=== PATIENT | male | born 1945 | race Caucasian/White ===

== ENCOUNTER → 2017-06-15 14:17 | Outpatient (CLI) | payer MEDICARE, SELFPAY ==
[2017-06-15 15:26] LABS: International Normalized Ratio 2.3; Prothrombin Time (Protime)PT. 24.4 SECONDS (11.7-14.9)
== END ==
PROVIDERS: Family Provider Family Medicine; PCP Family Medicine; Visit Provider Physician Assistant Medical
DX: I48.91 Unspecified atrial fibrillation (principal)
CPT/HCPCS: 36415; 85610

== ENCOUNTER 2017-07-04 11:34 | Outpatient (RCR) | payer MEDICARE, SELFPAY ==
[2017-07-04 12:57] LABS: International Normalized Ratio 2.6; Prothrombin Time (Protime)PT. 27.1 SECONDS (11.7-14.9)
== END 2017-07-04 12:00 | disposition home or self-care (01) ==
LOC: LAB 11:34
PROVIDERS: Family Provider Family Medicine; PCP Family Medicine; Visit Provider Internal Medicine Cardiovascular Disease
DX: I48.91 Unspecified atrial fibrillation (principal)
CPT/HCPCS: 36415; 85610

== ENCOUNTER 2017-10-18 11:38 | Outpatient (RCR) | payer MEDICARE, SELFPAY ==
[2017-10-18 12:39] LABS: International Normalized Ratio 2.8; Prothrombin Time (Protime)PT. 29.4 SECONDS (11.7-14.9)
== END 2017-10-18 12:00 | disposition home or self-care (01) ==
LOC: LAB 11:38
PROVIDERS: Family Provider Family Medicine; PCP Family Medicine; Visit Provider Internal Medicine Cardiovascular Disease
DX: I48.91 Unspecified atrial fibrillation (principal)
CPT/HCPCS: 36415; 85610

== ENCOUNTER 2017-11-29 13:25 | Outpatient (RCR) | payer MEDICARE, SELFPAY ==
[2017-11-29 14:11] LABS: International Normalized Ratio 2.7; Prothrombin Time (Protime)PT. 28.8 SECONDS (11.7-14.9)
== END 2017-11-29 15:00 | disposition home or self-care (01) ==
LOC: LAB 13:25
PROVIDERS: Family Provider Family Medicine; PCP Family Medicine; Visit Provider Internal Medicine Cardiovascular Disease
DX: I48.91 Unspecified atrial fibrillation (principal); Z79.01 Long term (current) use of anticoagulants
CPT/HCPCS: 36415; 85610

== ENCOUNTER 2018-01-05 10:34 | Outpatient (RCR) | payer MEDICARE, SELFPAY ==
[2018-01-05 11:29] LABS: International Normalized Ratio 2.8; Prothrombin Time (Protime)PT. 29.4 SECONDS (11.7-14.9)
== END 2018-01-05 12:00 | disposition home or self-care (01) ==
LOC: LAB 10:34
PROVIDERS: Family Provider Family Medicine; PCP Family Medicine; Visit Provider Internal Medicine Cardiovascular Disease
DX: I48.91 Unspecified atrial fibrillation (principal)
CPT/HCPCS: 36415; 85610

== ENCOUNTER → 2018-01-25 12:40 | Outpatient (CLI) | payer MEDICARE, SELFPAY | PROVIDERS: Family Provider Family Medicine; PCP Family Medicine; Visit Provider Internal Medicine Cardiovascular Disease | DX: I48.91 Unspecified atrial fibrillation (principal) | CPT/HCPCS: 36415; 85610 ==

== ENCOUNTER 2018-02-21 13:03 | Outpatient (RCR) | payer MEDICARE, SELFPAY ==
[2018-02-21 14:24] LABS: International Normalized Ratio 2.8; Prothrombin Time (Protime)PT. 29.8 SECONDS (11.7-14.9)
== END 2018-02-21 14:00 | disposition home or self-care (01) ==
LOC: LAB 13:03
PROVIDERS: Family Provider Family Medicine; PCP Family Medicine; Visit Provider Internal Medicine Cardiovascular Disease
DX: I48.91 Unspecified atrial fibrillation (principal); Z79.01 Long term (current) use of anticoagulants
CPT/HCPCS: 36415; 85610

== ENCOUNTER 2018-04-03 13:58 | Outpatient (RCR) | payer MEDICARE, SELFPAY ==
[2018-04-03 15:25] LABS: International Normalized Ratio 2.6; Prothrombin Time (Protime)PT. 27.6 SECONDS (11.7-14.9)
--- OUTSIDE RECORDS SUMMARY | 2018-05-30 03:23 | XMS RPT_ITS ---
:1945 Author Organization OHIP Support Name Relationship Address Phone RONI CÁRDENAS Unavailable [address] + [place] [address] R Unavailable Unavailable Unavailable RONI CÁRDENAS Unavailable [address] + [place] [address] R Unavailable Unavailable Unavailable RONI CÁRDENAS Unavailable [address] + [place] [address] R Unavailable Unavailable Unavailable RONI CÁRDENAS Unavailable [address] + [place] [address] R Unavailable Unavailable Unavailable RONI CÁRDENAS Unavailable [address] + [place] [address] R Unavailable Unavailable Unavailable RONI CÁRDENAS Unavailable [address] + [place] [address] R Unavailable Unavailable Unavailable RONI CÁRDENAS Unavailable [address] + [place] [address] R Unavailable Unavailable Unavailable RONI CÁRDENAS Unavailable [address] + [place] [address] R Unavailable Unavailable Unavailable R Unavailable Unavailable Unavailable R Unavailable Unavailable Unavailable R Unavailable Unavailable Unavailable R Unavailable Unavailable Unavailable R Unavailable Unavailable Unavailable Care Team Providers Name Role Phone Martinez Rivas Attending Unavailable Elderjose f, Vy Primary Care Unavailable Martinez Rivas Referring Unavailable Yu Dawkins Attending Unavailable Elderbrock, Vy Primary Care Unavailable Sebastian Ordoñez Attending Unavailable Elderbrock, Vy Referring Unavailable Elderbrock, Vy Primary Care Unavailable Martinez Rivas Attending Unavailable Martinez Rivas Referring Unavailable Elderjose f, Vy Primary Care Unavailable Martinez Rivas Attending Unavailable Martinez Rivas Referring Unavailable Elderbrock, Vy Primary Care Unavailable Ayana Diggs Attending Unavailable Martinez Rivas Attending Unavailable Ngack, Vy Referring Unavailable Martinez Rivas Attending Unavailable Martinez Rivas Referring Unavailable Elderbrojaerd, Vy Primary Care Unavailable Martinez Rivas Attending Unavailable Martinez Rivas Referring Unavailable Elderbrock, Vy Primary Care Unavailable Martinez Rivas Attending Unavailable Martinez Rivas Referring Unavailable Elderbrock, Vy Primary Care Unavailable Martinez Rivas Attending Unavailable Martinez Rivas Referring Unavailable Elderbrock, Vy Primary Care Unavailable Martinez Rivas Attending Unavailable Martinez Rivas Referring Unavailable Elderbrock, Vy Primary Care Unavailable Sebastian Ordoñez Attending Unavailable Elderbrock, Vy Referring Unavailable Elderbrock, Vy Primary Care Unavailable ELDERBROCK, VY Segal Attending Unavailable ELDERBROCK, VY D Referring Unavailable ATA SERRANO Attending Unavailable ATA SERRANO Referring Unavailable SAGAR MANRIQUE (ENGINEERING FACULTY) Attending Unavailable ATA SERRANO Referring Unavailable SAGAR MANRIQUE (ENGINEERING FACULTY) Referring Unavailable GARY QUIGLEY Referring Unavailable ELDERBROCK, VY Segal Attending Unavailable ELDERBROCK, VY Segal Attending Unavailable ELDERBROCK, VY Segal Referring Unavailable ELDERBROCK, VY Segal Referring Unavailable KHARI JOSHI Attending Unavailable ELDERKIMCK, VY Segal Referring Unavailable KHARI JOSHI Admitting Unavailable KHARI JOSHI Attending Unavailable ELDERKIMCKVY Referring Unavailable JEANNE KENNEDY ([place]) Attending Unavailable KHARI JOSHI Referring Unavailable KHARI JOSHI Attending Unavailable KHARI JOSHI Referring Unavailable JOSH JOHN Attending Unavailable JOSH JOHN Referring Unavailable PROBLEMS PROBLEMS DATE TYPE CONDITION / CODE ATTENDING STATUS SOURCE 04/09/2018 Unknown I48.91 - Unspecified Martinez Rivas Active [facility] atrial fibrillation [facility] / I48.91(ICD-10) Hospital Repository 03/05/2018 Active Unknown / PETTYTOCARINE, Active [place] UNK(Unknown) JEANNE ([facility]) Clinic Main [place] Repository 02/22/2018 Active Carpal tunnel KHARI JOSHI Active [facility] syndrome, bilateral Clinic Main upper limbs / [place] G56.03(ICD-10) Repository 11/29/2010 Active Impaired fasting NA Active [facility] glucose / Clinic Main R73.01(ICD-10) [place] Repository 10/31/2017 Active Laceration without NA Active [facility] foreign body of left [facility] Main ring finger with [place] damage to nail, Repository sequela / S61.315S(ICD-10) 10/11/2017 Active Cough / R05(ICD-10) NA Active [facility] [place] Repository 07/05/2017 Active 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 [facility] (current) drug [facility] Main therapy / [place] Z79.899(ICD-10) Repository 04/04/2017 Active Unspecified atrial ELDERBRO, Active [facility] fibrillation / V[place] D [facility] Main I48.91(ICD-10) [place] Repository 07/20/2015 Active Mixed hyperlipidemia [facility], Active [facility] / E78.2(ICD-10) VY D [facility] Main [place] Repository 06/26/2009 Active Essential (primary) ELDERBROCK, Active [facility] hypertension / [place] D [facility] Main I10(ICD-10) [place] Repository 07/04/2017 Active Other abnormal [facility], Active [facility] glucose / VY D [facility] Main R73.09(ICD-10) [place] Repository 07/04/2017 Active Elevated prostate [facility], Active [facility] specific antigen [facility] Main (PSA) / [place] R97.20(ICD-10) Repository PROCEDURES PROCEDURES No Procedure Records FoundRESULTS RESULTS PROTHROMBIN TIME W/INR Collected: 04/03/2018 Status: F Source: [place] 2:06 PM [facility] REPOSITORY TYPE CODE TESTS RESULT OUT OF RANGE REFERENCE UNITS LAB L300.4150 11.7-14.9 SECONDS High PROTIME 27.6 LAB L300.4200 Normal INR 2.6 Performed By: #### L300.3900 #### [facility] [address] [place], [address] PROGRESS Observed: 03/05/2018 Status: COMPLETED Source: [place] 11:01 AM [facility] REPOSITORY HNO ID: [id number] Author: Jeanne Kennedy (Pa) Service: (none) Author Type: Physician Tube Cutter Type: Progress Notes Filed: 03/05/2018 11:03 AM Note Text: Jeanne Kennedy PA-C Department of Orthopaedics Orthopaedics [address] [facility] [address] Dept: [phone] Dept March 05, 2018 CHIEF COMPLAINT: Surgical Followup (left CTR 1 week 4 day). ASSESSMENT: G56.02 Carpal tunnel syndrome of left wrist (primary encounter diagnosis) SUMMARY/PLAN: Patient presents 1 week and 4 days status post left carpal tunnel release. He complains of 5 out of 10 and intermittent deep, sharp, aching pain that is worse with activity. The patient has not been icing or elevating. He tells me that he heat to his home with reported and is having a difficult time with a 5 pound weight restriction. He notes that one of his sutures popped out. We willl remove his remaining sutures today, he did not wish to be fitted with a gel brace. He was advised to start icing and elevating. We will see him back in 1 month. Exam: Incision site is without erythema, discharge or drainage. There is a moderate amount of edema and tenderness to palpation at the base of the palm. Subjective numbness and tingling at the left thumb and left index finger. Imaging: Deferred today Mr. Emma Cárdenas was advised as to contrast therapies and/or to take analgesics/anti-inflammatories as needed and all contraindications were reviewed. Supporting Information Below: Medications: Current Outpatient Prescriptions: timolol maleate (TIMOPTIC) 0.5 % ophthalmic solution Use 1 Drop in both eyes twice daily. propranolol ER (INDERAL LA) 60 mg 24 hr capsule Take 1 capsule by mouth once daily. tamsulosin ER (FLOMAX) 0.4 mg cap TAKE 1 CAPSULE EVERY DAY AT BEDTIME lisinopril (ZESTRIL, PRINIVIL) 5 mg tablet TAKE 1 TABLET EVERY DAY simvastatin (ZOCOR) 40 mg tablet TAKE 1 TABLET EVERY DAY fluticasone (FLONASE) 50 mcg/actuation nasal spray Use 2 Sprays in each nostril once daily. (Patient not taking: Reported on 01/25/2018 ) warfarin (COUMADIN) 5 mg tablet Take 1 tablet by mouth once daily. [place]-3 Fatty Acids-Vitamin E (FISH OIL) 1,000 mg cap Take 1 capsule by mouth. latanaprost 0.005 % OPHTHALMIC ophthalmic solution Use 1 Drop in both eyes once daily. No current facility-administered medications for this visit. Allergies: Flagyl [Metronidazole Hcl]; Imipramine This note was partially generated using [employer] voice recognition system, and there may be some incorrect words, spellings, and punctuation that were not noted in checking the note before saving. ABUNDIO Lawson Observed: 03/05/2018 Status: COMPLETED Source: [place] 11:00 AM [facility] REPOSITORY Office Visit (ORTHWS) EMMA CÁRDENAS ([id number]) 1945 M Date Time Provider Department 03/05/18 11:00 AM JEANNE KENNEDY (PA) During your visit today, we recorded the following information about you: Brittney Noe SURVEILLANCE DUAL RATE OFFICER 03/05/2018 11:03 AM Signed AMB ROOMING INTAKE FLOWSHEET DATA Risk Screening Do you have concerns about personal safety or safety in the home?: No Patient here for one week 4 day CTR follow up. He states he has very intermittent pain, described as a sharp ache. He has been using Aleve at night with some relief. Jeanne Kennedy PA-C 03/05/2018 11:03 AM Signed Jeanne Kennedy PA-C Department of Orthopaedics Orthopaedics [address] [facility] [address] Dept: [phone] Dept March 05, 2018 CHIEF COMPLAINT: Surgical Followup (left CTR 1 week 4 day). ASSESSMENT: G56.02 Carpal tunnel syndrome of left wrist (primary encounter diagnosis) SUMMARY/PLAN: Patient presents 1 week and 4 days status post left carpal tunnel release. He complains of 5 out of 10 and intermittent deep, sharp, aching pain that is worse with activity. The patient has not been icing or elevating. He tells me that he heat to his home with reported and is having a difficult time with a 5 pound weight restriction. He notes that one of his sutures popped out. We willl remove his remaining sutures today, he did not wish to be fitted with a gel brace. He was advised to start icing and elevating. We will see him back in 1 month. Exam: Incision site is without erythema, discharge or drainage. There is a moderate amount of edema and tenderness to palpation at the base of the palm. Subjective numbness and tingling at the left thumb and left index finger. Imaging: Deferred today Mr. Emma Cárdenas was advised as to contrast therapies and/or to take analgesics/anti-inflammatories as needed and all contraindications were reviewed. Supporting Information Below: Medications: Current Outpatient Prescriptions: timolol maleate (TIMOPTIC) 0.5 % ophthalmic solution Use 1 Drop in both eyes twice daily. propranolol ER (INDERAL LA) 60 mg 24 hr capsule Take 1 capsule by mouth once daily. tamsulosin ER (FLOMAX) 0.4 mg cap TAKE 1 CAPSULE EVERY DAY AT BEDTIME lisinopril (ZESTRIL, PRINIVIL) 5 mg tablet TAKE 1 TABLET EVERY DAY simvastatin (ZOCOR) 40 mg tablet TAKE 1 TABLET EVERY DAY fluticasone (FLONASE) 50 mcg/actuation nasal spray Use 2 Sprays in each nostril once daily. (Patient not taking: Reported on 01/25/2018 ) warfarin (COUMADIN) 5 mg tablet Take 1 tablet by mouth once daily. [place]-3 Fatty Acids-Vitamin E (FISH OIL) 1,000 mg cap Take 1 capsule by mouth. latanaprost 0.005 % OPHTHALMIC ophthalmic solution Use 1 Drop in both eyes once daily. No current facility-administered medications for this visit. Allergies: Flagyl [Metronidazole Hcl]; Imipramine This note was partially generated using [employer] voice recognition system, and there may be some incorrect words, spellings, and punctuation that were not noted in checking the note before saving. Jeanne Kennedy PA-C Referring Provider: KHARI JOSHI [[id number]] Allergies As of Date: 03/05/2018 Noted Allergy Reaction FLAGYL (METRONIDAZOLE HCL) 11/23/2006 8 - GI Upset Comments: nausea IMIPRAMINE 08/17/2007 5 - Intolerance Comments: Urinary retention Date Reviewed: 03/05/2018 Reviewed by: Jeanne Kennedy (Pa) - Fully Assessed Reason for Visit: Surgical Followup [104] Cmt: left CTR 1 week 4 day Primary Visit Diagnosis:Carpal tunnel syndrome of left wrist [G56.02] Prescriptions as of 03/05/2018 Sig: TIMOLOL MALEATE 0.5 % EYE NABIL* Use 1 Drop in both eyes twice* PROPRANOLOL ER 60 MG CAPSULE,* Take 1 capsule by mouth once * TAMSULOSIN 0.4 MG CAPSULE TAKE 1 CAPSULE EVERY DAY AT B* LISINOPRIL 5 MG TABLET TAKE 1 TABLET EVERY DAY SIMVASTATIN 40 MG TABLET TAKE 1 TABLET EVERY DAY FLUTICASONE 50 MCG/ACTUATION * Use 2 Sprays in each nostril * Patient not taking: Reported on 01/25/2018 WARFARIN 5 MG TABLET Take 1 tablet by mouth once d* [place]-3 FATTY ACIDS-VITAMIN E* Take 1 capsule by mouth. 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 ELEVATED PROSTATE SPECIFIC ANTIGEN [R97.20] INVALID FOR* More... Bladder neck obstruction [N32.0] INVALID FOR*10/12/2011 Benign prostatic hyperplasia with urinary hesit*INVALID FOR* Nodular prostate with urinary obstruction [N40.*INVALID FOR*10/12/2011 MALIGN NEOPL PROSTATE [C61] INVALID FOR* More... 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 Diverticulitis of colon (without mention of hem*INVALID FOR* Other affections of shoulder region, not elsewh*INVALID FOR*10/12/2011 Elevated PSA [R97.20] INVALID FOR*06/28/2016 Atrial fibrillation (HCC) [I48.91] INVALID FOR* Carpal tunnel syndrome of left wrist [G56.02] INVALID FOR* More... Carpal tunnel syndrome, bilateral [G56.03] INVALID FOR* More... Bilateral carpal tunnel syndrome [G56.03] INVALID FOR* More... Encounter Status:Closed by JEANNE KENNEDY PA-C on 03/05/18 PROGRESS Observed: 03/05/2018 Status: COMPLETED Source: [place] 10:33 AM [facility] REPOSITORY HNO ID: [id number] Author: Brittney Noe LPN Service: (none) Author Type: (none) Type: Progress Notes Filed: 03/05/2018 11:03 AM Note Text: AMB ROOMING INTAKE FLOWSHEET DATA Risk Screening Do you have concerns about personal safety or safety in the home?: No Patient here for one week 4 day CTR follow up. He states he has very intermittent pain, described as a sharp ache. He has been using Aleve at night with some relief. NURSING PROG Observed: 02/22/2018 Status: COMPLETED Source: [place] 5:05 PM [facility] REPOSITORY HNO ID: [id number] Author: Cathy Galeas) ATA Caruso Service: (none) Author Type: Registered Nurse Type: Nursing Progress Note Filed: 02/22/2018 5:27 PM Note Text: Patient did not experience a fall prior to discharge. Patient did not experience a burn prior to discharge. Cathy Caruso RN PT ED Observed: 02/22/2018 Status: COMPLETED Source: [place] 5:00 PM [facility] REPOSITORY HNO ID: [id number] Author: Cathy Caruso RN Service: (none) Author Type: Registered Nurse Type: Patient Education Filed: 02/22/2018 5:28 PM Note Text: POST OP LEARNING RESPONSE INSTRUCTION PROVIDED TO: Patient and Spouse METHOD OF INSTRUCTION: Individual instruction Written instruction - handouts Verbal instruction PATIENT / FAMILY RESPONSE: Verbalizes understanding of: INFECTION MANAGEMENT-Signs and symptoms of an infection and importance of contacting the physician MEDICAL REGIMEN-Importance of following prescribed medical regimen MEDICATION PRESCRIBED-Accurate knowledge of prescribed medication prior to discharge PHYSICAL RESTRICTIONS-Physical restrictions and recommendations after discharge from the hospital POST-OPERATIVE INSTRUCTIONS-Correct actions to take to reduce postoperative complications WORSENING CONDITION-Signs and symptoms of a worsening condition that warrant a call to the physician WOUND CARE-Correct procedure to perform wound care FOLLOW-UP PLAN: Patient instructed to call with any further issues Follow up phone call. Contact information given. post op appts SUPPLEMENTAL MATERIAL: Post op discharge instructions REFERRAL (RECOMMENDATION): None Electronically Signed By: Cathy Caruso RN In Department: AMBULATORY SURGERY OPERATIVE NO Observed: 02/22/2018 Status: COMPLETED Source: [place] 4:50 PM [facility] REPOSITORY O ID: [id number] Author: Khari Joshi Service: Orthopaedic Surgery Author Type: Physician Type: Operative Report Filed: 02/22/2018 4:50 PM Note Text: OPERATIVE/PROCEDURE REPORT LOG ID: [id number] Surgery/Procedure Date: 02/22/2018 Incision/Procedure Start Time: 4:12 PM Incision Close/Procedure End Time: 4:29 PM Surgeon(s)/Proceduralist(s) and Tube Cutter(s): Surgeon(s) and Role: * Khari Joshi - Primary No Additional Staff Procedure(s): OPERATION: Left carpal tunnel release, open. ? ANESTHESIA: local. ? PREOPERATIVE DIAGNOSIS: Left carpal tunnel syndrome. ? POSTOPERATIVE DIAGNOSIS: Left carpal tunnel syndrome. ? OPERATIVE INDICATIONS: This is a pleasant 72 year old male who had worsening, numbness, and tingling. His electrodiagnostic showed severe carpal tunnel syndrome. He exhausted conservative management and in the office, we discussed the risks, benefits, alternatives, and potential complications involving carpal tunnel release and he wished to pursue surgical intervention. ? OPERATIVE FINDINGS: Consistent with postoperative diagnosis. ? OPERATIVE PROCEDURE: On February 22, 2018, the patient was clearly identified in the preoperative area and marked accordingly on the Left palm by myself. In the preop area, Local anesthetic was provided at the palm and wrist with 1% lidocaine with 1:100,000 epinephrine for total of 20 mL. He was taken to the operative suite and placed in the supine position with an armboard on the Left. All other bony landmarks were appropriately padded in standard fashion. The arm was then sterilely prepped and draped in standard fashion. An appropriate time- out was conducted and all in the room were in agreement, signed consent form was on the chart. A longitudinal incision was made with in line with the third web space from 1 cm distal of the wrist crease to Jenkins's cardinal line. I used Jan Rakes to retract the soft tissues. Bipolar electrocautery was used for hemostasis. I bluntly dissected down with Littler scissors to distal edge of the transverse carpal ligament until a flash of fat was noted. I directly divided distal edge of the transverse carpal ligament with a #15 blade. Attention was then focused on the proximal portion and I used Littler scissors to bluntly dissect off the volar surface of the transverse carpal ligament. A carpal tunnel and median nerve protection guide was slid directly under the ligament for dilation and a second time for appropriate positioning, this was passed freely without any resistance. Subsequently, I selected a mini meniscotome [place] blade and slid this in the protective guide, completely dividing the transverse carpal ligament. Jan rakes were used to view up the wound to visualize for complete release and a Stovall elevator was used to palpate for complete release. hemostasis was observed. The wound was copiously irrigated with normal saline and I closed with 3-0 nylons in horizontal mattress fashion for a total of 3. Xeroform gauze, sterile 4 x 4 gauze, Webril padding, and a Bias roll was used for final bandage. There were no complications during the procedure. The patient was safely transferred to the Postanesthetic Care Unit in stable condition. ? I performed the entire procedure. SIGNATURE: Khari Joshi MD PATIENT NAME: Emma Cárdenas DATE: February 22, 2018 TIME: 4:50 PM PAGER/CONTACT #: NURSING PROG Observed: 02/22/2018 Status: COMPLETED Source: [place] 4:45 PM [facility] REPOSITORY HNO ID: [id number] Author: Cathy Caruso RN Service: (none) Author Type: Registered Nurse Type: Nursing Progress Note Filed: 02/22/2018 5:27 PM Note Text: Pt sitting up in bed-tolerated snack and drink well. Fingers on left hand pink and warm with good mobility. Denies pain or nausea. Drsg remains dry and intact. Given ice pack for home use. Cathy Caruso RN NURSING PROG Observed: 02/22/2018 Status: COMPLETED Source: [place] 4:29 PM [facility] REPOSITORY HNO ID: [id number] Author: Obdulia Ramos RN Service: (none) Author Type: Registered Nurse Type: Nursing Progress Note Filed: 02/22/2018 4:29 PM Note Text: Patient did not experience a fall within the Intraoperative area. Patient did not experience a burn within the Intraoperative area. Obdulia Ramos RN NURSING PROG Observed: 02/22/2018 Status: COMPLETED Source: [place] 3:55 PM [facility] REPOSITORY HNO ID: [id number] Author: Cathy VillanuevaRn) ATA Caruso Service: (none) Author Type: Registered Nurse Type: Nursing Progress Note Filed: 02/22/2018 4:15 PM Note Text: [facility] PRE-OP NURSING HAND OFF NOTE SBAR Hand off given to Jaquelin Haney RN and Obdulia Ramos RN. Hand off was communicated verbally and at the patient's bedside and all questions were answered. FALLS/GRUBER Patient did not experience a fall within the Preoperative area. Patient did not experience a burn within the Preoperative area. Cathy Caruso RN PT ED Observed: 02/22/2018 Status: COMPLETED Source: [place] 3:12 PM [facility] REPOSITORY HNO ID: [id number] Author: Cathy Galeas) ATA Caruso Service: (none) Author Type: Registered Nurse Type: Patient Education Filed: 02/22/2018 3:13 PM Note Text: PRE OP LEARNING ASSESSMENT PROCEDURE/SURGERY: SURGERY: left carpal tunnel release READINESS TO LEARN COGNITIVE ABILITY: Alert and oriented MOTIVATION TO LEARN: Eager FAMILY SUPPORT: Unable to assess - Family not present PATIENT LEARNS BEST BY: Multiple Methods FACTORS AFFECTING LEARNING: None PHYSICAL LIMITATIONS AFFECTING LEARNING: None Electronically Signed By: Cathy Caruso RN In Department: AMBULATORY SURGERY HISTORY PHYSICAL Observed: 02/22/2018 Status: COMPLETED Source: [place] 2:39 PM [facility] REPOSITORY HNO ID: [id number] Author: Khari Joshi Service: Orthopaedic Surgery Author Type: Physician Type: HANDP Filed: 02/22/2018 2:40 PM Note Text: UPDATED HISTORY AND PHYSICAL EXAMINATION SERVICE DATE: 02/22/2018 SERVICE TIME: 2:39 PM PHYSICAL EXAM MUST BE COMPLETED ON ADMISSION The History and Physical (completed in the past 30 days) has been reviewed and the patient has been examined. The contents accurately reflect the patient's condition with the following additions or revisions since the HANDP was completed. Examination indicates no changes. This HANDP can be found in the Electronic Medical Record. SIGNATURE: Khari Joshi MD PATIENT NAME: Emma Cárdenas DATE: February 22, 2018 TIME: 2:39 PM PAGER: PROTHROMBIN TIME W/INR Collected: 02/21/2018 Status: F Source: [place] 1:05 PM [facility] REPOSITORY TYPE CODE TESTS RESULT OUT OF RANGE REFERENCE UNITS LAB L300.4150 11.7-14.9 SECONDS High PROTIME 29.8 LAB L300.4200 Normal INR 2.8 Performed By: #### L300.3900 #### [facility] [address] [place], [address] PROGRESS Observed: 02/09/2018 Status: COMPLETED Source: [place] 12:06 PM [facility] REPOSITORY HNO ID: [id number] Author: Khari Joshi Service: (none) Author Type: Physician Type: Progress Notes Filed: 02/09/2018 2:02 PM Note Text: Khari Joshi MD Department of Orthopaedics Orthopaedics [address] [address] Dept: [phone] Dept January 25, 2018 CHIEF COMPLAINT: [facility] HPI: Mr. Emma Cárdenas is a 72 year old male who presents with problems in both of his hands, left worse than right. 10 out of 10 burning and tingling and numb pain. This has been worse over the past 3 years. Wakes him at night, difficulty driving. He enjoys cutting and stacking firewood and he's having a lot harder time doing this. He had a nerve conduction exam number of years ago which was positive. ASSESSMENT: G56.03 Bilateral carpal tunnel syndrome (primary encounter diagnosis) PLAN: The risks, benefits, alternatives and potential, locations involving both nonoperative and operative management of his carpal tunnel was reviewed. He would like to pursue surgery on the left. FOLLOW UP INSTRUCTIONS: We'll schedule at his convenience. Mr. Emma Cárdenas was advised as to contrast therapies and/or to take analgesics/anti-inflammatories as needed and all contraindications were reviewed. OBJECTIVE: Mr. Emma Cárdenas is a pleasant 72 year old in no apparent distress. Gen:BP 142/81 Pulse 59 Ht 5' 4 (1.63m) Wt 177 lb 12.8 oz (80.7kg) BMI 30.50 kg/(m2). nl development, non obese, no deformities ENT: Normocephalic, normal hearing, moist mucosa CV: Pulses:Radial= 2+ and symmetric, capillary refill < 2 secs, no peripheral edema/varicosities Skin: no rash, bruising or lesions. Good turgor. Psych: cooperative and appropriate, alert and oriented x 3, good mood and affect. Musculoskeletal: Cervical spine has supple range of motion and no tenderness to palpation, Spurling's sign negative. Shoulders and elbows have full range of motion. Negative Tinel's over the cubital tunnel, no subluxation of ulnar nerve at the elbow with flexion. Negative Tinel's over Guyon's canal. Inspection reveals no thenar atrophy. Diminished sensation to light touch in the radial 3 digits, left worse than right. Sensation intact in the ulnar 2 digits with out intrinsic atrophy/weakness. Positive Tinel's at the wrist, positive carpal tunnel compression testing on the left worse than right. No locking or catching of the digits. No tenderness to palpation or masses noted in the forearm or hand. Electrodiagnostics from 2015 show moderate carpal tunnel on the right, moderate to advanced on the left. Supporting Subjective Information Below: Past Medical History: PAST MEDICAL HISTORY Diagnosis Date - Congenital spondylolisthesis - Diverticula of colon - Elevated blood pressure reading without diagnosis of hypertension - Essential hypertension, benign - Glaucoma - Hyperplasia of prostate - MALIGN NEOPL PROSTATE 09/18/2008 - Other and unspecified hyperlipidemia Past Surgical History: PAST SURGICAL HISTORY Procedure Laterality Date - COLONOSCOP W/ OR W/O [facility] SPEC 09/27/05 - COLONOSCOP W/ OR W/O [facility] SPE[facility] 10/18/10 Diverticulitis - mild - 25-30cm - LAP COLECTOMY W COLOPROCTOST 10/19/10 - PAST SURGICAL HISTORY OF Left 12/2015 Cataract surgery - PAST SURGICAL HISTORY OF Right 02/2016 Cataract surgery - SHOULDER ARTHROSCOPY/SURG 03/01/2011 Right shoulder biceps tenotomy and reverse decompression Family History: FAMILY HISTORY Problem Relation Age of Onset - other (hypoglycemia) Father Social History:Social History Marital status: Spouse name: Years of education: Number of children: Social History Main Topics Smoking status: Never Smoker Smokeless tobacco: Never Used Comment: Smoked some as teen ager Alcohol use: No Drug use: No Medications: Current Outpatient Prescriptions: propranolol ER (INDERAL LA) 60 mg 24 hr capsule Take 1 capsule by mouth once daily. propranolol ER (INDERAL LA) 60 mg 24 hr capsule Take 1 capsule by mouth once daily. tamsulosin ER (FLOMAX) 0.4 mg cap TAKE 1 CAPSULE EVERY DAY AT BEDTIME lisinopril (ZESTRIL, PRINIVIL) 5 mg tablet TAKE 1 TABLET EVERY DAY simvastatin (ZOCOR) 40 mg tablet TAKE 1 TABLET EVERY DAY warfarin (COUMADIN) 5 mg tablet Take 1 tablet by mouth once daily. [place]-3 Fatty Acids-Vitamin E (FISH OIL) 1,000 mg cap Take 1 capsule by mouth. latanaprost 0.005 % OPHTHALMIC ophthalmic solution Use 1 Drop in both eyes once daily. fluticasone (FLONASE) 50 mcg/actuation nasal spray Use 2 Sprays in each nostril once daily. (Patient not taking: Reported on 01/25/2018 ) No current facility-administered medications for this visit. Allergies: Flagyl [Metronidazole Hcl]; Imipramine ROS: General (negative for fatigue, malaise, weight loss/gain) HEENT (negative for headache, earache, recent vision changes, sinus pain, sore throat) Respiratory (no recent shortness of breath, hemoptysis) CV (negative for chest tightness, palpitations) Musculoskeletal (see HPI) Psych (no depression, anxiety) REFERRING PHYSICIAN: Mr. Emma Cárdenas was referred to nm for consultation by the following physician. This consultation note will be sent to the following physician by either mail or electronic medical record. Vy Mascorro MD [address] [facility] [address] Vy Mascorro MD [address] [facility] [place] [address] This note was partially generated using [employer] voice recognition system, and there may be some incorrect words, spellings, and punctuation that were not noted in checking the note before saving. Khari Joshi MD [facility] Observed: 01/26/2018 Status: COMPLETED Source: [place] 12:00 AM [facility] [place] REPOSITORY Patient:Emma Cárdenas MRN: <[id number]> Height:5' 4(1.626 m) Weight:177 lb 12.8 oz (80.65 kg) Outpatient Medications as of 02/22/18: timolol maleate (TIMOPTIC) 0.5 % ophthalmic solution propranolol ER (INDERAL LA) 60 mg 24 hr capsule tamsulosin ER (FLOMAX) 0.4 mg cap lisinopril (ZESTRIL, PRINIVIL) 5 mg tablet simvastatin (ZOCOR) 40 mg tablet fluticasone (FLONASE) 50 mcg/actuation nasal spray warfarin (COUMADIN) 5 mg tablet [place]-3 Fatty Acids-Vitamin E (FISH OIL) 1,000 mg cap latanaprost 0.005 % OPHTHALMIC ophthalmic solution Admission/Clinic Administered Medications as of 02/22/18: lidocaine-EPINEPHrine (PF) 1 %-1:200,000 30 mL injection Problem List: Essential hypertension, benign [I10] Mixed hyperlipidemia [E78.2] Family history of diabetes mellitus [Z83.3] Peyronie's disease [N48.6] Pain in joint, shoulder region [M25.519] Aortic valve disorder [I35.9] Elevated prostate specific antigen (PSA) [R97.20] Benign prostatic hyperplasia with urinary hesitancy [N40.1, R39.11] Malignant neoplasm of prostate (HCC) [C61] Impaired fasting glucose [R73.01] CKD (chronic kidney disease) [N18.9] Diverticulitis of colon (without mention of hemorrhage)(562.11) [K57.32] Atrial fibrillation (HCC) [I48.91] Carpal tunnel syndrome of left wrist [G56.02] Carpal tunnel syndrome, bilateral [G56.03] Bilateral carpal tunnel syndrome [G56.03] Allergies: Flagyl [Metronidazole Hcl] Imipramine Date Verified: 02/22/18 Lab Values No results within the last 30 days for the following basenames: K,HCT [facility] Kamila Carmona Ma 01/25/2018 2:54 PM Signed Patient scheduled for Left carpal tunnel release on 02/22/18 under local in [place]. Surgical request completed. Surgery confirmation letter and post op appointments mailed to patient. Laine Krishnan RN, RN 01/26/2018 5:06 PM Signed New surgical request placed due to the location being at [place]. ATA Wise Ma 01/30/2018 9:15 AM Signed Patient has been scheduled as requested. Progress Notes ([facility]): Kamila Carmona Ma 02/09/2018 2:02 PM Signed Patient presents with: New Patient: Bilateral CTS - Ref. [facility] [place] ROOMING INTAKE FLOWSHEET DATA Risk Screening Do you have concerns about personal safety or safety in the home?: No Pain Pain Score: 10/10 Pain Location: (Bilateral wrists) Description: Burning, Tingling, Numbness (Stinging) Duration Amount of Time: 3 Duration Units: Years Frequency: Intermittent (Worse at night) Patient states he is having numbness and tingling in both of his hands. Left hand is worse than right hand and the pain is worse at night. Patient had an EMG done in 08/06/14. 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 States he is concerned about being out of commission and not being able to use of his hands. Taking no med's for the pain. Khari Joshi MD 02/09/2018 2:02 PM Signed Khari Joshi MD Department of Orthopaedics Orthopaedics [address] [facility] [address] Dept: [phone] Dept January 25, 2018 CHIEF COMPLAINT: New Patient (Bilateral CTS - Ref. [facility]) HPI: Mr. Emma Cárdenas is a 72 year old male who presents with problems in both of his hands, left worse than right. 10 out of 10 burning and tingling and numb pain. This has been worse over the past 3 years. Wakes him at night, difficulty driving. He enjoys cutting and stacking firewood and he's having a lot harder time doing this. He had a nerve conduction exam number of years ago which was positive. ASSESSMENT: G56.03 Bilateral carpal tunnel syndrome (primary encounter diagnosis) PLAN: The risks, benefits, alternatives and potential, locations involving both nonoperative and operative management of his carpal tunnel was reviewed. He would like to pursue surgery on the left. FOLLOW UP INSTRUCTIONS: We'll schedule at his convenience. Mr. Emma Cárdenas was advised as to contrast therapies and/or to take analgesics/anti-inflammatories as needed and all contraindications were reviewed. OBJECTIVE: Mr. Emma Cárdenas is a pleasant 72 year old in no apparent distress. Gen:BP 142/81 Pulse 59 Ht 5' 4 (1.63m) Wt 177 lb 12.8 oz (80.7kg) BMI 30.50 kg/(m2). nl development, non obese, no deformities ENT: Normocephalic, normal hearing, moist mucosa CV: Pulses:Radial= 2+ and symmetric, capillary refill < 2 secs, no peripheral edema/varicosities Skin: no rash, bruising or lesions. Good turgor. Psych: cooperative and appropriate, alert and oriented x 3, good mood and affect. Musculoskeletal: Cervical spine has supple range of motion and no tenderness to palpation, Spurling's sign negative. Shoulders and elbows have full range of motion. Negative Tinel's over the cubital tunnel, no subluxation of ulnar nerve at the elbow with flexion. Negative Tinel's over Guyon's canal. Inspection reveals no thenar atrophy. Diminished sensation to light touch in the radial 3 digits, left worse than right. Sensation intact in the ulnar 2 digits with out intrinsic atrophy/weakness. Positive Tinel's at the wrist, positive carpal tunnel compression testing on the left worse than right. No locking or catching of the digits. No tenderness to palpation or masses noted in the forearm or hand. Electrodiagnostics from 2015 show moderate carpal tunnel on the right, moderate to advanced on the left. Supporting Subjective Information Below: Past Medical History: PAST MEDICAL HISTORY Diagnosis Date - Congenital spondylolisthesis - Diverticula of colon - Elevated blood pressure reading without diagnosis of hypertension - Essential hypertension, benign - Glaucoma - Hyperplasia of prostate - MALIGN NEOPL PROSTATE 09/18/2008 - Other and unspecified hyperlipidemia Past Surgical History: PAST SURGICAL HISTORY Procedure Laterality Date - COLONOSCOP W/ OR W/O [facility] SPEC 09/27/05 - COLONOSCOP W/ OR W/O [facility] SPE[facility] 10/18/10 Diverticulitis - mild - 25-30cm - LAP COLECTOMY W COLOPROCTOST 10/19/10 - PAST SURGICAL HISTORY OF Left 12/2015 Cataract surgery - PAST SURGICAL HISTORY OF Right 02/2016 Cataract surgery - SHOULDER ARTHROSCOPY/SURG 03/01/2011 Right shoulder biceps tenotomy and reverse decompression Family History: FAMILY HISTORY Problem Relation Age of Onset - other (hypoglycemia) Father Social History:Social History Marital status: Spouse name: Years of education: Number of children: Social History Main Topics Smoking status: Never Smoker Smokeless tobacco: Never Used Comment: Smoked some as teen ager Alcohol use: No Drug use: No Medications: Current Outpatient Prescriptions: propranolol ER (INDERAL LA) 60 mg 24 hr capsule Take 1 capsule by mouth once daily. propranolol ER (INDERAL LA) 60 mg 24 hr capsule Take 1 capsule by mouth once daily. tamsulosin ER (FLOMAX) 0.4 mg cap TAKE 1 CAPSULE EVERY DAY AT BEDTIME lisinopril (ZESTRIL, PRINIVIL) 5 mg tablet TAKE 1 TABLET EVERY DAY simvastatin (ZOCOR) 40 mg tablet TAKE 1 TABLET EVERY DAY warfarin (COUMADIN) 5 mg tablet Take 1 tablet by mouth once daily. [place]-3 Fatty Acids-Vitamin E (FISH OIL) 1,000 mg cap Take 1 capsule by mouth. latanaprost 0.005 % OPHTHALMIC ophthalmic solution Use 1 Drop in both eyes once daily. fluticasone (FLONASE) 50 mcg/actuation nasal spray Use 2 Sprays in each nostril once daily. (Patient not taking: Reported on 01/25/2018 ) No current facility-administered medications for this visit. Allergies: Flagyl [Metronidazole Hcl]; Imipramine ROS: General (negative for fatigue, malaise, weight loss/gain) HEENT (negative for headache, earache, recent vision changes, sinus pain, sore throat) Respiratory (no recent shortness of breath, hemoptysis) CV (negative for chest tightness, palpitations) Musculoskeletal (see HPI) Psych (no depression, anxiety) REFERRING PHYSICIAN: Mr. Emma Cárdenas was referred to nm for consultation by the following physician. This consultation note will be sent to the following physician by either mail or electronic medical record. Vy Mascorro MD [address] [facility] [address] Vy Mascorro MD [address] [facility] [place] [address] This note was partially generated using [employer] voice recognition system, and there may be some incorrect words, spellings, and punctuation that were not noted in checking the note before saving. Khari Joshi MD PROTHROMBIN TIME W/INR Collected: 01/25/2018 Status: F Source: [place] 12:57 PM [facility] REPOSITORY TYPE CODE TESTS RESULT OUT OF RANGE REFERENCE UNITS LAB L300.4150 11.7-14.9 SECONDS High PROTIME 23.0 LAB L300.4200 Normal INR 2.0 Performed By: #### L300.3900 #### [facility] [address] [place], [address] PROGRESS Observed: 01/25/2018 Status: COMPLETED Source: [place] 11:32 AM [facility] REPOSITORY HNO ID: [id number] Author: Kamila Carmona Ma Service: (none) Author Type: (none) Type: Progress Notes Filed: 02/09/2018 2:02 PM Note Text: Patient presents with: New Patient: Bilateral CTS - Ref. [facility] [place] ROOMING INTAKE FLOWSHEET DATA Risk Screening Do you have concerns about personal safety or safety in the home?: No Pain Pain Score: 10/10 Pain Location: (Bilateral wrists) Description: Burning, Tingling, Numbness (Stinging) Duration Amount of Time: 3 Duration Units: Years Frequency: Intermittent (Worse at night) Patient states he is having numbness and tingling in both of his hands. Left hand is worse than right hand and the pain is worse at night. Patient had an EMG done in 08/06/14. 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 States he is concerned about being out of commission and not being able to use of his hands. Taking no med's for the pain. CNOV Observed: 01/25/2018 Status: COMPLETED Source: [place] 10:40 AM [facility] REPOSITORY Office Visit (ESDRAS) EMMA CÁRDENAS ([id number]) 1945 M Date Time Provider Department 01/25/18 10:40 AM KHARI JOSHI During your visit today, we recorded the following information about you: Pulse Blood pressure Weight Height 59/minute 142/81 80.6 kg 1.626 m Kamila Carmona Ma 02/09/2018 2:02 PM Signed Patient presents with: New Patient: Bilateral CTS - Ref. [facility] [place] ROOMING INTAKE FLOWSHEET DATA Risk Screening Do you have concerns about personal safety or safety in the home?: No Pain Pain Score: 10/10 Pain Location: (Bilateral wrists) Description: Burning, Tingling, Numbness (Stinging) Duration Amount of Time: 3 Duration Units: Years Frequency: Intermittent (Worse at night) Patient states he is having numbness and tingling in both of his hands. Left hand is worse than right hand and the pain is worse at night. Patient had an EMG done in 08/06/14. 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 States he is concerned about being out of commission and not being able to use of his hands. Taking no med's for the pain. Khari Joshi MD 02/09/2018 2:02 PM Signed Khari Joshi MD Department of Orthopaedics Orthopaedics [address] [facility] [address] Dept: [phone] Dept January 25, 2018 CHIEF COMPLAINT: New Patient (Bilateral CTS - Ref. [facility]) HPI: Mr. Emma Cárdenas is a 72 year old male who presents with problems in both of his hands, left worse than right. 10 out of 10 burning and tingling and numb pain. This has been worse over the past 3 years. Wakes him at night, difficulty driving. He enjoys cutting and stacking firewood and he's having a lot harder time doing this. He had a nerve conduction exam number of years ago which was positive. ASSESSMENT: G56.03 Bilateral carpal tunnel syndrome (primary encounter diagnosis) PLAN: The risks, benefits, alternatives and potential, locations involving both nonoperative and operative management of his carpal tunnel was reviewed. He would like to pursue surgery on the left. FOLLOW UP INSTRUCTIONS: We'll schedule at his convenience. Mr. Emma Cárdenas was advised as to contrast therapies and/or to take analgesics/anti-inflammatories as needed and all contraindications were reviewed. OBJECTIVE: Mr. Emma Cárdenas is a pleasant 72 year old in no apparent distress. Gen:BP 142/81 Pulse 59 Ht 5' 4 (1.63m) Wt 177 lb 12.8 oz (80.7kg) BMI 30.50 kg/(m2). nl development, non obese, no deformities ENT: Normocephalic, normal hearing, moist mucosa CV: Pulses:Radial= 2+ and symmetric, capillary refill < 2 secs, no peripheral edema/varicosities Skin: no rash, bruising or lesions. Good turgor. Psych: cooperative and appropriate, alert and oriented x 3, good mood and affect. Musculoskeletal: Cervical spine has supple range of motion and no tenderness to palpation, Spurling's sign negative. Shoulders and elbows have full range of motion. Negative Tinel's over the cubital tunnel, no subluxation of ulnar nerve at the elbow with flexion. Negative Tinel's over Guyon's canal. Inspection reveals no thenar atrophy. Diminished sensation to light touch in the radial 3 digits, left worse than right. Sensation intact in the ulnar 2 digits with out intrinsic atrophy/weakness. Positive Tinel's at the wrist, positive carpal tunnel compression testing on the left worse than right. No locking or catching of the digits. No tenderness to palpation or masses noted in the forearm or hand. Electrodiagnostics from 2015 show moderate carpal tunnel on the right, moderate to advanced on the left. Supporting Subjective Information Below: Past Medical History: PAST MEDICAL HISTORY Diagnosis Date - Congenital spondylolisthesis - Diverticula of colon - Elevated blood pressure reading without diagnosis of hypertension - Essential hypertension, benign - Glaucoma - Hyperplasia of prostate - MALIGN NEOPL PROSTATE 09/18/2008 - Other and unspecified hyperlipidemia Past Surgical History: PAST SURGICAL HISTORY Procedure Laterality Date - COLONOSCOP W/ OR W/O [facility] SPEC 09/27/05 - COLONOSCOP W/ OR W/O [facility] SPE[facility] 10/18/10 Diverticulitis - mild - 25-30cm - LAP COLECTOMY W COLOPROCTOST 10/19/10 - PAST SURGICAL HISTORY OF Left 12/2015 Cataract surgery - PAST SURGICAL HISTORY OF Right 02/2016 Cataract surgery - SHOULDER ARTHROSCOPY/SURG 03/01/2011 Right shoulder biceps tenotomy and reverse decompression Family History: FAMILY HISTORY Problem Relation Age of Onset - other (hypoglycemia) Father Social History:Social History Marital status: Spouse name: Years of education: Number of children: Social History Main Topics Smoking status: Never Smoker Smokeless tobacco: Never Used Comment: Smoked some as teen ager Alcohol use: No Drug use: No Medications: Current Outpatient Prescriptions: propranolol ER (INDERAL LA) 60 mg 24 hr capsule Take 1 capsule by mouth once daily. propranolol ER (INDERAL LA) 60 mg 24 hr capsule Take 1 capsule by mouth once daily. tamsulosin ER (FLOMAX) 0.4 mg cap TAKE 1 CAPSULE EVERY DAY AT BEDTIME lisinopril (ZESTRIL, PRINIVIL) 5 mg tablet TAKE 1 TABLET EVERY DAY simvastatin (ZOCOR) 40 mg tablet TAKE 1 TABLET EVERY DAY warfarin (COUMADIN) 5 mg tablet Take 1 tablet by mouth once daily. [place]-3 Fatty Acids-Vitamin E (FISH OIL) 1,000 mg cap Take 1 capsule by mouth. latanaprost 0.005 % OPHTHALMIC ophthalmic solution Use 1 Drop in both eyes once daily. fluticasone (FLONASE) 50 mcg/actuation nasal spray Use 2 Sprays in each nostril once daily. (Patient not taking: Reported on 01/25/2018 ) No current facility-administered medications for this visit. Allergies: Flagyl [Metronidazole Hcl]; Imipramine ROS: General (negative for fatigue, malaise, weight loss/gain) HEENT (negative for headache, earache, recent vision changes, sinus pain, sore throat) Respiratory (no recent shortness of breath, hemoptysis) CV (negative for chest tightness, palpitations) Musculoskeletal (see HPI) Psych (no depression, anxiety) REFERRING PHYSICIAN: Mr. Emma Cárdenas was referred to nm for consultation by the following physician. This consultation note will be sent to the following physician by either mail or electronic medical record. Vy Mascorro MD [address] [facility] [address] Vy Mascorro MD [address] [facility] [place] [address] This note was partially generated using [employer] voice recognition system, and there may be some incorrect words, spellings, and punctuation that were not noted in checking the note before saving. Khari Joshi MD Referring Provider: VY MASCORRO [[id number]] Allergies As of Date: 01/25/2018 Noted Allergy Reaction FLAGYL (METRONIDAZOLE HCL) 11/23/2006 8 - GI Upset Comments: nausea IMIPRAMINE 08/17/2007 5 - Intolerance Comments: Urinary retention Date Reviewed: 01/25/2018 Reviewed by: Khari Joshi - Fully Assessed Reason for Visit: New Patient [172] Cmt: Bilateral CTS - Ref. [facility] Primary Visit Diagnosis:Bilateral carpal tunnel syndrome [G56.03] Prescriptions as of 01/25/2018 Sig: PROPRANOLOL ER 60 MG CAPSULE,* Take 1 capsule by mouth once * PROPRANOLOL ER 60 MG CAPSULE,* Take 1 capsule by mouth once * TAMSULOSIN 0.4 MG CAPSULE TAKE 1 CAPSULE EVERY DAY AT B* LISINOPRIL 5 MG TABLET TAKE 1 TABLET EVERY DAY SIMVASTATIN 40 MG TABLET TAKE 1 TABLET EVERY DAY WARFARIN 5 MG TABLET Take 1 tablet by mouth once d* [place]ME[place]-3 FATTY ACIDS-VITAMIN E* Take 1 capsule by mouth. * LATANOPROST 0.005 % EYE DROPS Use 1 Drop in both eyes once * FLUTICASONE 50 MCG/ACTUATION * Use 2 Sprays in each nostril * Patient not taking: Reported on 01/25/2018 Problem List As Of Date 01/25/2018 Noted Resolved Essential Hypertension, Benign [I10] INVALID FOR* Priority: A Mixed hyperlipidemia [E78.2] INVALID FOR* Priority: Severe Family History of Diabetes Mellitus [Z83.3] INVALID FOR* Priority: 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 ELEVATED PROSTATE SPECIFIC ANTIGEN [R97.20] INVALID FOR* More... Bladder neck obstruction [N32.0] INVALID FOR*10/12/2011 Benign prostatic hyperplasia with urinary hesit*INVALID FOR* Nodular prostate with urinary obstruction [N40.*INVALID FOR*10/12/2011 MALIGN NEOPL PROSTATE [C61] INVALID FOR* More... 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 Diverticulitis of colon (without mention of hem*INVALID FOR* Other affections of shoulder region, not elsewh*INVALID FOR*10/12/2011 Elevated PSA [R97.20] INVALID FOR*06/28/2016 Atrial fibrillation (HCC) [I48.91] INVALID FOR* Carpal tunnel syndrome of left wrist [G56.02] INVALID FOR* More... Follow-up and Disposition History Recorded Encounter Status:Closed by KHARI JOSHI MD on 02/09/18 PROTHROMBIN TIME W/INR Collected: 01/05/2018 Status: F Source: [place] 10:40 AM [facility] REPOSITORY TYPE CODE TESTS RESULT OUT OF RANGE REFERENCE UNITS LAB L300.4150 11.7-14.9 SECONDS High PROTIME 29.4 LAB L300.4200 Normal INR 2.8 Performed By: #### [id number] #### [facility] [address] [place], [address] HEMOGLOBIN A1C Collected: 01/05/2018 Status: F Source: [place] 10:24 AM [facility] REPOSITORY TYPE CODE TESTS RESULT OUT OF REFERENCE UNITS RANGE LAB HGBA1C 4.3-5.6 % High Hemoglobin A1c 5.8 LAB HBA0 mg/dL Est. Average Glucose 120 Result Comment: eAG: (Estimated average glucose) is a calculated value from HgbA1c and is veterans employment representative of the average blood glucose level in the last 2-3 month period. Performed By: #### HBA1C, CMP #### [facility] [address] [place], [place] [address] COMP METABOLIC PANEL Collected: 01/05/2018 Status: F Source: [place] 10:24 AM [facility] REPOSITORY TYPE CODE TESTS RESULT OUT OF REFERENCE UNITS RANGE LAB TP 6.3-8.0 g/dL Protein, Total 6.6 LAB ALB 3.9-4.9 g/dL Albumin 4.4 LAB CA 8.5-10.2 mg/dL Calcium, Total 9.6 LAB TBIL 0.2-1.3 mg/dL Bilirubin, Total 0.7 LAB ALKP 36-108 U/L Alkaline Phosphatase 69 LAB AST 14-40 U/L AST 33 LAB GLU 74-99 mg/dL Glucose 98 Result Comment: The [place] Diabetes Association (ADA) provides guidance for cutoff values for fasting glucose and random glucose. The ADA defines fasting as no caloric intake for at least 8 hours. Fas ting plasma glucose results between 100 to 125 mg/dL indicate increased risk for diabetes (prediabetes). Fasting plasma glucose results greater than or equal to 126 mg/dL meet the criteria for diagnosis of diabetes. In the absence of unequivocal hyperglycemia, results should be confirmed by repeat testing. In a patient with classic symptoms of hyperglycemia or hyperglycemic crisis, random plasma glucose results greater than or equal to 200 mg/dL meet the criteria for diagnosis of diabetes. Reference: Standards of Medical Care in Diabetes 2016, [place] Diabetes Association. Diabetes Care. 2016.39(Suppl 1). LAB BUN 9-24 mg/dL BUN 18 LAB CRET 0.73-1.22 mg/dL Creatinine High 1.33 LAB NA 136-144 mmol/L Sodium 139 LAB K 3.7-5.1 mmol/L Potassium 4.7 LAB CL 97-105 mmol/L Chloride 102 LAB CO2 22-30 mmol/L CO2 26 LAB AGAP 9-18 mmol/L Anion Gap 11 LAB ALT 10-54 U/L ALT 34 LAB GFRAA eGFR- Amer. >60 LAB GFRNAA . eGFR-All Other Races 53 Result Comment: eGFR (Estimated GFR) Units of measure: mL/min/1.73 meters squared eGFR is derived from the reexpressed MDRD Study equation using the following parameters: serum creatinine, age, gender and race. The creatinine assay has been calibrated to be traceable to IDMS. An eGFR <60 mL/min/1.73m2 for >3 months is consistent with chronic kidney disease. Refer to KDOQI guidelines for clinical interpretation. In patients with unstable renal function, e.g. those with acute kidney injury, the eGFR may not accurately reflect actual GFR. Performed By: #### HBA1C, CMP #### [facility] [address] [place] [address] LIPID PANEL, BASIC Collected: 01/05/2018 Status: F Source: [place] 10:24 AM [facility] REPOSITORY TYPE CODE TESTS RESULT OUT OF REFERENCE UNITS RANGE LAB CHOL <200 mg/dL Cholesterol 169 Result Comment: <200 mg/dL, Desirable 200-239 mg/dL, Borderline high >239 mg/dL, High LAB TRIGLY <150 mg/dL Triglyceride High 189 Result Comment: <150 mg/dL, Normal 150-199 mg/dL, Borderline high 200-499 mg/dL, High >499 mg/dL, Very high LAB HDL >39 mg/dL HDL-Cholesterol Low 31 Result Comment: 40-59 mg/dL, Acceptable >59 mg/dL, High: Negative risk factor for coronary heart disease <40 mg/dL, Low: Positive risk factor for coronary heart disease LAB LDL <100 mg/dL LDL-Cholesterol High 100 Result Comment: <100 mg/dL, Optimal 100-129 mg/dL, Near optimal/above optimal 130-159 mg/dL, Borderline high 160-189 mg/dL, High >189 mg/dL, Very high Secondary prevention optimal LDL Cholesterol levels are recommended to be < 70 mg/dL LAB NONHDL <130 mg/dL Non HDL High Cholesterol 138 Result Comment: <130 mg/dL, Optimal 130-159 mg/dL, Near optimal/above optimal 160-189 mg/dL, Borderline high 190-219 mg/dL, High >219 mg/dL, Very high Secondary prevention optimal non HDL Cholesterol levels are recommended to be < 100 mg/dL LAB FT hrs Fasting Time 12 LAB VLDL <30 mg/dL High VLDL Cholesterol 38 LAB TCHDL <5.10 High TC:HDL Ratio 5.45 LAB LDLHDL <2.54 High LDL:HDL Ratio 3.23 Result Comment: Reference: 1. National Cholesterol Education Program ATP III Guideline At-A-Glance Quick Desk Reference: National Heart, Lung, and Blood [employer]. National Institutes of Health. 2001: NIH Publication No. 01-3305. 2. An International Atherosclerosis Society position paper: global recommendations for the management of dyslipidemia: executive summary, Atherosclerosis. 2014: 232(2):410-413. Performed By: #### LIPB #### [facility] [address] [place] [id number] PROGRESS Observed: 01/02/2018 Status: COMPLETED Source: [place] 11:21 AM [facility] REPOSITORY HNO ID: [id number] Author: Vy Mascorro Service: (none) Author Type: Physician Type: Progress Notes Filed: 01/04/2018 3:45 PM Note Text: Chief Complaint Patient presents with: F/U 6 Month: HTN and Lipid HPI Emma Cárdenas is a 72 year old male who presents here today for a 6 mo f/u. Pt here today for a 6 mo f/u. HTN - Denies checking BP often, due to being pretty stable. Denies any chest pain, sob or dizziness. Currently taking Propranolol 60 mg once daily and Lisinopril 5 mg once daily. Lipids - Admits to not watching his diet. Likes to eat to well and will eat about everything. Admits to drinking a lot of pop. No formal exercise but cuts a lot of wood and does it all by hand and wheelbarrow. This isn't a daily exercise, but cuts once a week to couple time. Currently taking Simvastatin 40 mg 1 tab po once daily. Prostate - Still gets up at night at times a few times and occasionally once a night. Currently taking Flomax 0.4 mg once daily. Admits to drinking a lot of pop. Tremors not getting any worse Still bothered by bilateral CTS; had EMG done in the 2014 showing bilateral CTS worse on left. Past medical history, appointments, medications, allergies reviewed. Previous Medical History PAST MEDICAL HISTORY Diagnosis Date - Congenital spondylolisthesis - Diverticula of colon - Elevated blood pressure reading without diagnosis of hypertension - Essential hypertension, benign - Glaucoma - Hyperplasia of prostate - MALIGN NEOPL PROSTATE 09/18/2008 - Other and unspecified hyperlipidemia Previous Surgical History PAST SURGICAL HISTORY Procedure Laterality Date - COLONOSCOP W/ OR W/O [facility] SPE[facility] 09/27/05 - COLONOSCOP W/ OR W/O [facility] 10/18/10 Diverticulitis - mild - 25-30cm - LAP COLECTOMY W COLOPROCTOST 10/19/10 - PAST SURGICAL HISTORY OF Left 12/2015 Cataract surgery - PAST SURGICAL HISTORY OF Right 02/2016 Cataract surgery - SHOULDER ARTHROSCOPY/SURG 03/01/2011 Right shoulder biceps tenotomy and reverse decompression Family History FAMILY HISTORY Problem Relation Age of Onset - other (hypoglycemia [Other]) Father Patient Allergies ALLERGIES Allergen Reactions - Flagyl [Metronidazo* GI Upset nausea - Imipramine Intolerance Urinary retention Current Medications Current Outpatient Prescriptions on File Prior to Visit: propranolol ER (INDERAL LA) 60 mg 24 hr capsule Take 1 capsule by mouth once daily. lisinopril (ZESTRIL, PRINIVIL) 5 mg tablet TAKE 1 TABLET EVERY DAY simvastatin (ZOCOR) 40 mg tablet TAKE 1 TABLET EVERY DAY fluticasone (FLONASE) 50 mcg/actuation nasal spray Use 2 Sprays in each nostril once daily. tamsulosin ER (FLOMAX) 0.4 mg cp24 Take 1 capsule by mouth daily at bedtime. warfarin (COUMADIN) 5 mg tablet Take 1 tablet by mouth once daily. [place]-3 Fatty Acids-Vitamin E (FISH OIL) 1,000 mg cap Take 1 capsule by mouth. latanaprost 0.005 % OPHTHALMIC ophthalmic solution Use 1 Drop in both eyes once daily. No current facility-administered medications on file prior to visit. Social History Social History Marital status: Spouse name: Years of education: Number of children: Social History Main Topics Smoking status: Never Smoker Smokeless tobacco: Never Used Comment: Smoked some as teen ager Alcohol use: No Drug use: No EXAM: BP 116/74 (BP Site: Right Arm, BP Position: Sitting, BP Cuff Size: Regular Adult) Pulse 60 Resp 16 Wt 80.6 kg (177 lb 12.8 oz) BMI 30.52 kg/m? General Appearance: Well appearing, alert, in no acute distress, well-hydrated, well nourished.. Lungs: Lungs clear to auscultation. No wheezing, rhonchi, rales. Heart: RRR with systolic murmur Health Maintenance List HEMOGLOBIN/HEMATOCRIT due on 02/16/2012 INFLUENZA(1) due on 01/06/2018 SERUM CREATININE due on 07/05/2018 ANNUAL PCP TEAM CHRONIC DISEASE VISIT due on 11/15/2018 BLOOD PRESSURE CONTROLLED due on 11/15/2018 DIABETES SCREEN due on 07/05/2020 COLORECTAL CANCER SCREENING,SEE MODIFIER due on 10/18/2020 LIPID SCREEN due on 12/26/2021 DTAP,TDAP,TD(2 - Td) due on 11/01/2027 ADULT PREVNAR-13 Completed HEPATITIS C SCREENING Completed PNEUMOVAX AGE 65 AND OVER WITH 5YR LOOKBACK Completed Data reviewed Future Lipid ASSESSMENT/PLAN: 1. Essential hypertension, benign - ICD9: 401.1, ICD10: I10 (primary diagnosis) - good control - Continue current medication(s) - Recommend home blood pressure monitoring, to bring results in on next visit - Goal of BP <140/90 - COMP METABOLIC PANEL - LIPID PANEL BASIC 2. Mixed hyperlipidemia - ICD9: 272.2, ICD10: E78.2 - to be determined upon return of lab results - COMP METABOLIC PANEL - LIPID PANEL BASIC 3. Atrial fibrillation, unspecified type (HCC) - ICD9: 427.31, ICD10: I48.91 Follows with Cardiology 4. Carpal tunnel syndrome, bilateral - ICD9: 354.0, ICD10: G56.03 - CONSULT TO ORTHOPAEDICS 5. Impaired fasting glucose - ICD9: 790.21, ICD10: R73.01 - HGB A1C 6. Aortic valve disorder - ICD9: 424.1, ICD10: I35.9 Follows with Cardiology Vy Mascorro MD The documentation for this note was completed by Mary Ellen Lance Ma acting as scribe for Vy Mascorro MD. January 02, 2018 11:21 AM. CNOV Observed: 01/02/2018 Status: COMPLETED Source: [place] 11:00 AM [facility] REPOSITORY Office Visit (FAMPWS) EMMA CÁRDENAS ([id number]) 1945 M Date Time Provider Department 01/02/18 11:00 AM [facility] During your visit today, we recorded the following information about you: Pulse Respiration Blood pressure Weight 60/minute 16/minute 116/74 80.6 kg Vy Mascorro MD 01/04/2018 3:45 PM Signed Chief Complaint Patient presents with: F/U 6 Month: HTN and Lipid HPI Emma Cárdenas is a 72 year old male who presents here today for a 6 mo f/u. Pt here today for a 6 mo f/u. HTN - Denies checking BP often, due to being pretty stable. Denies any chest pain, sob or dizziness. Currently taking Propranolol 60 mg once daily and Lisinopril 5 mg once daily. Lipids - Admits to not watching his diet. Likes to eat to well and will eat about everything. Admits to drinking a lot of pop. No formal exercise but cuts a lot of wood and does it all by hand and wheelbarrow. This isn't a daily exercise, but cuts once a week to couple time. Currently taking Simvastatin 40 mg 1 tab po once daily. Prostate - Still gets up at night at times a few times and occasionally once a night. Currently taking Flomax 0.4 mg once daily. Admits to drinking a lot of pop. Tremors not getting any worse Still bothered by bilateral CTS; had EMG done in the 2014 showing bilateral CTS worse on left. Past medical history, appointments, medications, allergies reviewed. Previous Medical History PAST MEDICAL HISTORY Diagnosis Date - Congenital spondylolisthesis - Diverticula of colon - Elevated blood pressure reading without diagnosis of hypertension - Essential hypertension, benign - Glaucoma - Hyperplasia of prostate - MALIGN NEOPL PROSTATE 09/18/2008 - Other and unspecified hyperlipidemia Previous Surgical History PAST SURGICAL HISTORY Procedure Laterality Date - COLONOSCOP W/ OR W/O [facility] SPEC 09/27/05 - COLONOSCOP W/ OR W/O [facility] 10/18/10 Diverticulitis - mild - 25-30cm - LAP COLECTOMY W COLOPROCTOST 10/19/10 - PAST SURGICAL HISTORY OF Left 12/2015 Cataract surgery - PAST SURGICAL HISTORY OF Right 02/2016 Cataract surgery - SHOULDER ARTHROSCOPY/SURG 03/01/2011 Right shoulder biceps tenotomy and reverse decompression Family History FAMILY HISTORY Problem Relation Age of Onset - other (hypoglycemia [Other]) Father Patient Allergies ALLERGIES Allergen Reactions - Flagyl [Metronidazo* GI Upset nausea - Imipramine Intolerance Urinary retention Current Medications Current Outpatient Prescriptions on File Prior to Visit: propranolol ER (INDERAL LA) 60 mg 24 hr capsule Take 1 capsule by mouth once daily. lisinopril (ZESTRIL, PRINIVIL) 5 mg tablet TAKE 1 TABLET EVERY DAY simvastatin (ZOCOR) 40 mg tablet TAKE 1 TABLET EVERY DAY fluticasone (FLONASE) 50 mcg/actuation nasal spray Use 2 Sprays in each nostril once daily. tamsulosin ER (FLOMAX) 0.4 mg cp24 Take 1 capsule by mouth daily at bedtime. warfarin (COUMADIN) 5 mg tablet Take 1 tablet by mouth once daily. [place]-3 Fatty Acids-Vitamin E (FISH OIL) 1,000 mg cap Take 1 capsule by mouth. latanaprost 0.005 % OPHTHALMIC ophthalmic solution Use 1 Drop in both eyes once daily. No current facility-administered medications on file prior to visit. Social History Social History Marital status: Spouse name: Years of education: Number of children: Social History Main Topics Smoking status: Never Smoker Smokeless tobacco: Never Used Comment: Smoked some as teen ager Alcohol use: No Drug use: No EXAM: BP 116/74 (BP Site: Right Arm, BP Position: Sitting, BP Cuff Size: Regular Adult) Pulse 60 Resp 16 Wt 80.6 kg (177 lb 12.8 oz) BMI 30.52 kg/m? General Appearance: Well appearing, alert, in no acute distress, well-hydrated, well nourished.. Lungs: Lungs clear to auscultation. No wheezing, rhonchi, rales. Heart: RRR with systolic murmur Health Maintenance List HEMOGLOBIN/HEMATOCRIT due on 02/16/2012 INFLUENZA(1) due on 01/06/2018 SERUM CREATININE due on 07/05/2018 ANNUAL PCP TEAM CHRONIC DISEASE VISIT due on 11/15/2018 BLOOD PRESSURE CONTROLLED due on 11/15/2018 DIABETES SCREEN due on 07/05/2020 COLORECTAL CANCER SCREENING,SEE MODIFIER due on 10/18/2020 LIPID SCREEN due on 12/26/2021 DTAP,TDAP,TD(2 - Td) due on 11/01/2027 ADULT PREVNAR-13 Completed HEPATITIS C SCREENING Completed PNEUMOVAX AGE 65 AND OVER WITH 5YR LOOKBACK Completed Data reviewed Future Lipid ASSESSMENT/PLAN: 1. Essential hypertension, benign - ICD9: 401.1, ICD10: I10 (primary diagnosis) - good control - Continue current medication(s) - Recommend home blood pressure monitoring, to bring results in on next visit - Goal of BP <140/90 - COMP METABOLIC PANEL - LIPID PANEL BASIC 2. Mixed hyperlipidemia - ICD9: 272.2, ICD10: E78.2 - to be determined upon return of lab results - COMP METABOLIC PANEL - LIPID PANEL BASIC 3. Atrial fibrillation, unspecified type (HCC) - ICD9: 427.31, ICD10: I48.91 Follows with Cardiology 4. Carpal tunnel syndrome, bilateral - ICD9: 354.0, ICD10: G56.03 - CONSULT TO ORTHOPAEDICS 5. Impaired fasting glucose - ICD9: 790.21, ICD10: R73.01 - HGB A1C 6. Aortic valve disorder - ICD9: 424.1, ICD10: I35.9 Follows with Cardiology Vy Mascorro MD The documentation for this note was completed by Mary Ellen Lance Ma acting as scribe for Vy Mascorro MD. January 02, 2018 11:21 AM. Referring Provider: VY MASCORRO [[id number]] Allergies As of Date: 01/02/2018 Noted Allergy Reaction FLAGYL (METRONIDAZOLE HCL) 11/23/2006 8 - GI Upset Comments: nausea IMIPRAMINE 08/17/2007 5 - Intolerance Comments: Urinary retention Date Reviewed: 01/02/2018 Reviewed by: Mary Ellen Lance Ma - Fully Assessed Reason for Visit: F/U 6 Month [444] Cmt: HTN and Lipid Primary Visit Diagnosis:Essential hypertension, benign [I10] Other Visit Diagnoses:Mixed hyperlipidemia [E78.2] Atrial fibrillation, unspecified type (HCC) [I48.91] Carpal tunnel syndrome, bilateral [G56.03] Impaired fasting glucose [R73.01] Aortic valve disorder [I35.9] Order(s):CONSULT TO ORTHOPAEDICS [9057] Order #: [id number]: 1 HGB A1C [[id number]] Order #: [id number] FUTURE COMP METABOLIC PANEL [SQCMP] Order #: [id number] FUTURE LIPID PANEL BASIC [SQLIPB] Order #: [id number] FUTURE Prescriptions as of 01/02/2018 Sig: PROPRANOLOL ER 60 MG CAPSULE,* Take 1 capsule by mouth once * LISINOPRIL 5 MG TABLET TAKE 1 TABLET EVERY DAY SIMVASTATIN 40 MG TABLET TAKE 1 TABLET EVERY DAY FLUTICASONE 50 MCG/ACTUATION * Use 2 Sprays in each nostril * WARFARIN 5 MG TABLET Take 1 tablet by mouth once d* X TAMSULOSIN 0.4 MG CAPSULE Take 1 capsule by mouth daily* [place]ME[place]-3 FATTY ACIDS-VITAMIN E* Take 1 capsule by mouth. 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 ELEVATED PROSTATE SPECIFIC ANTIGEN [R97.20] INVALID FOR* More... Bladder neck obstruction [N32.0] INVALID FOR*10/12/2011 Benign prostatic hyperplasia with urinary hesit*INVALID FOR* Nodular prostate with urinary obstruction [N40.*INVALID FOR*10/12/2011 MALIGN NEOPL PROSTATE [C61] INVALID FOR* More... 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 Diverticulitis of colon (without mention of hem*INVALID FOR* Other affections of shoulder region, not elsewh*INVALID FOR*10/12/2011 Elevated PSA [R97.20] INVALID FOR*06/28/2016 Atrial fibrillation (HCC) [I48.91] INVALID FOR* Disposition: Return in about 6 months (around 07/05/2018). Follow-up and Disposition History Recorded Encounter Status:Closed by VY MASCORRO MD on 01/04/18 CNPTOUTREA Observed: 12/19/2017 Status: COMPLETED Source: [place] 12:00 AM [facility] REPOSITORY Patient Outreach (INTMWH) EMMA CÁRDENAS ([id number]) 1945 M Date Time Provider Department 12/19/17 [facility] During your visit today, we recorded the following information about you: Allergies As of Date: 12/19/2017 Noted Allergy Reaction FLAGYL (METRONIDAZOLE HCL) 11/23/2006 8 - GI Upset Comments: nausea IMIPRAMINE 08/17/2007 5 - Intolerance Comments: Urinary retention Date Reviewed: 11/15/2017 Reviewed by: Jackeline Michael Ma - Fully Assessed Order(s):LIPID PANEL BASIC [SQLIPB] Order #: [id number] FUTURE Prescriptions as of 12/19/2017 Sig: X PROPRANOLOL ER 60 MG CAPSULE,* Take 1 capsule by mouth once * LISINOPRIL 5 MG TABLET TAKE 1 TABLET EVERY DAY SIMVASTATIN 40 MG TABLET TAKE 1 TABLET EVERY DAY FLUTICASONE 50 MCG/ACTUATION * Use 2 Sprays in each nostril * Patient not taking: Reported on 01/25/2018 WARFARIN 5 MG TABLET Take 1 tablet by mouth once d* X TAMSULOSIN 0.4 MG CAPSULE Take 1 capsule by mouth daily* [place]-3 FATTY ACIDS-VITAMIN E* Take 1 capsule by mouth. 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 ELEVATED PROSTATE SPECIFIC ANTIGEN [R97.20] INVALID FOR* More... Bladder neck obstruction [N32.0] INVALID FOR*10/12/2011 Benign prostatic hyperplasia with urinary hesit*INVALID FOR* Nodular prostate with urinary obstruction [N40.*INVALID FOR*10/12/2011 MALIGN NEOPL PROSTATE [C61] INVALID FOR* More... 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 Diverticulitis of colon (without mention of hem*INVALID FOR* Other affections of shoulder region, not elsewh*INVALID FOR*10/12/2011 Elevated PSA [R97.20] INVALID FOR*06/28/2016 Atrial fibrillation (HCC) [I48.91] INVALID FOR* Encounter Status:Closed by RADHA MCCLENDON on 02/16/18 CARDIOLOGY VISIT Observed: 12/07/2017 Status: F Source: DRISS REPORT 2:10 PM [facility] REPOSITORY [facility] [address] [place] [address]. [address] [place] [address] OFFICE VISIT Date of Service: 12/07/17 MR#: [id number] Acct: [id number] Name: EMMA CÁRDENAS Rep #: [id number] : 1945 Provider: Martinez Rivas MD Age/Sex: 72/M Location: [facility] [place] Status: Signed HPI HPI Chief Complaint: Routine f/u Details: The patient is a 71 year old M nondiabetic, with a history of BPH, aortic stenosis, previously for with Dr. Carballo, no previous history of coronary artery disease, catheterization, angioplasty or bypass surgery who was in normal state of health until 03/21/17 in the afternoon when he was helping his in the kitchen. Apparently while he was assisting her doing dishes he suddenly felt lightheaded and dizzy and his vision went white. Patient did not pass out but felt lightheaded as if he may pass out, and sat down and recovered after a few minutes. His symptoms abated and then returned to a lesser degree while he was moving wood the evening pretty this where he needed to stop due to lightheadedness and dizziness. The patient denied any chest pain or angina but did complain of mild dyspnea on exertion. He felt as though his heart was racing and sought medical attention was to [facility] where he was found to be in atrial fibrillation with rapid ventricular response. The patient has never been told that he has had atrial fibrillation before. Patient was ruled out for myocardial infarction. He underwent a 2D echo with Doppler on 03/22/17 which demonstrated intact LV function with an EF of 65%, possible bicuspid aortic valve, mild to moderate aortic stenosis with an estimated aortic valve area of 1.4 cm, RVSP of 36 mmHg. In addition he underwent a stress echocardiogram on 03/22/17 which he went 6 minutes, had no appreciable worsening of his aortic stenosis, and had no anginal symptoms per The patient was placed on a Cardizem drip for heart rate control and then change to beta-mickie therapy Lopressor 25 mg p.o. twice daily. He is currently on Coumadin for paroxysmal atrial fibrillation. Since her last visit he denies any chest pain, angina, shortness of breath or dyspnea on exertion. He is taking and tolerating his medicines well. In our office today's blood pressure is 100/60, pulse is 64 and regular. Physical exam is as below. He is a 3/6 high-pitched systolic ejection murmur best heard at the upper right sternal border. He has 2+ carotid upstroke bilaterally. Lipids as of 03/22/17 show an LDL of 93 and HDL 31. 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 Is patient in pain?: No Allergies imipramine Adverse Reaction (Verified 12/07/17 13:45) Other metronidazole [From Flagyl] Adverse Reaction (Verified 12/07/17 13:45) Nausea Medications Lisinopril [Zestril] 5 mg PO DAILY 03/21/17 [History Confirmed 12/07/17] [place]-3/Dha/Epa/Fish Oil [Fish Oil 1,000 mg Softgel] 1 ea PO BID 03/21/17 [History Confirmed 12/07/17] Simvastatin [Zocor] 40 mg PO QHS 03/21/17 [History Confirmed 12/07/17] Tamsulosin HCl [Flomax] 0.4 mg PO DAILY@1730 #30 cap 03/23/17 [Rx Confirmed 12/07/17] latanoprost 0.005 % eye drops OPHTHALMIC 90 Days 04/11/17 [History Confirmed 12/07/17] timolol maleate 0.5 % eye drops OPHTHALMIC 90 Days 04/11/17 [History Confirmed 12/07/17] metoprolol tartrate 25 mg tablet 25 mg PO BID #180 tab 06/19/17 [Rx Confirmed 12/07/17] warfarin 5 mg tablet 5 mg PO DAILY #90 tab 06/19/17 [Rx Confirmed 12/07/17] [facility] Medical History Paroxysmal atrial fibrillation (Chronic) 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 Social History Smoking Status: Never smoker second hand exposure: No alcohol intake: never substance use type: does not use caffeine: Yes Type: coffee eating out: 1-3 times/week during the past year weight has: remained stable what type of physical activity do you participate in: none seatbelt use: always do you feel safe at home: Yes ROS Const Const: Negative for fatigue, weakness, body ache, fever(s), headache(s), chills, frequent falls, night sweats, daytime sleepiness, difficulty sleeping, excessive sweating, weight gain, weight loss, increased appetite, poor appetite, anorexia or other Eyes Eyes: Negative for blind spots, loss of peripheral vision, transient loss of vision, blurry vision, change in vision, double vision, floaters, tunnel vision or other ENT ENT: Negative for headache(s), dizziness, hearing loss, tinnitus, Nosebleed/epistaxis, balance problems, post nasal drip, lip swelling, tongue swelling, bleeding gums, hoarseness, neck pain, dry mouth or other Cardio Chest Pain: No Palpitations: No Edema: None Muscle aches with walking: None Resp Respiratory: Negative for SOB with activity, SOB at rest, SOB orthopnea\SOB lying down, Coughing up blood/hemoptysis, chest congestion, pain on inspiration, snoring, stridor, wheezing, crackles, paroxysmal nocturnal dyspnea or other GI GI: Negative nausea, vomiting, heartburn, constipation, belching, bloating, cramping, vomiting blood/hematemesis, bright, red blood in stools, black,tarry stools, loose stools, Difficulty Swallowing or other : Negative for hematuria, frequent nighttime urination/ nocturia, erectile dysfunction or abnormal vaginal bleeding Musc Musc: Negative for balance problems, muscle aches/ myalgia, muscle weakness or joint pain Skin Skin: Negative redness, non-healing lesions, rash, unusual bruising, skin ulcer, wounds, jaundice or other Neuro Neuro: Negative for weakness, headache(s), frequent falls, blurry vision, double vision, dizziness, lightheadedness, near syncope, syncope, orthostatic symptoms, confusion, memory loss, restless legs, vertigo, seizures, lack of coordination or other Daniel Hematologic/Lymphatic: Negative for easy bleeding, easy bruising, enlarged lymph nodes or other Endo Endo: Negative for fatigue, excessive sweating, cold intolerance, heat intolerance, flushing, increased thirst/drinking, increased hunger, hair loss, hair growth or other Psych Psych: Negative for anxiety, depression, thoughts of harming anyone, thoughts of harming yourself, visual hallucinations, panic attacks or audible hallucinations Allergy Allergy/Immunology: Negative for lip swelling, Negative for tongue swelling, Negative for rash, Negative for throat swelling, Negative for hives Cardiology Exam Const Appearance: cooperative, healthy appearing and no acute distress Nutritional Appearance: well nourished Orientation: alert, oriented x3 and oriented to person Head Head: normal to inspection, atraumatic and normocephalic Nose: external nose normal Face and Sinus: face symmetric Mouth: oral mucosae normal Eyes General: appearance normal, both eyes and all related structures Eyelids: eyelids normal Conjunctivae: conjunctivae normal Pupils: PERRL and normal by confrontation EOM: EOM intact bilaterally Neck Neck: normal visual inspection and full ROM Carotids: normal carotid upstroke Chest Chest inspection: normal inspection of the chest Auscultation: Bilateral: Clear to Auscultation Cardio Palpation: normal PMI Rate: regular rate Rhythm: regular rhythm Heart sounds: S2 normal Murmur: Grade 3/6, crescendo-decrescendo and high pitched GI GI: normal to inspection, no hepatosplenomegaly and bowel sounds present Neuro General: alert, oriented x3, awake, CN's II-XI intact bilaterally and moves all extremities Skin Skin: no rashes or lesions noted Extremities Pulses: Normal: Right Femoral Pulse, Left Femoral Pulse, Right Dorsalis Pedis Pulse, Left Dorsalis Pedis Pulse, Right Posterior Tibial Pulse, Left Posterior Tibial Pulse, Right Radial Pulse, Left Radial Pulse Lower Extremity Edema: None: Bilateral Psych Psychological: normal affect Assessment AND Plan 1. Paroxysmal atrial fibrillation I48.0 Plan 1. Paroxysmal atrial fibrillation: The patient appears to be in normal sinus rhythm by physical exam today. His blood pressure and heart rate are well-controlled. He is asymptomatic. He denies any palpitations. Recommend he continue his metoprolol, lisinopril and warfarin. 2. Aortic stenosis due to bicuspid aortic valve Q23.0; Q23.1 Plan 2. Bicuspid aortic valve: The patient appears to have a bicuspid aortic valve with mild to moderate aortic stenosis by aortic valve gradients. His stress echocardiogram in March 2017 demonstrated that he was able to go about 6 minutes in time, had no angina, and minimal worsening of his aortic valvular gradient. Patient has excellent 2+ carotid upstroke bilaterally, and is asymptomatic. I do not believe he requires surgical evaluation at this time. Would recommend however they have serial echocardiograms on a yearly basis, and biannual stress echocardiograms unless and until the patient has symptoms. 3. Return office in 6 months. This note was generated using a voice recognition system and there may be incorrect words, spelling or punctuation that were not noted when reviewing the office note prior to saving. Plan Detail Follow Up +6M (Rob) Coding Level of Care Code Off vis,est,level 3 Diagnoses Paroxysmal atrial fibrillation I48.0 Aortic stenosis due to bicuspid aortic valve Q23.0; Q23.1 Coding Level of Care Code Off vis,est,level 3 Diagnoses Paroxysmal atrial fibrillation I48.0 Aortic stenosis due to bicuspid aortic valve Q23.0; Q23.1 12/07/17 1410 <Electronically signed by Martinez Rivas MD> Date [facility] Signature: Date (if applicable) CC: Vy Mascorro MD PROTHROMBIN TIME W/INR Collected: 11/29/2017 Status: F Source: [place] 1:32 PM [facility] REPOSITORY TYPE CODE TESTS RESULT OUT OF RANGE REFERENCE UNITS LAB L300.4150 11.7-14.9 SECONDS High PROTIME 28.8 LAB L300.4200 Normal INR 2.7 Performed By: #### L300.3900 #### [facility] [address] [place], [address] CNOV Observed: 11/15/2017 Status: COMPLETED Source: [place] 2:40 PM [facility] REPOSITORY Office Visit ([facility]) EMMA CÁRDENAS ([id number]) 1945 M Date Time Provider Department 11/15/17 2:40 PM VY MASCORRO During your visit today, we recorded the following information about you: Pulse Respiration Blood pressure Weight 68/minute 16/minute 124/72 80.3 kg Vy Mascorro MD 11/17/2017 3:51 PM Signed Chief Complaint Patient presents with: Multiple Concerns HPI Emma Cárdenas is a 71 year old male who presents here today for multiple concerns. Carpal tunnel: bilateral wrists, left is worse especially at night if he sleeps on it wrong. He states that he hand will be tingling, numb, burning and very painful. He has had EMG and nerve conduction test done. States that he has numbness when holding the steering wheel to drive. Denies using any wrist braces or splints. Does take Aleve occ. Tremors: has noticed his hands are shaking over the last 2 weeks, admits it is not a terrible shake, notices it more when he is writing. He states that it is off. Denies any problems with shaking when eating or drinking. States that a few times after taking a nap he go to use the phone or reach for something his hands will be shaking. States his sister and brother both have issues with tremors. Denies any shaking while just sitting. Forgetful: has noticed that he is forgetting things more now, will go to get something and then will forget what he was going to get. He denies getting lost driving to places he has been before. States that he has noticed that he starts having coughing episodes. He denies any allergy or sinus issues. Denies any reflux that he is aware of. Is taking Lisinopril 5 mg daily. Has had redness to the tip of his penis the last few days; is getting better now. Past medical history, appointments, medications, allergies reviewed. Previous Medical History PAST MEDICAL HISTORY Diagnosis Date - Congenital spondylolisthesis - Diverticula of colon - Elevated blood pressure reading without diagnosis of hypertension - Essential hypertension, benign - Glaucoma - Hyperplasia of prostate - MALIGN NEOPL PROSTATE 09/18/2008 - Other and unspecified hyperlipidemia Previous Surgical History PAST SURGICAL HISTORY Procedure Laterality Date - COLONOSCOP W/ OR W/O [facility] SPEC 5/23/06 - COLONOSCOP W/ OR W/O [facility] SPEC 10/18/10 Diverticulitis - mild - 25-30cm - LAP COLECTOMY W COLOPROCTOST 10/19/10 - PAST SURGICAL HISTORY OF Left 12/2015 Cataract surgery - PAST SURGICAL HISTORY OF Right 02/2016 Cataract surgery - SHOULDER ARTHROSCOPY/SURG 03/01/2011 Right shoulder biceps tenotomy and reverse decompression Family History FAMILY HISTORY Problem Relation Age of Onset - hypoglycemia [Other] [OTHER] Father Patient Allergies ALLERGIES Allergen Reactions - Flagyl [Metronidazo* GI Upset nausea - Imipramine Intolerance Urinary retention Current Medications Current Outpatient Prescriptions on File Prior to Visit: lisinopril (ZESTRIL, PRINIVIL) 5 mg tablet TAKE 1 TABLET EVERY DAY simvastatin (ZOCOR) 40 mg tablet TAKE 1 TABLET EVERY DAY fluticasone (FLONASE) 50 mcg/actuation nasal spray Use 2 Sprays in each nostril once daily. metoprolol tartrate, short acting, (LOPRESSOR) 25 mg tablet Take 1 tablet by mouth twice daily. tamsulosin ER (FLOMAX) 0.4 mg cp24 Take 1 capsule by mouth daily at bedtime. warfarin (COUMADIN) 5 mg tablet Take 1 tablet by mouth once daily. [place]-3 Fatty Acids-Vitamin E (FISH OIL) 1,000 mg cap Take 1 capsule by mouth. latanaprost 0.005 % OPHTHALMIC ophthalmic solution Use 1 Drop in both eyes once daily. No current facility-administered medications on file prior to visit. Social History Social History Marital status: Spouse name: Years of education: Number of children: Social History Main Topics Smoking status: Never Smoker Smokeless tobacco: Never Used Comment: Smoked some as teen ager Alcohol use: No Drug use: No EXAM: BP 124/72 Pulse 68 Resp 16 Wt 80.3 kg (177 lb) BMI 30.38 kg/m? General Appearance: Well appearing, alert, in no acute distress, well-hydrated, well nourished.. Lungs: Lungs clear to auscultation. No wheezing, rhonchi, rales. Heart: RRR without murmur, gallop, or rubs. No ectopy. Extremities: bilateral arms and hands; no shaking of hands, numbness to entire right and left hand. Health Maintenance List ZOSTER VACCINE (SHINGRIX)(1 of 2) due on 1996 INFLUENZA(1) due on 01/06/2018 DIABETES SCREEN due on 07/05/2020 COLORECTAL CANCER SCREENING,SEE MODIFIER due on 10/18/2020 LIPID SCREEN due on 12/26/2021 DTAP,TDAP,TD(2 - Td) due on 11/01/2027 ADULT PREVNAR-13 Completed HEPATITIS C SCREENING Completed PNEUMOVAX AGE 65 AND OVER WITH 5YR LOOKBACK Completed Data reviewed none ASSESSMENT/PLAN: 1. Occasional tremors - ICD9: 781.0, ICD10: R25.1 (primary diagnosis) Start Inderal LA 60 mg once daily 2. Carpal tunnel syndrome, bilateral - ICD9: 354.0, ICD10: G56.03 Recommend using wrist splints on left wrist at night If continues to have problems then consult to Ortho 3. Essential hypertension, benign - ICD9: 401.1, ICD10: I10 - good control - Continue current medication(s) - Add Indural 60 mg once daily - Discontinue metoprolol (Lopressor/Toprol) - Recommended regular aerobic exercise. - Recommend home blood pressure monitoring, to bring results in on next visit - Goal of BP <140/90 Follow up in December as scheduled. Vy Mascorro MD The documentation for this note was completed by Jackeline Michael Ma acting as scribe for Vy Mascorro MD. November 15, 2017 2:34 PM. Jackeline Michael Ma 11/15/2017 3:10 PM Signed Stop taking the Metoprolol 25 mg. Referring Provider: SELF [[id number]] Allergies As of Date: 11/15/2017 Noted Allergy Reaction FLAGYL (METRONIDAZOLE HCL) 11/23/2006 8 - GI Upset Comments: nausea IMIPRAMINE 08/17/2007 5 - Intolerance Comments: Urinary retention Date Reviewed: 11/15/2017 Reviewed by: Jackeline Michael Ma - Fully Assessed Reason for Visit: Multiple Concerns [253] Reason For Visit History Recorded Primary Visit Diagnosis:Occasional tremors [R25.1] Other Visit Diagnoses:Carpal tunnel syndrome, bilateral [G56.03] Essential hypertension, benign [I10] Order(s):propranolol ER (INDERAL LA) 60 mg 24 hr capsuleTake 1 capsule by mouth once daily.Disp: 90 capsuleRfl: 1 Prescriptions as of 11/15/2017 Sig: SIMVASTATIN 40 MG TABLET TAKE 1 TABLET EVERY DAY FLUTICASONE 50 MCG/ACTUATION * Use 2 Sprays in each nostril * TAMSULOSIN 0.4 MG CAPSULE Take 1 capsule by mouth daily* WARFARIN 5 MG TABLET Take 1 tablet by mouth once d* [place]-3 FATTY ACIDS-VITAMIN E* Take 1 capsule by mouth. 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 ELEVATED PROSTATE SPECIFIC ANTIGEN [R97.20] INVALID FOR* More... Bladder neck obstruction [N32.0] INVALID FOR*10/12/2011 Benign prostatic hyperplasia with urinary hesit*INVALID FOR* Nodular prostate with urinary obstruction [N40.*INVALID FOR*10/12/2011 MALIGN NEOPL PROSTATE [C61] INVALID FOR* More... 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 Diverticulitis of colon (without mention of hem*INVALID FOR* Other affections of shoulder region, not elsewh*INVALID FOR*10/12/2011 Elevated PSA [R97.20] INVALID FOR*06/28/2016 Atrial fibrillation (HCC) [I48.91] INVALID FOR* Other instructions from your clinician: Stop taking the Metoprolol 25 mg. Prescriptions ordered this encounter Disp Refills Start End PROPRANOLOL ER 60 MG CAPSULE,24 HR,E* 90 c* 1 11/15/2017 Route: ORAL Sig: Take 1 capsule by mouth once daily. Medications Discontinued During This Encounter metoprolol tartrate, short acting, (* 180 * 3 04/06/2017 11/15/2017 Route: ORAL Sig: Take 1 tablet by mouth twice daily. Disc: Reason for discontinue is not on file. Disposition: Return if symptoms worsen or fail to improve. Follow-up and Disposition History Recorded Encounter Status:Closed by VY MASCORRO MD on 11/17/17 PROGRESS Observed: 11/15/2017 Status: COMPLETED Source: [place] 2:34 PM [facility] REPOSITORY HNO ID: [id number] Author: Vy Mascorro Service: (none) Author Type: Physician Type: Progress Notes Filed: 11/17/2017 3:51 PM Note Text: Chief Complaint Patient presents with: Multiple Concerns HPI Emma Cárdenas is a 71 year old male who presents here today for multiple concerns. Carpal tunnel: bilateral wrists, left is worse especially at night if he sleeps on it wrong. He states that he hand will be tingling, numb, burning and very painful. He has had EMG and nerve conduction test done. States that he has numbness when holding the steering wheel to drive. Denies using any wrist braces or splints. Does take Aleve occ. Tremors: has noticed his hands are shaking over the last 2 weeks, admits it is not a terrible shake, notices it more when he is writing. He states that it is off. Denies any problems with shaking when eating or drinking. States that a few times after taking a nap he go to use the phone or reach for something his hands will be shaking. States his sister and brother both have issues with tremors. Denies any shaking while just sitting. Forgetful: has noticed that he is forgetting things more now, will go to get something and then will forget what he was going to get. He denies getting lost driving to places he has been before. States that he has noticed that he starts having coughing episodes. He denies any allergy or sinus issues. Denies any reflux that he is aware of. Is taking Lisinopril 5 mg daily. Has had redness to the tip of his penis the last few days; is getting better now. Past medical history, appointments, medications, allergies reviewed. Previous Medical History PAST MEDICAL HISTORY Diagnosis Date - Congenital spondylolisthesis - Diverticula of colon - Elevated blood pressure reading without diagnosis of hypertension - Essential hypertension, benign - Glaucoma - Hyperplasia of prostate - MALIGN NEOPL PROSTATE 09/18/2008 - Other and unspecified hyperlipidemia Previous Surgical History PAST SURGICAL HISTORY Procedure Laterality Date - COLONOSCOP W/ OR W/O [facility] SPEC 09/27/05 - COLONOSCOP W/ OR W/O [facility] SPEC 10/18/10 Diverticulitis - mild - 25-30cm - LAP COLECTOMY W COLOPROCTOST 10/19/10 - PAST SURGICAL HISTORY OF Left 12/2015 Cataract surgery - PAST SURGICAL HISTORY OF Right 02/2016 Cataract surgery - SHOULDER ARTHROSCOPY/SURG 03/01/2011 Right shoulder biceps tenotomy and reverse decompression Family History FAMILY HISTORY Problem Relation Age of Onset - hypoglycemia [Other] [OTHER] Father Patient Allergies ALLERGIES Allergen Reactions - Flagyl [Metronidazo* GI Upset nausea - Imipramine Intolerance Urinary retention Current Medications Current Outpatient Prescriptions on File Prior to Visit: lisinopril (ZESTRIL, PRINIVIL) 5 mg tablet TAKE 1 TABLET EVERY DAY simvastatin (ZOCOR) 40 mg tablet TAKE 1 TABLET EVERY DAY fluticasone (FLONASE) 50 mcg/actuation nasal spray Use 2 Sprays in each nostril once daily. metoprolol tartrate, short acting, (LOPRESSOR) 25 mg tablet Take 1 tablet by mouth twice daily. tamsulosin ER (FLOMAX) 0.4 mg cp24 Take 1 capsule by mouth daily at bedtime. warfarin (COUMADIN) 5 mg tablet Take 1 tablet by mouth once daily. [place]-3 Fatty Acids-Vitamin E (FISH OIL) 1,000 mg cap Take 1 capsule by mouth. latanaprost 0.005 % OPHTHALMIC ophthalmic solution Use 1 Drop in both eyes once daily. No current facility-administered medications on file prior to visit. Social History Social History Marital status: Spouse name: Years of education: Number of children: Social History Main Topics Smoking status: Never Smoker Smokeless tobacco: Never Used Comment: Smoked some as teen ager Alcohol use: No Drug use: No EXAM: BP 124/72 Pulse 68 Resp 16 Wt 80.3 kg (177 lb) BMI 30.38 kg/m? General Appearance: Well appearing, alert, in no acute distress, well-hydrated, well nourished.. Lungs: Lungs clear to auscultation. No wheezing, rhonchi, rales. Heart: RRR without murmur, gallop, or rubs. No ectopy. Extremities: bilateral arms and hands; no shaking of hands, numbness to entire right and left hand. Health Maintenance List ZOSTER VACCINE (SHINGRIX)(1 of 2) due on 1996 INFLUENZA(1) due on 01/06/2018 DIABETES SCREEN due on 07/05/2020 COLORECTAL CANCER SCREENING,SEE MODIFIER due on 10/18/2020 LIPID SCREEN due on 12/26/2021 DTAP,TDAP,TD(2 - Td) due on 11/01/2027 ADULT PREVNAR-13 Completed HEPATITIS C SCREENING Completed PNEUMOVAX AGE 65 AND OVER WITH 5YR LOOKBACK Completed Data reviewed none ASSESSMENT/PLAN: 1. Occasional tremors - ICD9: 781.0, ICD10: R25.1 (primary diagnosis) Start Inderal LA 60 mg once daily 2. Carpal tunnel syndrome, bilateral - ICD9: 354.0, ICD10: G56.03 Recommend using wrist splints on left wrist at night If continues to have problems then consult to Ortho 3. Essential hypertension, benign - ICD9: 401.1, ICD10: I10 - good control - Continue current medication(s) - Add Indural 60 mg once daily - Discontinue metoprolol (Lopressor/Toprol) - Recommended regular aerobic exercise. - Recommend home blood pressure monitoring, to bring results in on next visit - Goal of BP <140/90 Follow up in December as scheduled. Vy Mascorro MD The documentation for this note was completed by Jackeline Michael Ma acting as scribe for Vy Mascorro MD. November 15, 2017 2:34 PM. PROGRESS Observed: 11/10/2017 Status: COMPLETED Source: [place] 12:00 PM [facility] REPOSITORY HNO ID: [id number] Author: Jet Hong Service: (none) Author Type: Physician Type: Progress Notes Filed: 11/10/2017 12:16 PM Note Text: Patient presents with: suture removal ring finger left hand: placed here 11 days ago HPI: Patient presents for suture removal after pinching his finger on wood 10/31/2017. He has had some soreness from the injury. Denies bleeding, drainage, dehiscence, erythema, or signs of infection. The wound is well healed without signs of infection. The 5 sutures are removed. Wound edges are well approximated. MEDICATIONS: lisinopril (ZESTRIL, PRINIVIL) 5 mg tablet TAKE 1 TABLET EVERY DAY cephALEXin (KEFLEX) 500 mg capsule Take 1 capsule by mouth three times daily for 10 days. simvastatin (ZOCOR) 40 mg tablet TAKE 1 TABLET EVERY DAY fluticasone (FLONASE) 50 mcg/actuation nasal spray Use 2 Sprays in each nostril once daily. metoprolol tartrate, short acting, (LOPRESSOR) 25 mg tablet Take 1 tablet by mouth twice daily. tamsulosin ER (FLOMAX) 0.4 mg cp24 Take 1 capsule by mouth daily at bedtime. warfarin (COUMADIN) 5 mg tablet Take 1 tablet by mouth once daily. [place]-3 Fatty Acids-Vitamin E (FISH OIL) 1,000 mg cap Take 1 capsule by mouth. latanaprost 0.005 % OPHTHALMIC ophthalmic solution Use 1 Drop in both eyes once daily. ALLERGIES: ALLERGIES Allergen Reactions - Flagyl [Metronidazo* GI Upset nausea - Imipramine Intolerance Urinary retention VITALS: BP 112/80 Pulse (!) 56 Temp 36.4 ?C (97.6 ?F) (Tympanic) Resp 16 Wt 80.5 kg (177 lb 6.4 oz) BMI 30.45 kg/m? CNOV Observed: 11/10/2017 Status: COMPLETED Source: [place] 11:45 AM [facility] REPOSITORY [facility] EMMA CÁRDENAS ([id number]) 1945 M Date Time Provider Department 11/10/17 11:45 AM [facility] During your visit today, we recorded the following information about you: Temperature Pulse Respiration Blood pressure 97.6 degrees 56/minute 16/minute 112/80 Weight 80.5 kg Jet Hong MD 11/10/2017 12:16 PM Signed Patient presents with: suture removal ring finger left hand: placed here 11 days ago HPI: Patient presents for suture removal after pinching his finger on wood 10/31/2017. He has had some soreness from the injury. Denies bleeding, drainage, dehiscence, erythema, or signs of infection. The wound is well healed without signs of infection. The 5 sutures are removed. Wound edges are well approximated. MEDICATIONS: lisinopril (ZESTRIL, PRINIVIL) 5 mg tablet TAKE 1 TABLET EVERY DAY cephALEXin (KEFLEX) 500 mg capsule Take 1 capsule by mouth three times daily for 10 days. simvastatin (ZOCOR) 40 mg tablet TAKE 1 TABLET EVERY DAY fluticasone (FLONASE) 50 mcg/actuation nasal spray Use 2 Sprays in each nostril once daily. metoprolol tartrate, short acting, (LOPRESSOR) 25 mg tablet Take 1 tablet by mouth twice daily. tamsulosin ER (FLOMAX) 0.4 mg cp24 Take 1 capsule by mouth daily at bedtime. warfarin (COUMADIN) 5 mg tablet Take 1 tablet by mouth once daily. [place]-3 Fatty Acids-Vitamin E (FISH OIL) 1,000 mg cap Take 1 capsule by mouth. latanaprost 0.005 % OPHTHALMIC ophthalmic solution Use 1 Drop in both eyes once daily. ALLERGIES: ALLERGIES Allergen Reactions - Flagyl [Metronidazo* GI Upset nausea - Imipramine Intolerance Urinary retention VITALS: BP 112/80 Pulse (!) 56 Temp 36.4 ?C (97.6 ?F) (Tympanic) Resp 16 Wt 80.5 kg (177 lb 6.4 oz) BMI 30.45 kg/m? Referring Provider: SELF [200] Allergies As of Date: 11/10/2017 Noted Allergy Reaction FLAGYL (METRONIDAZOLE HCL) 11/23/2006 8 - GI Upset Comments: nausea IMIPRAMINE 08/17/2007 5 - Intolerance Comments: Urinary retention Date Reviewed: 11/10/2017 Reviewed by: Aleksandra Shannon LPN - Fully Assessed Reason for Visit: suture removal ring finger left hand [Other] Cmt: placed here 11 days ago Primary Visit Diagnosis:Laceration of left ring finger w/o foreign body w/o damage to nail, subsequent encounter [H04.900X] Prescriptions as of 11/10/2017 Sig: LISINOPRIL 5 MG TABLET TAKE 1 TABLET EVERY DAY CEPHALEXIN 500 MG CAPSULE Take 1 capsule by mouth three* SIMVASTATIN 40 MG TABLET TAKE 1 TABLET EVERY DAY FLUTICASONE 50 MCG/ACTUATION * Use 2 Sprays in each nostril * METOPROLOL TARTRATE 25 MG TAB* Take 1 tablet by mouth twice * TAMSULOSIN 0.4 MG CAPSULE Take 1 capsule by mouth daily* WARFARIN 5 MG TABLET Take 1 tablet by mouth once d* OMEGA-3 FATTY ACIDS-VITAMIN E* Take 1 capsule by mouth. 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 ELEVATED PROSTATE SPECIFIC ANTIGEN [R97.20] INVALID FOR* More... Bladder neck obstruction [N32.0] INVALID FOR*10/12/2011 Benign prostatic hyperplasia with urinary hesit*INVALID FOR* Nodular prostate with urinary obstruction [N40.*INVALID FOR*10/12/2011 MALIGN NEOPL PROSTATE [C61] INVALID FOR* More... 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 Diverticulitis of colon (without mention of hem*INVALID FOR* Other affections of shoulder region, not elsewh*INVALID FOR*10/12/2011 Elevated PSA [R97.20] INVALID FOR*06/28/2016 Atrial fibrillation (HCC) [I48.91] INVALID FOR* Encounter Status:Closed by JET HONG MD on 11/10/17 XR DIGIT 3V Observed: 10/31/2017 Status: F Source: [facility]/LAT/OBL 1:01 PM [facility] REPOSITORY * * *Final Report* * * DATE OF EXAM: Oct 31 2017 1:01PM WOX [id number] - XR DIGIT 3V FRONTAL/LAT/OBL LT / PROCEDURE REASON: Laceration without foreign body of left ring finger with damage to nail, sequela * * * * Physician Interpretation * * * * EXAM TITLE: XR DIGIT 3V FRONTAL/LAT/OBL LT EXAM DATE/TIME: 10/31/2017 1:01 PM COMPARISON: None. CLINICAL INDICATION/HISTORY: Injury TECHNIQUE: PA, lateral and oblique views of the fourth digit of the left hand are presented. FINDINGS: No acute fractures or subluxations are noted in the fourth digit. Mild degenerative changes involving the PIP joint. The joint spaces are well preserved. The mineralization of the bones is normal. There is soft tissue swelling predominantly involving the distal fourth digit. IMPRESSION: Soft tissue swelling of the fourth digit. No acute fractures seen. Security Intern: PSCB Transcribe Date/Time: Nov 01 2017 1:11P Dictated by : KAYCEE HUBER MD This examination was interpreted and the report reviewed and electronically signed by: KAYCEE HUBER MD on Nov 01 2017 1:14PM EST [id number] PROGRESS Observed: 10/31/2017 Status: COMPLETED Source: [place] 12:52 PM [facility] REPOSITORY HNO ID: [id number] Author: Jennifer Springer (RtTereso Ewing Service: (none) Author Type: Research Lab Assistant Type: Progress Notes Filed: 10/31/2017 1:01 PM Note Text: Radiology Service Progress Note PATIENT NAME: Emma Cárdenas DATE OF SERVICE: October 31, 2017 TIME: 12:52 PM PATIENT IDENTITY VERIFICATION COMPLETED USING TWO (2) METHODS: Patient confirmed name verbally and Date of . PATIENT GENDER DATA: Male PATIENT RELEVANT IMPLANT DATA REVIEWED: Not Applicable RADIOLOGY DEPARTMENT: General X-ray: Exam(s) Completed: Upper Extremity X-Ray(s): Fingers/Thumb, left : PERIPHERAL IV DATA: Not applicable SIGNED BY: RT Jacques October 31, 2017 12:52 PM PROGRESS Observed: 10/31/2017 Status: COMPLETED Source: [place] 12:35 PM [facility] REPOSITORY HNO ID: [id number] Author: Gary Quigley V Service: (none) Author Type: Physician Type: Progress Notes Filed: 10/31/2017 1:48 PM Note Text: CC: Patient presents with: Laceration: x 90 minutes pain and bleeding after laceration to left 4th digit Subjective: Emma Gallo Ammon71 year old obtained a laceration left index finger 2 hour(s) ago. Mechanism of injury: smashed by a log. His last tetanus was >5 ysrs ago. Physical exam: BP 130/78 Pulse 72 Temp 36.4 ?C (97.5 ?F) Resp 16 Wt 79.4 kg (175 lb) BMI 30.04 kg/m? Injury exam: left ring finger- tuft pad injury with 2 lacerations, each 1cm in length. One along medial border, 2nd over the pad of the finger. Sensorineural exam is normal. No deep tissue or tendon involvement. APPEARANCE alert, in no acute distress Clinic Course: Anesthesia with lidocaine without epi 5 cc digital block After adequate anesthesia, cleansing with Multi betadine prep. Sterile drapes were applied. The wound was explored: no foreign bodies, no tendon injury and no vascular injury Repair: sutures Vicryl4-0, 6 sutures Assessment: laceration of tip of left ring finger with crush injury Plan: As per orders. x-ray finger wound care sheet, Td/TDAP, Suture removal 10 days and use triple antibiotic ointment Gary Quigley DO CNOV Observed: 10/31/2017 Status: COMPLETED Source: [place] 12:00 PM [facility] REPOSITORY Office Visit (UCWSTR) EMMA CÁRDENAS ([id number]) 1945 M Date Time Provider Department 10/31/17 12:00 PM GARY QUIGLEY V [facility] During your visit today, we recorded the following information about you: Temperature Pulse Respiration Blood pressure 97.5 degrees 72/minute 16/minute 130/78 Weight 79.4 kg Gary Quigley DO 10/31/2017 1:48 PM Signed CC: Patient presents with: Laceration: x 90 minutes pain and bleeding after laceration to left 4th digit Subjective: Emma Gallo Ammon71 year old obtained a laceration left index finger 2 hour(s) ago. Mechanism of injury: smashed by a log. His last tetanus was >5 ysrs ago. Physical exam: BP 130/78 Pulse 72 Temp 36.4 ?C (97.5 ?F) Resp 16 Wt 79.4 kg (175 lb) BMI 30.04 kg/m? Injury exam: left ring finger- tuft pad injury with 2 lacerations, each 1cm in length. One along medial border, 2nd over the pad of the finger. Sensorineural exam is normal. No deep tissue or tendon involvement. APPEARANCE alert, in no acute distress Clinic Course: Anesthesia with lidocaine without epi 5 cc digital block After adequate anesthesia, cleansing with Multi betadine prep. Sterile drapes were applied. The wound was explored: no foreign bodies, no tendon injury and no vascular injury Repair: sutures Vicryl4-0, 6 sutures Assessment: laceration of tip of left ring finger with crush injury Plan: As per orders. x-ray finger wound care sheet, Td/TDAP, Suture removal 10 days and use triple antibiotic ointment Gary Quigley DO Referring Provider: SELF [[id number]] Allergies As of Date: 10/31/2017 Noted Allergy Reaction FLAGYL (METRONIDAZOLE HCL) 11/23/2006 8 - GI Upset Comments: nausea IMIPRAMINE 08/17/2007 5 - Intolerance Comments: Urinary retention Date Reviewed: 10/31/2017 Reviewed by: Cindy Melendez LPN - Fully Assessed Reason for Visit: Laceration [1747] Cmt: x 90 minutes pain and bleeding after laceration to left 4th digit Primary Visit Diagnosis:Laceration of left ring finger without foreign body with damage to nail, sequela [S61.315S] Order(s):XR DIGIT GENERAL 3V FRONTAL/LAT/OBL LT [[id number]] Order #: [id number] FUTURE cephALEXin (KEFLEX) 500 mg capsuleTake 1 capsule by mouth three times daily for 10 days.Disp: 30 capsuleRfl: 0 TDAP VACCINE AGE 7+ IM [[id number]] Order #: [id number] Prescriptions as of 10/31/2017 Sig: SIMVASTATIN 40 MG TABLET TAKE 1 TABLET EVERY DAY FLUTICASONE 50 MCG/ACTUATION * Use 2 Sprays in each nostril * LISINOPRIL 5 MG TABLET TAKE 1 TABLET EVERY DAY METOPROLOL TARTRATE 25 MG TAB* Take 1 tablet by mouth twice * TAMSULOSIN 0.4 MG CAPSULE Take 1 capsule by mouth daily* WARFARIN 5 MG TABLET Take 1 tablet by mouth once d* OMEGA-3 FATTY ACIDS-VITAMIN E* Take 1 capsule by mouth. 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 ELEVATED PROSTATE SPECIFIC ANTIGEN [R97.20] INVALID FOR* More... Bladder neck obstruction [N32.0] INVALID FOR*10/12/2011 Benign prostatic hyperplasia with urinary hesit*INVALID FOR* Nodular prostate with urinary obstruction [N40.*INVALID FOR*10/12/2011 MALIGN NEOPL PROSTATE [C61] INVALID FOR* More... 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 Diverticulitis of colon (without mention of hem*INVALID FOR* Other affections of shoulder region, not elsewh*INVALID FOR*10/12/2011 Elevated PSA [R97.20] INVALID FOR*06/28/2016 Atrial fibrillation (HCC) [I48.91] INVALID FOR* Prescriptions ordered this encounter Disp Refills Start End CEPHALEXIN 500 MG CAPSULE 30 c* 0 10/31/2017 11/10/2017 Route: ORAL Sig: Take 1 capsule by mouth three times daily for 10 days. DIPHTH,PERTUS(ACEL)TETANUS(PF)2LF-(2* 0.5 * 0 10/31/2017 10/31/2017 Route: INTRAMUSCULA Sig: Inject 0.5 mL intramuscularly one time only for 1 dose. Disc: Duplicate Entry Medications Discontinued During This Encounter diptheria,pertussis(acel),tetanus in* 0.5 * 0 10/31/2017 10/31/2017 Route: INTRAMUSCULAR Sig: Inject 0.5 mL intramuscularly one time only for 1 dose. Disc: Duplicate Entry Encounter Status:Closed by GARY QUIGLEY DO, V on 10/31/17 PROTHROMBIN TIME W/INR Collected: 10/18/2017 Status: F Source: [place] 11:45 AM [facility] REPOSITORY TYPE CODE TESTS RESULT OUT OF RANGE REFERENCE UNITS LAB L300.4150 11.7-14.9 SECONDS High PROTIME 29.4 LAB L300.4200 Normal INR 2.8 Performed By: #### L300.3900 #### [facility] [address], [address] CNOV Observed: 10/18/2017 Status: COMPLETED Source: [place] 10:20 AM [facility] REPOSITORY Office Visit (FAMPWS) EMMA CÁRDENAS ([id number]) 1945 M Date Time Provider Department 10/18/17 10:20 AM SAGAR MANRIQUE ([facility]) FAMPWS During your visit today, we recorded the following information about you: Temperature Pulse Blood pressure Weight 97.4 degrees 58/minute 130/84 79.8 kg Sagar Manrique APRN.GABRIELA 10/18/2017 10:53 AM Signed Chief Complaint Patient presents with: 1 week follow up: cough x 2 weeks - not any better HPI Emma Cárdenas is a 71 year old male who presents here today for Above Complaints. Patient presents to the office for a one week follow up for a cough. Patient was in the office for urgent care follow up to see Dr. Serrano. Chest x-ray was ordered and was normal. Could has been persistent, dry for 2-3 weeks without any improvement. Cough is non-productive, dry. No fevers or chills. No shortness of breath or wheezing. Affecting sleep. Cough causes sore throat. States that his throat will have a tickle and then it will induce a cough. No ear pain. No rhinorrhea presently but will have some when working outside, which he does often when he splits wood. No seasonal allergies. Patient is a non-smoker. No problems with reflux. No chest pain. Patient states that the cough is not worse at anytime in the day. Usually increases with talking for extended time periods. Has been on Lisinopril for many years. Home remedies include cough drops, which can intermittently assist. No ill contacts. Past medical history, appointments, medications, allergies reviewed. Previous Medical History PAST MEDICAL HISTORY Diagnosis Date - Congenital spondylolisthesis - Diverticula of colon - Elevated blood pressure reading without diagnosis of hypertension - Essential hypertension, benign - Glaucoma - Hyperplasia of prostate - MALIGN NEOPL PROSTATE 09/18/2008 - Other and unspecified hyperlipidemia Previous Surgical History PAST SURGICAL HISTORY Procedure Laterality Date - COLONOSCOP W/ OR W/O [facility] SPEC 09/27/05 - COLONOSCOP W/ OR W/O [facility] SPEC 10/18/10 Diverticulitis - mild - 25-30cm - LAP COLECTOMY W COLOPROCTOST 10/19/10 - PAST SURGICAL HISTORY OF Left 12/2015 Cataract surgery - PAST SURGICAL HISTORY OF Right 02/2016 Cataract surgery - SHOULDER ARTHROSCOPY/SURG 03/01/2011 Right shoulder biceps tenotomy and reverse decompression Family History FAMILY HISTORY Problem Relation Age of Onset - hypoglycemia [Other] [OTHER] Father Patient Allergies ALLERGIES Allergen Reactions - Flagyl [Metronidazo* GI Upset nausea - Imipramine Intolerance Urinary retention Current Medications Current Outpatient Prescriptions on File Prior to Visit: lisinopril (ZESTRIL, PRINIVIL) 5 mg tablet TAKE 1 TABLET EVERY DAY metoprolol tartrate, short acting, (LOPRESSOR) 25 mg tablet Take 1 tablet by mouth twice daily. tamsulosin ER (FLOMAX) 0.4 mg cp24 Take 1 capsule by mouth daily at bedtime. warfarin (COUMADIN) 5 mg tablet Take 1 tablet by mouth once daily. simvastatin (ZOCOR) 40 mg tablet Take 1 tablet by mouth once daily. [place]-3 Fatty Acids-Vitamin E (FISH OIL) 1,000 mg cap Take 1 capsule by mouth. latanaprost 0.005 % OPHTHALMIC ophthalmic solution Use 1 Drop in both eyes once daily. No current facility-administered medications on file prior to visit. Social History Social History Marital status: Spouse name: Years of education: Number of children: Social History Main Topics Smoking status: Never Smoker Smokeless tobacco: Never Used Comment: Smoked some as teen ager Alcohol use: No Drug use: No REVIEW OF SYSTEMS: as above ? Reviewed relevant PMHx, PSHx, Social Hx, current medications and allergies. EXAM: BP 130/84 Pulse (!) 58 Temp 36.3 ?C (97.4 ?F) (Tympanic) Wt 79.8 kg (176 lb) SpO2 97% BMI 29.74 kg/m? General Appearance: Well appearing, alert, in no acute distress, well-hydrated, well nourished.. Head: Normocephalic, no masses, lesions, tenderness or abnormalities. Eyes: Anicteric sclera. Pupils are equally round and reactive to light. Extraocular movements are intact. . Ears: External ears normal, canals clear. Nose/Sinuses: Positive findings: mucosa swollen, pale, and boggy. Oropharynx: Lips, mucosa, and tongue normal, teeth and gums normal, oropharynx normal. Neck: Supple, no adenopathy; thyroid symmetric, normal size.. Lungs: Lungs clear to auscultation. No wheezing, rhonchi, rales. Heart: Normal S1, S2 with soft systolic murmur, No gallop or rubs. No ectopy. Extremities: No deformities, edema, skin discoloration, clubbing or cyanosis. Good capillary refill. . Health Maintenance List ZOSTER VACCINE (SHINGRIX)(1 of 2) due on 1996 DTAP,TDAP,TD(1 - Tdap) due on 04/08/2005 DIABETES SCREEN due on 07/05/2020 COLORECTAL CANCER SCREENING,SEE MODIFIER due on 10/18/2020 LIPID SCREEN due on 12/26/2021 ADULT PREVNAR-13 Completed INFLUENZA Completed HEPATITIS C SCREENING Completed PNEUMOVAX AGE 65 AND OVER WITH 5YR LOOKBACK Completed Data reviewed IMPRESSION: No acute radiographic abnormality. Security Intern: REGAN ? Transcribe Date/Time: Oct 12:21P Dictated by : MYRON PORRAS DO This examination was interpreted and the report reviewed and electronically signed by: MYRON PORRAS DO on Oct 12:21PM ?EST Results-Findings Final Report DATE OF EXAM: Oct 11:13AM ? WRX ? 5291 ?- ?XR CHEST 2V FRONTAL/LAT ?/ PROCEDURE REASON: Cough ?? ? Physician Interpretation ?EXAMINATION: ?CHEST RADIOGRAPH (2 VIEW FRONTAL AND LATERAL) Clinical History: ?Cough MQ: ?XC2_5 Comparison: ?09/28/2010 RESULT: Lines, tubes, and devices: ?None. Lungs and pleura: ?No consolidation. No lung mass. No pleural effusion. Cardiomediastinal silhouette: ?Normal cardiomediastinal silhouette. ASSESSMENT/PLAN: 1. Cough - ICD9: 786.2, ICD10: R05 (primary diagnosis) - Unclear etiology. Possible etiologies include Asthma, COPD, rhinitis due to allergies, GERD or marianela cough. We will start with flonase, get lung testing, follow up in 3 weeks. Consider switching lisinopril to losartan if not improved. - FLUTICASONE 50 MCG/ACTUATION NASAL SPRAY,SUSPENSION - SPIROMETRY - BASELINE AND POST DILATOR - PREDNISONE 20 MG TABLET 2. Rhinitis, unspecified type - ICD9: 472.0, ICD10: J31.0 - Does have intermittent rhinitis with outdoor activity. We will trial Flonase to cut down on post nasal drainage. - FLUTICASONE 50 MCG/ACTUATION NASAL SPRAY,SUSPENSION Follow up in 3-4 weeks. Sagar Manrique APRN.GABRIELA Manrique APRN.GABRIELA 10/18/2017 10:40 AM Signed We will start with Flonase to cut down on nasal congestion, runny nose. Get spirometry. Do 5 days of prednisone with food. If not improvement in 3 weeks, follow up in office, we will discuss switching from lisinopril to another medication. Sagar Manrique APRN.[employer] Referring Provider: ATA SERRANO [[id number]] Allergies As of Date: 10/18/2017 Noted Allergy Reaction YL (METRONIDAZOLE HCL) 11/23/2006 8 - GI Upset Comments: nausea IMIPRAMINE 08/17/2007 5 - Intolerance Comments: Urinary retention Date Reviewed: 10/18/2017 Reviewed by: Sagar (Gabriela) Dexter - Fully Assessed Reason for Visit: 1 week follow up [Other] Cmt: cough x 2 weeks - not any better Primary Visit Diagnosis:Cough [R05] Other Visit Diagnosis:Rhinitis, unspecified type [J31.0] Order(s):fluticasone (FLONASE) 50 mcg/actuation nasal sprayUse 2 Sprays in each nostril once daily.Disp: 1 BottleRfl: 1 SPIROMETRY - BASELINE AND POST DILATOR [[id number]] Order #: [id number] FUTURE predniSONE (DELTASONE) 20 mg tabletTake 2 tablets by mouth once daily for 5 days. Take daily with food.Disp: 10 tabletRfl: 0 Prescriptions as of 10/18/2017 Sig: LISINOPRIL 5 MG TABLET TAKE 1 TABLET EVERY DAY METOPROLOL TARTRATE 25 MG TAB* Take 1 tablet by mouth twice * TAMSULOSIN 0.4 MG CAPSULE Take 1 capsule by mouth daily* WARFARIN 5 MG TABLET Take 1 tablet by mouth once d* SIMVASTATIN 40 MG TABLET Take 1 tablet by mouth once d* OMEGA-3 FATTY ACIDS-VITAMIN E* Take 1 capsule by mouth. 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 ELEVATED PROSTATE SPECIFIC ANTIGEN [R97.20] INVALID FOR* More... Bladder neck obstruction [N32.0] INVALID FOR*10/12/2011 Benign prostatic hyperplasia with urinary hesit*INVALID FOR* Nodular prostate with urinary obstruction [N40.*INVALID FOR*10/12/2011 MALIGN NEOPL PROSTATE [C61] INVALID FOR* More... 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 Diverticulitis of colon (without mention of hem*INVALID FOR* Other affections of shoulder region, not elsewh*INVALID FOR*10/12/2011 Elevated PSA [R97.20] INVALID FOR*06/28/2016 Atrial fibrillation (HCC) [I48.91] INVALID FOR* Other instructions from your clinician: We will start with Flonase to cut down on nasal congestion, runny nose. Get spirometry. Do 5 days of prednisone with food. If not improvement in 3 weeks, follow up in office, we will discuss switching from lisinopril to another medication. Sagar Manrique APRN.GABRIELA Prescriptions ordered this encounter Disp Refills Start End FLUTICASONE 50 MCG/ACTUATION NASAL S* 1 Navin* 1 10/18/2017 Route: EACH NOSTRIL Sig: Use 2 Sprays in each nostril once daily. PREDNISONE 20 MG TABLET 10 t* 0 10/18/2017 10/23/2017 Route: ORAL Sig: Take 2 tablets by mouth once daily for 5 days. Take daily with food. Disposition: Return in about 3 weeks (around 11/08/2017). Follow-up and Disposition History Recorded Encounter Status:Closed by SAGAR MANRIQUE CNP on 10/18/17 PROGRESS Observed: 10/18/2017 Status: COMPLETED Source: [place] 10:19 AM [facility] REPOSITORY HNO ID: [id number] Author: Sagar (Dean Manrique Service: (none) Author Type: Nurse Practitioner Type: Progress Notes Filed: 10/18/2017 10:53 AM Note Text: Chief Complaint Patient presents with: 1 week follow up: cough x 2 weeks - not any better HPI Emma Cárdenas is a 71 year old male who presents here today for Above Complaints. Patient presents to the office for a one week follow up for a cough. Patient was in the office for urgent care follow up to see Dr. Serrano. Chest x-ray was ordered and was normal. Could has been persistent, dry for 2-3 weeks without any improvement. Cough is non-productive, dry. No fevers or chills. No shortness of breath or wheezing. Affecting sleep. Cough causes sore throat. States that his throat will have a tickle and then it will induce a cough. No ear pain. No rhinorrhea presently but will have some when working outside, which he does often when he splits wood. No seasonal allergies. Patient is a non-smoker. No problems with reflux. No chest pain. Patient states that the cough is not worse at anytime in the day. Usually increases with talking for extended time periods. Has been on Lisinopril for many years. Home remedies include cough drops, which can intermittently assist. No ill contacts. Past medical history, appointments, medications, allergies reviewed. Previous Medical History PAST MEDICAL HISTORY Diagnosis Date - Congenital spondylolisthesis - Diverticula of colon - Elevated blood pressure reading without diagnosis of hypertension - Essential hypertension, benign - Glaucoma - Hyperplasia of prostate - MALIGN NEOPL PROSTATE 09/18/2008 - Other and unspecified hyperlipidemia Previous Surgical History PAST SURGICAL HISTORY Procedure Laterality Date - COLONOSCOP W/ OR W/O [facility] SPEC 09/27/05 - COLONOSCOP W/ OR W/O [facility] SPE[facility] 10/18/10 Diverticulitis - mild - 25-30cm - LAP COLECTOMY W COLOPROCTOST 10/19/10 - PAST SURGICAL HISTORY OF Left 12/2015 Cataract surgery - PAST SURGICAL HISTORY OF Right 02/2016 Cataract surgery - SHOULDER ARTHROSCOPY/SURG 03/01/2011 Right shoulder biceps tenotomy and reverse decompression Family History FAMILY HISTORY Problem Relation Age of Onset - hypoglycemia [Other] [OTHER] Father Patient Allergies ALLERGIES Allergen Reactions - Flagyl [Metronidazo* GI Upset nausea - Imipramine Intolerance Urinary retention Current Medications Current Outpatient Prescriptions on File Prior to Visit: lisinopril (ZESTRIL, PRINIVIL) 5 mg tablet TAKE 1 TABLET EVERY DAY metoprolol tartrate, short acting, (LOPRESSOR) 25 mg tablet Take 1 tablet by mouth twice daily. tamsulosin ER (FLOMAX) 0.4 mg cp24 Take 1 capsule by mouth daily at bedtime. warfarin (COUMADIN) 5 mg tablet Take 1 tablet by mouth once daily. simvastatin (ZOCOR) 40 mg tablet Take 1 tablet by mouth once daily. [place]-3 Fatty Acids-Vitamin E (FISH OIL) 1,000 mg cap Take 1 capsule by mouth. latanaprost 0.005 % OPHTHALMIC ophthalmic solution Use 1 Drop in both eyes once daily. No current facility-administered medications on file prior to visit. Social History Social History Marital status: Spouse name: Years of education: Number of children: Social History Main Topics Smoking status: Never Smoker Smokeless tobacco: Never Used Comment: Smoked some as teen ager Alcohol use: No Drug use: No REVIEW OF SYSTEMS: as above ? Reviewed relevant PMHx, PSHx, Social Hx, current medications and allergies. EXAM: BP 130/84 Pulse (!) 58 Temp 36.3 ?C (97.4 ?F) (Tympanic) Wt 79.8 kg (176 lb) SpO2 97% BMI 29.74 kg/m? General Appearance: Well appearing, alert, in no acute distress, well-hydrated, well nourished.. Head: Normocephalic, no masses, lesions, tenderness or abnormalities. Eyes: Anicteric sclera. Pupils are equally round and reactive to light. Extraocular movements are intact. . Ears: External ears normal, canals clear. Nose/Sinuses: Positive findings: mucosa swollen, pale, and boggy. Oropharynx: Lips, mucosa, and tongue normal, teeth and gums normal, oropharynx normal. Neck: Supple, no adenopathy; thyroid symmetric, normal size.. Lungs: Lungs clear to auscultation. No wheezing, rhonchi, rales. Heart: Normal S1, S2 with soft systolic murmur, No gallop or rubs. No ectopy. Extremities: No deformities, edema, skin discoloration, clubbing or cyanosis. Good capillary refill. . Health Maintenance List ZOSTER VACCINE (SHINGRIX)(1 of 2) due on 1996 DTAP,TDAP,TD(1 - Tdap) due on 04/08/2005 DIABETES SCREEN due on 07/05/2020 COLORECTAL CANCER SCREENING,SEE MODIFIER due on 10/18/2020 LIPID SCREEN due on 12/26/2021 ADULT PREVNAR-13 Completed INFLUENZA Completed HEPATITIS C SCREENING Completed PNEUMOVAX AGE 65 AND OVER WITH 5YR LOOKBACK Completed Data reviewed IMPRESSION: No acute radiographic abnormality. Security Intern: PSCB ? Transcribe Date/Time: Oct 12:21P Dictated by : MYRON PORRAS, DO This examination was interpreted and the report reviewed and electronically signed by: MYRON PORRAS, DO on Oct 12:21PM ?EST Results-Findings Final Report DATE OF EXAM: Oct 11:13AM ? WRX ? [id number] ?- ?XR CHEST 2V FRONTAL/LAT ?/ PROCEDURE REASON: Cough ?? ? Physician Interpretation ?EXAMINATION: ?CHEST RADIOGRAPH (2 VIEW FRONTAL AND LATERAL) Clinical History: ?Cough MQ: ?XC2_5 Comparison: ?09/28/2010 RESULT: Lines, tubes, and devices: ?None. Lungs and pleura: ?No consolidation. No lung mass. No pleural effusion. Cardiomediastinal silhouette: ?Normal cardiomediastinal silhouette. ASSESSMENT/PLAN: 1. Cough - ICD9: 786.2, ICD10: R05 (primary diagnosis) - Unclear etiology. Possible etiologies include Asthma, COPD, rhinitis due to allergies, GERD or marianela cough. We will start with flonase, get lung testing, follow up in 3 weeks. Consider switching lisinopril to losartan if not improved. - FLUTICASONE 50 MCG/ACTUATION NASAL SPRAY,SUSPENSION - SPIROMETRY - BASELINE AND POST DILATOR - PREDNISONE 20 MG TABLET 2. Rhinitis, unspecified type - ICD9: 472.0, ICD10: J31.0 - Does have intermittent rhinitis with outdoor activity. We will trial Flonase to cut down on post nasal drainage. - FLUTICASONE 50 MCG/ACTUATION NASAL SPRAY,SUSPENSION Follow up in 3-4 weeks. Sagar Manrique APRN.ENGINEERING FACULTY XR CHEST 2V FRONTAL/LAT Observed: 10/11/2017 Status: F Source: [place] 11:13 AM [facility] REPOSITORY * * *Final Report* * * DATE OF EXAM: Oct 11 2017 11:13AM WRX [id number] - XR CHEST 2V FRONTAL/LAT / PROCEDURE REASON: Cough * * * * Physician Interpretation * * * * EXAMINATION: CHEST RADIOGRAPH (2 VIEW FRONTAL and LATERAL) Clinical History: Cough MQ: XC2_5 Comparison: 09/28/2010 RESULT: Lines, tubes, and devices: None. Lungs and pleura: No consolidation. No lung mass. No pleural effusion. Cardiomediastinal silhouette: Normal cardiomediastinal silhouette. IMPRESSION: No acute radiographic abnormality. Security Intern: PSCB Transcribe Date/Time: Oct 11 2017 12:21P Dictated by : MYRON PORRAS DO This examination was interpreted and the report reviewed and electronically signed by: MYRON PORRAS DO on Oct 11 2017 12:21PM EST [id number] PROGRESS Observed: 10/11/2017 Status: COMPLETED Source: [place] 11:04 AM [facility] REPOSITORY HNO ID: [id number] Author: Tereso Vega (Rt) Service: (none) Author Type: Research Lab Assistant Type: Progress Notes Filed: 10/11/2017 11:06 AM Note Text: Radiology Service Progress Note PATIENT NAME: Emma Cárdenas DATE OF SERVICE: October 11, 2017 TIME: 11:04 AM PATIENT IDENTITY VERIFICATION COMPLETED USING TWO (2) METHODS: Patient confirmed name verbally and Date of . PATIENT GENDER DATA: Male PATIENT RELEVANT IMPLANT DATA REVIEWED: Not Applicable RADIOLOGY DEPARTMENT: General X-ray: Exam(s) Completed: Chest X-Ray PERIPHERAL IV DATA: Not applicable SIGNED BY: RT Gary October 11, 2017 11:04 AM HISTORY PHYSICAL Observed: 10/11/2017 Status: COMPLETED Source: [place] 10:01 AM [facility] REPOSITORY HNO ID: [id number] Author: Ata Serrano Service: (none) Author Type: Physician Type: HANDP Filed: 10/11/2017 12:57 PM Note Text: Chief Complaint Patient presents with: Follow Up: UTI from [facility] 10/01/17 Hip Pain: left hip X 1 wk Back Pain: lower back pain, notices after cutting wood Cough: dry cough 3 wks HPI Emma Cárdenas is a 71 year old male who presents here today for UTI f/u from Urgent Care. Patient was seen in the UC on 10/01/2017 and diagnosed with UTI with culturer positive for E. Coli. Placed on bactrim DS twice a day for 10 days. Not having the dysuria any longer and no significant urgency or frequency unless he really needs to go. No fevers or chills Has a dry cough for the past 3 weeks. Comes and goes. Slight wheezing at times but no shortness of breath. No significant smoking Hx. His dad did smoke pipes and cigars. Past medical history, appointments, medications, allergies reviewed. Previous Medical History PAST MEDICAL HISTORY Diagnosis Date - Congenital spondylolisthesis - Diverticula of colon - Elevated blood pressure reading without diagnosis of hypertension - Essential hypertension, benign - Glaucoma - Hyperplasia of prostate - MALIGN NEOPL PROSTATE 09/18/2008 - Other and unspecified hyperlipidemia Previous Surgical History PAST SURGICAL HISTORY Procedure Laterality Date - COLONOSCOP W/ OR W/O BRS SPEC 09/27/05 - COLONOSCOP W/ OR W/O BRS SPEC 10/18/10 Diverticulitis - mild - 25-30cm - LAP COLECTOMY W COLOPROCTOST 10/19/10 - PAST SURGICAL HISTORY OF Left 12/2015 Cataract surgery - PAST SURGICAL HISTORY OF Right 02/2016 Cataract surgery - SHOULDER ARTHROSCOPY/SURG 03/01/2011 Right shoulder biceps tenotomy and reverse decompression Family History FAMILY HISTORY Problem Relation Age of Onset - hypoglycemia [Other] [OTHER] Father Patient Allergies ALLERGIES Allergen Reactions - Flagyl [Metronidazo* GI Upset nausea - Imipramine Intolerance Urinary retention Current Medications Current Outpatient Prescriptions on File Prior to Visit: sulfamethoxazole-trimethoprim (BACTRIM DS) 800-160 mg per tablet Take 1 tablet by mouth twice daily for 10 days. lisinopril (ZESTRIL, PRINIVIL) 5 mg tablet TAKE 1 TABLET EVERY DAY metoprolol tartrate, short acting, (LOPRESSOR) 25 mg tablet Take 1 tablet by mouth twice daily. tamsulosin ER (FLOMAX) 0.4 mg cp24 Take 1 capsule by mouth daily at bedtime. warfarin (COUMADIN) 5 mg tablet Take 1 tablet by mouth once daily. simvastatin (ZOCOR) 40 mg tablet Take 1 tablet by mouth once daily. [place]-3 Fatty Acids-Vitamin E (FISH OIL) 1,000 mg cap Take 1 capsule by mouth. latanaprost 0.005 % OPHTHALMIC ophthalmic solution Use 1 Drop in both eyes once daily. No current facility-administered medications on file prior to visit. Social History Social History Marital status: Spouse name: Years of education: Number of children: Social History Main Topics Smoking status: Never Smoker Smokeless tobacco: Never Used Comment: Smoked some as teen ager Alcohol use: No Drug use: No Review of Symptoms REVIEW OF SYSTEMS See HPI EXAM: BP 88/62 Pulse 60 Temp 36.3 ?C (97.4 ?F) (Tympanic) Resp 16 Wt 79.4 kg (175 lb) BMI 29.57 kg/m? General Appearance: Well appearing, alert, in no acute distress, well-hydrated, well nourished.. Back: no flank pain Lungs: Lungs clear to auscultation. No wheezing, rhonchi, rales. Heart: Negative findings: regular rate and rhythm, S1 normal, S2 normal, Positive findings: SCOTT soft and diffuse.. Abdomen: Normal abdominal exam, Abdomen soft, non-tender. Bowel sounds normal. No masses, organomegaly. No suprapubic pain. Health Maintenance List DTAP,TDAP,TD(1 - Tdap) due on 04/08/2005 DIABETES SCREEN due on 07/05/2020 COLORECTAL CANCER SCREENING,SEE MODIFIER due on 10/18/2020 LIPID SCREEN due on 12/26/2021 ADULT PREVNAR-13 Completed INFLUENZA Completed HEPATITIS C SCREENING Completed PNEUMOVAX AGE 65 AND OVER WITH 5YR LOOKBACK Completed Data reviewed A/P ASSESSMENT/PLAN: 1. Acute cystitis without hematuria - ICD9: 595.0, ICD10: N30.00 (primary diagnosis) resolved 2. Persistent cough - ICD9: 786.2, ICD10: R05 check - XR CHEST 2V FRONTAL/LAT if normal and persists may need CT of chest. Patient to f/u with PCP or Adam Manrique in a week for cough and eval of low back and hip pain. Ata Serrano MD CNOV Observed: 10/11/2017 Status: COMPLETED Source: [place] 9:40 AM [facility] REPOSITORY Office Visit ([facility]) EMMA CÁRDENAS ([id number]) 1945 M Date Time Provider Department 10/11/17 9:40 AM ATA SERRANO During your visit today, we recorded the following information about you: Temperature Pulse Respiration Blood pressure 97.4 degrees 60/minute 16/minute 88/62 Weight 79.4 kg Ata Serrano MD 10/11/2017 12:57 PM Signed Chief Complaint Patient presents with: Follow Up: UTI from [facility] 10/01/17 Hip Pain: left hip X 1 wk Back Pain: lower back pain, notices after cutting wood Cough: dry cough 3 wks HPI Emma Cárdenas is a 71 year old male who presents here today for UTI f/u from Urgent Care. Patient was seen in the UC on 10/01/2017 and diagnosed with UTI with culturer positive for E. Coli. Placed on bactrim DS twice a day for 10 days. Not having the dysuria any longer and no significant urgency or frequency unless he really needs to go. No fevers or chills Has a dry cough for the past 3 weeks. Comes and goes. Slight wheezing at times but no shortness of breath. No significant smoking Hx. His dad did smoke pipes and cigars. Past medical history, appointments, medications, allergies reviewed. Previous Medical History PAST MEDICAL HISTORY Diagnosis Date - Congenital spondylolisthesis - Diverticula of colon - Elevated blood pressure reading without diagnosis of hypertension - Essential hypertension, benign - Glaucoma - Hyperplasia of prostate - MALIGN NEOPL PROSTATE 09/18/2008 - Other and unspecified hyperlipidemia Previous Surgical History PAST SURGICAL HISTORY Procedure Laterality Date - COLONOSCOP W/ OR W/O [facility] SPEC 09/27/05 - COLONOSCOP W/ OR W/O [facility] SPEC 10/18/10 Diverticulitis - mild - 25-30cm - LAP COLECTOMY W COLOPROCTOST 10/19/10 - PAST SURGICAL HISTORY OF Left 12/2015 Cataract surgery - PAST SURGICAL HISTORY OF Right 02/2016 Cataract surgery - SHOULDER ARTHROSCOPY/SURG 03/01/2011 Right shoulder biceps tenotomy and reverse decompression Family History FAMILY HISTORY Problem Relation Age of Onset - hypoglycemia [Other] [OTHER] Father Patient Allergies ALLERGIES Allergen Reactions - Flagyl [Metronidazo* GI Upset nausea - Imipramine Intolerance Urinary retention Current Medications Current Outpatient Prescriptions on File Prior to Visit: sulfamethoxazole-trimethoprim (BACTRIM DS) 800-160 mg per tablet Take 1 tablet by mouth twice daily for 10 days. lisinopril (ZESTRIL, PRINIVIL) 5 mg tablet TAKE 1 TABLET EVERY DAY metoprolol tartrate, short acting, (LOPRESSOR) 25 mg tablet Take 1 tablet by mouth twice daily. tamsulosin ER (FLOMAX) 0.4 mg cp24 Take 1 capsule by mouth daily at bedtime. warfarin (COUMADIN) 5 mg tablet Take 1 tablet by mouth once daily. simvastatin (ZOCOR) 40 mg tablet Take 1 tablet by mouth once daily. [place]-3 Fatty Acids-Vitamin E (FISH OIL) 1,000 mg cap Take 1 capsule by mouth. latanaprost 0.005 % OPHTHALMIC ophthalmic solution Use 1 Drop in both eyes once daily. No current facility-administered medications on file prior to visit. Social History Social History Marital status: Spouse name: Years of education: Number of children: Social History Main Topics Smoking status: Never Smoker Smokeless tobacco: Never Used Comment: Smoked some as teen ager Alcohol use: No Drug use: No Review of Symptoms REVIEW OF SYSTEMS See HPI EXAM: BP 88/62 Pulse 60 Temp 36.3 ?C (97.4 ?F) (Tympanic) Resp 16 Wt 79.4 kg (175 lb) BMI 29.57 kg/m? General Appearance: Well appearing, alert, in no acute distress, well-hydrated, well nourished.. Back: no flank pain Lungs: Lungs clear to auscultation. No wheezing, rhonchi, rales. Heart: Negative findings: regular rate and rhythm, S1 normal, S2 normal, Positive findings: SCOTT soft and diffuse.. Abdomen: Normal abdominal exam, Abdomen soft, non-tender. Bowel sounds normal. No masses, organomegaly. No suprapubic pain. Health Maintenance List DTAP,TDAP,TD(1 - Tdap) due on 04/08/2005 DIABETES SCREEN due on 07/05/2020 COLORECTAL CANCER SCREENING,SEE MODIFIER due on 10/18/2020 LIPID SCREEN due on 12/26/2021 ADULT PREVNAR-13 Completed INFLUENZA Completed HEPATITIS C SCREENING Completed PNEUMOVAX AGE 65 AND OVER WITH 5YR LOOKBACK Completed Data reviewed A/P ASSESSMENT/PLAN: 1. Acute cystitis without hematuria - ICD9: 595.0, ICD10: N30.00 (primary diagnosis) resolved 2. Persistent cough - ICD9: 786.2, ICD10: R05 check - XR CHEST 2V FRONTAL/LAT if normal and persists may need CT of chest. Patient to f/u with PCP or Adam Manrique in a week for cough and eval of low back and hip pain. Ata Serrano MD Referring Provider: SELF [200] Allergies As of Date: 10/11/2017 Noted Allergy Reaction FLAGYL (METRONIDAZOLE HCL) 11/23/2006 8 - GI Upset Comments: nausea IMIPRAMINE 08/17/2007 5 - Intolerance Comments: Urinary retention Date Reviewed: 10/11/2017 Reviewed by: Ata Serrano - Fully Assessed Reason for Visit: Follow Up [171] Cmt: UTI from [facility] 10/01/17 Hip Pain [136] Cmt: left hip X 1 wk Back Pain [12] Cmt: lower back pain, notices after cutting wood Cough [28] Cmt: dry cough 3 wks Reason For Visit History Recorded Primary Visit Diagnosis:Acute cystitis without hematuria [N30.00] Other Visit Diagnosis:Persistent cough [R05] Order(s):XR CHEST 2V FRONTAL/LAT [[id number]] Order #: [id number] FUTURE UA DIP B/O [[id number]] Order #: [id number] Prescriptions as of 10/11/2017 Sig: SULFAMETHOXAZOLE 800 MG-TRIME* Take 1 tablet by mouth twice * LISINOPRIL 5 MG TABLET TAKE 1 TABLET EVERY DAY METOPROLOL TARTRATE 25 MG TAB* Take 1 tablet by mouth twice * TAMSULOSIN 0.4 MG CAPSULE Take 1 capsule by mouth daily* WARFARIN 5 MG TABLET Take 1 tablet by mouth once d* SIMVASTATIN 40 MG TABLET Take 1 tablet by mouth once d* [place]-3 FATTY ACIDS-VITAMIN E* Take 1 capsule by mouth. 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 ELEVATED PROSTATE SPECIFIC ANTIGEN [R97.20] INVALID FOR* More... Bladder neck obstruction [N32.0] INVALID FOR*10/12/2011 Benign prostatic hyperplasia with urinary hesit*INVALID FOR* Nodular prostate with urinary obstruction [N40.*INVALID FOR*10/12/2011 MALIGN NEOPL PROSTATE [C61] INVALID FOR* More... 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 Diverticulitis of colon (without mention of hem*INVALID FOR* Other affections of shoulder region, not elsewh*INVALID FOR*10/12/2011 Elevated PSA [R97.20] INVALID FOR*06/28/2016 Atrial fibrillation (HCC) [I48.91] INVALID FOR* Disposition: Return in about 1 week (around 10/18/2017) for with PCP or Charlotte Manrique for cough, hip/back pain. Follow-up and Disposition History Recorded Encounter Status:Closed by ATA SERRANO on 10/11/17 PROGRESS Observed: 10/01/2017 Status: COMPLETED Source: [place] 1:47 PM [facility] [place] REPOSITORY HNO ID: [id number] Author: Saniya Campbell Service: (none) Author Type: Nurse Practitioner Type: Progress Notes Filed: 10/01/2017 1:59 PM Note Text: Subjective HPI Pt presents with c/o dysuria, urinary frequency and urgency x 2 days. Urinary frequency kept pt awake most of the night. Intermittent urinary hesitancy as well. Hx BPH, taking flomax as prescribed. Denies fever, chills, abd/flank/back pain. Review of Systems Constitutional: Negative for chills and fever. Gastrointestinal: Negative for abdominal pain. Genitourinary: Positive for dysuria, frequency and urgency. Negative for flank pain and hematuria. Musculoskeletal: Negative for back pain. Objective Physical Exam Constitutional: He is oriented to person, place, and time and well-developed, well-nourished, and in no distress. No distress. Abdominal: There is no CVA tenderness. Neurological: He is alert and oriented to person, place, and time. Skin: Skin is warm and dry. He is not diaphoretic. BP 100/80 Pulse 66 Temp 36.9 ?C (98.4 ?F) (Left Tympanic) Resp 16 Wt 79.8 kg (176 lb) BMI 29.74 kg/m? .Patient presents with: Dysuria PAST MEDICAL HISTORY Diagnosis Date - Congenital spondylolisthesis - Diverticula of colon - Elevated blood pressure reading without diagnosis of hypertension - Essential hypertension, benign - Glaucoma - Hyperplasia of prostate - MALIGN NEOPL PROSTATE 09/18/2008 - Other and unspecified hyperlipidemia PAST SURGICAL HISTORY Procedure Laterality Date - COLONOSCOP W/ OR W/O [facility] SPEC 09/27/05 - COLONOSCOP W/ OR W/O [facility] SPEC 10/18/10 Diverticulitis - mild - 25-30cm - LAP COLECTOMY W COLOPROCTOST 10/19/10 - PAST SURGICAL HISTORY OF Left 12/2015 Cataract surgery - PAST SURGICAL HISTORY OF Right 02/2016 Cataract surgery - SHOULDER ARTHROSCOPY/SURG 03/01/2011 Right shoulder biceps tenotomy and reverse decompression ALLERGIES Flagyl [Metronidazole Hcl]; Imipramine MEDICATIONS lisinopril (ZESTRIL, PRINIVIL) 5 mg tablet TAKE 1 TABLET EVERY DAY metoprolol tartrate, short acting, (LOPRESSOR) 25 mg tablet Take 1 tablet by mouth twice daily. tamsulosin ER (FLOMAX) 0.4 mg cp24 Take 1 capsule by mouth daily at bedtime. warfarin (COUMADIN) 5 mg tablet Take 1 tablet by mouth once daily. simvastatin (ZOCOR) 40 mg tablet Take 1 tablet by mouth once daily. [place]-3 Fatty Acids-Vitamin E (FISH OIL) 1,000 mg cap Take 1 capsule by mouth. latanaprost 0.005 % OPHTHALMIC ophthalmic solution Use 1 Drop in both eyes once daily. sulfamethoxazole-trimethoprim (BACTRIM DS) 800-160 mg per tablet Take 1 tablet by mouth twice daily for 10 days. phenazopyridine (PYRIDIUM) 100 mg tablet Take 1 tablet by mouth three times daily as needed for up to 2 days. FAMILY HISTORY Problem Relation Age of Onset - hypoglycemia [Other] [OTHER] Father Social History Substance Use Topics - Smoking status: Never Smoker - Smokeless tobacco: Never Used Comment: Smoked some as teen ager - Alcohol use No ASSESSMENT/PLAN: 1. Acute cystitis with hematuria - ICD9: 595.0, ICD10: N30.01 (primary diagnosis) - SULFAMETHOXAZOLE 800 MG-TRIMETHOPRIM 160 MG TABLET Instructed to f/u with PCP in 10 days. PSR assisting pt in scheduling this f/u visit. 2. Dysuria - ICD9: 788.1, ICD10: R30.0 acute - UA positive for pancho esterase, hematuria and nitrates - Send urine for culture - Patient education for prevention given - UA DIP B/O - URINE CULTURE - PHENAZOPYRIDINE 100 MG TABLET The patient is instructed to return or seek emergency treatment if symptoms become worse or with any acute change in condition. The patient verbalizes understanding and is in agreement with plan of care. Saniya Campbell CNP Observed: 10/01/2017 Status: F Source: [place] URINE CULTURE 12:47 PM [facility] REPOSITORY Sp. Request/Comment: - Specimen received in preservative Culture Result - 10,000 - <50,000 CFU/ml Escherichia coli --> ABNORMAL ALERT ORGANISM: Escherichia coli METHOD: Minimum inhibitory concentration(Vitek) Antibiotic Interp BRANDAN Status Ampicillin SUSCEPTIBLE <=2 F Gentamicin SUSCEPTIBLE <=1 F Trimeth sulfameth SUSCEPTIBLE <=20 F Cefazolin SUSCEPTIBLE <=4 F CLSI breakpoints for therapy of uncomplicated UTI's due to E.coli, K.pneumoniae, and P.mirabilis were applied and may be used to predict the activity of oral agents(cefaclor, cefdinir, cefpodoxime, cefp rozil, cefuroxime, cephalexin, loracarbef). Ciprofloxacin SUSCEPTIBLE <=0.25 F Nitrofurantoin SUSCEPTIBLE <=16 F Cefepime SUSCEPTIBLE <=1 F Piperacillin/Tazobac SUSCEPTIBLE <=4 F Ampicillin Sulbact SUSCEPTIBLE <=2 F Ceftriaxone SUSCEPTIBLE <=1 F Meropenem SUSCEPTIBLE <=0.25 F Ertapenem SUSCEPTIBLE <=0.5 F Performed By: #### URCUL #### [facility] [address] [place], [place] [address] CNOV Observed: 10/01/2017 Status: COMPLETED Source: [place] 12:30 PM [facility] REPOSITORY [facility] AVIEMMA ([id number]) 1945 M Date Time Provider Department 10/01/17 12:30 PM SANIYA CAMPBELL [facility] During your visit today, we recorded the following information about you: Temperature Pulse Respiration Blood pressure 98.4 degrees 66/minute 16/minute 100/80 Weight 79.8 kg Saniya Campbell APRN.ENGINEERING FACULTY 10/01/2017 1:59 PM Signed Subjective HPI Pt presents with c/o dysuria, urinary frequency and urgency x 2 days. Urinary frequency kept pt awake most of the night. Intermittent urinary hesitancy as well. Hx BPH, taking flomax as prescribed. Denies fever, chills, abd/flank/back pain. Review of Systems Constitutional: Negative for chills and fever. Gastrointestinal: Negative for abdominal pain. Genitourinary: Positive for dysuria, frequency and urgency. Negative for flank pain and hematuria. Musculoskeletal: Negative for back pain. Objective Physical Exam Constitutional: He is oriented to person, place, and time and well-developed, well-nourished, and in no distress. No distress. Abdominal: There is no CVA tenderness. Neurological: He is alert and oriented to person, place, and time. Skin: Skin is warm and dry. He is not diaphoretic. BP 100/80 Pulse 66 Temp 36.9 ?C (98.4 ?F) (Left Tympanic) Resp 16 Wt 79.8 kg (176 lb) BMI 29.74 kg/m? .Patient presents with: Dysuria PAST MEDICAL HISTORY Diagnosis Date - Congenital spondylolisthesis - Diverticula of colon - Elevated blood pressure reading without diagnosis of hypertension - Essential hypertension, benign - Glaucoma - Hyperplasia of prostate - MALIGN NEOPL PROSTATE 09/18/2008 - Other and unspecified hyperlipidemia PAST SURGICAL HISTORY Procedure Laterality Date - COLONOSCOP W/ OR W/O [facility] SPEC 09/27/05 - COLONOSCOP W/ OR W/O [facility] SPEC 10/18/10 Diverticulitis - mild - 25-30cm - LAP COLECTOMY W COLOPROCTOST 10/19/10 - PAST SURGICAL HISTORY OF Left 12/2015 Cataract surgery - PAST SURGICAL HISTORY OF Right 02/2016 Cataract surgery - SHOULDER ARTHROSCOPY/SURG 03/01/2011 Right shoulder biceps tenotomy and reverse decompression ALLERGIES Flagyl [Metronidazole Hcl]; Imipramine MEDICATIONS lisinopril (ZESTRIL, PRINIVIL) 5 mg tablet TAKE 1 TABLET EVERY DAY metoprolol tartrate, short acting, (LOPRESSOR) 25 mg tablet Take 1 tablet by mouth twice daily. tamsulosin ER (FLOMAX) 0.4 mg cp24 Take 1 capsule by mouth daily at bedtime. warfarin (COUMADIN) 5 mg tablet Take 1 tablet by mouth once daily. simvastatin (ZOCOR) 40 mg tablet Take 1 tablet by mouth once daily. [place]-3 Fatty Acids-Vitamin E (FISH OIL) 1,000 mg cap Take 1 capsule by mouth. latanaprost 0.005 % OPHTHALMIC ophthalmic solution Use 1 Drop in both eyes once daily. sulfamethoxazole-trimethoprim (BACTRIM DS) 800-160 mg per tablet Take 1 tablet by mouth twice daily for 10 days. phenazopyridine (PYRIDIUM) 100 mg tablet Take 1 tablet by mouth three times daily as needed for up to 2 days. FAMILY HISTORY Problem Relation Age of Onset - hypoglycemia [Other] [OTHER] Father Social History Substance Use Topics - Smoking status: Never Smoker - Smokeless tobacco: Never Used Comment: Smoked some as teen ager - Alcohol use No ASSESSMENT/PLAN: 1. Acute cystitis with hematuria - ICD9: 595.0, ICD10: N30.01 (primary diagnosis) - SULFAMETHOXAZOLE 800 MG-TRIMETHOPRIM 160 MG TABLET Instructed to f/u with PCP in 10 days. PSR assisting pt in scheduling this f/u visit. 2. Dysuria - ICD9: 788.1, ICD10: R30.0 acute - UA positive for pancho esterase, hematuria and nitrates - Send urine for culture - Patient education for prevention given - UA DIP B/O - URINE CULTURE - PHENAZOPYRIDINE 100 MG TABLET The patient is instructed to return or seek emergency treatment if symptoms become worse or with any acute change in condition. The patient verbalizes understanding and is in agreement with plan of care. Saniya Campbell CNP Referring Provider: SELF [[id number]] Allergies As of Date: 10/01/2017 Noted Allergy Reaction FLAGYL (METRONIDAZOLE HCL) 11/23/2006 8 - GI Upset Comments: nausea IMIPRAMINE 08/17/2007 5 - Intolerance Comments: Urinary retention Date Reviewed: 10/01/2017 Reviewed by: Keisha Wayne Ma - Fully Assessed Reason for Visit: Dysuria [1085] Primary Visit Diagnosis:Acute cystitis with hematuria [N30.01] Other Visit Diagnosis:Dysuria [R30.0] Order(s):UA DIP B/O [[id number]] Order #: [id number] URINE CULTURE [SQURCUL] Order #: [id number] sulfamethoxazole-trimethoprim (BACTRIM DS) 800-160 mg per tabletTake 1 tablet by mouth twice daily for 10 days.Disp: 20 tabletRfl: 0 phenazopyridine (PYRIDIUM) 100 mg tabletTake 1 tablet by mouth three times daily as needed for up to 2 days.Disp: 6 tabletRfl: 0 Prescriptions as of 10/01/2017 Sig: LISINOPRIL 5 MG TABLET TAKE 1 TABLET EVERY DAY METOPROLOL TARTRATE 25 MG TAB* Take 1 tablet by mouth twice * TAMSULOSIN 0.4 MG CAPSULE Take 1 capsule by mouth daily* WARFARIN 5 MG TABLET Take 1 tablet by mouth once d* SIMVASTATIN 40 MG TABLET Take 1 tablet by mouth once d* OMEGA-3 FATTY ACIDS-VITAMIN E* Take 1 capsule by mouth. 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 ELEVATED PROSTATE SPECIFIC ANTIGEN [R97.20] INVALID FOR* More... Bladder neck obstruction [N32.0] INVALID FOR*10/12/2011 Benign prostatic hyperplasia with urinary hesit*INVALID FOR* Nodular prostate with urinary obstruction [N40.*INVALID FOR*10/12/2011 MALIGN NEOPL PROSTATE [C61] INVALID FOR* More... 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 Diverticulitis of colon (without mention of hem*INVALID FOR* Other affections of shoulder region, not elsewh*INVALID FOR*10/12/2011 Elevated PSA [R97.20] INVALID FOR*06/28/2016 Atrial fibrillation (HCC) [I48.91] INVALID FOR* Prescriptions ordered this encounter Disp Refills Start End SULFAMETHOXAZOLE 800 MG-TRIMETHOPRIM* 20 t* 0 10/01/2017 10/11/2017 Cmt: Ok to give generic equivalent Route: ORAL Sig: Take 1 tablet by mouth twice daily for 10 days. PHENAZOPYRIDINE 100 MG TABLET 6 ta* 0 10/01/2017 10/03/2017 Route: ORAL Sig: Take 1 tablet by mouth three times daily as needed for up to 2 days. Encounter Status:Closed by SANIYA CAMPBELL CNP on 10/01/17 CARDIOLOGY VISIT Observed: 07/28/2017 Status: F Source: [place] REPORT 2:07 PM [facility] REPOSITORY [facility] [address] [place] [address]. [address] [place] [address] OFFICE VISIT Date of Service: 07/18/17 MR#: [id number] Acct: [id number] Name: EMMA CÁRDENAS Rep #: [id number] : 1945 Provider: TANNER Ordoñez Age/Sex: 71/M Location: [facility] [place] Status: Signed HPI HPI Details: EMMA CÁRDENAS, is a 71 M who presents to the office today for a cardiovascular outpatient follow-up. Patient has a history of paroxysmal atrial fibrillation diagnosed in March 2017, aortic valve disease/stenosis with a bicuspid aortic valve, and hypertension. Pt denies chest, arm, jaw, or neck discomfort. His exercise tolerance is stable. Pt denies symptoms of CHF, palpitations, lightheadedness, dizziness, near syncopal or syncopal episodes. Pt denies edema or claudication issues. Pt. denies orthopnea, PND, fever, chills, blood in urine, blood in stool, myalgia, or unexplainable fatigue. Intake Vital Signs07/18/17 Height 5 ft 4.5 in 07/18/17 Weight: 182 lb 07/18/17 Body Mass Index (BMI) 30.7 07/18/17 Blood Pressure 108/68 Intake Visit Reasons: per MMM Allergies imipramine Adverse Reaction (Verified 03/21/17 16:14) Other metronidazole [From Flagyl] Adverse Reaction (Verified 03/21/17 16:14) Nausea Medications Lisinopril [Zestril] 5 mg PO DAILY 03/21/17 [History Confirmed 07/13/17] [place]-3/Dha/Epa/Fish Oil [Fish Oil 1,000 mg Softgel] 1 ea PO BID 03/21/17 [History Confirmed 07/13/17] Simvastatin [Zocor] 40 mg PO QHS 03/21/17 [History Confirmed 07/13/17] Tamsulosin HCl [Flomax] 0.4 mg PO DAILY@1730 #30 cap 03/23/17 [Rx Confirmed 07/13/17] latanoprost 0.005 % eye drops OPHTHALMIC 90 Days 04/11/17 [History Confirmed 07/13/17] timolol maleate 0.5 % eye drops OPHTHALMIC 90 Days 04/11/17 [History Confirmed 07/13/17] metoprolol tartrate 25 mg tablet 25 mg PO BID #180 tab 06/19/17 [Rx Confirmed 07/13/17] warfarin 5 mg tablet 5 mg PO DAILY #90 tab 06/19/17 [Rx Confirmed 07/18/17] PFSH Medical History Paroxysmal atrial fibrillation (Chronic) jail current use of anticoagulant (Chronic) HTN (hypertension) (Chronic) Aortic stenosis due to bicuspid aortic valve (Chronic) Diverticulitis (Acute) Social History Smoking Status: Never smoker second hand exposure: No alcohol intake: never substance use type: does not use caffeine: Yes Type: coffee eating out: 1-3 times/week during the past year weight has: remained stable what type of physical activity do you participate in: none seatbelt use: always do you feel safe at home: Yes ROS Const Const: Negative for fatigue, weakness, body ache, fever(s) or chills ENT ENT: Negative for dizziness Cardio Chest Pain: No Palpitations: No Edema: None Muscle aches with walking: None Resp Respiratory: Negative for SOB with activity, SOB at rest, SOB orthopnea\SOB lying down or paroxysmal nocturnal dyspnea GI GI: Negative nausea, black,tarry stools, bright, red blood in stools or vomiting blood/hematemesis : Negative for hematuria or frequent nighttime urination/ nocturia Musc Musc: Negative for muscle aches/ myalgia Neuro Neuro: Negative for weakness, dizziness, lightheadedness, near syncope, syncope or orthostatic symptoms Endo Endo: Negative for fatigue Cardiology Exam Const Appearance: cooperative, healthy appearing, comfortable and no acute distress Orientation: alert, awake and oriented x3 Head Head: normal to inspection Mouth: oral mucosae normal Neck Neck: no JVD and normal visual inspection Carotids: normal carotid upstroke Chest Chest inspection: normal inspection of the chest and normal respiratory effort Auscultation: Bilateral: Clear to Auscultation Cardio Rate: regular rate Rhythm: regular rhythm Heart sounds: S2 normal and murmur (Right sternal border systolic); negative rub or gallop Murmur: Grade 3/6 GI GI: normal to inspection Neuro General: alert, awake, oriented x3 and CN's II-XI intact bilaterally Skin Skin: no rashes or lesions noted Extremities Pulses: Normal: Right Posterior Tibial Pulse, Left Posterior Tibial Pulse, Right Radial Pulse, Left Radial Pulse Lower Extremity Edema: None: Bilateral Psych Psychological: normal affect Supplemental Info Echocardiogram from March 2017 showed an estimated ejection fraction of 65%, mild posteriorly directed mitral valve insufficiency, mild tricuspid valve insufficiency, RVSP of 36 mmHg, probable bicuspid aortic valve with fusion of right and left coronary cusps, mild to moderate aortic stenosis, and calculated aortic valve area (continuity equation) is 1.4 cm . Echocardiogram from March 2017 showed an estimated ejection fraction of 65%. It was negative for ischemia by both EKG and echocardiographic criteria. No anginal symptoms were noted. Baseline EKG showed atrial fibrillation. Baseline aortic valve gradient was 26 mm peak and increased to a maximum of 37/23 millimeters peak and mean gradient at peak exercise. No significant aortic stenosis is noted. Estimated aortic valve area was 1.4 cm consistent with baseline echocardiogram. Assessment AND Plan 1. Paroxysmal atrial fibrillation I48.0 BEKAH Uribe Patient's EKG in April 2017 showed sinus bradycardia. Patient's heart rate appears regular today in office. His rate is well controlled. Patient denies any concerning symptoms related to this. Patient will continue current medications which include beta-mickie and Coumadin therapy. At this time patient does not need cardioversion as stated in April 2017 office visit note. We will continue to monitor this. 2. Aortic stenosis due to bicuspid aortic valve Q23.0; Q23.1 Plan - BEKAH Arriola Patient's most recent echocardiogram showed a probable bicuspid aortic valve with mild to moderate aortic stenosis and a calculated aortic valve area of 1.4 cm . Patient's stress echocardiogram from March 2017 was negative for ischemia and showed a valve gradient of 26 mmHg peak and increased to a maximum of 37/23 millimeters peak and mean gradient at peak exercise. Patient's activity level has remained stable. He denies any shortness of breath, chest pain, or syncope. We will hold off on TAVR workup per patient's request. We will continue to monitor this through history, exam, and repeat echocardiogram as needed. 3. Essential hypertension I10 Plan - BEKAH Arriola Patient's blood pressure is well-controlled today in the office. We will continue to monitor this. We will not make any medication regimen changes. 4. jail current use of anticoagulant Z79.01 Plan - BEKAH Arriola Patient will continue with Coumadin therapy for paroxysmal atrial fibrillation with a goal of INR of 2-3. Plan Detail Additional Comments - BEKAH Arriola Patient will keep December [address] Rivas for further evaluation. Discussed the above patient with Dr. Rivas, he agrees with the plan of care. Thank you for allowing us to participate in the patients plan of care, if you have any questions please do not hesitate to call. This note was generated using a voice recognition system and there may be incorrect words, spelling or punctuation that were not noted when reviewing the office note prior to saving. Coding Level of Care Code Off vis,est,level 3 Diagnoses Paroxysmal atrial fibrillation I48.0 Aortic stenosis due to bicuspid aortic valve Q23.0; Q23.1 Essential hypertension I10 Hypertension type: essential hypertension tooth cutter pinion current use of anticoagulant Z79.01 Coding Level of Care Code Off vis,est,level 3 Diagnoses Paroxysmal atrial fibrillation I48.0 Aortic stenosis due to bicuspid aortic valve Q23.0; Q23.1 Essential hypertension I10 Hypertension type: essential hypertension tooth cutter pinion current use of anticoagulant Z79.01 07/18/17 1552 <Electronically signed by Sebastian GODFREY> Date Sebastian DAVISC 07/28/17 1407<Electronically signed by Martinez Rivas MD> Cosigner Signature: Date (if applicable) Martinez Rivas MD CC: Vy Mascorro MD HEMOGLOBIN A1C Collected: 07/05/2017 Status: F Source: [place] 10:58 AM [facility] REPOSITORY TYPE CODE TESTS RESULT OUT OF REFERENCE UNITS RANGE LAB HGBA1C 4.3-5.6 % High Hemoglobin A1c 6.0 LAB HBA0 mg/dL Est. Average Glucose 126 Result Comment: eAG: (Estimated average glucose) is a calculated value from HgbA1c and is veterans employment representative of the average blood glucose level in the last 2-3 month period. Performed By: #### HBA1C, BMP, PSA #### [facility] [address] [place], [place] [address] BASIC METABOLIC PANL Collected: 07/05/2017 Status: F Source: [place] 10:58 AM [facility] REPOSITORY TYPE CODE TESTS RESULT OUT OF REFERENCE UNITS RANGE LAB GLU 74-99 mg/dL High Glucose 103 Result Comment: The [place] Diabetes Association (ADA) provides guidance for cutoff values for fasting glucose and random glucose. The ADA defines fasting as no caloric intake for at least 8 hours. Fas ting plasma glucose results between 100 to 125 mg/dL indicate increased risk for diabetes (prediabetes). Fasting plasma glucose results greater than or equal to 126 mg/dL meet the criteria for diagnosis of diabetes. In the absence of unequivocal hyperglycemia, results should be confirmed by repeat testing. In a patient with classic symptoms of hyperglycemia or hyperglycemic crisis, random plasma glucose results greater than or equal to 200 mg/dL meet the criteria for diagnosis of diabetes. Reference: Standards of Medical Care in Diabetes 2016, [place] Diabetes Association. Diabetes Care. 2016.39(Suppl 1). LAB BUN 9-24 mg/dL BUN 18 LAB CRET 0.73-1.22 mg/dL Creatinine High 1.26 LAB NA 136-144 mmol/L Sodium 139 LAB K 3.7-5.1 mmol/L Potassium 4.5 LAB CL 97-105 mmol/L Chloride 104 LAB CO2 22-30 mmol/L CO2 22 LAB AGAP 9-18 mmol/L Anion Gap 13 LAB CA 8.5-10.2 mg/dL Calcium, Total 9.1 LAB GFRAA eGFR- Amer. >60 LAB GFRNAA . eGFR-All Other Races 57 Result Comment: eGFR (Estimated GFR) Units of measure: mL/min/1.73 meters squared eGFR is derived from the reexpressed MDRD Study equation using the following parameters: serum creatinine, age, gender and race. The creatinine assay has been calibrated to be traceable to IDMS. An eGFR <60 mL/min/1.73m2 for >3 months is consistent with chronic kidney disease. Refer to KDOQI guidelines for clinical interpretation. In patients with unstable renal function, e.g. those with acute kidney injury, the eGFR may not accurately reflect actual GFR. Performed By: #### HBA1C, BMP, PSA #### [facility] [address] [place] [id number] PSA, DIAGNOSTIC Collected: 07/05/2017 Status: F Source: [place] 10:58 AM [facility] REPOSITORY TYPE CODE TESTS RESULT OUT OF REFERENCE UNITS RANGE LAB PSA 0.00-2.59 ng/mL PSA, High Diagnostic 9.10 Result Comment: Total PSA test methodology used is the Electrochemiluminescence Immunoassay. For an individual patient, the significance of a PSA level should be interpreted in a broad clinical context, including age, race, family history, digital rectal exam, prostate size, results of prior te sting (prostate biopsy, free PSA, PCA3), and use of 5-alpha reductase inhibitors. Considering the high incidence of asymptomatic cancer in the general population that may not pose an ultimate risk to a patient, the decision to recommend urological evaluation or prostate biopsy should be individualized after consideration of all these factors. REFERENCE: Christopher Puckett M.D., M.P.H., Malick Larson M.D., Ph.D., Wm Jernigan M.D., Ana Luisa Muniz, M.P.H., Nathaly Goodson Sc.D. Effect of Verification Bias on Screening for Prostate Cancer by Measurement of Prostatic Specific Antigen. N Engl J Med 2003,349:335-42. Performed By: #### HBA1C, BMP, PSA #### [facility] [address] [place], [place] [address] PROTHROMBIN TIME W/INR Collected: 07/04/2017 Status: F Source: [place] 11:39 AM [facility] REPOSITORY TYPE CODE TESTS RESULT OUT OF RANGE REFERENCE UNITS LAB L300.4150 11.7-14.9 SECONDS High PROTIME 27.1 LAB L300.4200 Normal INR 2.6 Performed By: #### L300.3900 #### [facility] [address] [facility], [address] PROGRESS Observed: 07/04/2017 Status: COMPLETED Source: [place] 10:41 AM [facility] REPOSITORY HNO ID: [id number] Author: Vy Mascorro Service: (none) Author Type: Physician Type: Progress Notes Filed: 07/04/2017 11:11 AM Note Text: Chief Complaint Patient presents with: F/U 6 Month HPI Emma Cárdenas is a 71 year old male who presents here today for 6 month follow up. HTN: does not check BP at home. Denies any chest pains, dizziness, or SOB. Is taking Lisinopril 5 mg daily and Lopressor 25 mg BID. Follows with [employer] Dr. Rivas. A-fib: INR managed by Dr. Rivas, [employer]. Is taking Coumadin 5 mg daily. Hyperlipidemia: is taking Zocor 40 mg daily. Does not watch diet or any formal exercise regimen. He does stay active with yard work. Taking Flomax daily at bedtime. Denies getting up much at night, maybe once or twice. Does not follow with a urologist. PSA has been elevated in the past Past medical history, appointments, medications, allergies reviewed. Previous Medical History PAST MEDICAL HISTORY Diagnosis Date - Congenital spondylolisthesis - Diverticula of colon - Elevated blood pressure reading without diagnosis of hypertension - Essential hypertension, benign - Glaucoma - Hyperplasia of prostate - MALIGN NEOPL PROSTATE 09/18/2008 - Other and unspecified hyperlipidemia Previous Surgical History PAST SURGICAL HISTORY Procedure Laterality Date - COLONOSCOP W/ OR W/O [facility] SPE[facility] 09/27/05 - COLONOSCOP W/ OR W/O [facility] 10/18/10 Diverticulitis - mild - 25-30cm - LAP COLECTOMY W COLOPROCTOST 10/19/10 - PAST SURGICAL HISTORY OF Left 12/2015 Cataract surgery - PAST SURGICAL HISTORY OF Right 02/2016 Cataract surgery - SHOULDER ARTHROSCOPY/SURG 03/01/2011 Right shoulder biceps tenotomy and reverse decompression Family History FAMILY HISTORY Problem Relation Age of Onset - hypoglycemia [Other] [OTHER] Father Patient Allergies ALLERGIES Allergen Reactions - Flagyl [Metronidazo* GI Upset nausea - Imipramine Intolerance Urinary retention Current Medications Current Outpatient Prescriptions on File Prior to Visit: lisinopril (ZESTRIL, PRINIVIL) 5 mg tablet TAKE 1 TABLET EVERY DAY metoprolol tartrate, short acting, (LOPRESSOR) 25 mg tablet Take 1 tablet by mouth twice daily. tamsulosin ER (FLOMAX) 0.4 mg cp24 Take 1 capsule by mouth daily at bedtime. warfarin (COUMADIN) 5 mg tablet Take 1 tablet by mouth once daily. simvastatin (ZOCOR) 40 mg tablet Take 1 tablet by mouth once daily. [place]-3 Fatty Acids-Vitamin E (FISH OIL) 1,000 mg cap Take 1 capsule by mouth. latanaprost 0.005 % OPHTHALMIC ophthalmic solution Use 1 Drop in both eyes once daily. TIMOLOL OPHTHALMIC Use 1 Drop in eyes twice daily. Left eye only cyclobenzaprine (FLEXERIL) 5 mg tablet Take 5 mg by mouth three times daily as needed. HYDROcodone-acetaminophen (NORCO) 5-325 mg per tablet Take 1-2 tabs every 6 hours prn pain. No current facility-administered medications on file prior to visit. Social History Social History Marital status: Spouse name: Years of education: Number of children: Social History Main Topics Smoking status: Never Smoker Smokeless status: Never Used Comment: Smoked some as teen ager Alcohol use: No Drug use: No EXAM: BP 124/70 Pulse 68 Resp 14 Wt 81.2 kg (179 lb) BMI 30.25 kg/m2 General Appearance: Well appearing, alert, in no acute distress, well-hydrated, well nourished.. Lungs: Lungs clear to auscultation. No wheezing, rhonchi, rales. Heart: RRR, systolic murmur. Health Maintenance List TETANUS due on 04/07/2015 DIABETES SCREEN due on 12/27/2019 COLORECTAL CANCER SCREENING,SEE MODIFIER due on 10/18/2020 LIPID SCREEN due on 12/26/2021 PROSTATE CANCER SCREENING DISCUSSION Completed ADULT PREVNAR-13 Completed INFLUENZA Completed HEPATITIS C SCREENING Completed PNEUMOVAX AGE 65 AND OVER WITH 5YR LOOKBACK Completed Data reviewed None ASSESSMENT/PLAN: 1. Essential hypertension, benign - ICD9: 401.1, ICD10: I10 (primary diagnosis) - good control - Continue current medication(s) - Goal of BP <140/90 - BASIC METABOLIC PNL 2. Atrial fibrillation, unspecified type (HCC) - ICD9: 427.31, ICD10: I48.91 Follows with Cardiology 3. Mixed hyperlipidemia - ICD9: 272.2, ICD10: E78.2 - good control - Continue current medication. 4. Elevated glucose - ICD9: 790.29, ICD10: R73.09 Check labs - HGB A1C - BASIC METABOLIC PNL 5. Elevated PSA - ICD9: 790.93, ICD10: R97.20 Recheck - PSA/PROSTSPECAG DIAG Notify of lab results Follow up in 6 months Vy Mascorro MD CARDIOLOGY VISIT Observed: 06/26/2017 Status: F Source: [place] REPORT 2:20 PM [facility] REPOSITORY [facility] [address] [place] [address]. [address] [place] [address] OFFICE VISIT Date of Service: 04/13/17 MR#: [id number] Acct: [id number] Name: EMMA CÁRDENAS Rep #: [id number] : 1945 Provider: TANNER Ordoñez Age/Sex: 71/M Location: [facility] [place] Status: Signed HPI 3 WK/ NEED DCCV: Chief Complaint: DCCV evaluation Details: EMMA CÁRDENAS, is a 71 M who presents to the office today for a cardiovascular outpatient follow-up. Patient has a history of atrial fibrillation, aortic valve stenosis with possible bicuspid aortic valve, and hypertension. Patient presented to [facility] in March 2017 after developing some lightheadedness and dizziness. He was found to be in atrial fibrillation with RVR. He had an echocardiogram done with results noted below. He was transitioned to oral anticoagulation and discharged home after improvement in rate. Pt. states following with Dr. Thomas in the past regarding his aortic valve. Pt denies chest, arm, jaw, or neck discomfort. His exercise tolerance is stable, via outdoor woodwork. Pt denies symptoms of CHF, palpitations, near syncopal or syncopal episodes. Pt denies edema or claudication issues. Pt. denies orthopnea, PND, fever, chills, blood in urine, blood in stool, myalgia, or unexplainable fatigue. Pt. states having one episode of lightheaded/dizziness before getting out of bed. This resolved on its own and was brief. He describes it as the room was spinning. There has not been any recurrence of this. Phone number: [phone] Intake Vital Signs04/13/17 Height 5 ft 4.5 in 04/13/17 Weight: 79.832 kg 04/13/17 Body Mass Index (BMI) 29.7 04/13/17 Blood Pressure 108/76 04/13/17 Blood Pressure Location Lt brachial Intake Visit Reasons: 3 WK/ NEED DCCV Corsets Salesperson Required: No Accompanied by: None Is patient in pain?: No Allergies imipramine Adverse Reaction (Verified 03/21/17 16:14) Other metronidazole [From Flagyl] Adverse Reaction (Verified 03/21/17 16:14) Nausea Medications Lisinopril [Zestril] 5 mg PO DAILY 03/21/17 [History Confirmed 04/11/17] [place]-3/Dha/Epa/Fish Oil [Fish Oil 1,000 mg Softgel] 1 ea PO BID 03/21/17 [History Confirmed 04/11/17] Simvastatin [Zocor] 40 mg PO QHS 03/21/17 [History Confirmed 04/11/17] Metoprolol Tartrate [Lopressor (beta mickie)] 25 mg PO BID #60 tab 03/23/17 [Rx Confirmed 04/11/17] Tamsulosin HCl [Flomax] 0.4 mg PO DAILY@1730 #30 cap 03/23/17 [Rx Confirmed 04/11/17] Warfarin Sodium [Coumadin] 5 mg PO DAILY #30 tab 03/23/17 [Rx Confirmed 04/11/17] latanoprost 0.005 % eye drops OPHTHALMIC 90 Days 04/11/17 [History Confirmed 04/11/17] timolol maleate 0.5 % eye drops OPHTHALMIC 90 Days 04/11/17 [History Confirmed 04/11/17] PFSH Medical History A-fib (Chronic) HTN (hypertension) (Chronic) Aortic stenosis due to bicuspid aortic valve (Chronic) Diverticulitis (Acute) Social History Smoking Status: Never smoker second hand exposure: No alcohol intake: never substance use type: does not use caffeine: Yes Type: coffee eating out: 1-3 times/week during the past year weight has: remained stable what type of physical activity do you participate in: none seatbelt use: always do you feel safe at home: Yes ROS Const Const: Negative body ache, fever(s), chills, fatigue or weakness ENT ENT: dizziness Cardio Chest Pain: No Palpitations: No Edema: None Muscle aches with walking: None Resp Respiratory: Negative SOB with activity, SOB at rest, SOB orthopnea\SOB lying down or paroxysmal nocturnal dyspnea GI GI: Negative nausea, black,tarry stools, bright, red blood in stools or vomiting blood/hematemesis : Negative hematuria or frequent nighttime urination/ nocturia Musc Musc: Negative muscle aches/ myalgia Neuro Neuro: Negative weakness, dizziness, lightheadedness, Negative near syncope, Negative syncope, Negative orthostatic symptoms Endo Endo: Negative fatigue Cardiology Exam Const Appearance: cooperative, healthy appearing, comfortable and no acute distress Orientation: alert, awake and oriented x3 Head Head: normal to inspection Mouth: oral mucosae normal Neck Neck: no JVD and normal visual inspection Carotids: normal carotid upstroke Chest Chest inspection: normal inspection of the chest and normal respiratory effort Auscultation: Bilateral: Clear to Auscultation Cardio Rate: regular rate Rhythm: regular rhythm Heart sounds: murmur (Right sternal border systolic murmur ) Murmur: Grade 3/6 GI GI: normal to inspection Neuro General: alert, awake, oriented x3 and CN's II-XI intact bilaterally Skin Skin: no rashes or lesions noted Extremities Pulses: Normal: Right Posterior Tibial Pulse, Left Posterior Tibial Pulse, Right Radial Pulse, Left Radial Pulse Lower Extremity Edema: None: Bilateral Psych Psychological: normal affect Assessment AND Plan Problems 1. Paroxysmal atrial fibrillation I48.0 2. Aortic stenosis due to bicuspid aortic valve Q23.0; Q23.1 3. Valvular heart disease I38 4. Essential hypertension I10; I10; I10 5. Mixed hyperlipidemia E78.2; E78.2; E78.2 Orders Orders: Medications Discontinued: Plan Detail Follow Up 6 Months (DJN) 06/20/17 1112 <Electronically signed by Sebastian DAVISC> Date Sebastian Ordoñez HYDRAULIC SPECIALIST-C 06/26/17 1420<Electronically signed by Martinez Rivas MD> Cosigner Signature: Date (if applicable) Martinez Rivas MD CC: [facility]y [facility]ascorro [facility] Observed: 06/20/2017 Status: COMPLETED Source: [place] 12:00 AM [facility] REPOSITORY Patient Outreach (INTMWH) EMMA CÁRDENAS ([id number]) 1945 M Date Time Provider Department 06/20/17 VY MASCORRO [facility] During your visit today, we recorded the following information about you: Allergies As of Date: 06/20/2017 Noted Allergy Reaction FLAGYL (METRONIDAZOLE HCL) 11/23/2006 8 - GI Upset Comments: nausea IMIPRAMINE 08/17/2007 5 - Intolerance Comments: Urinary retention Date Reviewed: 04/04/2017 Reviewed by: Jackeline Michael Ma - Fully Assessed Visit Diagnosis:Medication management [Z79.899] Order(s):HGB A1C [[id number]] Order #: [id number] FUTURE Problem List As Of Date 06/20/2017 Noted Resolved Essential Hypertension, Benign [I10] INVALID FOR* Priority: A Mixed hyperlipidemia [E78.2] INVALID FOR* Priority: Severe Family History of Diabetes Mellitus [Z83.3] INVALID FOR* Priority: 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 ELEVATED PROSTATE SPECIFIC ANTIGEN [R97.20] INVALID FOR* More... Bladder neck obstruction [N32.0] INVALID FOR*10/12/2011 Benign prostatic hyperplasia with urinary hesit*INVALID FOR* Nodular prostate with urinary obstruction [N40.*INVALID FOR*10/12/2011 MALIGN NEOPL PROSTATE [C61] INVALID FOR* More... 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 Diverticulitis of colon (without mention of hem*INVALID FOR* Other affections of shoulder region, not elsewh*INVALID FOR*10/12/2011 Elevated PSA [R97.20] INVALID FOR*06/28/2016 Atrial fibrillation (HCC) [I48.91] INVALID FOR* Encounter Status:Closed by DANELLE, PRODUSER on 06/25/17 PROTHROMBIN TIME W/INR Collected: 06/15/2017 Status: F Source: [place] 2:19 PM [facility] REPOSITORY Order Comment: Comments: Standing Comments: Standing TYPE CODE TESTS RESULT OUT OF RANGE REFERENCE UNITS LAB L300.4150 11.7-14.9 SECONDS High PROTIME 24.4 LAB L300.4200 Normal INR 2.3 Performed By: #### L300.3900 #### [facility] [address] [place], [address] OBSOLETE Observed: 05/13/2017 Status: COMPLETED Source: [place] 12:00 AM [facility] REPOSITORY Refill (FAMPWS) EMMA CÁRDENAS ([id number]) 1945 M Date Time Provider Department 05/13/17 VY MASCORRO FAMPWS During your visit today, we recorded the following information about you: Regino Garcia Psr 05/13/2017 11:27 AM Signed Patient has been identified by name and date of : Yes Last office visit in this department: 04/04/2017 RX INSTRUCTIONS: Patient aware RX will be sent to pharmacy. No need to notify patient. Patient is completely out of this medication and would like a prescription sent to the [facility] in [place]. If you have any questions, please contact him at: [phone]. Patient phones requesting refills as follows: Pending Prescriptions Disp Refills TIMOLOL 0.5 % EYE DROPS Sig: twice daily. Left eye only Please review and advise. Regino Garcia Psr Sagar Manrique CNP, GABRIELA 05/15/2017 1:46 PM Signed This medications is prescribed by his cam maker. Needs to reach out to Dr. Roney Quinones for the refill. The following approved medication requests have been transmitted electronically. Refused Prescriptions Disp Refills timolol hemihydrate (BETIMOL) 0.5 % ophthalmic solution Sig: twice daily. Left eye only Refused By: SAGAR MANRIQUE CNP Reason for Refusal: A Refill not appropriate Reason for Refusal Comment: Prescribed by eye doctor GABRIELA Carlin Ma 05/15/2017 2:25 PM Signed Pt notified. Jackeline Michael Ma' Allergies As of Date: 05/13/2017 Noted Allergy Reaction FLAGYL (METRONIDAZOLE HCL) 11/23/2006 8 - GI Upset Comments: nausea IMIPRAMINE 08/17/2007 5 - Intolerance Comments: Urinary retention Date Reviewed: 04/04/2017 Reviewed by: Jackeline Micheal Ma - Fully Assessed Reason for Visit: Refill Request [94] Prescriptions as of 05/13/2017 Sig: METOPROLOL TARTRATE 25 MG TAB* Take 1 tablet by mouth twice * TAMSULOSIN 0.4 MG CAPSULE Take 1 capsule by mouth daily* WARFARIN 5 MG TABLET Take 1 tablet by mouth once d* CYCLOBENZAPRINE 5 MG TABLET Take 5 mg by mouth three time* LISINOPRIL 5 MG TABLET TAKE 1 TABLET EVERY DAY HYDROCODONE 5 MG-ACETAMINOPHE* Take 1-2 tabs every 6 hours p* SIMVASTATIN 40 MG TABLET Take 1 tablet by mouth once d* OMEGA-3 FATTY ACIDS-VITAMIN E* Take 1 capsule by mouth. 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 ELEVATED PROSTATE SPECIFIC ANTIGEN [R97.20] INVALID FOR* More... Bladder neck obstruction [N32.0] INVALID FOR*10/12/2011 Benign prostatic hyperplasia with urinary hesit*INVALID FOR* Nodular prostate with urinary obstruction [N40.*INVALID FOR*10/12/2011 MALIGN NEOPL PROSTATE [C61] INVALID FOR* More... 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 Diverticulitis of colon (without mention of hem*INVALID FOR* Other affections of shoulder region, not elsewh*INVALID FOR*10/12/2011 Elevated PSA [R97.20] INVALID FOR*06/28/2016 Atrial fibrillation (HCC) [I48.91] INVALID FOR* Encounter Status:Closed by JACKELINE MICHAEL MA on 05/15/17 12 LEAD EKG PERFORMED Observed: 04/13/2017 Status: F Source: [place] [facility] 12:11 PM [facility] REPOSITORY [address] [address] 12 Lead EKG performed by [facility] 04/13/17 1210 MR#: [id number] Acct: [id number] Name: EMMA CÁRDENAS Rep #: [id number] : 1945 71 From: Sebastian Ordoñez HYDRAULIC SPECIALIST-C Attending Dr: Sebastian Ordoñez NP Status: DEP AMB Ordering Dr: Sebastian Ordoñez Date: 04/13/17 Location: [facility] Sex: M C Admitted: [facility]/ Lead EKG performed by [facility] ECG Report Interpretation Sinus Bradycardia WITHIN NORMAL LIMITSElectronically signed on 06/26/2017 at 13:45 by Martinez Rivas 06/26/17 1348 Date Sebastian DAVISC CC: Vy Mascorro MD Date Dictated: 04/13/17 1210 Date Transcribed: 04/13/17 121 Security Intern: SUZY Signed ALLERGIES ALLERGIES DATE TYPE / NAME / CODE REACTION SEVERITY SOURCE CODE 12/07/2017 Drug imipramine/[id number] Other Unknown [place] Allergy/41 98(RXNORM) Community [id number]([facility]) Repository 12/07/2017 Drug metronidazole/F0060 Nausea Unknown [place] Allergy/41 52879(RXNORM) Community 6275767([facility]) Repository 08/17/2007 DRUG IMIPRAMINE INTOLERANCE [facility]/[address] [place] [address] Main [id number]([facility]) Repository 11/23/2006 DRUG METRONIDAZOLE HCL GI UPSET [facility]/[address] [place] [address] Main 5455196([facility]) Repository NG/[id number] METRONIDAZOLE HCL [facility] 06([facility]) Repository NG/[id number] IMIPRAMINE [facility] 06([facility]) Repository ENCOUNTERS ENCOUNTERS ADMIT/DISCHARGE ACCOUNT NUMBER ADMITTING ENCOUNTER LOCATION SOURCE CLASS 04/19/2018 [id number] [facility] ding:LAB Repository 04/09/2018/04/09/[id number] [place] Repository 04/03/2018/04/06/[id number] ding:LAB Repository 03/05/2018/03/05/20 [id number] Ambulatory [address] [place] Repository 02/22/2018/02/23/[id number] Repository 02/21/2018/02/22/[id number] ding:LAB Repository 02/21/2018 [id number] Ambulatory [facility] MEDICAL Repository CENTERBuildi ng:CAGWS 01/25/2018 [id number] [facility] ding:LAB Repository 01/25/2018/02/13/20 [id number] Ambulatory [address] [place] Repository 01/05/2018/01/06/[id number] ding:LAB Repository 01/05/2018/01/06/20 [id number] Ambulatory [address] Main [place] Repository 01/02/2018/01/06/20 [id number] Ambulatory [address] Main [place] Repository 12/07/2017/12/08/19 [id number] Ambulatory BMSBuilding: [place] 18 BMS.[facility] Repository 12/05/2017 [id number] Ambulatory BMSBuilding: [place] BMS.[facility] Repository 11/29/2017/11/30/19 [id number] Ambulatory [place] 18 [facility] ding:LAB Repository 11/15/2017/11/21/19 [id number] Ambulatory [address] Main [place] Repository 11/10/2017/11/14/19 [id number] Ambulatory [address] Main [place] Repository 10/31/2017/11/01/19 [id number] Ambulatory [address] Main [place] Repository 10/31/2017/11/03/19 [id number] Ambulatory [address] Main [place] Repository 10/25/2017/10/28/19 [id number] Ambulatory [address] Main [place] Repository 10/18/2017/10/19/19 [id number] Ambulatory [place] [address] [place] [address] ding:LAB Repository 10/18/2017/10/20/19 [id number] Ambulatory [address] Main [place] Repository 10/11/2017/10/12/19 [id number] Ambulatory [address] Main [place] Repository 10/11/2017/10/13/19 [id number] Ambulatory [address] Main [place] Repository 10/01/2017/10/04/19 [id number] Ambulatory [address] Main [place] Repository 07/18/2017/07/19/19 [id number] Ambulatory BMSBuilding: [place] 18 BMS.[facility] Repository 07/05/2017/07/05/19 [id number] Ambulatory [address] Main [place] Repository 07/04/2017/07/04/19 [id number] Ambulatory [place] 18 [facility] ding:LAB Repository 07/04/2017/07/08/19 [id number] Ambulatory [address] [place] Repository 06/15/2017 [id number] Ambulatory [place] [facility] ding:POLAB3 Repository 04/13/2017/04/13/20 [id number] Ambulatory BMSBuilding: [place] 17 BMS.[facility] Hospital Repository PAYERS PAYERS ENCOUNTER GUARANTOR PAYER SUBSCRIBER SOURCE 04/19/2018 EMMA Gallo Primary EMMA Gallo [place] [id number] Insurance:HUMANA AMMONDOB: Community [place] PPOPolicy [id number] Number: Repository [address]Ncm: 330 [id number] [phone] () Date:4921-92-47UU [address] [address]VE: 04/19/2018 Secondary NOT GIVENUNK [place] Insurance:SELF PAY [facility] Number: Effective Repository Date:2018-04-09 04/03/2018 EMMA Gallo Primary EMMA Gallo [place] [id number] Insurance:HUMANA AMMONDOB: Community [place] PPOPolicy [id number], [place] Number: Repository [address]Hak: 330 [id number] [phone] () Date:0297-86-81XS [address] [address]QW: 04/03/2018 Secondary NOT GIVENUNK [place] Insurance:SELF PAY [facility] Number: Effective Repository Date:2018-03-08 02/21/2018 EMMA Gallo Primary EMMA Gallo [place] [id number] Insurance:HUMANA AMMONDOB: Community [place] PPOPolicy [id number] [place] Number: Repository [address]Hzv: 330 [id number] [phone] () Date:4343-82-07HG [address] [address]GC: 02/21/2018 Secondary NOT GIVENUNK [place] Insurance:SELF PAY [facility] Number: Effective Repository Date:2018-01-09 02/21/2018 EMMA Gallo Primary EMMA Gallo [facility] AMMONDOB: Insurance:HUMANA CARE AMMONDOB: Health [facility] [id number] [facility]: [id number] [facility] Medical Center [id number] Date: [address]Tjv: () 01/25/2018 EMMA Gallo Primary EMMA Gallo [place] [id number] Insurance:HUMANA AMMONDOB: [facility] [id number] Number: Repository [address]Xbf: 330 [id number] [phone] (HP) Date:[id number] [address]OF: 01/25/2018 Secondary NOT GIVENUNK [place] Insurance:SELF PAY [facility] Hospital Number: Effective Repository Date:2018-01-25 01/05/2018 EMMA Gallo Primary EMMA Gallo [place] [id number] Insurance:HUMANA AMMONDOB: Community [place] PPOPolicy [id number] Area Hospital, [place] Number: Repository [address]Bmg: 330 [id number] [phone] (HP) Date:[id number]4601WP: 01/05/2018 Secondary NOT GIVENUNK [place] Insurance:SELF PAY [facility] Hospital Number: Effective Repository Date:2017-12-07 12/07/2017 EMMA Gallo Primary EMMA Gallo [place] [id number] Insurance:HUMANA AMMONDOB: Community [place] PPOPolicy [id number] Area Hospital, [place] Number: Repository [address]Xng: 330 [id number] [phone] () Date:[id number] [address]AJ: 12/07/2017 Secondary NOT GIVENUNK [place] Insurance:SELF PAY [facility] Hospital Number: Effective Repository Date:2017-12-07 12/05/2017 EMMA Gallo Primary EMMA Gallo [place] [id number] Insurance:HUMANA AMMONDOB: Community [place] PPOPolicy [id number] Area Hospital, [place] Number: Repository [address]Qlp: 330 [id number] [phone] () Date:3911-80-76PF [address] [address]YE: 12/05/2017 Secondary NOT GIVENUNK [place] Insurance:SELF PAY [facility] Hospital Number: Effective Repository Date:2017-12-05 11/29/2017 EMMA Gallo Primary EMMA Gallo [place] [id number] Insurance:HUMANA AMMONDOB: Community [place] OPolic [id number] Area Hospital, [place] Number: Repository [address]Yxl: 330 [id number] [phone] () Date:1088-13-85OQ [address] [address]DT: 11/29/2017 Secondary NOT GIVENUNK [place] Insurance:SELF PAY [facility] Hospital Number: Effective Repository Date:2017-11-03 10/18/2017 EMMA Gallo Primary EMMA Gallo [place] [id number] Insurance:HUMANA AMMONDOB: [facility] [place] [facility] [id number] Area Hospital, [place] Number: Repository [address]Gzm: 330 [id number] [phone] () Date:2295-90-60NO [address] [address]CR: 10/18/2017 Secondary NOT GIVENUNK [place] Insurance:SELF PAY [facility] Hospital Number: Effective Repository Date:2017-08-07 07/18/2017 EMMA Gallo Primary EMMA Gallo [place] [id number] Insurance:HUMANA AMMONDOB: [place] [facility] [id number] Area Hospital, [place] Number: Repository [address]Xxm: (330 [id number] [phone] () Date:1109-15-35OO [address] [address]RF: 07/18/2017 Secondary NOT GIVENUNK [place] Insurance:SELF PAY [facility] Hospital Number: Effective Repository Date:2017-06-15 07/04/2017 EMMA Gallo Primary EMMA Gallo [place] [id number] Insurance:HUMANA AMMONDOB: [place] [facility] [id number] Area Hospital, [place] Number: Repository [address]Kho: 330 [id number] [phone] () Date:3051-19-31[address] [place] [address]CC: 07/04/2017 Secondary NOT GIVENUNK [place] Insurance:SELF PAY [facility] Number: Effective Repository Date:2017-05-08 06/15/2017 EMMA Gallo Primary EMMA Gallo [place] [id number] Insurance:HUMANA AMMONDOB: Community [place] PPOPolicy [id number] Clinic Health System, Number: Repository [place] [address]Mea: [id number] Date:5602-32-35LX [address] () [address] [place] [address]XR: 06/15/2017 Secondary NOT GIVENUNK [place] Insurance:SELF PAY [facility] Number: Effective Repository Date:2017-06-15 04/13/2017 EMMA H Primary EMMA Gallo [place] [id number] Insurance:HUMANA AMMONDOB: Community [place] PPOPolicy [id number] Clinic Health System, Number: Repository [place] [address]Htg: [id number] Date:2562-97-63QJ [address] () [address] [place] [address]RY: 04/13/2017 Secondary NOT GIVENUNK [place] Insurance:SELF PAY [facility] Number: Effective Repository Date:2017-04-08
== END 2018-04-06 09:18 | disposition home or self-care (01) ==
LOC: LAB 13:58
PROVIDERS: Family Provider Family Medicine; PCP Family Medicine; Referring Provider Internal Medicine Cardiovascular Disease; Visit Provider Internal Medicine Cardiovascular Disease
DX: I48.91 Unspecified atrial fibrillation (principal); Z79.01 Long term (current) use of anticoagulants
CPT/HCPCS: 36415; 85610

== ENCOUNTER 2018-04-26 10:33 | Outpatient (RCR) | payer MEDICARE, SELFPAY ==
[2018-04-26 11:42] LABS: International Normalized Ratio 3.2
== END 2018-04-26 11:00 | disposition home or self-care (01) ==
LOC: LAB 10:33
PROVIDERS: Family Provider Family Medicine; PCP Family Medicine; Referring Provider Internal Medicine Cardiovascular Disease; Visit Provider Internal Medicine Cardiovascular Disease
DX: I48.91 Unspecified atrial fibrillation (principal); Z79.01 Long term (current) use of anticoagulants
CPT/HCPCS: 36415; 85610

== ENCOUNTER 2018-05-11 12:37 | Outpatient (RCR) | payer MEDICARE, SELFPAY ==
[2017-12-07 13:42] VITALS: BMI 30.5
[2018-05-11 13:31] LABS: International Normalized Ratio 2.5; Prothrombin Time (Protime)PT. 26.8 SECONDS (11.7-14.9)
== END 2018-05-11 13:00 | disposition home or self-care (01) ==
LOC: LAB 12:37
PROVIDERS: Family Provider Family Medicine; PCP Family Medicine; Referring Provider Internal Medicine Cardiovascular Disease; Visit Provider Internal Medicine Cardiovascular Disease
DX: I48.0 Paroxysmal atrial fibrillation (principal); Z79.01 Long term (current) use of anticoagulants
CPT/HCPCS: 36415; 85610

== ENCOUNTER 2018-06-12 11:26 | Outpatient (RCR) | payer MEDICARE, SELFPAY ==
[2018-06-12 13:39] LABS: International Normalized Ratio 2.2; Prothrombin Time (Protime)PT. 24.8 SECONDS (11.7-14.9)
== END 2018-07-05 13:14 | disposition home or self-care (01) ==
LOC: LAB 11:26
PROVIDERS: Family Provider Family Medicine; PCP Family Medicine; Referring Provider Internal Medicine Cardiovascular Disease; Visit Provider Internal Medicine Cardiovascular Disease
DX: I48.0 Paroxysmal atrial fibrillation (principal); Z79.01 Long term (current) use of anticoagulants
CPT/HCPCS: 36415; 85610

== ENCOUNTER → 2018-07-03 10:52 | Outpatient (CLI) | payer MEDICARE, SELFPAY ==
[2018-06-15 11:44] VITALS: BMI 31.4
--- NOTE | 2018-07-03 10:56 | ECHOD_ITS ---
Reason For Study: VALVE REPLACEMENT EVAL Procedure This was a 2D Doppler, Color Flow transthoracic echocardiogram. Exam performed in department. Left Ventricle Normal size and thickness. The estimated ejection fraction is 65 %. Stage 1 diastolic dysfunction. No regional wall motion abnormalities noted. Right Ventricle Mildly dilated right ventricle. Normal systolic function. Atria Normal left atrium. Normal right atrium. Normal atrial septum. Mitral Valve Mild focal mitral valve thickening. Mild (1+) posteriorly directed mitral valve insufficiency. Tricuspid Valve Normal tricuspid valve. Mild (1+) tricuspid valve insufficiency. Right ventricular systolic pressure estimated to be 29 mmHg. Aortic Valve Bicuspid aortic valve. Moderate focal aortic valve thickening. Moderate focal aortic valve calcification. Moderate restriction of the aortic valve. Moderate aortic stenosis. Peak aortic valve gradient 35 mmHg. Mean aortic valve gradient 21 mmHg. Calculated aortic valve area (continuity equation) is 1.2 cm2. Pulmonic Valve Normal pulmonic valve. Great Vessels Calcified aortic root. Normal arch. Normal inferior vena cava. Inferior vena cava collapse with sniff. Pericardium/Pleural No pericardial effusion. MMode/2D Measurements & Calculations LVIDd: 4.1 cm IVSd: 0.92 cm LVOT diam: 2.2 cm LVIDs: 2.5 cm LVPWd: 1.1 cm LVOT area: 3.7 cm2 RVDd: 3.6 cm FS: 39.8 % Ao root diam: 3.5 cm LAV(MOD-bp): 39.1 ml EDV(MOD-sp4): 105.1 ml LAV(MOD-bp) Indexed: 21.7 ml/m2 ESV(MOD-sp4): 35.8 ml LAV(MOD-sp2): 52.4 ml EF(MOD-sp4): 65.9 % LAV(MOD-sp4): 27.2 ml EDV(MOD-sp2): 82.0 ml SV(MOD-sp4): 69.3 ml SV(MOD-sp2): 52.1 ml EF(MOD-sp2): 63.6 % Aortic Valve Planimetry: 1.3 cm2 LA A4 area: 13.3 cm2 LA dimension(2D): 3.0 cm RA A4 area: 13.0 cm2 Time Measurements MV dec time: 0.26 sec Doppler Measurements & Calculations MV E max elfego: 50.7 cm/sec Lat Peak E' Elfego: 7.0 cm/sec Med Peak E' Elfego: 5.7 cm/sec MV A max elfego: 59.0 cm/sec E/E' lat: 7.3 E/E' med: 8.8 MV E/A: 0.86 Ao V2 max: 294.7 cm/sec LV V1 max: 86.5 cm/sec SV(LVOT): 75.3 ml Ao max P.8 mmHg LV V1 max P.0 mmHg Ao V2 mean: 217.2 cm/sec LV V1 mean P.6 mmHg Ao mean P.6 mmHg LV V1 mean: 60.8 cm/sec Ao V2 VTI: 65.0 cm LV V1 VTI: 20.1 cm RON(I,D): 1.2 cm2 RON(V,D): 1.1 cm2 PA V2 max: 111.5 cm/sec TR max elfego: 241.5 cm/sec TR max P.4 mmHg Interpretation Summary The estimated ejection fraction is 65 %. Stage 1 diastolic dysfunction. Mildly dilated right ventricle. Mild (1+) posteriorly directed mitral valve insufficiency. Mild (1+) tricuspid valve insufficiency. Right ventricular systolic pressure estimated to be 29 mmHg. Bicuspid aortic valve with fusion of left and right coronary cusps. Moderate aortic stenosis. Compared to echo report dated 03/22/2017, LV function has remained the same, but mean aortic valve gradient has increased from 15 to 21. RON has gone from 1.3 to 1.2 cm2; little appreciable difference. Ordering Physician: Martinez Rivas Referring Physician: VY MASCORRO Performed By: Adwoa Acevedo, SUKI, RVT
== END ==
PROVIDERS: Family Provider Family Medicine; PCP Family Medicine; Referring Provider Internal Medicine Cardiovascular Disease; Visit Provider Internal Medicine Cardiovascular Disease
DX: I48.0 Paroxysmal atrial fibrillation (principal)
CPT/HCPCS: 93306

== ENCOUNTER 2018-07-18 14:44 | Outpatient (RCR) | payer MEDICARE, SELFPAY ==
[2018-06-15 11:44] VITALS: BMI 31.4
[2018-07-18 16:17] LABS: International Normalized Ratio 2.5
== END 2018-07-18 15:44 | disposition home or self-care (01) ==
LOC: LAB 14:44
PROVIDERS: Family Provider Family Medicine; PCP Family Medicine; Referring Provider Internal Medicine Cardiovascular Disease; Visit Provider Internal Medicine Cardiovascular Disease
DX: I48.0 Paroxysmal atrial fibrillation (principal); Z79.01 Long term (current) use of anticoagulants
CPT/HCPCS: 36415; 85610

== ENCOUNTER 2018-08-22 13:33 | Outpatient (RCR) | payer MEDICARE, SELFPAY ==
[2018-06-15 11:44] VITALS: BMI 31.4
[2018-08-22 15:16] LABS: International Normalized Ratio 2.5; Prothrombin Time (Protime)PT. 27.3 SECONDS (11.7-14.9)
== END 2018-09-04 16:00 | disposition home or self-care (01) ==
LOC: LAB 13:33
PROVIDERS: Family Provider Family Medicine; PCP Family Medicine; Referring Provider Internal Medicine Cardiovascular Disease; Visit Provider Internal Medicine Cardiovascular Disease
DX: I48.0 Paroxysmal atrial fibrillation (principal); Z79.01 Long term (current) use of anticoagulants
CPT/HCPCS: 36415; 85610

== ENCOUNTER 2018-09-19 13:19 | Outpatient (RCR) | payer MEDICARE, SELFPAY ==
[2018-06-15 11:44] VITALS: BMI 31.4
[2018-09-19 14:20] LABS: International Normalized Ratio 2.8; Prothrombin Time (Protime)PT. 29.7 SECONDS (11.7-14.9)
== END 2018-09-19 14:00 | disposition home or self-care (01) ==
LOC: LAB 13:19
PROVIDERS: Internal Medicine Cardiovascular Disease; Family Provider Family Medicine; PCP Family Medicine; Referring Provider Internal Medicine Cardiovascular Disease; Visit Provider Internal Medicine Cardiovascular Disease
DX: I48.0 Paroxysmal atrial fibrillation (principal); Z79.01 Long term (current) use of anticoagulants
CPT/HCPCS: 36415; 85610

== ENCOUNTER 2018-10-16 17:13 | Emergency (ER) | payer MEDICARE, SELFPAY ==
[2018-06-15 11:44] VITALS: BMI 31.4
[2018-10-16 17:14] VITALS: BP 152/86; PULSE 64; RESP 16; TEMP 36.6; O2SAT 96; BMI 31.4
--- NOTE | 2018-10-16 18:05 | RAD_ITS ---
STUDY: X-RAY - LEFT HAND REASON FOR EXAM: Male, 72 years old. Laceration TECHNIQUE: 3 view(s) of the hand. COMPARISON: None. FINDINGS: Normal radiocarpal articulation. Normal distal radioulnar joint. Normal visualized carpal bones. Normal carpal articulations Normal carpometacarpal articulation of the thumb. Normal second through fifth carpometacarpal joints. Normal metacarpi. Normal metacarpophalangeal joint of the thumb. Normal interphalangeal joint of the thumb. Normal proximal and distal phalanges of the thumb. Normal metacarpophalangeal joints of the second through fifth fingers. Normal proximal and distal interphalangeal joints of the second through fifth fingers. Normal phalanges of the second through fifth fingers. The soft tissue structures are unremarkable. RAD/Hand Min 3 Views IMPRESSION: Normal x-ray examination of the hand. Electronically Signed: Robert Kapoor DO at 18:23 EDT Tel [phone], Service support ,
--- NOTE | 2018-10-16 18:14 | ED.VISSUMM ---
- ER Visit Summary Date of Service: 10/16/18 Chief Complaint: Left thumb laceration History of Present Illness: The patient is a 72 M presenting with left thumb laceration. Patient was splitting wood. He states his thumb got caught between the wood and the wood splitter. He sustained a laceration to his left thumb. No other injuries. He is on Coumadin for history of A. fib. Last tetanus was approximately 10 years ago. Physical Examination: Vitals are stable. Patient is afebrile. Alert no acute distress. HEENT exam is unremarkable. Neck is supple. Lungs are clear and equal bilaterally. Heart is regular rate and rhythm. Extremities 2.5 cm laceration to the lateral left thumb. Tendon function intact. Normal cap refill. Normal sensation. Skin is warm and dry. No focal neurologic deficit. Remainder of exam is unremarkable. Emergency Department Course and Treatment: Patient was given tetanus IM. Wound was irrigated. Anesthetized with lidocaine. 4, 5-0 simple sutures were placed. Patient tolerated this well. Advised wound care instructions. Advised return to ED if worsening complaints. Disposition: Discharge home Impression: Left thumb laceration, laceration repair This note was generated with [employer] dictation software. It may contain incorrect words, spelling, and punctuation that were not noted in review of the chart prior to signing ED Disposition - Plan for ED Patient: Disposition: Home or Assisted Living Instructions: ED Laceration Hand Referrals: Jose Daniel Stanford MD [Primary Care Provider] -
[2018-10-16] MEDS: Diphth,Pertuss(Acell),Tet Vac 0.5 ML Vial IM (18:18)
== END 2018-10-16 19:29 | disposition home or self-care (01) ==
LOC: ED 18:29
PROVIDERS: Emergency Provider Emergency Medicine; Family Provider Family Medicine; PCP Family Medicine
DX: S61.012A Laceration without foreign body of left thumb without damage to nail, initial encounter (principal); W23.0XXA Caught, crushed, jammed, or pinched between moving objects, initial encounter; Y92.89 Other specified places as the place of occurrence of the external cause; Y99.8 Other external cause status; I48.91 Unspecified atrial fibrillation; Z79.01 Long term (current) use of anticoagulants; I10 Essential (primary) hypertension; E78.00 Pure hypercholesterolemia, unspecified; Z23 Encounter for immunization
CPT/HCPCS: 12001; 73130; 90471; 90715; 99283

== ENCOUNTER 2018-11-01 14:34 | Outpatient (RCR) | payer MEDICARE, SELFPAY ==
[2018-06-15 11:44] VITALS: BMI 31.4
[2018-10-18 13:38] LABS: Prothrombin Time (Protime)PT. 37.8 SECONDS (11.7-14.9)
[2018-10-18 13:42] LABS: International Normalized Ratio 3.8
[2018-10-26 12:37] LABS: International Normalized Ratio 3.7
[2018-11-01 16:18] LABS: Prothrombin Time (Protime)PT. 31.1 SECONDS (11.7-14.9)
== END 2018-11-01 15:00 | disposition home or self-care (01) ==
LOC: LAB 14:34
PROVIDERS: Family Provider Family Medicine; PCP Family Medicine; Referring Provider Internal Medicine Cardiovascular Disease; Visit Provider Internal Medicine Cardiovascular Disease
DX: I48.0 Paroxysmal atrial fibrillation (principal); Z79.01 Long term (current) use of anticoagulants
CPT/HCPCS: 36415; 85610

== ENCOUNTER 2018-11-15 13:59 | Outpatient (RCR) | payer MEDICARE, SELFPAY ==
[2018-11-15 15:13] LABS: International Normalized Ratio 2.4; Prothrombin Time (Protime)PT. 26.5 SECONDS (11.7-14.9)
== END 2018-12-05 17:28 | disposition home or self-care (01) ==
LOC: LAB 13:59
PROVIDERS: Family Provider Family Medicine; PCP Family Medicine; Referring Provider Internal Medicine Cardiovascular Disease; Visit Provider Internal Medicine Cardiovascular Disease
DX: I48.0 Paroxysmal atrial fibrillation (principal); Z79.01 Long term (current) use of anticoagulants
CPT/HCPCS: 36415; 85610

== ENCOUNTER 2018-12-17 14:24 | Outpatient (RCR) | payer MEDICARE, SELFPAY ==
[2018-06-15 11:44] VITALS: BMI 31.4
[2018-12-17 16:24] LABS: International Normalized Ratio 3.3; Prothrombin Time (Protime)PT. 33.6 SECONDS (11.7-14.9)
== END 2019-01-05 07:38 | disposition home or self-care (01) ==
LOC: LAB 14:24
PROVIDERS: Family Provider Family Medicine; PCP Family Medicine; Referring Provider Internal Medicine Cardiovascular Disease; Visit Provider Internal Medicine Cardiovascular Disease
DX: I48.0 Paroxysmal atrial fibrillation (principal); Z79.01 Long term (current) use of anticoagulants
CPT/HCPCS: 36415; 85610

== ENCOUNTER 2019-01-24 13:14 | Outpatient (RCR) | payer MEDICARE, SELFPAY ==
[2018-12-20 10:28] VITALS: BMI 31.6
[2019-01-24 14:29] LABS: International Normalized Ratio 2.6; Prothrombin Time (Protime)PT. 27.9 SECONDS (11.7-14.9)
== END 2019-01-24 14:00 | disposition home or self-care (01) ==
LOC: LAB 13:14
PROVIDERS: Family Provider Family Medicine; PCP Family Medicine; Referring Provider Internal Medicine Cardiovascular Disease; Visit Provider Internal Medicine Cardiovascular Disease
DX: I48.0 Paroxysmal atrial fibrillation (principal); Z79.01 Long term (current) use of anticoagulants
CPT/HCPCS: 36415; 85610

== ENCOUNTER 2019-03-06 16:04 | Outpatient (RCR) | payer MEDICARE, SELFPAY ==
[2018-12-20 10:28] VITALS: BMI 31.6
[2019-02-18 17:47] LABS: International Normalized Ratio 3.3; Prothrombin Time (Protime)PT. 33.8 SECONDS (11.7-14.9)
[2019-03-06 17:21] LABS: International Normalized Ratio 2.5; Prothrombin Time (Protime)PT. 27.2 SECONDS (11.7-14.9)
== END 2019-03-06 18:00 | disposition home or self-care (01) ==
LOC: LAB 16:04
PROVIDERS: Family Provider Family Medicine; PCP Family Medicine; Referring Provider Internal Medicine Cardiovascular Disease; Visit Provider Internal Medicine Cardiovascular Disease
DX: I48.0 Paroxysmal atrial fibrillation (principal); Z79.01 Long term (current) use of anticoagulants
CPT/HCPCS: 36415; 85610

== ENCOUNTER 2019-04-02 12:46 | Outpatient (RCR) | payer MEDICARE, SELFPAY ==
[2018-12-20 10:28] VITALS: BMI 31.6
[2019-04-02 13:28] LABS: International Normalized Ratio 1.9; Prothrombin Time (Protime)PT. 21.5 SECONDS (11.7-14.9)
== END 2019-04-02 18:00 | disposition home or self-care (01) ==
LOC: LAB 12:46
PROVIDERS: Family Provider Family Medicine; PCP Family Medicine; Referring Provider Internal Medicine Cardiovascular Disease; Visit Provider Internal Medicine Cardiovascular Disease
DX: I48.0 Paroxysmal atrial fibrillation (principal); Z79.01 Long term (current) use of anticoagulants
CPT/HCPCS: 36415; 85610

== ENCOUNTER 2019-05-03 13:13 | Outpatient (RCR) | payer MEDICARE, SELFPAY ==
[2018-12-20 10:28] VITALS: BMI 31.6
[2019-04-17 12:52] LABS: International Normalized Ratio 1.8
[2019-05-03 13:55] LABS: International Normalized Ratio 2.5; Prothrombin Time (Protime)PT. 26.6 SECONDS (11.7-14.9)
== END 2019-05-03 18:00 | disposition home or self-care (01) ==
LOC: LAB 13:13
PROVIDERS: Family Provider Family Medicine; PCP Family Medicine; Referring Provider Internal Medicine Cardiovascular Disease; Visit Provider Internal Medicine Cardiovascular Disease
DX: I48.0 Paroxysmal atrial fibrillation (principal); Z79.01 Long term (current) use of anticoagulants
CPT/HCPCS: 36415; 85610

== ENCOUNTER 2019-05-27 12:32 | Outpatient (RCR) | payer MEDICARE, SELFPAY ==
[2018-12-20 10:28] VITALS: BMI 31.6
[2019-05-15 10:11] LABS: International Normalized Ratio 2.2; Prothrombin Time (Protime)PT. 24.5 SECONDS (11.7-14.9)
[2019-05-27 13:51] LABS: International Normalized Ratio 2.3; Prothrombin Time (Protime)PT. 25.6 SECONDS (11.7-14.9)
== END 2019-05-27 18:00 | disposition home or self-care (01) ==
LOC: LAB 12:32
PROVIDERS: Family Provider Family Medicine; PCP Family Medicine; Referring Provider Internal Medicine Cardiovascular Disease; Visit Provider Internal Medicine Cardiovascular Disease
DX: I48.0 Paroxysmal atrial fibrillation (principal); Z79.01 Long term (current) use of anticoagulants
CPT/HCPCS: 36415; 85610

== ENCOUNTER 2019-06-19 10:30 | Outpatient (RCR) | payer MEDICARE, SELFPAY ==
[2018-12-20 10:28] VITALS: BMI 31.6
[2019-06-19 12:46] LABS: International Normalized Ratio 2.3; Prothrombin Time (Protime)PT. 25.1 SECONDS (11.7-14.9)
== END 2019-06-19 18:00 | disposition home or self-care (01) ==
LOC: LAB 10:30
PROVIDERS: Family Provider Family Medicine; PCP Family Medicine; Referring Provider Internal Medicine Cardiovascular Disease; Visit Provider Internal Medicine Cardiovascular Disease
DX: I48.0 Paroxysmal atrial fibrillation (principal); Z79.01 Long term (current) use of anticoagulants
CPT/HCPCS: 36415; 85610

== ENCOUNTER → 2019-06-26 10:49 | Outpatient (CLI) | payer MEDICARE, SELFPAY ==
[2018-12-20 10:28] VITALS: BMI 31.6
[2019-06-20 10:44] VITALS: BMI 32.2
--- NOTE | 2019-06-26 10:51 | ECHOD_ITS ---
Left Ventricle Normal size and thickness. The estimated ejection fraction is 65 %. Stage 1 diastolic dysfunction. No regional wall motion abnormalities noted. Right Ventricle Mildly dilated right ventricle. Normal systolic function. Atria Normal left atrium. Normal right atrium. Normal atrial septum. Mitral Valve The mitral valve is structurally normal. No prolapse or stenosis seen. Mild (1+) mitral valve insufficiency. Tricuspid Valve Normal tricuspid valve. Trivial tricuspid valve insufficiency. Right ventricular systolic pressure estimated to be 25 mmHg. Aortic Valve Bicuspid aortic valve. Moderate focal aortic valve thickening. Severe diffuse aortic valve thickening. Moderate restriction of the aortic valve. Moderate aortic stenosis. Peak aortic valve gradient 36 mmHg. Mean aortic valve gradient 21 mmHg. Calculated aortic valve area (continuity equation) is 1.1 cm2. Trivial aortic valve insufficiency. Pulmonic Valve Normal pulmonic valve. Trivial pulmonic valve insufficiency. Great Vessels Normal aortic root. Normal arch. Normal inferior vena cava. Inferior vena cava collapse with sniff. Pericardium/Pleural No pericardial effusion. MMode/2D Measurements & Calculations LVIDd: 4.9 cm IVSd: 0.86 cm LVOT diam: 2.1 cm LVIDs: 2.6 cm LVPWd: 0.95 cm LVOT area: 3.3 cm2 RVDd: 3.8 cm FS: 47.1 % Ao root diam: 3.4 cm LAV(MOD-bp): 30.7 ml Aortic Valve Planimetry: 1.1 cm2 LAV(MOD-bp) Indexed: 16.5 ml/m2 LAV(MOD-sp2): 28.5 ml LAV(MOD-sp4): 30.3 ml LA A4 area: 14.1 cm2 LA dimension(2D): 3.0 cm RA A4 area: 13.1 cm2 Doppler Measurements & Calculations MV E max elfego: 49.5 cm/sec Lat Peak E' Elfego: 6.3 cm/sec Med Peak E' Elfego: 4.6 cm/sec MV A max elfego: 64.4 cm/sec E/E' lat: 7.9 E/E' med: 10.7 MV E/A: 0.77 Ao V2 max: 297.8 cm/sec LV V1 max: 96.4 cm/sec SV(LVOT): 73.4 ml Ao max P.5 mmHg LV V1 max P.7 mmHg Ao V2 mean: 218.1 cm/sec LV V1 mean P.1 mmHg Ao mean P.7 mmHg LV V1 mean: 69.4 cm/sec Ao V2 VTI: 66.6 cm LV V1 VTI: 21.9 cm RON(I,D): 1.1 cm2 RON(V,D): 1.1 cm2 PA V2 max: 122.3 cm/sec TR max elfego: 224.8 cm/sec TR max P.2 mmHg Interpretation Summary The estimated ejection fraction is 65 %. Stage 1 diastolic dysfunction. Mildly dilated right ventricle. Mild (1+) mitral valve insufficiency. Trivial tricuspid valve insufficiency. Right ventricular systolic pressure estimated to be 25 mmHg. Bicuspid aortic valve. Moderate restriction of the aortic valve. Moderate aortic stenosis. Trivial aortic valve insufficiency. Compared to echo report dated 07/05/2018, no appreciable changes noted in LV function and aortic stenosis. Ordering Physician: Martinez Rivas Referring Physician: Martinez Rivas
== END ==
PROVIDERS: PCP Family Medicine; Referring Provider Internal Medicine Cardiovascular Disease; Visit Provider Internal Medicine Cardiovascular Disease
DX: I48.0 Paroxysmal atrial fibrillation (principal)
CPT/HCPCS: 93306

== ENCOUNTER 2019-07-24 13:12 | Outpatient (RCR) | payer MEDICARE, SELFPAY ==
[2019-06-20 10:44] VITALS: BMI 32.2
[2019-07-24 13:57] LABS: International Normalized Ratio 2.7; Prothrombin Time (Protime)PT. 28.5 SECONDS (11.7-14.9)
== END 2019-07-24 18:00 | disposition home or self-care (01) ==
LOC: LAB 13:12
PROVIDERS: Family Provider Family Medicine; PCP Family Medicine; Referring Provider Internal Medicine Cardiovascular Disease; Visit Provider Internal Medicine Cardiovascular Disease
DX: I48.0 Paroxysmal atrial fibrillation (principal); Z79.01 Long term (current) use of anticoagulants
CPT/HCPCS: 36415; 85610

== ENCOUNTER 2019-08-21 13:09 | Outpatient (RCR) | payer MEDICARE, SELFPAY ==
[2019-06-20 10:44] VITALS: BMI 32.2
[2019-08-21 14:38] LABS: International Normalized Ratio 2.1; Prothrombin Time (Protime)PT. 23.2 SECONDS (11.7-14.9)
== END 2019-09-05 18:00 | disposition home or self-care (01) ==
LOC: LAB 13:09
PROVIDERS: Family Provider Family Medicine; PCP Family Medicine; Referring Provider Internal Medicine Cardiovascular Disease; Visit Provider Internal Medicine Cardiovascular Disease
DX: I48.0 Paroxysmal atrial fibrillation (principal); Z79.01 Long term (current) use of anticoagulants
CPT/HCPCS: 36415; 85610

== ENCOUNTER 2019-09-25 12:41 | Outpatient (RCR) | payer MEDICARE, SELFPAY ==
[2019-06-20 10:44] VITALS: BMI 32.2
[2019-09-25 13:45] LABS: International Normalized Ratio 2.3; Prothrombin Time (Protime)PT. 24.6 SECONDS (11.7-14.9)
== END 2019-09-25 18:00 | disposition home or self-care (01) ==
LOC: LAB 12:41
PROVIDERS: Family Provider Family Medicine; PCP Family Medicine; Referring Provider Internal Medicine Cardiovascular Disease; Visit Provider Internal Medicine Cardiovascular Disease
DX: I48.0 Paroxysmal atrial fibrillation (principal); Z79.01 Long term (current) use of anticoagulants
CPT/HCPCS: 36415; 85610

== ENCOUNTER 2019-10-23 14:31 | Outpatient (RCR) | payer MEDICARE, SELFPAY ==
[2019-06-20 10:44] VITALS: BMI 32.2
[2019-10-23 15:12] LABS: International Normalized Ratio 2.3; Prothrombin Time (Protime)PT. 25.2 SECONDS (11.7-14.9)
== END 2019-10-23 18:00 | disposition home or self-care (01) ==
LOC: LAB 14:31
PROVIDERS: Family Provider Family Medicine; PCP Family Medicine; Referring Provider Internal Medicine Cardiovascular Disease; Visit Provider Internal Medicine Cardiovascular Disease
DX: I48.0 Paroxysmal atrial fibrillation (principal); Z79.01 Long term (current) use of anticoagulants
CPT/HCPCS: 36415; 85610

== ENCOUNTER 2019-12-02 11:32 | Outpatient (RCR) | payer MEDICARE, SELFPAY ==
[2019-06-20 10:44] VITALS: BMI 32.2
[2019-11-19 14:29] LABS: International Normalized Ratio 1.6; Prothrombin Time (Protime)PT. 18.6 SECONDS (11.7-14.9)
[2019-12-02 13:21] LABS: Prothrombin Time Fingerstick 27.8 SEC (11.9-14.4)
== END 2019-12-02 18:00 | disposition home or self-care (01) ==
LOC: LAB 11:32
PROVIDERS: Family Provider Family Medicine; PCP Family Medicine; Referring Provider Internal Medicine Cardiovascular Disease; Visit Provider Internal Medicine Cardiovascular Disease
DX: Z79.01 Long term (current) use of anticoagulants (principal); I48.0 Paroxysmal atrial fibrillation
CPT/HCPCS: 36415; 36416; 85610

== ENCOUNTER 2019-12-25 12:54 | Outpatient (RCR) | payer MEDICARE, SELFPAY ==
[2019-06-20 10:44] VITALS: BMI 32.2
[2019-12-25 14:43] LABS: International Normalized Ratio 2.9; Prothrombin Time (Protime)PT. 29.9 SECONDS (11.7-14.9)
== END 2020-01-06 18:00 | disposition home or self-care (01) ==
LOC: LAB 12:54
PROVIDERS: Family Provider Family Medicine; PCP Family Medicine; Referring Provider Internal Medicine Cardiovascular Disease; Visit Provider Internal Medicine Cardiovascular Disease
DX: I48.0 Paroxysmal atrial fibrillation (principal); Z79.01 Long term (current) use of anticoagulants
CPT/HCPCS: 36415; 85610

== ENCOUNTER 2020-01-22 12:42 | Outpatient (RCR) | payer MEDICARE, SELFPAY ==
[2019-06-20 10:44] VITALS: BMI 32.2
[2020-01-22 14:04] LABS: International Normalized Ratio 2.7
== END 2020-01-22 18:00 | disposition home or self-care (01) ==
LOC: LAB 12:42
PROVIDERS: Family Provider Family Medicine; PCP Family Medicine; Referring Provider Internal Medicine Cardiovascular Disease; Visit Provider Internal Medicine Cardiovascular Disease
DX: I48.0 Paroxysmal atrial fibrillation (principal); Z79.01 Long term (current) use of anticoagulants
CPT/HCPCS: 36415; 85610

== ENCOUNTER 2020-02-17 15:44 | Emergency (ER) | payer MEDICARE, SELFPAY ==
[2019-06-20 10:44] VITALS: BMI 32.2
[2020-02-17 15:45] VITALS: BP 114/75; PULSE 60; RESP 16; TEMP 36.4; O2SAT 97; BMI 33.1
--- NOTE | 2020-02-17 16:05 | CT_ITS ---
STUDY: CT CERVICAL SPINE WITHOUT CONTRAST REASON FOR EXAM: Male, 74 years old. HIT HEAD ON TREE BRANCH WHILE CUTTING WOOD. LACERATION TO LEFT SIDE OF HEAD RADIATION DOSAGE (If Supplied By Facility): CTDIvol = ( 26.47 ) mGy, DLP = ( 629.75 ) mGycm TECHNIQUE: High resolution transaxial imaging was performed without contrast material. Sagittal and coronal images were reconstructed. Individualized dose optimization techniques were used for this CT. COMPARISON: None FINDINGS: No definite acute fracture/dislocation. The cervical junction is intact. C1-C2 articulation is intact. Curvature is within normal limits. There is normal alignment. Facet joints are intact at all levels bilaterally. No jumped facets. There is multilevel spondyloarthropathy. Multilevel degenerative disc disease seen. Multilevel loss of disc height. Multilevel posterior marginal osteophytes and disc bulges. Multilevel neural foraminal narrowing. Visualized paraspinal soft tissues and structures are unremarkable. CT/Spine Cervical without Contras IMPRESSION: There is no definite acute fracture/dislocation. Degenerative changes. Electronically Signed: Mau Whitney MD at 16:47 EDT , Service support ,
--- NOTE | 2020-02-17 16:06 | ED.DCSUM_ITS ---
History of Present Illness Chief Complaint: Head Injury Informant: Patient Onset: Today Current Severity: Moderate Maximum Severity: Moderate Narrative: She presents with scalp laceration and head injury after getting hit on the head by a tree branch. He was using a chainsaw cutting down branches when one hit him on the top of the head. He was knocked to the ground. He denies loss of consciousness. He is currently on Coumadin. He states his INR was last checked approximately 3 weeks ago. 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 Family History: Reports: No pertinent history Review of Systems General: Denies: Chills, Fever Eyes: Denies: Visual changes - bilaterally ENT: Denies: Bilateral ear pain Cardiovascular: Denies: Chest pain Respiratory: Denies: Dyspnea, Cough Gastrointestinal: Denies: Abdominal pain, Nausea, Vomiting, Diarrhea Neurological: Reports: Headache. Denies: Weakness, Parasthesia Hematologic: Reports: Easy bleeding - Secondary to Coumadin. Denies: Easy bruising Allergy: Denies: Uticaria Physical Exam Vital Signs/Narrative: Vital Signs Temp Pulse Resp BP Pulse Ox 02/17/20 15:45 97.5 F L 60 16 114/75 97 Inital Vital Signs reviewed: Yes General: Well nourished, Well developed Head: - - 9 cm curved laceration of the left parietal scalp. ENT: Moist mucous membranes Neck: Supple, Nontender Cardiovascular: Irregular Respiratory: No distress, CTA bilaterally Abdomen: Soft, Nontender Extremities: - - Focal swelling on the posterior left shoulder with overlying skin abrasion. No bony tenderness. Skin: - - Scalp laceration as above Neurological: Alert, Oriented x3, Normal Strength, Normal Sensation Psychological: Normal affect Diagnostic/Tx/Re-eval Impressions Cervical Spine CT 02/17/20 16:05 IMPRESSION: There is no definite acute fracture/dislocation. Degenerative changes. Electronically Signed: Mau Whitney MD at 16:47 EDT , Service support , Brain CT 02/17/20 16:25 IMPRESSION: Chronic involutional changes of the brain. Electronically Signed: Benedict Dotson at 16:57 EDT Tel , Service support , Shoulder X-Ray 02/17/20 17:30 IMPRESSION: No visualized acute process Electronically Signed: Marco Argueta MD at 18:27 EDT , Service support , 02/17/20 16:05 CT Cervical [Spine Cervical without Contras] [CT] Stat 02/17/20 16:25 CT Head [Brain/Head without Contrast] [CT] Stat 02/17/20 17:30 Shoulder min 2 Views [RAD] Stat Laboratory Results 02/17/20 16:15 PT 25.0 H INR 2.3 - Medical Decision Making Patient is given Tylenol for pain. Scalp laceration is repaired. Please see procedure note. Tetanus update is provided. Patient will follow his PCP in 1 week for suture removal. Procedures - Lacerations No standard instances Length: 3.54 in Depth: Sub Q Laceration repair: Irrigated, Lidocaine with epi, Local Number of Sutures/Leigha: 16 Suture Information: Ethilon, Simple, 4-0 Comment: 8 cc of 1% lidocaine with epinephrine infused locally. Wound cleansed and irrigated. 16 sutures placed across the wound with 4-0 nylon. ED Disposition - Plan for ED Patient: Disposition: Home or Assisted Living Diagnosis: Closed head injury, Scalp laceration, Shoulder contusion Instructions: ED EXTREMITY CONTUSION Upper, ED Concussion, ED Laceration Scalp Sutures or [place] Referrals: Jose Daniel Stanford MD [Primary Care Provider] - 7 Days for suture removal
--- NOTE | 2020-02-17 16:25 | CT_ITS ---
STUDY: CT BRAIN WITHOUT CONTRAST REASON FOR EXAM: Male, 74 years old. HIT HEAD ON TREE BRANCH WHILE CUTTING WOOD. LACERATION TO LEFT SIDE OF HEAD RADIATION DOSAGE (If Supplied By Facility): CTDIvol = ( 44.99 ) mGy, DLP = ( 779.24 ) mGycm TECHNIQUE: Transaxial CT imaging of the brain was performed without administration of intravenous contrast material. Individualized dose optimization techniques were used for this CT. COMPARISON: No relevant priors. FINDINGS: Normal soft tissue structures. Normal calvarium. There is mild cerebral atrophy with widening of the extra-axial spaces and ventricular dilatation. There are areas of decreased attenuation within the white matter tracts of the supratentorial brain, consistent with microvascular disease changes. Normal basal ganglia and thalami. Normal brainstem. Normal cerebellum. There is no intracranial hemorrhage. There are no findings of an acute ischemic infarction. Normal visualized paranasal sinuses. CT/Brain/Head without Contrast IMPRESSION: Chronic involutional changes of the brain. Electronically Signed: Benedict Dotson, at 16:57 EDT Tel , Service support ,
[2020-02-17 16:35] LABS: International Normalized Ratio 2.3
[2020-02-17] MEDS: Acetaminophen 500 MG Tablet 1000 MG PO (16:48)
[2020-02-17] MEDS: Diphth,Pertuss(Acell),Tet Vac 0.5 ML Vial IM (16:49)
--- NOTE | 2020-02-17 17:30 | RAD_ITS ---
STUDY: X-RAY - LEFT SHOULDER REASON FOR EXAM: Male, 74 years old. Shoulder pain due to a branch falling. TECHNIQUE: 4 view(s) of the shoulder. COMPARISON: None. FINDINGS: Normal glenohumeral articulation. There is mild degenerative arthrosis of the acromioclavicular joint without inferior osseous spur formation. Normal acromion. Normal humeral head and visualized proximal humerus. The soft tissue structures are unremarkable. There is no demonstrated fracture. Normal visualized pulmonary apex. RAD/Shoulder min 2 Views IMPRESSION: No visualized acute process Electronically Signed: Marco Argueta MD at 18:27 EDT , Service support ,
== END 2020-02-17 18:49 | disposition home or self-care (01) ==
PROVIDERS: Emergency Provider Emergency Medicine; PCP Family Medicine
DX: S01.01XA Laceration without foreign body of scalp, initial encounter (principal); S40.012A Contusion of left shoulder, initial encounter; W20.8XXA Other cause of strike by thrown, projected or falling object, initial encounter; Y92.9 Unspecified place or not applicable; Y99.9 Unspecified external cause status; E78.00 Pure hypercholesterolemia, unspecified; I10 Essential (primary) hypertension; I48.0 Paroxysmal atrial fibrillation; Z79.01 Long term (current) use of anticoagulants; Z88.1 Allergy status to other antibiotic agents; Z23 Encounter for immunization
CPT/HCPCS: 12002; 70450; 72125; 73030; 85610; 90715; 99281; 99284

== ENCOUNTER 2020-02-27 11:09 | Outpatient (RCR) | payer MEDICARE, SELFPAY ==
[2019-06-20 10:44] VITALS: BMI 32.2
[2020-02-19 11:49] LABS: International Normalized Ratio 2.6
[2020-02-19 12:11] LABS: AST(SGOT) 29 U/L (15-37); Alanine Aminotransfer ALT/SGPT 41 U/L (16-61); Albumin, Serum 3.7 g/dL (3.2-5.0); Alkaline Phosphatase 82 U/L (45-117); Bilirubin, Direct 0.36 mg/dL (0.00-0.30); Cholesterol 137 mg/dL (200); Globulin 3.6 g/dL (2.2-4.2); High Density Lipoprotein 45 mg/dL; Protein, Total 7.3 g/dL (6.4-8.2); Triglycerides 115 mg/dL; Very Low Density Lipoprotein 23 mg/dL (5-40)
[2020-02-27 11:20] LABS: Prothrombin Time Fingerstick 34.2 SEC (11.9-14.4)
== END 2020-02-27 18:00 | disposition home or self-care (01) ==
LOC: LAB 11:09
PROVIDERS: Family Provider Family Medicine; PCP Family Medicine; Referring Provider Internal Medicine Cardiovascular Disease; Visit Provider Internal Medicine Cardiovascular Disease
DX: I48.0 Paroxysmal atrial fibrillation (principal); Z79.01 Long term (current) use of anticoagulants; E78.00 Pure hypercholesterolemia, unspecified
CPT/HCPCS: 36415; 36416; 80061; 80076; 85610

== ENCOUNTER 2020-03-25 12:40 | Outpatient (RCR) | payer MEDICARE, SELFPAY ==
[2020-02-27 10:26] VITALS: BMI 33.0
[2020-03-25 13:49] LABS: International Normalized Ratio 2.7; Prothrombin Time (Protime)PT. 27.9 SECONDS (11.7-14.9)
== END 2020-03-25 18:00 | disposition home or self-care (01) ==
LOC: LAB 12:40
PROVIDERS: Family Provider Family Medicine; PCP Family Medicine; Referring Provider Internal Medicine Cardiovascular Disease; Visit Provider Internal Medicine Cardiovascular Disease
DX: I48.0 Paroxysmal atrial fibrillation (principal); Z79.01 Long term (current) use of anticoagulants
CPT/HCPCS: 36415; 85610

== ENCOUNTER 2020-05-19 11:06 | Outpatient (RCR) | payer MEDICARE, SELFPAY ==
[2020-02-27 10:26] VITALS: BMI 33.0
[2020-05-19 13:10] LABS: Prothrombin Time (Protime)PT. 22.3 SECONDS (11.7-14.9)
== END 2020-05-19 18:00 | disposition home or self-care (01) ==
LOC: LAB 11:06
PROVIDERS: Family Provider Family Medicine; PCP Family Medicine; Referring Provider Internal Medicine Cardiovascular Disease; Visit Provider Internal Medicine Cardiovascular Disease
DX: I48.0 Paroxysmal atrial fibrillation (principal); Z79.01 Long term (current) use of anticoagulants
CPT/HCPCS: 36415; 85610

== ENCOUNTER 2020-06-24 14:39 | Outpatient (RCR) | payer MEDICARE, SELFPAY ==
[2020-02-27 10:26] VITALS: BMI 33.0
[2020-06-24 15:49] LABS: International Normalized Ratio 2.3; Prothrombin Time (Protime)PT. 24.6 SECONDS (11.7-14.9)
== END 2020-06-24 18:00 | disposition home or self-care (01) ==
LOC: LAB 14:39
PROVIDERS: Family Provider Family Medicine; PCP Family Medicine; Referring Provider Internal Medicine Cardiovascular Disease; Visit Provider Internal Medicine Cardiovascular Disease
DX: I48.0 Paroxysmal atrial fibrillation (principal); Z79.01 Long term (current) use of anticoagulants
CPT/HCPCS: 36415; 85610

== ENCOUNTER 2020-07-16 08:06 | Outpatient (RCR) | payer MEDICARE, SELFPAY ==
[2020-02-27 10:26] VITALS: BMI 33.0
[2020-07-16] MEDS: COVID-19 VACC, MRNA(PFIZER)/PF 30 MCG/0.3 ML SYRINGE IM (18:33)
[2020-08-06] MEDS: COVID-19 VACC, MRNA(PFIZER)/PF 30 MCG/0.3 ML SYRINGE IM (18:33)
== END 2020-10-13 23:59 ==
LOC: IMMUN 08:06
PROVIDERS: PCP Family Medicine; Referring Provider Family Medicine; Visit Provider Family Medicine
DX: Z23 Encounter for immunization (principal)
CPT/HCPCS: 0001A; 0002A; 91300

== ENCOUNTER 2020-07-20 13:40 | Outpatient (RCR) | payer MEDICARE, SELFPAY ==
[2020-02-27 10:26] VITALS: BMI 33.0
[2020-07-20 14:52] LABS: International Normalized Ratio 1.7; Prothrombin Time (Protime)PT. 19.6 SECONDS (11.7-14.9)
[2020-07-20 15:11] LABS: AST(SGOT) 31 U/L (15-37); Alanine Aminotransfer ALT/SGPT 38 U/L (16-61); Albumin, Serum 3.7 g/dL (3.2-5.0); Alkaline Phosphatase 77 U/L (45-117); Bilirubin, Direct 0.19 mg/dL (0.00-0.30); Cholesterol 169 mg/dL (200); Globulin 3.1 g/dL (2.2-4.2); High Density Lipoprotein 36 mg/dL; Protein, Total 6.8 g/dL (6.4-8.2); Triglycerides 216 mg/dL; Very Low Density Lipoprotein 43 mg/dL (5-40)
== END 2020-07-20 18:00 | disposition home or self-care (01) ==
LOC: LAB 13:40
PROVIDERS: Nurse Practitioner Family; Family Provider Family Medicine; PCP Family Medicine; Referring Provider Internal Medicine Cardiovascular Disease; Visit Provider Internal Medicine Cardiovascular Disease
DX: I48.0 Paroxysmal atrial fibrillation (principal); Z79.01 Long term (current) use of anticoagulants; E78.00 Pure hypercholesterolemia, unspecified; E78.5 Hyperlipidemia, unspecified
CPT/HCPCS: 80061; 80076; 85610

== ENCOUNTER 2020-09-03 15:37 | Outpatient (RCR) | payer MEDICARE, SELFPAY ==
[2020-02-27 10:26] VITALS: BMI 33.0
[2020-09-03 17:45] LABS: International Normalized Ratio 2.5; Prothrombin Time (Protime)PT. 25.8 SECONDS (11.7-14.9)
== END 2020-09-03 18:00 | disposition home or self-care (01) ==
LOC: LAB 15:37
PROVIDERS: Family Provider Family Medicine; PCP Family Medicine; Referring Provider Internal Medicine Cardiovascular Disease; Visit Provider Internal Medicine Cardiovascular Disease
DX: I48.0 Paroxysmal atrial fibrillation (principal); Z79.01 Long term (current) use of anticoagulants
CPT/HCPCS: 36415; 85610

== ENCOUNTER 2020-09-21 10:40 | Outpatient (RCR) | payer MEDICARE, SELFPAY ==
[2020-02-27 10:26] VITALS: BMI 33.0
[2020-09-21 13:04] LABS: International Normalized Ratio 2.6; Prothrombin Time (Protime)PT. 26.6 SECONDS (11.7-14.9)
== END 2020-09-21 18:00 | disposition home or self-care (01) ==
LOC: LAB 10:40
PROVIDERS: Family Provider Family Medicine; PCP Family Medicine; Referring Provider Internal Medicine Cardiovascular Disease; Visit Provider Internal Medicine Cardiovascular Disease
DX: I48.0 Paroxysmal atrial fibrillation (principal); Z79.01 Long term (current) use of anticoagulants
CPT/HCPCS: 36415; 85610

== ENCOUNTER 2020-10-21 13:42 | Outpatient (RCR) | payer MEDICARE, SELFPAY ==
[2020-02-27 10:26] VITALS: BMI 33.0
[2020-10-21 15:02] LABS: International Normalized Ratio 2.6; Prothrombin Time (Protime)PT. 26.9 SECONDS (11.7-14.9)
== END 2020-10-21 18:00 | disposition home or self-care (01) ==
LOC: LAB 13:42
PROVIDERS: Family Provider Family Medicine; PCP Family Medicine; Referring Provider Internal Medicine Cardiovascular Disease; Visit Provider Internal Medicine Cardiovascular Disease
DX: I48.0 Paroxysmal atrial fibrillation (principal); Z79.01 Long term (current) use of anticoagulants
CPT/HCPCS: 36415; 85610

== ENCOUNTER 2020-11-20 12:56 | Outpatient (RCR) | payer MEDICARE, SELFPAY ==
[2020-10-27 09:15] VITALS: BMI 33.5
[2020-11-20 13:48] LABS: International Normalized Ratio 2.5; Prothrombin Time (Protime)PT. 25.9 SECONDS (11.7-14.9)
== END 2020-11-20 18:00 | disposition home or self-care (01) ==
LOC: LAB 12:56
PROVIDERS: Family Provider Family Medicine; PCP Family Medicine; Referring Provider Internal Medicine Cardiovascular Disease; Visit Provider Internal Medicine Cardiovascular Disease
DX: I48.0 Paroxysmal atrial fibrillation (principal); Z79.01 Long term (current) use of anticoagulants
CPT/HCPCS: 36415; 85610

== ENCOUNTER 2020-12-28 11:38 | Outpatient (RCR) | payer MEDICARE, SELFPAY ==
[2020-10-27 09:15] VITALS: BMI 33.5
[2020-12-28 12:45] LABS: International Normalized Ratio 2.4; Prothrombin Time (Protime)PT. 25.7 SECONDS (11.7-14.9)
== END 2020-12-28 18:00 | disposition home or self-care (01) ==
LOC: LAB 11:38
PROVIDERS: Nurse Practitioner Family; Family Provider Family Medicine; PCP Family Medicine; Referring Provider Internal Medicine Cardiovascular Disease; Visit Provider Internal Medicine Cardiovascular Disease
DX: I48.0 Paroxysmal atrial fibrillation (principal); Z79.01 Long term (current) use of anticoagulants
CPT/HCPCS: 36415; 85610

== ENCOUNTER 2021-01-21 11:42 | Outpatient (RCR) | payer MEDICARE, SELFPAY ==
[2021-01-05 19:32] VITALS: BMI 33.5
[2021-01-21 13:04] LABS: International Normalized Ratio 2.8; Prothrombin Time (Protime)PT. 28.4 SECONDS (11.7-14.9)
== END 2021-01-21 18:00 | disposition home or self-care (01) ==
LOC: LAB 11:42
PROVIDERS: Family Provider Family Medicine; PCP Family Medicine; Referring Provider Internal Medicine Cardiovascular Disease; Visit Provider Internal Medicine Cardiovascular Disease
DX: I48.0 Paroxysmal atrial fibrillation (principal); Z79.01 Long term (current) use of anticoagulants
CPT/HCPCS: 36415; 85610

== ENCOUNTER 2021-02-17 11:06 | Outpatient (RCR) | payer MEDICARE, SELFPAY ==
[2021-02-04 18:14] VITALS: BMI 33.5
[2021-02-17 12:15] LABS: International Normalized Ratio 2.3; Prothrombin Time (Protime)PT. 24.7 SECONDS (11.7-14.9)
== END 2021-03-07 02:42 | disposition home or self-care (01) ==
LOC: LAB 11:06
PROVIDERS: Family Provider Family Medicine; PCP Family Medicine; Referring Provider Internal Medicine Cardiovascular Disease; Visit Provider Internal Medicine Cardiovascular Disease
DX: I48.0 Paroxysmal atrial fibrillation (principal); Z79.01 Long term (current) use of anticoagulants
CPT/HCPCS: 36415; 85610

== ENCOUNTER 2021-03-25 13:33 | Outpatient (RCR) | payer MEDICARE, SELFPAY ==
[2021-03-07 02:42] VITALS: BMI 33.5
[2021-03-25 14:23] LABS: International Normalized Ratio 2.6
== END 2021-04-06 18:00 | disposition home or self-care (01) ==
LOC: LAB 13:33
PROVIDERS: Family Provider Family Medicine; PCP Family Medicine; Referring Provider Internal Medicine Cardiovascular Disease; Visit Provider Internal Medicine Cardiovascular Disease
DX: I48.0 Paroxysmal atrial fibrillation (principal); Z79.01 Long term (current) use of anticoagulants
CPT/HCPCS: 36415; 85610

== ENCOUNTER 2021-04-19 14:26 | Outpatient (RCR) | payer MEDICARE, SELFPAY ==
[2021-04-07 01:14] VITALS: BMI 33.5
[2021-04-19 14:46] LABS: International Normalized Ratio 2.3; Prothrombin Time (Protime)PT. 24.2 SECONDS (11.7-14.9)
== END 2021-05-08 18:00 | disposition home or self-care (01) ==
LOC: LAB 14:26
PROVIDERS: Family Provider Family Medicine; PCP Family Medicine; Referring Provider Internal Medicine Cardiovascular Disease; Visit Provider Internal Medicine Cardiovascular Disease
DX: I48.0 Paroxysmal atrial fibrillation (principal); Z79.01 Long term (current) use of anticoagulants
CPT/HCPCS: 36415; 85610

== ENCOUNTER 2021-05-20 15:38 | Outpatient (RCR) | payer MEDICARE, SELFPAY ==
[2021-05-09 03:27] VITALS: BMI 33.5
[2021-05-20 16:21] LABS: International Normalized Ratio 2.7; Prothrombin Time (Protime)PT. 27.7 SECONDS (11.7-14.9)
== END 2021-06-07 18:00 | disposition home or self-care (01) ==
LOC: LAB 15:38
PROVIDERS: Family Provider Family Medicine; PCP Family Medicine; Referring Provider Internal Medicine Cardiovascular Disease; Visit Provider Internal Medicine Cardiovascular Disease
DX: I48.0 Paroxysmal atrial fibrillation (principal); Z79.01 Long term (current) use of anticoagulants
CPT/HCPCS: 36415; 85610

== ENCOUNTER 2021-06-24 11:46 | Outpatient (RCR) | payer MEDICARE, SELFPAY ==
[2021-06-07 22:01] VITALS: BMI 33.5
[2021-06-24 14:03] LABS: International Normalized Ratio 3.1; Prothrombin Time (Protime)PT. 31.1 SECONDS (11.7-14.9)
== END 2021-06-24 18:00 | disposition home or self-care (01) ==
LOC: LAB 11:46
PROVIDERS: Family Provider Family Medicine; PCP Family Medicine; Referring Provider Internal Medicine Cardiovascular Disease; Visit Provider Internal Medicine Cardiovascular Disease
DX: I48.0 Paroxysmal atrial fibrillation (principal); Z79.01 Long term (current) use of anticoagulants
CPT/HCPCS: 36415; 85610

== ENCOUNTER 2021-07-16 12:02 | Outpatient (RCR) | payer MEDICARE, SELFPAY ==
[2021-07-06 08:48] VITALS: BMI 33.5
[2021-07-16 12:51] LABS: International Normalized Ratio 2.7; Prothrombin Time (Protime)PT. 27.9 SECONDS (11.7-14.9)
== END 2021-08-05 18:00 | disposition home or self-care (01) ==
LOC: LAB 12:02
PROVIDERS: Family Provider Family Medicine; PCP Family Medicine; Referring Provider Internal Medicine Cardiovascular Disease; Visit Provider Internal Medicine Cardiovascular Disease
DX: I48.0 Paroxysmal atrial fibrillation (principal); Z79.01 Long term (current) use of anticoagulants
CPT/HCPCS: 36415; 85610

== ENCOUNTER 2021-08-18 12:09 | Outpatient (RCR) | payer MEDICARE, SELFPAY ==
[2021-08-06 00:32] VITALS: BMI 33.5
[2021-08-18 13:38] LABS: International Normalized Ratio 3.2; Prothrombin Time (Protime)PT. 32.2 SECONDS (11.7-14.9)
== END 2021-08-18 18:00 | disposition home or self-care (01) ==
LOC: LAB 12:09
PROVIDERS: Family Provider Family Medicine; PCP Family Medicine; Referring Provider Internal Medicine Cardiovascular Disease; Visit Provider Internal Medicine Cardiovascular Disease
DX: I48.0 Paroxysmal atrial fibrillation (principal); Z79.01 Long term (current) use of anticoagulants
CPT/HCPCS: 36415; 85610

== ENCOUNTER 2021-09-20 13:14 | Outpatient (RCR) | payer MEDICARE, SELFPAY ==
[2021-09-05 02:32] VITALS: BMI 33.5
[2021-09-20 14:14] LABS: Prothrombin Time (Protime)PT. 30.5 SECONDS (11.7-14.9)
== END 2021-09-20 18:00 | disposition home or self-care (01) ==
LOC: LAB 13:14
PROVIDERS: Family Provider Family Medicine; PCP Family Medicine; Referring Provider Internal Medicine Cardiovascular Disease; Visit Provider Internal Medicine Cardiovascular Disease
DX: I48.0 Paroxysmal atrial fibrillation (principal); Z79.01 Long term (current) use of anticoagulants
CPT/HCPCS: 36415; 85610

== ENCOUNTER 2021-11-03 15:10 | Outpatient (RCR) | payer MEDICARE, SELFPAY ==
[2021-10-05 20:03] VITALS: BMI 33.5
[2021-10-18 13:49] LABS: International Normalized Ratio 2.4
[2021-11-03 16:16] LABS: International Normalized Ratio 3.3; Prothrombin Time (Protime)PT. 33.5 SECONDS (11.7-14.9)
== END 2021-11-03 23:59 | disposition home or self-care (01) ==
LOC: LAB 15:10
PROVIDERS: Family Provider Family Medicine; PCP Family Medicine; Referring Provider Internal Medicine Cardiovascular Disease; Visit Provider Internal Medicine Cardiovascular Disease
DX: I48.0 Paroxysmal atrial fibrillation (principal); Z79.01 Long term (current) use of anticoagulants
CPT/HCPCS: 36415; 85610

== ENCOUNTER 2021-11-24 13:27 | Outpatient (RCR) | payer MEDICARE, SELFPAY ==
[2021-11-05 06:29] VITALS: BMI 33.5
[2021-11-11 14:23] LABS: International Normalized Ratio 3.1; Prothrombin Time (Protime)PT. 31.9 SECONDS (11.7-14.9)
[2021-11-24 14:52] LABS: International Normalized Ratio 2.8
== END 2021-12-05 01:50 | disposition home or self-care (01) ==
LOC: LAB 13:27
PROVIDERS: Family Provider Family Medicine; PCP Family Medicine; Referring Provider Internal Medicine Cardiovascular Disease; Visit Provider Internal Medicine Cardiovascular Disease
DX: I48.0 Paroxysmal atrial fibrillation (principal); Z79.01 Long term (current) use of anticoagulants
CPT/HCPCS: 36415; 85610

== ENCOUNTER 2021-12-20 13:01 | Outpatient (RCR) | payer MEDICARE, SELFPAY ==
[2021-12-05 01:50] VITALS: BMI 33.5
[2021-12-20 13:43] LABS: International Normalized Ratio 2.3
== END 2021-12-20 18:00 | disposition home or self-care (01) ==
LOC: LAB 13:01
PROVIDERS: Family Provider Family Medicine; PCP Family Medicine; Referring Provider Internal Medicine Cardiovascular Disease; Visit Provider Internal Medicine Cardiovascular Disease
DX: I48.0 Paroxysmal atrial fibrillation (principal); Z79.01 Long term (current) use of anticoagulants
CPT/HCPCS: 36415; 85610

== ENCOUNTER 2022-01-31 13:47 | Outpatient (RCR) | payer MEDICARE, SELFPAY ==
[2022-01-05 22:01] VITALS: BMI 33.5
[2022-01-19 15:13] LABS: International Normalized Ratio 2.9; Prothrombin Time (Protime)PT. 29.6 SECONDS (11.7-14.9)
[2022-01-31 14:19] LABS: International Normalized Ratio 2.4; Prothrombin Time (Protime)PT. 25.7 SECONDS (11.7-14.9)
== END 2022-01-31 18:00 | disposition home or self-care (01) ==
LOC: LAB 13:47
PROVIDERS: Family Provider Family Medicine; PCP Family Medicine; Referring Provider Internal Medicine Cardiovascular Disease; Visit Provider Internal Medicine Cardiovascular Disease
DX: I48.0 Paroxysmal atrial fibrillation (principal); Z79.01 Long term (current) use of anticoagulants
CPT/HCPCS: 36415; 85610

== ENCOUNTER 2022-02-23 13:02 | Outpatient (RCR) | payer MEDICARE, SELFPAY ==
[2022-02-04 19:17] VITALS: BMI 33.5
[2022-02-23 13:44] LABS: International Normalized Ratio 2.4; Prothrombin Time (Protime)PT. 25.9 SECONDS (11.7-14.9)
== END 2022-03-07 18:00 | disposition home or self-care (01) ==
LOC: LAB 13:02
PROVIDERS: Family Provider Family Medicine; PCP Family Medicine; Referring Provider Internal Medicine Cardiovascular Disease; Visit Provider Internal Medicine Cardiovascular Disease
DX: I48.0 Paroxysmal atrial fibrillation (principal); Z79.01 Long term (current) use of anticoagulants
CPT/HCPCS: 36415; 85610

== ENCOUNTER 2022-03-24 13:30 | Outpatient (RCR) | payer MEDICARE, SELFPAY ==
[2022-03-08 09:24] VITALS: BMI 33.5
[2022-03-24 14:21] LABS: International Normalized Ratio 2.1; Prothrombin Time (Protime)PT. 23.3 SECONDS (11.7-14.9)
== END 2022-04-06 18:00 | disposition home or self-care (01) ==
LOC: LAB 13:30
PROVIDERS: Family Provider Family Medicine; PCP Family Medicine; Referring Provider Internal Medicine Cardiovascular Disease; Visit Provider Internal Medicine Cardiovascular Disease
DX: I48.0 Paroxysmal atrial fibrillation (principal); Z79.01 Long term (current) use of anticoagulants
CPT/HCPCS: 36415; 85610

== ENCOUNTER 2022-04-18 13:35 | Outpatient (RCR) | payer MEDICARE, SELFPAY ==
[2022-04-06 22:31] VITALS: BMI 33.5
[2022-04-18 16:18] LABS: International Normalized Ratio 2.1; Prothrombin Time (Protime)PT. 23.3 SECONDS (11.7-14.9)
[2022-05-25 15:33] LABS: Prothrombin Time (Protime)PT. 21.9 SECONDS (11.7-14.9)
== END 2022-04-18 18:00 | disposition home or self-care (01) ==
LOC: LAB 13:35
PROVIDERS: Family Provider Family Medicine; PCP Family Medicine; Referring Provider Internal Medicine Cardiovascular Disease; Visit Provider Internal Medicine Cardiovascular Disease
DX: I48.0 Paroxysmal atrial fibrillation (principal); Z79.01 Long term (current) use of anticoagulants
CPT/HCPCS: 36415; 85610

== ENCOUNTER 2022-05-25 14:26 | Outpatient (RCR) | payer MEDICARE, SELFPAY ==
[2022-05-07 22:26] VITALS: BMI 33.5
== END 2022-05-25 16:00 | disposition home or self-care (01) ==
LOC: LAB 14:26
PROVIDERS: Family Provider Family Medicine; PCP Family Medicine; Referring Provider Internal Medicine Cardiovascular Disease; Visit Provider Internal Medicine Cardiovascular Disease
DX: I48.0 Paroxysmal atrial fibrillation (principal); Z79.01 Long term (current) use of anticoagulants

== ENCOUNTER 2022-06-23 14:09 | Outpatient (RCR) | payer MEDICARE, SELFPAY ==
[2022-06-08 07:40] VITALS: BMI 33.5
[2022-06-23 15:52] LABS: Prothrombin Time (Protime)PT. 22.2 SECONDS (11.7-14.9)
== END 2022-06-23 18:00 | disposition home or self-care (01) ==
LOC: LAB 14:09
PROVIDERS: Family Provider Family Medicine; PCP Family Medicine; Referring Provider Internal Medicine Cardiovascular Disease; Visit Provider Internal Medicine Cardiovascular Disease
DX: I48.0 Paroxysmal atrial fibrillation (principal); Z79.01 Long term (current) use of anticoagulants
CPT/HCPCS: 36415; 85610

== ENCOUNTER 2022-07-18 13:04 | Outpatient (RCR) | payer MEDICARE, SELFPAY ==
[2022-07-05 19:39] VITALS: BMI 33.5
[2022-07-18 13:42] LABS: International Normalized Ratio 2.2; Prothrombin Time (Protime)PT. 23.7 SECONDS (11.7-14.9)
== END 2022-08-05 21:01 | disposition home or self-care (01) ==
LOC: LAB 13:04
PROVIDERS: Family Provider Family Medicine; PCP Family Medicine; Referring Provider Internal Medicine Cardiovascular Disease; Visit Provider Internal Medicine Cardiovascular Disease
DX: I48.0 Paroxysmal atrial fibrillation (principal); Z79.01 Long term (current) use of anticoagulants
CPT/HCPCS: 36415; 85610

== ENCOUNTER 2022-08-17 15:17 | Outpatient (RCR) | payer MEDICARE, SELFPAY ==
[2022-08-05 21:01] VITALS: BMI 33.5
[2022-08-17 15:46] LABS: Prothrombin Time (Protime)PT. 21.9 SECONDS (11.7-14.9)
== END 2022-09-04 00:22 | disposition home or self-care (01) ==
LOC: LAB 15:17
PROVIDERS: Family Provider Family Medicine; PCP Family Medicine; Referring Provider Internal Medicine Cardiovascular Disease; Visit Provider Internal Medicine Cardiovascular Disease
DX: I48.0 Paroxysmal atrial fibrillation (principal); Z79.01 Long term (current) use of anticoagulants
CPT/HCPCS: 36415; 85610

== ENCOUNTER 2022-10-04 13:30 | Outpatient (RCR) | payer MEDICARE, SELFPAY ==
[2022-09-04 00:22] VITALS: BMI 33.5
[2022-10-04 14:33] LABS: International Normalized Ratio 1.9; Prothrombin Time (Protime)PT. 22.1 SECONDS (11.7-14.9)
== END 2022-10-04 14:30 | disposition home or self-care (01) ==
LOC: LAB 13:30
PROVIDERS: Family Provider Family Medicine; PCP Family Medicine; Referring Provider Internal Medicine Cardiovascular Disease; Visit Provider Internal Medicine Cardiovascular Disease
DX: I48.0 Paroxysmal atrial fibrillation (principal); Z79.01 Long term (current) use of anticoagulants
CPT/HCPCS: 36415; 85610

== ENCOUNTER 2022-10-21 12:53 | Outpatient (RCR) | payer MEDICARE, SELFPAY ==
[2022-10-06 07:50] VITALS: BMI 33.5
[2022-10-21 13:46] LABS: International Normalized Ratio 2.2; Prothrombin Time (Protime)PT. 24.2 SECONDS (11.7-14.9)
== END 2022-10-21 18:00 | disposition home or self-care (01) ==
LOC: LAB 12:53
PROVIDERS: Family Provider Family Medicine; PCP Family Medicine; Referring Provider Internal Medicine Cardiovascular Disease; Visit Provider Internal Medicine Cardiovascular Disease
DX: I48.0 Paroxysmal atrial fibrillation (principal); Z79.01 Long term (current) use of anticoagulants
CPT/HCPCS: 36415; 85610

== ENCOUNTER 2022-12-05 13:41 | Outpatient (RCR) | payer MEDICARE, SELFPAY ==
[2022-11-04 20:36] VITALS: BMI 33.5
[2022-11-21 15:31] LABS: International Normalized Ratio 1.7; Prothrombin Time (Protime)PT. 20.2 SECONDS (11.7-14.9)
[2022-12-05 15:47] LABS: International Normalized Ratio 2.1
== END 2022-12-05 23:26 | disposition home or self-care (01) ==
LOC: LAB 13:41
PROVIDERS: Family Provider Family Medicine; PCP Family Medicine; Referring Provider Internal Medicine Cardiovascular Disease; Visit Provider Internal Medicine Cardiovascular Disease
DX: I48.0 Paroxysmal atrial fibrillation (principal); Z79.01 Long term (current) use of anticoagulants
CPT/HCPCS: 36415; 85610

== ENCOUNTER → 2022-12-05 | Outpatient (CLI) | payer MEDICARE, SELFPAY ==
--- NOTE | 2022-12-05 12:45 | ECHOD_ITS ---
Reason For Study: Bicuspid AV Procedure This was a 2D Doppler, Color Flow transthoracic echocardiogram. Exam performed in department. Left Ventricle Normal LV size. Left ventricular systolic function is normal. The estimated ejection fraction is 60 %. Stage 2 diastolic dysfunction. No regional wall motion abnormalities noted. Right Ventricle Normal RV size. Normal systolic function. Atria The left atrium is mildly enlarged. Normal right atrium. Mitral Valve Normal mitral valve. Tricuspid Valve Normal tricuspid valve. Mild to moderate (1-2+) tricuspid valve insufficiency. Pulmonary artery systolic pressure is 36 mmHg. Aortic Valve Trisinus/trileaflet aortic valve. Moderate focal aortic valve calcification. Peak aortic valve gradient 59 mmHg. Mean aortic valve gradient 34 mmHg. Moderate aortic stenosis. Pulmonic Valve Normal pulmonic valve. Great Vessels Normal aortic root. The pulmonary artery is normal size. Normal inferior vena cava. Pericardium/Pleural No pericardial effusion. MMode/2D Measurements & Calculations LVIDd: 4.6 cm IVSd: 0.98 cm LVOT diam: 2.2 cm LVIDs: 2.4 cm LVPWd: 1.3 cm LVOT area: 3.6 cm2 RVDd: 4.0 cm FS: 47.0 % Ao root diam: 3.6 cm LAV(MOD-bp): 76.8 ml LVAd ap4: 28.3 cm2 LAV(MOD-bp) Indexed: 42.2 ml/m2 LVLd ap4: 7.9 cm LAV(MOD-sp2): 75.3 ml EDV(MOD-sp4): 83.6 ml LAV(MOD-sp4): 62.4 ml EDV(sp4-el): 85.5 ml LVAs ap4: 13.8 cm2 LVLs ap4: 6.7 cm ESV(MOD-sp4): 25.5 ml ESV(sp4-el): 23.9 ml EF(MOD-sp4): 69.5 % EF(sp4-el): 72.0 % SV(MOD-sp4): 58.1 ml SV(sp4-el): 61.5 ml LA A4 area: 22.4 cm2 LA dimension(2D): 4.2 cm RA A4 area: 15.4 cm2 TAPSE: 3.5 cm Time Measurements MV dec time: 0.25 sec Doppler Measurements & Calculations MV E max elfego: 67.6 cm/sec Lat Peak E' Elfego: 8.3 cm/sec Med Peak E' Elfego: 6.9 cm/sec MV A max elfego: 48.7 cm/sec E/E' lat: 8.1 E/E' med: 9.7 MV E/A: 1.4 MV V2 max: 86.6 cm/sec Ao V2 max: 383.9 cm/sec MV max P.0 mmHg MV dec slope: 271.2 cm/sec2 Ao max P.0 mmHg MV V2 mean: 48.4 cm/sec Ao V2 mean: 275.5 cm/sec MV mean P.1 mmHg Ao mean P.6 mmHg MV V2 VTI: 35.0 cm Ao V2 VTI: 95.9 cm AV (velocity ratio): 0.34 MVA(VTI): 3.4 cm2 RON(I,D): 1.2 cm2 RON(V,D): 1.1 cm2 LV V1 max: 112.8 cm/sec MR max elfego: 550.9 cm/sec SV(LVOT): 118.2 ml LV V1 max P.1 mmHg MR max P.4 mmHg LV V1 mean P.3 mmHg MR mean elfego: 451.9 cm/sec LV V1 mean: 85.3 cm/sec MR mean P.6 mmHg LV V1 VTI: 32.4 cm MR VTI: 253.1 cm PA V2 max: 126.7 cm/sec TR max elfego: 288.2 cm/sec PA V2 mean: 95.4 cm/sec TR max P.2 mmHg ECHO/Echo Complete Interpretation Summary Normal LV size. Left ventricular systolic function is normal. The estimated ejection fraction is 60 %. Stage 2 diastolic dysfunction. The left atrium is mildly enlarged. Trisinus/trileaflet aortic valve. Moderate focal aortic valve calcification. Mean aortic valve gradient 34 mmHg. Moderate aortic stenosis. Ordering Physician: Reji Mason Referring Physician: Reji Mason Performed By: Jackie Funk RCS
== END | disposition home or self-care (01) ==
LOC: CVS 12:37
PROVIDERS: PCP Family Medicine; Referring Provider Internal Medicine Cardiovascular Disease; Visit Provider Internal Medicine Cardiovascular Disease
DX: Q23.0 Congenital stenosis of aortic valve (principal); Q23.1 Congenital insufficiency of aortic valve
CPT/HCPCS: 93306

== ENCOUNTER 2022-12-23 13:47 | Outpatient (RCR) | payer MEDICARE, SELFPAY ==
[2022-12-05 23:26] VITALS: BMI 33.5
[2022-12-23 15:07] LABS: International Normalized Ratio 2.9; Prothrombin Time (Protime)PT. 30.6 SECONDS (11.7-14.9)
== END 2022-12-23 18:00 | disposition home or self-care (01) ==
LOC: LAB 13:47
PROVIDERS: Family Provider Family Medicine; PCP Family Medicine; Referring Provider Internal Medicine Cardiovascular Disease; Visit Provider Internal Medicine Cardiovascular Disease
DX: I48.0 Paroxysmal atrial fibrillation (principal); Z79.01 Long term (current) use of anticoagulants
CPT/HCPCS: 36415; 85610

== ENCOUNTER 2023-01-20 13:56 | Outpatient (RCR) | payer MEDICARE, SELFPAY ==
[2023-01-05 21:30] VITALS: BMI 33.5
[2023-01-20 15:10] LABS: International Normalized Ratio 2.8; Prothrombin Time (Protime)PT. 29.7 SECONDS (11.7-14.9)
== END 2023-01-20 18:00 | disposition home or self-care (01) ==
LOC: LAB 13:56
PROVIDERS: Family Provider Family Medicine; PCP Family Medicine; Referring Provider Internal Medicine Cardiovascular Disease; Visit Provider Internal Medicine Cardiovascular Disease
DX: I48.0 Paroxysmal atrial fibrillation (principal); Z79.01 Long term (current) use of anticoagulants
CPT/HCPCS: 36415; 85610

== ENCOUNTER 2023-02-20 12:57 | Outpatient (RCR) | payer MEDICARE, SELFPAY ==
[2023-02-05] VITALS: BMI 33.5
[2023-02-20 14:11] LABS: International Normalized Ratio 2.6; Prothrombin Time (Protime)PT. 28.1 SECONDS (11.7-14.9)
== END 2023-02-20 18:00 | disposition home or self-care (01) ==
LOC: LAB 12:57
PROVIDERS: Family Provider Family Medicine; PCP Family Medicine; Referring Provider Internal Medicine Cardiovascular Disease; Visit Provider Internal Medicine Cardiovascular Disease
DX: I48.0 Paroxysmal atrial fibrillation (principal); Z79.01 Long term (current) use of anticoagulants
CPT/HCPCS: 36415; 85610

== ENCOUNTER 2023-04-06 13:27 | Outpatient (RCR) | payer MEDICARE, SELFPAY ==
[2023-03-07 22:29] VITALS: BMI 33.5
[2023-03-20 15:03] LABS: Prothrombin Time (Protime)PT. 41.9 SECONDS (11.7-14.9)
[2023-03-20 15:15] LABS: International Normalized Ratio 4.3
[2023-03-23 16:20] LABS: International Normalized Ratio 1.8; Prothrombin Time (Protime)PT. 21.1 SECONDS (11.7-14.9)
[2023-04-06 14:37] LABS: International Normalized Ratio 2.4; Prothrombin Time (Protime)PT. 26.7 SECONDS (11.7-14.9)
== END 2023-04-06 18:00 | disposition home or self-care (01) ==
LOC: LAB 13:27
PROVIDERS: Family Provider Family Medicine; PCP Family Medicine; Referring Provider Internal Medicine Cardiovascular Disease; Visit Provider Internal Medicine Cardiovascular Disease
DX: I48.0 Paroxysmal atrial fibrillation (principal); Z79.01 Long term (current) use of anticoagulants
CPT/HCPCS: 36415; 85610

== ENCOUNTER 2023-04-28 13:51 | Outpatient (RCR) | payer MEDICARE, SELFPAY ==
[2023-04-07 02:44] VITALS: BMI 33.5
[2023-04-20 15:44] LABS: International Normalized Ratio 1.4; Prothrombin Time (Protime)PT. 17.6 SECONDS (11.7-14.9)
[2023-04-28 15:19] LABS: International Normalized Ratio 2.2; Prothrombin Time (Protime)PT. 24.3 SECONDS (11.7-14.9)
== END 2023-05-07 18:00 | disposition home or self-care (01) ==
LOC: LAB 13:51
PROVIDERS: Family Provider Family Medicine; PCP Family Medicine; Referring Provider Internal Medicine Cardiovascular Disease; Visit Provider Internal Medicine Cardiovascular Disease
DX: I48.0 Paroxysmal atrial fibrillation (principal); Z79.01 Long term (current) use of anticoagulants
CPT/HCPCS: 36415; 85610

== ENCOUNTER 2023-05-24 12:34 | Outpatient (RCR) | payer MEDICARE, SELFPAY ==
[2023-05-07 20:37] VITALS: BMI 33.5
[2023-05-24 13:18] LABS: International Normalized Ratio 2.1; Prothrombin Time (Protime)PT. 24.2 SECONDS (11.7-14.9)
== END 2023-05-24 18:00 | disposition home or self-care (01) ==
LOC: LAB 12:34
PROVIDERS: Family Provider Family Medicine; PCP Family Medicine; Referring Provider Internal Medicine Cardiovascular Disease; Visit Provider Internal Medicine Cardiovascular Disease
DX: I48.0 Paroxysmal atrial fibrillation (principal); Z79.01 Long term (current) use of anticoagulants
CPT/HCPCS: 36415; 85610

== ENCOUNTER 2023-06-20 14:34 | Outpatient (RCR) | payer MEDICARE, SELFPAY ==
[2023-06-07 21:19] VITALS: BMI 33.5
[2023-06-20 16:15] LABS: International Normalized Ratio 2.4; Prothrombin Time (Protime)PT. 26.1 SECONDS (11.7-14.9)
== END 2023-07-06 18:00 | disposition home or self-care (01) ==
LOC: LAB 14:34
PROVIDERS: Family Provider Family Medicine; PCP Family Medicine; Referring Provider Internal Medicine Cardiovascular Disease; Visit Provider Internal Medicine Cardiovascular Disease
DX: I48.0 Paroxysmal atrial fibrillation (principal); Z79.01 Long term (current) use of anticoagulants
CPT/HCPCS: 36415; 85610

== ENCOUNTER 2023-07-19 14:37 | Outpatient (RCR) | payer MEDICARE, SELFPAY ==
[2023-07-06 21:49] VITALS: BMI 33.5
[2023-07-19 15:21] LABS: International Normalized Ratio 2.7; Prothrombin Time (Protime)PT. 28.2 SECONDS (11.7-14.9)
== END 2023-08-05 18:00 | disposition home or self-care (01) ==
LOC: LAB 14:37
PROVIDERS: Family Provider Family Medicine; PCP Family Medicine; Referring Provider Internal Medicine Cardiovascular Disease; Visit Provider Internal Medicine Cardiovascular Disease
DX: I48.0 Paroxysmal atrial fibrillation (principal); Z79.01 Long term (current) use of anticoagulants
CPT/HCPCS: 36415; 85610

== ENCOUNTER 2023-08-17 14:08 | Outpatient (RCR) | payer MEDICARE, SELFPAY ==
[2023-08-05 21:15] VITALS: BMI 33.5
[2023-08-17 15:34] LABS: International Normalized Ratio 3.2; Prothrombin Time (Protime)PT. 32.8 SECONDS (11.7-14.9)
== END 2023-09-05 22:24 | disposition home or self-care (01) ==
LOC: LAB 14:08
PROVIDERS: Family Provider Family Medicine; PCP Family Medicine; Referring Provider Internal Medicine Cardiovascular Disease; Visit Provider Internal Medicine Cardiovascular Disease
DX: I48.0 Paroxysmal atrial fibrillation (principal); Z79.01 Long term (current) use of anticoagulants
CPT/HCPCS: 36415; 85610

== ENCOUNTER 2023-09-25 13:30 | Outpatient (RCR) | payer MEDICARE, SELFPAY ==
[2023-09-05 22:24] VITALS: BMI 33.5
[2023-09-25 14:37] LABS: International Normalized Ratio 2.7; Prothrombin Time (Protime)PT. 28.2 SECONDS (11.7-14.9)
== END 2023-09-25 18:00 | disposition home or self-care (01) ==
LOC: LAB 13:30
PROVIDERS: Family Provider Family Medicine; PCP Family Medicine; Referring Provider Internal Medicine Cardiovascular Disease; Visit Provider Internal Medicine Cardiovascular Disease
DX: I48.0 Paroxysmal atrial fibrillation (principal); Z79.01 Long term (current) use of anticoagulants
CPT/HCPCS: 36415; 85610

== ENCOUNTER 2023-10-26 11:29 | Outpatient (RCR) | payer MEDICARE, SELFPAY ==
[2023-10-09 08:24] VITALS: BMI 33.5
[2023-10-20 13:40] LABS: International Normalized Ratio 3.7; Prothrombin Time (Protime)PT. 36.2 SECONDS (11.7-14.9)
[2023-10-26 12:35] LABS: International Normalized Ratio 2.8; Prothrombin Time (Protime)PT. 29.3 SECONDS (11.7-14.9)
== END 2023-10-30 18:00 | disposition home or self-care (01) ==
LOC: LAB 11:29
PROVIDERS: Family Provider Family Medicine; PCP Family Medicine; Referring Provider Internal Medicine Cardiovascular Disease; Visit Provider Internal Medicine Cardiovascular Disease
DX: I48.0 Paroxysmal atrial fibrillation (principal); Z79.01 Long term (current) use of anticoagulants
CPT/HCPCS: 36415; 85610

== ENCOUNTER 2023-11-08 13:13 | Outpatient (RCR) | payer MEDICARE, SELFPAY ==
[2023-11-05 17:27] VITALS: BMI 33.5
[2023-11-08 14:27] LABS: International Normalized Ratio 2.6; Prothrombin Time (Protime)PT. 27.9 SECONDS (11.7-14.9)
== END 2023-12-06 18:00 | disposition home or self-care (01) ==
LOC: LAB 13:13
PROVIDERS: Family Provider Family Medicine; PCP Family Medicine; Referring Provider Internal Medicine Cardiovascular Disease; Visit Provider Internal Medicine Cardiovascular Disease
DX: I48.0 Paroxysmal atrial fibrillation (principal); Z79.01 Long term (current) use of anticoagulants
CPT/HCPCS: 36415; 85610

== ENCOUNTER → 2023-11-21 | Outpatient (CLI) | payer MEDICARE, SELFPAY | END | disposition home or self-care (01) | PROVIDERS: PCP Family Medicine; Referring Provider Physician Assistant Medical; Visit Provider Physician Assistant Medical | DX: I48.0 Paroxysmal atrial fibrillation (principal) | CPT/HCPCS: 93225; 93226 ==

== ENCOUNTER → 2023-12-07 | Outpatient (CLI) | payer MEDICARE, SELFPAY ==
--- NOTE | 2023-12-07 12:43 | ECHOD_ITS ---
Reason For Study: MURMUR Procedure This was a 2D Doppler, Color Flow transthoracic echocardiogram. Exam performed in department. Left Ventricle Normal LV size. Left ventricular systolic function is normal. The left ventricular ejection fraction is 60 %. No regional wall motion abnormalities noted. Right Ventricle Normal RV size. Normal systolic function. Atria The left atrium is mildly enlarged. The right atrium is mildly enlarged. Mitral Valve Bileaflet diffuse mitral valve thickening. Mild-Moderate (1-2+) eccentric mitral valve insufficiency. Tricuspid Valve Normal tricuspid valve. Mild (1+) tricuspid valve insufficiency. Pulmonary artery systolic pressure is 35 mmHg. Aortic Valve Trisinus/trileaflet aortic valve. Mild focal aortic valve calcification. Pulmonic Valve Normal pulmonic valve. Great Vessels Normal aortic root. The pulmonary artery is normal size. Normal inferior vena cava. Pericardium/Pleural No pericardial effusion. MMode/2D Measurements & Calculations LVIDd: 4.0 cm IVSd: 1.0 cm LVOT diam: 2.1 cm LVIDs: 2.5 cm LVPWd: 1.3 cm LVOT area: 3.6 cm2 RVDd: 4.7 cm FS: 38.0 % Ao root diam: 3.7 cm LAV(MOD-bp): 82.4 ml LVAd ap4: 21.5 cm2 LAV(MOD-bp) Indexed: 46.2 ml/m2 LVLd ap4: 7.0 cm LAV(MOD-sp2): 78.2 ml EDV(MOD-sp4): 57.0 ml LAV(MOD-sp4): 68.3 ml EDV(sp4-el): 55.6 ml LVAs ap4: 14.1 cm2 LVLs ap4: 6.5 cm ESV(MOD-sp4): 27.6 ml ESV(sp4-el): 26.1 ml EF(MOD-sp4): 51.5 % EF(sp4-el): 53.1 % SV(MOD-sp4): 29.4 ml SV(sp4-el): 29.6 ml LA A4 area: 25.1 cm2 LA dimension(2D): 4.0 cm RA A4 area: 23.0 cm2 Doppler Measurements & Calculations MV E max malik: 87.9 cm/sec Ao V2 max: 255.7 cm/sec LV V1 max: 157.2 cm/sec Ao max P.2 mmHg LV V1 max P.2 mmHg Ao V2 mean: 180.7 cm/sec LV V1 mean P.7 mmHg Ao mean P.0 mmHg LV V1 mean: 120.3 cm/sec Ao V2 VTI: 51.6 cm LV V1 VTI: 33.5 cm AV (velocity ratio): 0.65 RON(I,D): 2.3 cm2 RON(V,D): 2.2 cm2 SV(LVOT): 120.3 ml PA V2 max: 75.6 cm/sec TR max malik: 281.0 cm/sec PA V2 mean: 57.5 cm/sec TR max P.6 mmHg ECHO/Echo Complete Interpretation Summary Normal LV size. Left ventricular systolic function is normal. The left ventricular ejection fraction is 60 %. Bileaflet diffuse mitral valve thickening. Mild-Moderate (1-2+) eccentric mitral valve insufficiency. Ordering Physician: Yu Dawkins Referring Physician: Yu Dawkins Performed By: Jackie Funk RCS
== END | disposition home or self-care (01) ==
LOC: CVS 12:41
PROVIDERS: PCP Family Medicine; Referring Provider Physician Assistant Medical; Visit Provider Physician Assistant Medical
DX: I35.0 Nonrheumatic aortic (valve) stenosis (principal)
CPT/HCPCS: 93306

== ENCOUNTER 2024-01-05 14:16 | Outpatient (RCR) | payer MEDICARE, SELFPAY ==
[2023-12-06 19:56] VITALS: BMI 33.5
[2023-12-12 12:29] LABS: Prothrombin Time (Protime)PT. 22.3 SECONDS (11.7-14.9)
[2023-12-20 15:50] LABS: International Normalized Ratio 2.9
[2023-12-27 14:06] LABS: International Normalized Ratio 2.9; Prothrombin Time (Protime)PT. 29.9 SECONDS (11.7-14.9)
[2024-01-05 14:42] LABS: Prothrombin Time (Protime)PT. 30.5 SECONDS (11.7-14.9)
== END 2024-01-05 18:00 | disposition home or self-care (01) ==
LOC: LAB 14:16
PROVIDERS: Family Provider Family Medicine; PCP Family Medicine; Referring Provider Internal Medicine Cardiovascular Disease; Visit Provider Internal Medicine Cardiovascular Disease
DX: I48.0 Paroxysmal atrial fibrillation (principal); Z79.01 Long term (current) use of anticoagulants
CPT/HCPCS: 36415; 85610

== ENCOUNTER 2024-01-17 10:25 | Day surgery (SDC) | payer MEDICARE, SELFPAY ==
--- NOTE | 2024-01-11 15:21 | RAD_ITS ---
INDICATION: chaves EXAMINATION/TECHNIQUE: X-RAY - XR Chest 2 Views COMPARISON: None. FINDINGS: Left basilar atelectasis. Lungs otherwise clear. The cardiomediastinal silhouette is unremarkable. No pleural effusion or pneumothorax. Degenerative changes of the thoracic spine. RAD/Chest PA and Lateral IMPRESSION: No acute radiographic abnormalities. Electronically Signed: Jose Angel Go MD at 16:51 EDT ,
--- NOTE | 2024-01-16 14:12 | PCM.HP.BLA ---
History and Physical Date of Admission: 01/17/24 Elpidio Jefferson is a 78-year-old gentleman with a history of a moderate aortic stenosis, paroxysmal atrial fibrillation, hypertension and hyperlipidemia. At his OV in November he was noted to be in Afib, he was unaware of this. He did have a A 24-hour Holter monitor which demonstrated 100% of atrial fibrillation. Echocardiogram demonstrated an ejection fraction of 60%. Mild to moderate mitral valve insufficiency. Left and right atrium mildly enlarged. He is here today to undergo a cardioversion. From a cardiac standpoint, patient is doing well. He does not have any chest discomfort/heaviness/tightness. His exercise tolerance is stable for his age. He is able to split wood without any problems. He does not have any worsening symptoms of shortness of breath. He denies any PND. He does not have any orthopnea. He does not have any symptoms of congestive heart failure. He does not have any palpitations that he is aware of. He does not have any lightheadedness or dizziness. He does not have any near-syncope or syncope. He does not have any lower extremity edema. 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 Social History Smoking Status: Never smoker second hand exposure: No alcohol intake: never substance use type: does not use caffeine: Yes Type: coffee eating out: 1-3 times/week during the past year weight has: remained stable what type of physical activity do you participate in: none seatbelt use: always do you feel safe at home: Yes ROS Const Const: Negative for fatigue, weakness, headache(s), frequent falls, difficulty sleeping or excessive sweating Eyes Eyes: Negative for loss of peripheral vision, transient loss of vision, blurry vision, double vision or tunnel vision ENT ENT: Negative for headache(s), dizziness, Nosebleed/epistaxis or balance problems Cardio Chest Pain: No Palpitations: Yes Edema: None Muscle aches with walking: None Resp Respiratory: Positive for SOB with activity (does not feel it is worse); Negative for SOB at rest, SOB orthopnea\SOB lying down, Cough or paroxysmal nocturnal dyspnea GI GI: Negative nausea, vomiting or heartburn : Negative for hematuria Musc Musc: Negative for muscle aches/ myalgia, muscle weakness, joint pain or balance problems Skin Skin: Negative non-healing lesions, rash or unusual bruising Neuro Neuro: Negative for dizziness, lightheadedness, near syncope, syncope, orthostatic symptoms, frequent falls, headache(s), weakness, confusion, memory loss, blurry vision, double vision, vertigo or lack of coordination Daniel Hematologic/Lymphatic: Negative for easy bleeding or easy bruising Endo Endo: Negative for fatigue, excessive sweating, flushing or increased thirst/drinking Psych Psych: Negative for anxiety or depression Allergy Allergy/Immunology: Negative for hives and Negative for rash Cardiology Exam Const Appearance: cooperative, healthy appearing, comfortable, no acute distress and well developed Orientation: alert, awake and oriented x3 Head Head: normal to inspection Ears: hearing grossly normal bilaterally Nose: external nose normal Face and Sinus: face symmetric Mouth: oral mucosae normal, lip normal and moist mucous membranes Eyes General: appearance normal, both eyes and all related structures Eyelids: eyelids normal Conjunctivae: conjunctivae normal Pupils: PERRL EOM: EOM intact bilaterally Neck Neck: normal visual inspection and trachea midline; Negative no JVD Carotids: Negative bruit Chest Chest inspection: normal inspection of the chest Auscultation: Bilateral: Clear to Auscultation Cardio Palpation: normal PMI Rhythm: irregularly irregular Heart sounds: S1 normal, S2 normal and murmur; Negative rub or gallop Murmur: Grade 1/6, soft and mid systolic GI GI: soft, no hepatosplenomegaly and bowel sounds present Neuro General: patient alert, patient awake, patient oriented x3 and CN's II-XI intact bilaterally Extremities Pulses: Normal: Right Posterior Tibial Pulse, Left Posterior Tibial Pulse, Right Radial Pulse and Left Radial Pulse Lower Extremity Edema: None: Bilateral Psych Psychological: normal affect Assessment & Plan Assessment/Plan (1) Other persistent atrial fibrillation: (2) Essential (primary) hypertension: (3) Hyperlipidemia: QUALIFIERS: Hyperlipidemia type: pure hypercholesterolemia Qualified Code(s): E78.00 - Pure hypercholesterolemia, unspecified PLAN: Plan Patient's INR has been therapeutic for greater than 30 days. Would like to proceed with a cardioversion. If patient does not maintain sinus rhythm we will then consider antiarrhythmic versus EP consult.
[2024-01-17 10:38] LABS: INR Fingerstick 3.1; Prothrombin Time Fingerstick 31.1 SEC (11.7-14.9)
[2024-01-17 11:02] VITALS: BMI 32.3
--- NOTE | 2024-01-17 11:50 | PCM.OP.PRO ---
Procedure Report Date of Procedure: 01/17/24 DC cardioversion. 78-year-old man with a history of chronic persistent atrial fibrillation on uninterrupted anticoagulation. Patient was brought for DC cardioversion. Patient was seen by Dr. Ennis of the critical care division. Informed consent was obtained. Anterior-posterior pads were applied. The patient was then administered 40 mg intravenous propofol. 200 J of synchronized biphasic DC cardioversion energy were applied with prompt reversal to sinus rhythm. Patient tolerated the procedure well per Conclusion: Successful DC cardioversion from atrial fibrillation to sinus rhythm. Follow-up as per office protocol.
--- NOTE | 2024-01-17 11:57 | PCM.OP.PRO ---
Procedure Report Date of Procedure: 01/17/24 CONSCIOUS SEDATION REPORT DATE OF SERVICE: January 17, 2024 BRIEF HISTORY OF PRESENT ILLNESS: The patient is a 78-year-old male who presented to [facility] for an elective outpatient cardioversion due to underlying atrial fibrillation. The patient denied any prior anesthetic complications. He has never undergone a prior cardioversion. The patient is systemically anticoagulated on Coumadin with an INR today of 3.1. His last surface echocardiogram demonstrated an ejection fraction of 60%. PHYSICAL EXAMINATION: VITAL SIGNS: Reviewed and were acceptable. GENERAL: The patient is a male, in no apparent distress, speaking in full sentences. HEENT: Normocephalic, atraumatic. Mucous membranes are moist and pink. Good mouth opening noted. Trachea is midline. Good neck mobility. CHEST: S1, S2 irregularly irregular. No murmurs, rubs or gallops were noted. LUNGS: Clear to auscultation bilaterally without appreciable wheezes, rales or rhonchi. ABDOMEN: Soft, nontender, nondistended. Positive bowel sounds. EXTREMITIES: There is no clubbing, cyanosis or edema. ASA Class: II DESCRIPTION OF PROCEDURE: After confirmation of informed consent, the patient's anesthesia plan was reviewed in detail. Propofol was chosen. Risks and benefits were reviewed and the patient agreed to proceed. At 1143, the patient was given 40 mg of propofol. The patient achieved an appropriate level of sedation and was given a 200 joule synchronized cardioversion by Dr. Mason at the bedside. This was successful in achieving normal sinus rhythm. The patient was monitored until 1156, at which time he reached his baseline mental status and function. The patient tolerated the procedure well. COMPLICATIONS: None ESTIMATED BLOOD LOSS: None RECOMMENDATIONS: Okay to recover in usual fashion. Procedures Pulmonary Pulmonary Procedures /Diagnostic Testin Con Sedation
== END 2024-01-17 12:45 | disposition home or self-care (01) ==
PROVIDERS: PCP Family Medicine; Referring Provider Internal Medicine Cardiovascular Disease; Visit Provider Internal Medicine Cardiovascular Disease
DX: I48.19 Other persistent atrial fibrillation (principal); I10 Essential (primary) hypertension; E78.5 Hyperlipidemia, unspecified; Z79.01 Long term (current) use of anticoagulants; Q23.1 Congenital insufficiency of aortic valve
CPT/HCPCS: 36416; 71046; 85610; 92960; 93005; J7040

== ENCOUNTER 2024-01-20 05:56 | Inpatient (IN) | payer MEDICARE, SELFPAY ==
[2024-01-20] VITALS (15 sets, daily range): BP systolic 116–151; BP diastolic 70–91; PULSE 62–75; RESP 16–22; TEMP 36.4–36.8; O2SAT 90–99; BMI 31.1; BMI 30.6
[2024-01-20] MEDS: dexAMETHasone 10 MG/ML Vial IV (06:21)
[2024-01-20] MEDS: Ipratropium/Albuterol Sulfate 3 ML AMPUL.NEB INHALATION (06:21)
[2024-01-20 06:32] LABS: Absolute Lymphocyte Count 2.05 X10^3/uL (0.83-4.51); Absolute Neutrophil Count 8.6 X10^3/uL (2.0-7.7); Basophil% 0.8 % (0-1); Eosinophil# 0.37 X10^3/uL; Eosinophils% 3.1 % (0-5); Hematocrit 47.4 % (40-54); Lymphocyte # 2.05 X10^3/ul (0.83-4.51); Lymphocyte % 17.2 % (19-41); Mean Corp Hgb Conc 33.8 g/dL (32-36); Mean Corpuscular Hgb 31.9 pg (27.0-32.0); Mean Corpuscular Volume 94.6 fL (80-94); Mean Platelet Vol. 12.4 fl (6.2-12.0); Monocyte# 0.78 X10^3/uL; Monocyte% 6.6 % (0-10); NRBC Flagged by Analyzer 0 % (0-5); Neutrophil # 8.56 X10^3/uL (2.7-7.7); Platelet Count 144 K/mm3 (150-450); RBC Distribution Width CV 12.6 % (11.6-14.6); Red Blood Count 5.01 M/mm3 (4.6-6.2); White Blood Count 11.9 K/mm3 (4.4-11.0)
--- NOTE | 2024-01-20 06:33 | EDS_ITS ---
HPI History of Present Illness Chief Complaint: Shortness of Breath Informant: patient and family Narrative Narrative: Patient is a 78-year-old male with past medical history of hypertension hyperlipidemia aortic stenosis and paroxysmal atrial fibrillation who is currently on Coumadin. Patient states that he recently was seen by his power plant inspector secondary to intractable A-fib and needed shock. He states he has been doing well since then but over the last 1 to 2 days has noticed increased congestion and cough and he states that he has had increased shortness of breath mainly while trying to sleep at night. He denies any fevers or chills or known sick contacts. He states he does not have a history of lung disorders such as asthma COPD emphysema or CHF. However he feels like his symptoms are worsening and secondary to this comes in for evaluation [facility] Medical History Aortic stenosis Aortic stenosis with bicuspid valve Essential (primary) hypertension Hyperlipidemia Paroxysmal atrial fibrillation retirement current use of anticoagulant Diverticulitis Home Medications ?Medication ?Instructions ?Recorded ?Last Taken ?Type omega 4-yuk-fhv-fish oil 300 1 ea PO BID Supplement 03/21/17 10/16/18 History mg-1,000 mg capsule simvastatin 40 mg tablet 40 mg PO QHS Cholesterol 03/21/17 10/16/18 History tamsulosin 0.4 mg capsule 0.4 mg PO DAILY@1730 #30 caps 03/23/17 10/16/18 Rx latanoprost 0.005 % eye drops 1 drp ophthalmic (eye) DAILY 90 04/11/17 10/16/18 History days brimonidine 0.2 % eye drops 1 drp ophthalmic (eye) BID 10/27/20 Unknown History metoprolol tartrate 25 mg tablet 25 mg PO BID #180 tabs 12/26/23 01/17/24 Rx losartan 25 mg tablet 25 mg PO DAILY #90 TABLETS 01/11/24 Unknown Rx dorzolamide 22.3 mg-timolol 6.8 1 drp ophthalmic (eye) BID 01/20/24 Unknown History mg/mL eye drops furosemide 40 mg tablet (Lasix) 40 mg PO DAILY 30 days #30 tabs 01/20/24 Unknown Rx warfarin 5 mg tablet 2.5 mg PO CHAUHAN 01/20/24 Unknown History warfarin 5 mg tablet 5 mg PO MOTUWETHFRSA 01/20/24 Unknown History Allergy/AdvReac Type Severity Reaction Status Date / Time imipramine AdvReac Nausea Verified 01/20/24 05:56 metronidazole (From Flagyl) AdvReac Nausea Verified 01/20/24 05:56 Family History Unknown No problems noted. Surgical History History of carpal tunnel surgery Social History Smoking Status: Never smoker second hand exposure: No alcohol intake: never substance use type: does not use caffeine: Yes Type: coffee eating out: 1-3 times/week during the past year weight has: remained stable what type of physical activity do you participate in: none seatbelt use: always do you feel safe at home: Yes ROS ROS ED Constitutional Constitutional ED: Denies chills or fever(s) Eyes Eyes: Denies change in vision ENT ENT ED: Reports rhinorrhea and sore throat Cardiovascular Cardiovascular: Denies chest pain or palpitations Respiratory/Chest Respiratory/Chest: Reports cough and dyspnea Gastrointestinal Gastrointestinal: Denies abdominal pain, diarrhea, nausea or vomiting Genitourinary Genitourinary ED: Denies dysuria Musculoskeletal Musculoskeletal: Denies myalgias Integumentary Denies rash Neurologic Neurologic: Denies headache(s) Hematologic/Lymphatic Hematologic/Lymphatic: Reports easy bleeding and easy bruising Allergic/Immunologic Allergic/Immunologic ED: Denies mouth swelling or tongue swelling EXAM Physical Exam Const Vital Signs: 01/20/24 05:56 01/20/24 06:25 01/20/24 07:08 Temperature 97.7 F L Temperature Source Oral Pulse Rate 71 64 Respiratory Rate 22 H 16 Respiratory Effort Short of Breath Respiratory Pattern Normal Normal Blood Pressure 151/91 H Blood Pressure Mean 111 Pulse Ox 90 Oxygen Delivery Method Room Air 01/20/24 07:56 Temperature Temperature Source Pulse Rate 62 Respiratory Rate 18 Respiratory Effort Respiratory Pattern Blood Pressure 130/83 H Blood Pressure Mean 98 Pulse Ox 92 Oxygen Delivery Method Room Air Positive well nourished and well developed General Appearance ED: well developed; Negative for pallor HEENT HEENT Narrative: Nasal mucosa is hyperemic and boggy with enlarged inferior nasal turbinates There is cobblestoning noted in posterior pharynx consistent with sinus drainage without airway edema or compromise No secondary findings in the posterior pharynx to suggest infection Eyes PERRL and EOMs intact bilaterally General Eye ED: Negative for pale conjunctiva or scleral icterus Neck supple and no JVD Chest Wall palpation of chest normal Resp Resp Narrative: Patient has mild tachypnea noted. Breath sounds are slightly diminished throughout with diffuse rhonchi and faint expiratory wheeze in the bilateral lower lobes. No retractions or accessory muscle use. No stridor noted Cardio regular rate and regular rhythm GI normal to inspection, nondistended, normoactive bowel sounds, non-tender, non- distended and no masses Auscultation: normoactive bowel sounds Palpation: soft Extremity normal to inspection Extremity Narrative: No asymmetric edema no pitting edema negative Homans' sign bilaterally Neuro oriented x3, CN's II-XII intact bilaterally and no sensory deficits noted Sensorium / Orientation: alert Motor Exam: strength 5/5 throughout Psych mental status grossly normal Skin no rashes or lesions noted General Skin Exam: Negative for jaundice or pallor MDM MDM MDM Narrative Medical decision making narrative: Patient arrived to the ER satting 90 to 92% on room air. He reported shortness of breath over the last 1 to 2 days with cough that seemed to worsen when he lie down. Differential diagnosis is for pneumonia versus pneumothorax versus congestive heart failure versus acute blood loss anemia versus viral infection such as COVID or influenza or RSV. Basic blood work was obtained and shows normal hemoglobin hematocrit as well as kidney function and electrolytes. His INR is therapeutic at 3.1 going against concern for DVT/PE. Viral swab was negative for COVID flu and RSV. Initially patient seemed to have rhonchi with expiratory wheezing and was felt this could be more inflammatory or infectious in nature so he was given Decadron for inflammatory control and a DuoNeb to help with bronchospasm. On reevaluation his work of breathing has improved and his pulse ox remained stable. Breath sounds have improved in the upper lobe with resolution of rhonchi and wheeze but now there are notable for crackles in the bilateral lower lobes. Chest x-ray was reviewed and shows cephalization with curly B-lines and pleural effusions greatest on the right consistent with CHF. Therefore he was given a dose of 40 mg of IV Lasix. The patient was ambulated and pulse ox desaturated to 85%. The case was discussed with power plant inspector on- call Dr. Lock. He recommends getting 40 mill equivalents orally at this time on top of the IV Lasix. He states to watch the patient for another hour or so in the ER and reambulate him. As long as the pulse ox stays at 90% or higher patient is otherwise safe for discharge however he continues to desat he will need admitted for further care. This plan of care was discussed with the patient and family and they are agreeable to it History & Record Review Discussion w/independent historian: Patient and Family Lab Data Attestation: I reviewed the patient's lab results. Labs: Laboratory Results - last 24 hr 01/20/24 06:10 WBC 11.9 H RBC 5.01 Hgb 16.0 Hct 47.4 MCV 94.6 H MCH 31.9 MCHC 33.8 RDW Std Deviation 44.0 H RDW Coeff of Edel 12.6 Plt Count 144 L MPV 12.4 H Immature Gran % (Auto) 0.300 Neut % (Auto) 72.0 H Lymph % (Auto) 17.2 L Whitley % (Auto) 6.6 Eos % (Auto) 3.1 Baso % (Auto) 0.8 Absolute Neuts (auto) 8.6 H Absolute Lymphs (auto) 2.05 Nucleated RBC % 0 PT 31.3 H INR 3.1 Sodium 139 Potassium 4.0 Chloride 111 H Carbon Dioxide 22.0 Anion Gap 6 BUN 27 H Creatinine 1.24 Estim Creat Clear Calc 44.88 Est GFR (MDRD) Af Amer 73 Est GFR (MDRD) Non-Af 60 BUN/Creatinine Ratio 21.8 H Glucose 122 H Calcium 9.4 Magnesium 1.9 B-Natriuretic Peptide 290.0 H Radiography Diagnostic Testin view chest x-ray as interpreted by the emergency medicine physician reveals cephalization with curly B-lines and bilateral pleural effusions Management Discussion w/another healthcare provider: Business Information Manager Discharge Plan Triage Chief Complaint: Shortness of Breath ED Provider: Fidel Rodrigez Dx/Rx/DC Orders Clinical Impression: CHF (congestive heart failure), Aortic stenosis, 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, Paroxysmal atrial fibrillation Instructions: Heart Failure Prescriptions: New furosemide [Lasix] 40 mg tablet 40 mg PO DAILY 30 Days Qty: 30 0RF No Action latanoprost 0.005 % drops 1 drp OPHTHALMIC DAILY 90 Days Patient Comments: brimonidine 0.2 % drops 1 drp ophthalmic (eye) BID simvastatin 40 MG tablet 40 mg PO QHS Patient Comments: Cholesterol omega 5-hqj-hea-fish oil 1 EACH capsule 1 ea PO BID Patient Comments: Supplement tamsulosin 0.4 MG capsule 0.4 mg PO DAILY@1730 Qty: 30 3RF dorzolamide-timolol 22.3-6.8 mg/mL drops 1 drp ophthalmic (eye) BID warfarin 5 mg tablet 2.5 mg PO CHAUHAN warfarin 5 mg tablet 5 mg PO DONAVONUWETH Protocol: Dose Management Condition: Monday Dose/Route: 2.5 mg Instruction: 0.5 x 5 mg tablets Condition: Monday Dose/Route: 5 mg Instruction: 1 x 5 mg tablet Condition: Monday Dose/Route: 5 mg Instruction: 1 x 5 mg tablet Condition: Monday Dose/Route: 5 mg Instruction: 1 x 5 mg tablet Condition: Dose/Route: 5 mg Instruction: 1 x 5 mg tablet Condition: Monday Dose/Route: 5 mg Instruction: 1 x 5 mg tablet Condition: Monday Dose/Route: 5 mg Instruction: 1 x 5 mg tablet Protocol Text: Adjustment Start Date: Monday01/17/24 INR Value: 3.1 INR Date: 01/17/24 Recheck Date: 02/16/24 metoprolol tartrate 25 mg tablet 25 mg PO BID Qty: 180 3RF losartan 25 mg tablet 25 mg PO DAILY Qty: 90 3RF Primary Care Provider: Jose Daniel Stanford Referrals: Reji Mason MD [Med Staff - Active Staff] - Jose Daniel Stanford MD [Primary Care Provider] - Activity Restrictions/Additional Instructions: Please contact your power plant inspector office to inform them of your ER visit and the start of your diuretic/Lasix pill. Asked them to order you a BMP lab test which you can have obtained Monday before your follow-up visit. Continue all of your medications as otherwise directed by your doctor and return to the ER should you have any further concerns Print Language: Nepali Disposition Disposition: Home, Self Care
[2024-01-20 06:39] LABS: International Normalized Ratio 3.1; Prothrombin Time (Protime)PT. 31.3 SECONDS (11.7-14.9)
[2024-01-20 06:49] LABS: Anion Gap 6 (5-15); BUN 27 mg/dL (7-18); BUN/Creat Ratio 21.8 RATIO (10-20); Calcium,Total 9.4 mg/dL (8.5-10.1); Chloride 111 mmol/L (98-107); Creatinine, Serum 1.24 mg/dL (0.70-1.30); EST Glomerular Filtration Rate 60 mL/min (>60); Est Glom Filt Rate - Afr Amer 73 mL/min (>60); Estimated Creatinine Clearance 44.88 ml/min; Glucose 122 mg/dL (74-106); Magnesium 1.9 mg/dL (1.6-2.6); Sodium Level 139 mmol/L (136-145)
--- NOTE | 2024-01-20 06:50 | RAD_ITS ---
STUDY: X-RAY CHEST REASON FOR EXAM: Male, 78 years old. cough TECHNIQUE: PA and lateral views of the chest. COMPARISON: January 11, 2024 FINDINGS: Mild patchy interstitial infiltrates are present in the bilateral lower lobes which are new findings since the prior study. Trace bilateral pleural effusions are also present. Position background of interstitial lung disease and cystic emphysematous changes. Normal size heart. Normal mediastinum and ashok. Normal visualized pulmonary arteries. There is atherosclerotic calcification of the aortic arch with tortuosity. There are diffuse degenerative changes of the visualized thoracic spine. Normal visualized ribs, clavicles, and shoulders. There is no demonstrated abnormality of the visualized soft tissue structures of the upper abdomen. RAD/Chest PA and Lateral IMPRESSION: 1. Interval development of mild bilateral lower lobe patchy pneumonic infiltrates Electronically Signed: Marco Argueta MD at 8:32 EDT ,
[2024-01-20] MEDS: Furosemide 40 MG/4 ML Vial IV ×2 (07:40→18:54)
[2024-01-20] MEDS: Furosemide 40 MG Tablet PO (08:07)
--- NOTE | 2024-01-20 09:35 | CT_ITS ---
STUDY: CT CHEST WITHOUT CONTRAST REASON FOR EXAM: Male, 78 years old. Abnormal chest x-ray RADIATION DOSAGE (If Supplied By Facility): CTDIvol = ( 18.07 ) mGy, DLP = ( 614.05 ) mGycm TECHNIQUE: Transaxial imaging was performed without the administration of intravenous contrast material. Individualized dose optimization techniques were used for this CT. COMPARISON: Chest x-ray dated January 20, 2024 FINDINGS: * Moderate right lower lobe pneumonic consolidation is present with a small to moderate-sized pleural effusion * Mild patchy pneumonic consolidation is present in the left lower lobe with a small pleural effusion. * Mild interstitial infiltrates are also present in the inferior medial aspect of the right middle lobe and at the lateral aspect of the right middle lobe or a small amount of pleural fluid is present between the interlobar fissure. * Calcified granuloma noted in the right lower lobe of no significance * Significant aortic valve atherosclerotic calcifications are present No masses or nodules are present in either lung. Normal heart and pericardium. There are calcifications of the coronary arteries. Normal mediastinum. Normal hilar regions. Normal unenhanced pulmonary arteries. There is atherosclerotic calcification of the aortic arch with tortuosity and elongation of the aortic arch and descending thoracic aorta. There are multi-level degenerative changes of the thoracic spine. There is no demonstrated acute or significant abnormality of the visualized upper abdomen. CT/Chest without Contrast IMPRESSION: 1. Moderate right lower lobe pneumonia with a small to moderate-sized pleural effusion 2. Mild pneumonia of the right middle and left lower lobes with a small pleural effusion Electronically Signed: Marco Argueta MD at 10:12 EDT ,
--- NOTE | 2024-01-20 10:31 | NURSING ---
DR TERRI DE LEÓN
--- NOTE | 2024-01-20 10:31 | PCM.HP.STD ---
HPI - General General Date of Admission: 01/20/24 Date of Service: 01/20/24 Chief Complaint: Cough and shortness of breath for few days HPI Narrative EMMA CÁRDENAS, is a 78 M came to ED with onset of cough progressively worsening since evening. He also felt like chest congestion/tightness with mucus sitting in the chest. Yesterday he felt short of breath ongoing Dermol and could not catch breath. He was also getting short of breath on mild exertion walking within the home. No fever or chills. No significant sputum or no hemoptysis. Patient had DC cardioversion for chronic persistent A-fib by Dr. Mason on 01/17/2024. Patient on warfarin for chronic A-fib. Patient was given Lasix 40 mg in the ED after talking to the white metal corrosion proofer Dr. Barrera used and felt better. There was a doubt of pneumonia/CHF exacerbation based on chest x-ray and clinical features therefore chest CT was done. This is discussed in detail in assessment plan. Vitals labs and imaging reviewed. No EKG done in ED. [facility] Medical History ACG (angle-closure glaucoma) Aortic stenosis Aortic stenosis with bicuspid valve Essential (primary) hypertension Hyperlipidemia Paroxysmal atrial fibrillation nursing home current use of anticoagulant Diverticulitis Home Medications ?Medication ?Instructions ?Recorded ?Last Taken ?Type omega 8-reu-hvr-fish oil 300 1 ea PO BID Supplement 03/21/17 10/16/18 History mg-1,000 mg capsule simvastatin 40 mg tablet 40 mg PO QHS Cholesterol 03/21/17 10/16/18 History tamsulosin 0.4 mg capsule 0.4 mg PO DAILY@1730 #30 caps 03/23/17 10/16/18 Rx latanoprost 0.005 % eye drops 1 drp ophthalmic (eye) DAILY 90 04/11/17 10/16/18 History days brimonidine 0.2 % eye drops 1 drp ophthalmic (eye) BID 10/27/20 Unknown History metoprolol tartrate 25 mg tablet 25 mg PO BID #180 tabs 12/26/23 01/17/24 Rx losartan 25 mg tablet 25 mg PO DAILY #90 TABLETS 01/11/24 Unknown Rx dorzolamide 22.3 mg-timolol 6.8 1 drp ophthalmic (eye) BID 01/20/24 Unknown History mg/mL eye drops furosemide 40 mg tablet (Lasix) 40 mg PO DAILY 30 days #30 tabs 01/20/24 Unknown Rx warfarin 5 mg tablet 2.5 mg PO CHAUHAN 01/20/24 Unknown History warfarin 5 mg tablet 5 mg PO MOTUWETHFRSA 01/20/24 Unknown History Allergy/AdvReac Type Severity Reaction Status Date / Time imipramine AdvReac Nausea Verified 01/20/24 05:56 metronidazole (From Flagyl) AdvReac Nausea Verified 01/20/24 05:56 Family History Unknown No problems noted. Surgical History History of carpal tunnel surgery Social History Smoking Status: Never smoker second hand exposure: No alcohol intake: never substance use type: does not use caffeine: Yes Type: coffee eating out: 1-3 times/week during the past year weight has: remained stable what type of physical activity do you participate in: none seatbelt use: always do you feel safe at home: Yes ROS ROS Narrative Constitutional: Reports acute onset of fatigue and weakness. No fever. HEENT: Reports systems reviewed and no addt'l complaints, except as documented Respiratory/Chest: As described in HPI. No history of COPD. CVS: No chest pressure or pain or anginal-like symptoms. Denies history of DC/CAD or stent. Aortic stenosis. Gastrointestinal: Denies coffee ground emesis, hematemesis or vomiting Genitourinary: Denies burning urination or new urinary tract symptoms Musculoskeletal: Denies acute joint pain or limited range of motion. No acute injury Neurologic: Denies seizure-like symptoms. skin: No ulcer. No rash Endocrinology: Reports systems reviewed and no addt'l complaints, except as documented Hematologic/Lymphatic: Reports systems reviewed and no addt'l complaints, except as documented Rest 14 ROS are negative except as mentioned in HPI Vital Signs Vital Signs Vital Signs: 01/20/24 05:56 01/20/24 06:25 01/20/24 07:08 Temperature 97.7 F L Temperature Source Oral Pulse Rate 71 64 Respiratory Rate 22 H 16 Respiratory Effort Short of Breath Respiratory Pattern Normal Normal Blood Pressure 151/91 H Blood Pressure Mean 111 Pulse Ox 90 Oxygen Delivery Method Room Air 01/20/24 07:56 01/20/24 09:00 Temperature Temperature Source Pulse Rate 62 62 Respiratory Rate 18 18 Respiratory Effort Respiratory Pattern Blood Pressure 130/83 H 132/77 H Blood Pressure Mean 98 95 Pulse Ox 92 92 Oxygen Delivery Method Room Air Room Air Weight Weight: 170 lb Body Mass Index (BMI) 31.1 Physical Exam Narrative General: Alert, Oriented x3, Cooperative HEENT: Bilateral profound hearing loss, right more than left. Atraumatic, PERRLA, EOMI, Normocephalic Oral: Oral mucosa dry. No Gingival or Mucosal Lesions/ Ulcerations Neck: Supple, No JVD, Negative Carotid Bruits Chest wall/Lungs: Air entry diminished in bilateral lung bases. Bilateral fine crepitations. No wheezing/rhonchi Cardiovascular: Regular rate and rhythm, Normal S1, Normal S2, prominent grade 4/6 systolic murmur right second ICS, LLSB and cardiac apex Abdomen: Bowel Sounds Present, Soft, Non Tender, Non-Distended : No dysuria. No renal angle tenderness. No suprapubic tenderness. Extremities: No leg edema, Capillary Refill Less than 3 Seconds Skin: No rashes, No breakdown Musculoskeletal: No Tenderness to Palpation of Joints or Extremities. Bilateral knee arthritis. Neurological: Cranial nerves II-XII grossly intact, DTR 2+/4. No acute focal neurological deficit. Psych/Mental Status: Normal Affect, Appropriate. Results Lab / Micro Data 01/20/24 06:10 01/20/24 06:10 Labs: Laboratory Results - last 24 hr 01/20/24 06:10: WBC 11.9 H, RBC 5.01, Hgb 16.0, Hct 47.4, MCV 94.6 H, MCH 31.9, MCHC 33.8, RDW Std Deviation 44.0 H, RDW Coeff of Edel 12.6, Plt Count 144 L, MPV 12.4 H, Immature Gran % (Auto) 0.300, Neut % (Auto) 72.0 H, Lymph % (Auto) 17.2 L, Edgar % (Auto) 6.6, Eos % (Auto) 3.1, Baso % (Auto) 0.8, Absolute Neuts (auto) 8.6 H, Absolute Lymphs (auto) 2.05, Nucleated RBC % 0, PT 31.3 H, INR 3.1, Sodium 139, Potassium 4.0, Chloride 111 H, Carbon Dioxide 22.0, Anion Gap 6, BUN 27 H, Creatinine 1.24, Estim Creat Clear Calc 44.88, Est GFR (MDRD) Af Amer 73, Est GFR (MDRD) Non-Af 60, BUN/Creatinine Ratio 21.8 H, Glucose 122 H, Calcium 9.4, Magnesium 1.9, B-Natriuretic Peptide 290.0 H Micro: Microbiology 01/20/24 06:21 Mucosa - Nose SARS-CoV-2, Influenza & RSV (PCR) - Final Imaging Radiology Impression Chest X-Ray 01/20/24 06:50 IMPRESSION: 1. Interval development of mild bilateral lower lobe patchy pneumonic infiltrates Electronically Signed: Marco Argueta MD at 8:32 EDT Reading Location ID and State: [facility] / [place] , Service support , Chest CT 01/20/24 09:35 IMPRESSION: 1. Moderate right lower lobe pneumonia with a small to moderate-sized pleural effusion 2. Mild pneumonia of the right middle and left lower lobes with a small pleural effusion Electronically Signed: Marco Argueta MD at 10:12 EDT , Assessment & Plan Assessment/Plan (1) Pneumonia: PLAN: Plan This is a 78-year-old gentleman is being admitted for shortness of breath for 1 day and cough for 3 days. 1. Bilateral patchy interstitial pneumonia, community-acquired pneumonia: Patient is being admitted in PCU. Chest x-ray and chest CT scan individually reviewed. Shows moderate right lower lobe pneumonic consolidation, mild patchy infiltrate in left lower lobe, interstitial infiltrate of right middle lobe and small bilateral pleural effusion right slightly more than left. Normal hilar region/mediastinum are normal limits pulmonary artery. Patient is started empirically on IV ceftriaxone and azithromycin. Triple PCR for SARS-CoV-2, flu and RSV are negative. Pneumonia workup ordered. 2. Possible acute on chronic HFpEF due to valvular heart disease: Chest CT scan was done after 2 dosages of furosemide 40 mg in the ED. BNP elevated. Clinically, the patient send much improvement after 2 doses of IV Lasix in the ER. No leg swelling. Recent echo in December 2023 shows EF 65%, mild to moderate MR, mild TR, PASP 35 mmHg. 3. Chronic A-fib on warfarin, aortic stenosis, mitral regurgitation: Twelve-lead EKG ordered. Heart rate is controlled. Hold warfarin today and monitor PT/INR daily. On metoprolol 25 mg twice daily continued. Previous echo November 27 shows moderate aortic stenosis of mean AV gradient 34 mmHg, 1-2+ TR and normal mitral valve. Patient has and MR murmur. Previous echo of 2019 also reported bicuspid aortic valve with moderate aortic stenosis. Did not had aortic valve surgery. Patient follows Dr. Mason. 4. Hypertension and dyslipidemia: Blood pressure in normal range. On losartan 25 mg daily and simvastatin 40 mg daily discontinued. Home medication reconciliation done 5. VTE prophylaxis: Moderate to high risk: INR 3.1. On warfarin. Living will/advanced directive/end of life care: Patient does not have living will or advanced directive. After discussion of benefits/risks procedures involved with full code, DNR CC arrest and DNR CC, the patient opted for full code. Patient does want artificial life support including intubation, tube feed, ventilator and/chest compression, central venous catheter, vasopressor and DC shock if needed Total time spent in [id number] encounter in discussion of advanced directive 17 minutes. Microbiology Past 72 Hours 01/20/24 06:21 Mucosa - Nose SARS-CoV-2, Influenza & RSV (PCR) - Final Laboratory Results 01/20/24 06:10: WBC 11.9 H, RBC 5.01, Hgb 16.0, Hct 47.4, MCV 94.6 H, MCH 31.9, MCHC 33.8, RDW Std Deviation 44.0 H, RDW Coeff of Edel 12.6, Plt Count 144 L, MPV 12.4 H, Immature Gran % (Auto) 0.300, Neut % (Auto) 72.0 H, Lymph % (Auto) 17.2 L, Edgar % (Auto) 6.6, Eos % (Auto) 3.1, Baso % (Auto) 0.8, Absolute Neuts (auto) 8.6 H, Absolute Lymphs (auto) 2.05, Nucleated RBC % 0, PT 31.3 H, INR 3.1, Sodium 139, Potassium 4.0, Chloride 111 H, Carbon Dioxide 22.0, Anion Gap 6, BUN 27 H, Creatinine 1.24, Estim Creat Clear Calc 44.88, Est GFR (MDRD) Af Amer 73, Est GFR (MDRD) Non-Af 60, BUN/Creatinine Ratio 21.8 H, Glucose 122 H, Calcium 9.4, Magnesium 1.9 01/20/24 06:10: Magnesium Cancelled, B-Natriuretic Peptide 290.0 H Clinical Impression(s) from Imaging Studies Chest X-Ray 01/20/24 06:50 IMPRESSION: 1. Interval development of mild bilateral lower lobe patchy pneumonic infiltrates Chest CT 01/20/24 09:35 IMPRESSION: 1. Moderate right lower lobe pneumonia with a small to moderate-sized pleural effusion 2. Mild pneumonia of the right middle and left lower lobes with a small pleural effusion Echo on 12/07/2023 Interpretation Summary Normal LV size. Left ventricular systolic function is normal. The left ventricular ejection fraction is 60 %. Bileaflet diffuse mitral valve thickening. Mild-Moderate (1-2+) eccentric mitral valve insufficiency. Charges/Coding Visit Charges Inpatient E&M: 01498 Init Hosp L3 Procedures Hospitalists Procedures: 93566 Advncd Care Plan 30 Min
--- NOTE | 2024-01-20 10:36 | NURSING ---
PCU TERRI PNEUMONIA, CHF
[2024-01-20] MEDS: Ceftriaxone 1 GM/50 ML BAG IV (10:37)
[2024-01-20] MEDS: Azithromycin 500 MG in Dextrose 5%-Water (250mL Bag) 250 ML 250 MG IV (11:45)
[2024-01-20] MEDS: Tamsulosin HCl 0.4 MG Capsule PO (17:47)
[2024-01-20] MEDS: Atorvastatin Calcium 20 MG Tablet PO (21:03)
[2024-01-20] MEDS: Metoprolol Tartrate 25 MG Tablet PO (21:03)
[2024-01-20] MEDS: Omega-3 Acid Ethyl Esters 1 GM Capsule PO (21:03)
[2024-01-21 03:57] VITALS: BP 100/71; PULSE 64; RESP 16; TEMP 36.3; O2SAT 96
[2024-01-21 05:47] VITALS: BMI 30.7
[2024-01-21 06:51] LABS: Absolute Lymphocyte Count 1.58 X10^3/uL (0.83-4.51); Absolute Neutrophil Count 18.5 X10^3/uL (2.0-7.7); Basophil# 0.04 X10^3/uL; Basophil% 0.2 % (0-1); Hematocrit 42.9 % (40-54); Hemoglobin 14.9 g/dL (13.0-16.5); Lymphocyte # 1.58 X10^3/ul (0.83-4.51); Lymphocyte % 7.5 % (19-41); Mean Corp Hgb Conc 34.7 g/dL (32-36); Mean Corpuscular Volume 92.3 fL (80-94); Mean Platelet Vol. 12.6 fl (6.2-12.0); Monocyte# 0.73 X10^3/uL; Monocyte% 3.4 % (0-10); NRBC Flagged by Analyzer 0 % (0-5); Neutrophil # 18.52 X10^3/uL (2.7-7.7); Neutrophil % 87.5 % (47-70); Platelet Count 153 K/mm3 (150-450); RBC Distribution Width CV 12.7 % (11.6-14.6); RBC Distribution Width SD 42.8 fl (35.1-43.9); Red Blood Count 4.65 M/mm3 (4.6-6.2); White Blood Count 21.2 K/mm3 (4.4-11.0)
[2024-01-21 07:01] LABS: International Normalized Ratio 3.3; Prothrombin Time (Protime)PT. 33.5 SECONDS (11.7-14.9)
[2024-01-21 07:29] LABS: Anion Gap 10 (5-15); BUN 34 mg/dL (7-18); BUN/Creat Ratio 23.3 RATIO (10-20); Calcium,Total 8.9 mg/dL (8.5-10.1); Chloride 104 mmol/L (98-107); Creatinine, Serum 1.46 mg/dL (0.70-1.30); EST Glomerular Filtration Rate 50 mL/min (>60); Est Glom Filt Rate - Afr Amer 60 mL/min (>60); Estimated Creatinine Clearance 40.73 ml/min; Glucose 169 mg/dL (74-106); Potassium 3.4 mmol/L (3.5-5.1); Sodium Level 136 mmol/L (136-145); Thyroid Stim Hormone (TSH) 0.652 uIU/mL (0.358-3.740)
--- NOTE | 2024-01-21 08:17 | PN.HOSP_ITS ---
Reason for Visit Reason for Visit: Diagnoses Pneumonia, unspecified organism (01/20/24) Objective Data Objective Data Vital Signs: Vital Signs Temp Pulse Resp BP Pulse Ox O2 Del Method 97.4 F L 64 16 100/71 96 Room Air 01/21/24 03:57 01/21/24 03:57 01/21/24 03:57 01/21/24 03:57 01/21/24 03:57 01/21/24 07:40 Oxygen Delivery Method Room Air Weight: 178 lb 12.718 oz Body Mass Index (BMI) 30.7 Intake & Output: Intake and Output for Last 24 Hours 01/19/24 01/20/24 01/21/24 23:59 23:59 23:59 Intake Total 825 / 1185 360 / 360 Balance 825 / 1185 360 / 360 Lab / Micro Data 01/21/24 06:21 01/21/24 06:21 Labs: Laboratory Results - last 24 hr 01/20/24 06:10: Magnesium Cancelled 01/21/24 06:21: WBC 21.2 H, RBC 4.65, Hgb 14.9, Hct 42.9, MCV 92.3, MCH 32.0, MCHC 34.7, RDW Std Deviation 42.8, RDW Coeff of Edel 12.7, Plt Count 153, MPV 12.6 H, Immature Gran % (Auto) 1.400 H, Neut % (Auto) 87.5 H, Lymph % (Auto) 7.5 L, [place] % (Auto) 3.4, Eos % (Auto) 0.0, Baso % (Auto) 0.2, Absolute Neuts (auto) 18.5 H, Absolute Lymphs (auto) 1.58, Nucleated RBC % 0, PT 33.5 H, INR 3.3, Sodium 136, Potassium 3.4 L, Chloride 104, Carbon Dioxide 22.0, Anion Gap 10, B UN 34 H, Creatinine 1.46 H, Estim Creat Clear Calc 40.73, Est GFR (MDRD) Af Amer 60, Est GFR (MDRD) Non-Af 50 L, BUN/Creatinine Ratio 23.3 H, Glucose 169 H, Calcium 8.9, TSH 0.652 Micro: Microbiology 01/20/24 17:45 Urine, Random Legionella Antigen - Final 01/20/24 17:45 Urine, Random Streptococcus pneumoniae Antigen (M - Final 01/20/24 12:40 Mucosa - Nasopharyngeal Respiratory Panel (PCR) - Final 01/20/24 12:17 Nasal Secretion MRSA (PCR) - Final 01/20/24 06:21 Mucosa - Nose SARS-CoV-2, Influenza & RSV (PCR) - Final Radiography Diagnostic Testing: Radiology Impression Chest X-Ray 01/20/24 06:50 IMPRESSION: 1. Interval development of mild bilateral lower lobe patchy pneumonic infiltrates Electronically Signed: Marco Argueta MD at 8:32 EDT Reading Location ID and State: [address] [place] [address] , Service support , Chest CT 01/20/24 09:35 IMPRESSION: 1. Moderate right lower lobe pneumonia with a small to moderate-sized pleural effusion 2. Mild pneumonia of the right middle and left lower lobes with a small pleural effusion Electronically Signed: Marco Argueta MD at 10:12 EDT Reading Location ID and State: [address] [place] [address] , Service support , Physical Exam Narrative Seen and examined. Patient is still has mild cough but overall feels improvement in shortness of breath. Mainly dry cough. No fever or chills. Physical exam: General: Alert, Oriented x3, Cooperative HEENT: Bilateral profound hearing loss, right more than left. Atraumatic, PERRLA, EOMI, Normocephalic Oral: Oral mucosa dry. No Gingival or Mucosal Lesions/ Ulcerations Neck: Supple, No JVD, Negative Carotid Bruits Chest wall/Lungs: Air entry diminished in bilateral lung bases. Bilateral fine crepitations. No wheezing/rhonchi Cardiovascular: No tachycardia. Normal S1, Normal S2, prominent grade 4/6 systolic murmur right second ICS, LLSB and cardiac apex with no carotid radiation Abdomen: Bowel Sounds Present, Soft, Non Tender, Non-Distended : No dysuria. No renal angle tenderness. No suprapubic tenderness. Extremities: No leg edema, Capillary Refill Less than 3 Seconds Skin: No rashes, No breakdown Musculoskeletal: No Tenderness to Palpation of Joints or Extremities. Bilateral knee arthritis. Neurological: Cranial nerves II-XII grossly intact, DTR 2+/4. No acute focal neurological deficit. Psych/Mental Status: Normal Affect, Appropriate. Assessment & Plan Assessment/Plan (1) Pneumonia: PLAN: Plan This is a 78-year-old gentleman is being admitted for shortness of breath for 1 day and cough for 3 days. 1. Bilateral patchy interstitial pneumonia, community-acquired pneumonia: Patient is being admitted in PCU. Chest x-ray and chest CT scan individually reviewed. Shows moderate right lower lobe pneumonic consolidation, mild patchy infiltrate in left lower lobe, interstitial infiltrate of right middle lobe and small bilateral pleural effusion right slightly more than left. Normal hilar region/mediastinum are normal limits pulmonary artery. Patient is started empirically on IV ceftriaxone and azithromycin. Triple PCR for SARS-CoV-2, flu and RSV are negative. 01/20: Respiratory panel negative. Urinary antigens are negative. Mucinex DM. Repeat chest x-ray ordered as patient has leukocytosis with immature granulocytes although clinically feels better. Patient not on steroid. Patient wanted to go home but advised to stay and he agreed. 2. Possible acute on chronic HFpEF due to valvular heart disease: Chest CT scan was done after 2 dosages of furosemide 40 mg in the ED. BNP elevated. Clinically, the patient send much improvement after 2 doses of IV Lasix in the ER. No leg swelling. Recent echo in December 2023 shows EF 65%, mild to moderate MR, mild TR, PASP 35 mmHg. 01/20: Hold Lasix. Creatinine went up from 1.24-1.46 and patient is well diuresed. Lungs no crepitations. Does not meet criteria for ARCELIA. 3. Chronic A-fib on warfarin, aortic stenosis, mitral regurgitation: Twelve- lead EKG ordered. Heart rate is controlled. Hold warfarin today and monitor PT/INR daily. On metoprolol 25 mg twice daily continued. Previous echo November 27 shows moderate aortic stenosis of mean AV gradient 34 mmHg, 1-2+ TR and normal mitral valve. Patient has and MR murmur. Previous echo of 2019 also reported bicuspid aortic valve with moderate aortic stenosis. Did not had aortic valve surgery. Patient follows Dr. Mason. 4. Hypertension and dyslipidemia: Blood pressure in normal range. On losartan 25 mg daily and simvastatin 40 mg daily discontinued. Home medication reconciliation done 01/20: Blood pressure in 100s. Discontinue losartan 5. VTE prophylaxis: Moderate to high risk: INR 3.1. On warfarin. 01/20: INR 3.3. Continue to hold warfarin. 6. Hyperglycemia: Glucose 169 in BMP. It was 122 yesterday. A1c ordered . Living will/advanced directive/end of life care: Patient does not have living will or advanced directive. After discussion of benefits/risks procedures involved with full code, DNR CC arrest and DNR CC, the patient opted for full code. Patient does want artificial life support including intubation, tube feed, ventilator and/chest compression, central venous catheter, vasopressor and DC shock if needed Total time spent in [id number] encounter in discussion of advanced directive 17 minutes. Microbiology Past 72 Hours 01/20/24 17:45 Urine, Random Legionella Antigen - Final 01/20/24 17:45 Urine, Random Streptococcus pneumoniae Antigen (M - Final 01/20/24 12:40 Mucosa - Nasopharyngeal Respiratory Panel (PCR) - Final 01/20/24 12:17 Nasal Secretion MRSA (PCR) - Final 01/20/24 06:21 Mucosa - Nose SARS-CoV-2, Influenza & RSV (PCR) - Final Laboratory Results 01/20/24 06:10: Magnesium Cancelled 01/21/24 06:21: WBC 21.2 H, RBC 4.65, Hgb 14.9, Hct 42.9, MCV 92.3, MCH 32.0, MCHC 34.7, RDW Std Deviation 42.8, RDW Coeff of Edel 12.7, Plt Count 153, MPV 12.6 H, Immature Gran % (Auto) 1.400 H, Neut % (Auto) 87.5 H, Lymph % (Auto) 7.5 L, [place] % (Auto) 3.4, Eos % (Auto) 0.0, Baso % (Auto) 0.2, Absolute Neuts (auto) 18.5 H, Absolute Lymphs (auto) 1.58, Nucleated RBC % 0, PT 33.5 H, INR 3.3, Sodium 136, Potassium 3.4 L, Chloride 104, Carbon Dioxide 22.0, Anion Gap 10, B UN 34 H, Creatinine 1.46 H, Estim Creat Clear Calc 40.73, Est GFR (MDRD) Af Amer 60, Est GFR (MDRD) Non-Af 50 L, BUN/Creatinine Ratio 23.3 H, Glucose 169 H, Calcium 8.9, TSH 0.652 Clinical Impression(s) from Imaging Studies Chest X-Ray 01/20/24 06:50 IMPRESSION: 1. Interval development of mild bilateral lower lobe patchy pneumonic infiltrates Chest CT 01/20/24 09:35 IMPRESSION: 1. Moderate right lower lobe pneumonia with a small to moderate-sized pleural effusion 2. Mild pneumonia of the right middle and left lower lobes with a small pleural effusion Echo on 12/07/2023 Interpretation Summary Normal LV size. Left ventricular systolic function is normal. The left ventricular ejection fraction is 60 %. Bileaflet diffuse mitral valve thickening. Mild-Moderate (1-2+) eccentric mitral valve insufficiency. Charges/Coding Visit Charges Inpatient E&M: 99031 Subs Hosp L2
--- NOTE | 2024-01-21 08:25 | RAD_ITS ---
EXAM: XR CHEST, 2 VIEWS CLINICAL INDICATION: pneumonia -- xray B/L infiltrates, but clincally Pneumonia TECHNIQUE: Frontal and lateral views of the chest. COMPARISON: Study done yesterday FINDINGS: LUNGS AND PLEURAL SPACES: Improvement in the lower lobe infiltrate since the prior study. No pneumothorax. No effusion. HEART: Unremarkable. Cardiac silhouette not enlarged. MEDIASTINUM: Central airways and mediastinal contour are unremarkable. BONES/JOINTS: Unremarkable. No acute fracture. SOFT TISSUES: Unremarkable. RAD/Chest PA and Lateral IMPRESSION: Improvement in the lower lobe infiltrate since the prior study. Electronically Signed: Wayne Phelps MD at 16:22 EDT ,
[2024-01-21 09:08] VITALS: BP 97/63; PULSE 61; RESP 15; TEMP 36.6; O2SAT 94
[2024-01-21 09:13] LABS: Hemoglobin A1c 6.2 % (3.8-5.6)
[2024-01-21] MEDS: 0.9% Saline Lock 10 ML Syringe IV (09:13)
[2024-01-21] MEDS: Potassium Chloride Oral Tablet 20 MEQ 40 MEQ PO (09:13)
[2024-01-21] MEDS: Azithromycin 500 MG in Dextrose 5%-Water (250mL Bag) 250 ML 250 MG IV (09:13)
[2024-01-21] MEDS: guaiFENesin/D-Methorphan TAB.SR.12H 2 TABLET PO ×2 (09:13→21:54)
[2024-01-21 09:17] VITALS: BP 97/63; PULSE 62
[2024-01-21] MEDS: Omega-3 Acid Ethyl Esters 1 GM Capsule PO ×2 (09:17→21:54)
[2024-01-21] MEDS: Metoprolol Tartrate 25 MG Tablet PO ×2 (09:17→21:54)
[2024-01-21] MEDS: FLU VACCINE **HIGH DOSE** TV 24-25 180 MCG/0.5 ML SYRINGE IM (10:36)
[2024-01-21] MEDS: Ceftriaxone 2 GM in 0.9% Normal Saline (50mL MB+) 50 ML IV (10:37)
[2024-01-21 15:15] VITALS: BP 132/84; PULSE 63; RESP 14; TEMP 36.6; O2SAT 95
[2024-01-21] MEDS: Tamsulosin HCl 0.4 MG Capsule PO (16:45)
[2024-01-21 21:52] VITALS: BP 146/95; PULSE 64; RESP 18; TEMP 36.4; O2SAT 97
[2024-01-21 21:54] VITALS: BP 146/95; PULSE 64
[2024-01-21] MEDS: Atorvastatin Calcium 20 MG Tablet PO (21:54)
[2024-01-22 03:17] VITALS: BP 120/74; PULSE 60; RESP 14; TEMP 36.4; O2SAT 98
[2024-01-22 05:58] LABS: Absolute Lymphocyte Count 2.57 X10^3/uL (0.83-4.51); Absolute Neutrophil Count 13.4 X10^3/uL (2.0-7.7); Basophil# 0.03 X10^3/uL; Basophil% 0.2 % (0-1); Eosinophil# 0.03 X10^3/uL; Eosinophils% 0.2 % (0-5); Hematocrit 43.5 % (40-54); Hemoglobin 14.8 g/dL (13.0-16.5); Lymphocyte # 2.57 X10^3/ul (0.83-4.51); Lymphocyte % 14.9 % (19-41); Mean Corpuscular Hgb 31.6 pg (27.0-32.0); Mean Corpuscular Volume 92.9 fL (80-94); Mean Platelet Vol. 11.9 fl (6.2-12.0); Monocyte% 6.4 % (0-10); NRBC Flagged by Analyzer 0 % (0-5); Neutrophil # 13.41 X10^3/uL (2.7-7.7); Neutrophil % 77.8 % (47-70); Platelet Count 148 K/mm3 (150-450); RBC Distribution Width CV 12.8 % (11.6-14.6); RBC Distribution Width SD 43.7 fl (35.1-43.9); Red Blood Count 4.68 M/mm3 (4.6-6.2); White Blood Count 17.2 K/mm3 (4.4-11.0)
[2024-01-22 06:10] LABS: Prothrombin Time (Protime)PT. 30.8 SECONDS (11.7-14.9)
[2024-01-22 06:26] LABS: Anion Gap 7 (5-15); BUN 32 mg/dL (7-18); BUN/Creat Ratio 25.2 RATIO (10-20); Calcium,Total 8.9 mg/dL (8.5-10.1); Chloride 105 mmol/L (98-107); Creatinine, Serum 1.27 mg/dL (0.70-1.30); EST Glomerular Filtration Rate 58 mL/min (>60); Est Glom Filt Rate - Afr Amer 71 mL/min (>60); Estimated Creatinine Clearance 46.82 ml/min; Glucose 135 mg/dL (74-106); Potassium 3.9 mmol/L (3.5-5.1); Sodium Level 135 mmol/L (136-145)
[2024-01-22 09:15] VITALS: BP 139/105; PULSE 63; RESP 18; TEMP 36.7; O2SAT 97
--- NOTE | 2024-01-22 10:10 | DCINST_ITS ---
Discharge Instructions Follow Up Care Test Results: Test results from this visit will be discussed in further detail at your follow- up appointment, if applicable. 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 PT/INR on 01/24/2024 and follow-up with the cardiology office/PCP. Discharge Orders/Prescriptions Prescriptions: New cefdinir 300 mg capsule 300 mg PO BID 5 Days Qty: 10 0RF dextromethorphan-guaifenesin [Mucinex DM] 60-1,200 mg tablet extended release 12 hr 1 tab PO Q12H 7 Days Qty: 14 0RF Continued latanoprost 0.005 % drops 1 drp OPHTHALMIC DAILY 90 Days Patient Comments: brimonidine 0.2 % drops 1 drp ophthalmic (eye) BID simvastatin 40 MG tablet 40 mg PO QHS Patient Comments: Cholesterol omega 1-twe-pzu-fish oil 1 EACH capsule 1 ea PO BID Patient Comments: Supplement tamsulosin 0.4 MG capsule 0.4 mg PO DAILY@1730 Qty: 30 3RF dorzolamide-timolol 22.3-6.8 mg/mL drops 1 drp ophthalmic (eye) BID metoprolol tartrate 25 mg tablet 25 mg PO BID Qty: 180 3RF Held warfarin 5 mg tablet 2.5 mg PO CHAUHAN Hold Instructions: Hold warfarin 5 mg tablet 5 mg PO MOTUWETHFRSA Hold Instructions: Hold for 2 days, repeat INR on 01/24/2024. Protocol: Dose Management Condition: Monday Dose/Route: 2.5 mg Instruction: 0.5 x 5 mg tablets Condition: Monday Dose/Route: 5 mg Instruction: 1 x 5 mg tablet Condition: Monday Dose/Route: 5 mg Instruction: 1 x 5 mg tablet Condition: Monday Dose/Route: 5 mg Instruction: 1 x 5 mg tablet Condition: Dose/Route: 5 mg Instruction: 1 x 5 mg tablet Condition: Monday Dose/Route: 5 mg Instruction: 1 x 5 mg tablet Condition: Monday Dose/Route: 5 mg Instruction: 1 x 5 mg tablet Protocol Text: Adjustment Start Date: Monday01/17/24 INR Value: 3.1 INR Date: 01/17/24 Recheck Date: 02/16/24 losartan 25 mg tablet 25 mg PO DAILY Qty: 90 3RF Hold Instructions: Hold for 2 days Referrals / Follow Up: Reji Mason MD [Med Staff - Active Staff] - Jose Daniel Stanford MD [Primary Care Provider] - Yu Dawkins PA [Med Staff - Adv Practice Prof] - Within 2 Weeks Disposition Disposition (needs filled in before D/C Order can be placed): Home, Self Care
[2024-01-22] MEDS: Ceftriaxone 2 GM in 0.9% Normal Saline (50mL MB+) 50 ML IV (10:20)
[2024-01-22] MEDS: guaiFENesin/D-Methorphan TAB.SR.12H 2 TABLET PO (10:25)
[2024-01-22] MEDS: Omega-3 Acid Ethyl Esters 1 GM Capsule PO (10:25)
[2024-01-22 10:26] VITALS: BP 139/105; PULSE 63
[2024-01-22] MEDS: Metoprolol Tartrate 25 MG Tablet PO (10:26)
[2024-01-22] MEDS: Azithromycin 500 MG in Dextrose 5%-Water (250mL Bag) 250 ML 250 MG IV (11:11)
--- NOTE | 2024-01-22 11:43 | CASEMGMT ---
ATA ADAMES Assessment: Face to Face with pt for initial transition planning/care coordination assessment. ATA ADAMES introduced self and role at [facility], pt voices understanding and consents to assessment. Pt is A&O x4 and answers all questions appropriately at this time. Pt sitting up in bed in no distress. Care providers, pharmacy, and demographics verified/updated. Strata: 1 Admitting Dx: Hypoxia, CHF ECA/Pneumonia PCP: Hien Specialists:Raymundo Geophysicist Preferred Pharmacy: [facility] Insurance: [employer] [facility] Prescription Benefit: yes LNOK: Living Arrangements: Pt lives with in a 1 story home with a ramp to enter. ADLs: Pt reports I with ADLs and IADLs. Transportation: Pt drives self and denies concerns with transportation. DME: Walker, Shower bench. HHC/SNF: Denies Hx of. Pt states no concerns with going home at time of dc. Pt states no further concerns/needs. CM to follow. Advised pt to ask CM if any further question/concerns/needs arise, voices understanding. Pt Goal: Home Plan: Home, ATA ADAMES to follow plan of care. Marguerite BERUMEN CM
--- NOTE | 2024-01-22 12:02 | PCM.DC.SUM ---
Providers Date of Admission: 01/20/24 Date of Discharge: 01/22/24 Primary Care Physician: Dr. Jose Daniel Stanford MD Reason For Visit: HYPOXIA, CHF ECA/PNEUMONIA Diagnosis Discharge Diagnosis (1) Pneumonia: Status: Acute Code(s): J18.9 - Pneumonia, unspecified organism Plan This is a 78-year-old gentleman is being admitted for shortness of breath for 1 day and cough for 3 days. 1. Bilateral patchy interstitial pneumonia, community-acquired pneumonia: Patient is being admitted in PCU. Chest x-ray and chest CT scan individually reviewed. Shows moderate right lower lobe pneumonic consolidation, mild patchy infiltrate in left lower lobe, interstitial infiltrate of right middle lobe and small bilateral pleural effusion right slightly more than left. Normal hilar region/mediastinum are normal limits pulmonary artery. Patient is started empirically on IV ceftriaxone and azithromycin. Triple PCR for SARS-CoV-2, flu and RSV are negative. 01/20: Respiratory panel negative. Urinary antigens are negative. Mucinex DM. Repeat chest x-ray ordered as patient has leukocytosis with immature granulocytes although clinically feels better. Patient not on steroid. Patient wanted to go home but advised to stay and he agreed. 01/21: Patient is feeling better. Patient completed 3 days of IV antibiotics ceftriaxone and azithromycin. Discharged on cefdinir 300 mg p.o. twice daily for 5 more days. 2. Possible acute on chronic HFpEF due to valvular heart disease: Chest CT scan was done after 2 dosages of furosemide 40 mg in the ED. BNP elevated. Clinically, the patient send much improvement after 2 doses of IV Lasix in the ER. No leg swelling. Recent echo in December 2023 shows EF 65%, mild to moderate MR, mild TR, PASP 35 mmHg. 01/20: Hold Lasix. Creatinine went up from 1.24-1.46 and patient is well diuresed. Lungs no crepitations. Does not meet criteria for ARCELIA. 01/21: Patient had increasing creatinine from 1.24-1.46 and then back to baseline 1.27. ER physician sent prescription of furosemide which I canceled as patient recovering from ARCELIA and I do not think patient is on fluid overload. Chest CT scan does not show features of pulmonary edema or dilated/prominent pulmonary arteries. I DC'd the prescription of furosemide advised follow-up in cardiology office in 2 weeks. 3. Chronic A-fib on warfarin, aortic stenosis, mitral regurgitation: Twelve-lead EKG ordered. Heart rate is controlled. Hold warfarin today and monitor PT/INR daily. On metoprolol 25 mg twice daily continued. Previous echo November 27 shows moderate aortic stenosis of mean AV gradient 34 mmHg, 1-2+ TR and normal mitral valve. Patient has and MR murmur. Previous echo of 2019 also reported bicuspid aortic valve with moderate aortic stenosis. Did not had aortic valve surgery. Patient follows Dr. Mason. 01/21 INR is still elevated. Continue holding warfarin and follow-up PT/INR on 01/12/2025 just dose accordingly with PCP/cardiology 4. Hypertension and dyslipidemia: Blood pressure in normal range. On losartan 25 mg daily and simvastatin 40 mg daily discontinued. Home medication reconciliation done 01/20: Blood pressure in 100s. Discontinue losartan 01/21: Hold losartan for 2 days. BP systolic 130s and patient had aortic history of therefore does not want to lower SBP. 5. VTE prophylaxis: Moderate to high risk: INR 3.1. On warfarin. 01/20: INR 3.3. Continue to hold warfarin. 01/21 INR 3.0. 6. Hyperglycemia: Glucose 169 in BMP. It was 122 yesterday. A1c ordered . 01/21 A1c 6.2 consistent with prediabetes. Discharge medication reconciliation done. Discharge follow-up instructions completed. Discharge process discussed with the patient and all questions were answered to patient's satisfaction. Follow with PCP in 1 to 2 weeks Total time spent, exact 35 minutes on discharge meds reconciliation, examination, coordination of care with nurses and ancillary staff, review of imaging and blood test and discussion with the patient on follow-up instructions. Living will/advanced directive/end of life care: Patient does not have living will or advanced directive. After discussion of benefits/risks procedures involved with full code, DNR CC arrest and DNR CC, the patient opted for full code. Patient does want artificial life support including intubation, tube feed, ventilator and/chest compression, central venous catheter, vasopressor and DC shock if needed Microbiology Past 72 Hours 01/20/24 17:45 Urine, Random Legionella Antigen - Final 01/20/24 17:45 Urine, Random Streptococcus pneumoniae Antigen (M - Final 01/20/24 12:40 Mucosa - Nasopharyngeal Respiratory Panel (PCR) - Final 01/20/24 12:17 Nasal Secretion MRSA (PCR) - Final 01/20/24 06:21 Mucosa - Nose SARS-CoV-2, Influenza & RSV (PCR) - Final Laboratory Results 01/20/24 06:10: Magnesium Cancelled 01/21/24 06:21: WBC 21.2 H, RBC 4.65, Hgb 14.9, Hct 42.9, MCV 92.3, MCH 32.0, MCHC 34.7, RDW Std Deviation 42.8, RDW Coeff of Edel 12.7, Plt Count 153, MPV 12.6 H, Immature Gran % (Auto) 1.400 H, Neut % (Auto) 87.5 H, Lymph % (Auto) 7.5 L, [place] % (Auto) 3.4, Eos % (Auto) 0.0, Baso % (Auto) 0.2, Absolute Neuts (auto) 18.5 H, Absolute Lymphs (auto) 1.58, Nucleated RBC % 0, PT 33.5 H, INR 3.3, Sodium 136, Potassium 3.4 L, Chloride 104, Carbon Dioxide 22.0, Anion Gap 10, BUN 34 H, Creatinine 1.46 H, Estim Creat Clear Calc 40.73, Est GFR (MDRD) Af Amer 60, Est GFR (MDRD) Non-Af 50 L, BUN/Creatinine Ratio 23.3 H, Glucose 169 H, Calcium 8.9, TSH 0.652 Clinical Impression(s) from Imaging Studies Chest X-Ray 01/20/24 06:50 IMPRESSION: 1. Interval development of mild bilateral lower lobe patchy pneumonic infiltrates Chest CT 01/20/24 09:35 IMPRESSION: 1. Moderate right lower lobe pneumonia with a small to moderate-sized pleural effusion 2. Mild pneumonia of the right middle and left lower lobes with a small pleural effusion Echo on 12/07/2023 Interpretation Summary Normal LV size. Left ventricular systolic function is normal. The left ventricular ejection fraction is 60 %. Bileaflet diffuse mitral valve thickening. Mild-Moderate (1-2+) eccentric mitral valve insufficiency. Medications at Discharge Home Medications omega 6-kkd-feg-fish oil 300 mg-1,000 mg capsule 1 ea PO BID Supplement 03/21/17 simvastatin 40 mg tablet 40 mg PO QHS Cholesterol 03/21/17 tamsulosin 0.4 mg capsule 0.4 mg PO DAILY@1730 #30 caps 03/23/17 latanoprost 0.005 % eye drops 1 drp ophthalmic (eye) DAILY 90 days 04/11/17 brimonidine 0.2 % eye drops 1 drp ophthalmic (eye) BID 10/27/20 metoprolol tartrate 25 mg tablet 25 mg PO BID #180 tabs 12/26/23 losartan 25 mg tablet 25 mg PO DAILY #90 TABLETS 01/11/24 dorzolamide 22.3 mg-timolol 6.8 mg/mL eye drops 1 drp ophthalmic (eye) BID 01/20/24 warfarin 5 mg tablet 2.5 mg PO CHAUHAN 01/20/24 warfarin 5 mg tablet 5 mg PO MOTUWETHFRSA 01/20/24 cefdinir 300 mg capsule 300 mg PO BID 5 days #10 caps 01/22/24 dextromethorphan-guaifenesin ER 60 mg-1,200 mg tab,extend release,12hr (Mucinex DM) 1 tab PO Q12H 7 days #14 tabs 01/22/24 Weight / BMI Weight Weight: 178 lb 12.718 oz Body Mass Index (BMI) 30.7 ABG / Lab / Microbiology Data 01/22/24 05:45 01/22/24 05:45 Laboratory: Laboratory Results - last 24 hr 01/22/24 05:45: WBC 17.2 H, RBC 4.68, Hgb 14.8, Hct 43.5, MCV 92.9, MCH 31.6, MCHC 34.0, RDW Std Deviation 43.7, RDW Coeff of Edel 12.8, Plt Count 148 L, MPV 11.9, Immature Gran % (Auto) 0.500, Neut % (Auto) 77.8 H, Lymph % (Auto) 14.9 L, [place] % (Auto) 6.4, Eos % (Auto) 0.2, Baso % (Auto) 0.2, Absolute Neuts (auto) 13.4 H, Absolute Lymphs (auto) 2.57, Nucleated RBC % 0, PT 30.8 H, INR 3.0, Sodium 135 L, Potassium 3.9, Chloride 105, Carbon Dioxide 23.0, Anion Gap 7, BUN 32 H, Creatinine 1.27, Estim Creat Clear Calc 46.82, Est GFR (MDRD) Af Amer 71, Est GFR (MDRD) Non-Af 58 L, BUN/Creatinine Ratio 25.2 H, Glucose 135 H, Calcium 8.9 Microbiology: Microbiology 01/20/24 17:45 Urine, Random Legionella Antigen - Final 01/20/24 17:45 Urine, Random Streptococcus pneumoniae Antigen (M - Final 01/20/24 12:40 Mucosa - Nasopharyngeal Respiratory Panel (PCR) - Final 01/20/24 12:17 Nasal Secretion MRSA (PCR) - Final 01/20/24 06:21 Mucosa - Nose SARS-CoV-2, Influenza & RSV (PCR) - Final Radiography Diagnostic Testing: Radiology Impression Chest X-Ray 01/21/24 08:25 IMPRESSION: Improvement in the lower lobe infiltrate since the prior study. Electronically Signed: Wayne Phelps MD at 16:22 EDT Reading Location ID and State: [facility] [place] / MD , Service support , Meaningful Use Info Meaningful Use Meaningful Use Diagnoses (Choose all that apply): None applicable Ischemic Stroke Statin Dosing Therapy Reference: STATIN DOSE THERAPY REFERENCE: * Patients > 75 years receive moderate or high dose statin therapy. * Patients 75 years or YOUNGER should receive HIGH intensity statin dose unless contraindicated. You will be required to document reason for non-treatment if statin daily dose does not meet guidelines. HIGH DOSE STATIN THERAPY DAILY Atorvastatin > than or = to 40 mg Rosuvastatin > than or = to 20 mg Amlodipine + Atorvastatin > than or = to 2.5/40 mg Ezetimibe + Simvastatin 10/80 mg Simvastatin 80mg Discharge Plan Admission Admit Date/Time: 01/20/24 10:31 Attending Provider: Monroe Valles Primary Care Provider: Jose Daniel Stanford Instructions Patient Instructions: Heart Failure Additional Instructions / Restrictions: Please contact your activities assistant office to inform recent hospital admission. PT/INR on 01/24/2024 and follow-up with the cardiology office/PCP. Discharge Orders/Prescriptions Prescriptions: New cefdinir 300 mg capsule 300 mg PO BID 5 Days Qty: 10 0RF dextromethorphan-guaifenesin [Mucinex DM] 60-1,200 mg tablet extended release 12 hr 1 tab PO Q12H 7 Days Qty: 14 0RF Continued latanoprost 0.005 % drops 1 drp OPHTHALMIC DAILY 90 Days Patient Comments: brimonidine 0.2 % drops 1 drp ophthalmic (eye) BID simvastatin 40 MG tablet 40 mg PO QHS Patient Comments: Cholesterol omega 0-plk-vzt-fish oil 1 EACH capsule 1 ea PO BID Patient Comments: Supplement tamsulosin 0.4 MG capsule 0.4 mg PO DAILY@1730 Qty: 30 3RF dorzolamide-timolol 22.3-6.8 mg/mL drops 1 drp ophthalmic (eye) BID metoprolol tartrate 25 mg tablet 25 mg PO BID Qty: 180 3RF Held warfarin 5 mg tablet 2.5 mg PO CHAUHAN Hold Instructions: Hold warfarin 5 mg tablet 5 mg PO MOTUWETHFRSA Hold Instructions: Hold for 2 days, repeat INR on 01/24/2024. Protocol: Dose Management Condition: Monday Dose/Route: 2.5 mg Instruction: 0.5 x 5 mg tablets Condition: Monday Dose/Route: 5 mg Instruction: 1 x 5 mg tablet Condition: Monday Dose/Route: 5 mg Instruction: 1 x 5 mg tablet Condition: Monday Dose/Route: 5 mg Instruction: 1 x 5 mg tablet Condition: Dose/Route: 5 mg Instruction: 1 x 5 mg tablet Condition: Monday Dose/Route: 5 mg Instruction: 1 x 5 mg tablet Condition: Monday Dose/Route: 5 mg Instruction: 1 x 5 mg tablet Protocol Text: Adjustment Start Date: Monday01/17/24 INR Value: 3.1 INR Date: 01/17/24 Recheck Date: 02/16/24 losartan 25 mg tablet 25 mg PO DAILY Qty: 90 3RF Hold Instructions: Hold for 2 days Referrals / Follow Up: Reji Mason MD [Med Staff - Active Staff] - Jose Daniel Stanford MD [Primary Care Provider] - Yu Dawkins PA [Med Staff - Adv Practice Prof] - Within 2 Weeks Disposition Disposition (needs filled in before D/C Order can be placed): Home, Self Care Charges/Coding Visit Charges Inpatient E&M: 41754 Disch Hosp >30min
[2024-01-22 12:20] VITALS: BP 139/105; PULSE 63; RESP 18; TEMP 36.7; O2SAT 97
== END 2024-01-22 14:00 | disposition home or self-care (01) | DRG 196 ==
LOC: ED 10:38 → PCU 01-22 09:27
PROVIDERS: Admitting Provider Internal Medicine; Emergency Provider Emergency Medicine; PCP Family Medicine; Visit Provider Internal Medicine
DX: J84.9 Interstitial pulmonary disease, unspecified (principal); I50.33 Acute on chronic diastolic (congestive) heart failure; I48.20 Chronic atrial fibrillation, unspecified; J90 Pleural effusion, not elsewhere classified; Q23.1 Congenital insufficiency of aortic valve; I11.0 Hypertensive heart disease with heart failure; I48.0 Paroxysmal atrial fibrillation; E78.5 Hyperlipidemia, unspecified; Z79.01 Long term (current) use of anticoagulants; Z86.16 Personal history of COVID-19; Z51.5 Encounter for palliative care; Z66 Do not resuscitate; R73.9 Hyperglycemia, unspecified
CPT/HCPCS: 36415; 36416; 71046; 71250; 80048; 83036; 83735; 83880; 84443; 85025; 85610; 87040; 87449; 87631; 87633; 87641; 90662; 92960; 93005; 94640; 94668; 99252; 99284; J7030; J7040; A4216; G0463; J0696; J1940

== ENCOUNTER 2024-01-23 20:56 | Emergency (ER) | payer MEDICARE, SELFPAY ==
[2024-01-23] VITALS (9 sets, daily range): BP systolic 141–165; BP diastolic 70–104; PULSE 53–54; RESP 17–22; TEMP 36.1–37.2; O2SAT 94–96; BMI 30.4
--- NOTE | 2024-01-23 21:35 | RAD_ITS ---
STUDY: X-RAY CHEST REASON FOR EXAM: Male, 78 years old. sob TECHNIQUE: Single frontal view of the chest. COMPARISON: January 21, 2024 FINDINGS: The lungs are clear and expanded. There is no demonstrated pleural abnormality. Normal size heart. Normal mediastinum and ashok. Normal visualized pulmonary arteries. Normal visualized aortic arch and descending thoracic aorta. Mild dextroconvex scoliosis. Normal visualized ribs, clavicles, and shoulders. There is no demonstrated abnormality of the visualized soft tissue structures of the upper abdomen. RAD/Chest 1 View (Portable) IMPRESSION: No acute disease Electronically Signed: Jet Ortiz MD at 23:28 EDT ,
[2024-01-23 21:42] LABS: Absolute Lymphocyte Count 2.51 X10^3/uL (0.83-4.51); Absolute Neutrophil Count 7.8 X10^3/uL (2.0-7.7); Basophil# 0.06 X10^3/uL; Basophil% 0.5 % (0-1); Eosinophils% 2.6 % (0-5); Hematocrit 44.6 % (40-54); Lymphocyte # 2.51 X10^3/ul (0.83-4.51); Lymphocyte % 21.4 % (19-41); Mean Corp Hgb Conc 33.6 g/dL (32-36); Mean Corpuscular Hgb 31.3 pg (27.0-32.0); Mean Corpuscular Volume 92.9 fL (80-94); Monocyte# 0.97 X10^3/uL; Monocyte% 8.3 % (0-10); NRBC Flagged by Analyzer 0 % (0-5); Neutrophil # 7.82 X10^3/uL (2.7-7.7); Neutrophil % 66.6 % (47-70); Platelet Count 166 K/mm3 (150-450); RBC Distribution Width CV 12.6 % (11.6-14.6); White Blood Count 11.7 K/mm3 (4.4-11.0)
[2024-01-23 22:00] LABS: Anion Gap 7 (5-15); BUN 33 mg/dL (7-18); BUN/Creat Ratio 25.4 RATIO (10-20); Calcium,Total 9.1 mg/dL (8.5-10.1); Chloride 106 mmol/L (98-107); EST Glomerular Filtration Rate 57 mL/min (>60); Est Glom Filt Rate - Afr Amer 69 mL/min (>60); Estimated Creatinine Clearance 45.53 ml/min; Glucose 108 mg/dL (74-106); Potassium 4.2 mmol/L (3.5-5.1); Sodium Level 136 mmol/L (136-145); Troponin-I HS 8 pg/mL (3.0-78.0)
--- NOTE | 2024-01-23 22:11 | EDS_ITS ---
HPI History of Present Illness Chief Complaint: Shortness of Breath Informant: patient and family Narrative Narrative: Here with son for reevaluation. Discharge yesterday reported for heart failure and pneumonia. Status post 2 additional antibiotic doses. Today felt lightheaded weak and short of breath. He is on warfarin history of paroxysmal A-fib. He had elective cardioversion this past Monday followed by Dr. Mason. Denies vomiting or diarrhea. Denies fevers. He did not have any leg swelling. He did not go home on any diuretics. Denies orthopnea. [facility] Medical History ACG (angle-closure glaucoma) Aortic stenosis Aortic stenosis with bicuspid valve Essential (primary) hypertension Hyperlipidemia Paroxysmal atrial fibrillation skilled nursing current use of anticoagulant Diverticulitis Home Medications ?Medication ?Instructions ?Recorded ?Last Taken ?Type omega 0-ggl-yqc-fish oil 300 1 ea PO BID Supplement 03/21/17 10/16/18 History mg-1,000 mg capsule simvastatin 40 mg tablet 40 mg PO QHS Cholesterol 03/21/17 10/16/18 History tamsulosin 0.4 mg capsule 0.4 mg PO DAILY@1730 #30 caps 03/23/17 10/16/18 Rx latanoprost 0.005 % eye drops 1 drp ophthalmic (eye) DAILY 90 04/11/17 10/16/18 History days brimonidine 0.2 % eye drops 1 drp ophthalmic (eye) BID 10/27/20 Unknown History metoprolol tartrate 25 mg tablet 25 mg PO BID #180 tabs 12/26/23 01/17/24 Rx losartan 25 mg tablet 25 mg PO DAILY #90 TABLETS 01/11/24 Unknown Rx dorzolamide 22.3 mg-timolol 6.8 1 drp ophthalmic (eye) BID 01/20/24 Unknown History mg/mL eye drops warfarin 5 mg tablet 2.5 mg PO CHAUHAN 01/20/24 Unknown History warfarin 5 mg tablet 5 mg PO MOTUWETHFRSA 01/20/24 Unknown History cefdinir 300 mg capsule 300 mg PO BID 5 days #10 caps 01/22/24 Unknown Rx dextromethorphan-guaifenesin ER 60 1 tab PO Q12H 7 days #14 tabs 01/22/24 Unknown Rx mg-1,200 mg tab,extend release,12hr (Mucinex DM) Allergy/AdvReac Type Severity Reaction Status Date / Time imipramine AdvReac Nausea Verified 01/23/24 20:56 metronidazole (From Flagyl) AdvReac Nausea Verified 01/23/24 20:56 Family History Unknown No problems noted. Surgical History History of carpal tunnel surgery Social History household members: spouse Smoking Status: Never smoker second hand exposure: No alcohol intake: never substance use type: does not use caffeine: Yes Type: coffee eating out: 1-3 times/week during the past year weight has: remained stable what type of physical activity do you participate in: none seatbelt use: always do you feel safe at home: Yes ROS ROS ED Constitutional Constitutional ED: Denies chills, fever(s) or sweats Eyes Eyes: Denies change in vision ENT ENT ED: Denies dysphagia or sore throat Cardiovascular Cardiovascular: Reports other Details: Lightheaded ; Denies chest pain, leg edema, palpitations or racing heartbeat Respiratory/Chest Respiratory/Chest: Reports dyspnea; Denies cough or dyspnea on exertion Gastrointestinal Gastrointestinal: Denies abdominal pain, diarrhea, nausea or vomiting Genitourinary Genitourinary ED: Denies dysuria, hematuria or urinary frequency Musculoskeletal Musculoskeletal: Denies back pain, extremity pain or neck pain Integumentary Denies rash or wounds Neurologic Neurologic: Reports weakness; Denies headache(s) or paresthesias EXAM Physical Exam Const Vital Signs: 01/23/24 20:57 01/23/24 20:58 01/23/24 21:38 Temperature 96.9 F L 96.9 F L Temperature Source Temporal Temporal Pulse Rate 54 L 54 L Respiratory Rate 22 H 22 H Respiratory Effort Respiratory Depth Respiratory Pattern Blood Pressure 165/104 H 165/104 H Blood Pressure Mean 124 124 Pulse Ox 95 95 94 Oxygen Delivery Method Room Air Room Air Room Air 01/23/24 21:38 01/23/24 21:39 01/23/24 21:58 Temperature 98.9 F Temperature Source Oral Pulse Rate 53 L Respiratory Rate 21 H 18 Respiratory Effort Short of Breath Labored Respiratory Depth Respiratory Pattern Normal Blood Pressure 141/90 H Blood Pressure Mean 107 Pulse Ox 94 95 Oxygen Delivery Method Room Air Room Air 01/23/24 22:58 01/23/24 23:00 01/23/24 23:07 Temperature 98.7 F Temperature Source Oral Pulse Rate 53 L 53 L Respiratory Rate 20 H 17 Respiratory Effort Short of Breath Respiratory Depth Normal Respiratory Pattern Normal Blood Pressure 151/94 H 151/94 H Blood Pressure Mean 113 113 Pulse Ox 95 94 Oxygen Delivery Method Room Air Room Air 01/23/24 23:18 Temperature 98.4 F Temperature Source Pulse Rate 54 L Respiratory Rate 17 Respiratory Effort Respiratory Depth Respiratory Pattern Blood Pressure 165/70 H Blood Pressure Mean 101 Pulse Ox 96 Oxygen Delivery Method Positive well nourished and well developed General Appearance ED: well developed and NAD HEENT Reports moist mucous membranes normocephalic and atraumatic Eyes EOMs intact bilaterally and conjunctivae normal General Eye ED: Yes normal appearance of both eyes Neck no lymphadenopathy and supple General: Negative for tenderness Chest Wall Chest: Negative for tenderness Resp normal respiratory effort and normal air movement Effort and Inspection: symmetric chest movement; Negative for respiratory distress Cardio regular rhythm and no murmurs Rate: bradycardia Peripheral Pulses: pulses 2+ throughout GI normal to inspection, nondistended, normoactive bowel sounds and non-tender Palpation: Negative for guarding or rebound tenderness present Back/Spine no CVA tenderness and no thoracic nor lumbar tenderness Extremity normal to inspection General Extremety ED: Negative for edema or tenderness General Extremity: Negative for edema Neuro oriented x3 and no sensory deficits noted Sensorium / Orientation: awake and alert Skin no rashes or lesions noted and no wounds MDM MDM MDM Narrative Medical decision making narrative: Interventions / MDM: Differential diagnosis: Near syncope, weakness, current treatment for pneumonia. Diagnosis considered but do not suspect: Pulmonary embolism however therapeutic INR. My EKG interpretation: Sinus bradycardia rate of 53, no ST changes. ST-T wave version leads III. Nonspecific. Imaging independently reviewed and interpreted by myself: 1 view chest x-ray: No acute process. No pleural effusion. External documents reviewed: INR was [address] scan bilateral lower lobe infiltrates with pleural effusions. Test considered but not ordered:N/A ED course: Patient vital stable slight bradycardia however he is on metoprolol. Nursing protocol initiated labs. Labs stable. Chest x-ray negative. Patient ambulate with a pulse ox provide nursing briefly went on 88% however he is not symptomatic. With rest went right back up. INR was therapeutic at 3 yesterday. Therefore less likely concern for PE. His CT scans were positive for pneumonia findings bilaterally. Discussed with patient to take up to couple weeks for pneumonia symptoms are improved. Able to ambulate without weakness. Discussed return precautions if he develops significant dyspnea. Otherwise finishing his antibiotics and follow-up with his doctor. All questions were answered. Re-evaluation: stable Disposition discussed with patient/family/significant other: Patient Case discussed with consulting clinician: N/A This note was generated with [employer] dictation software. It may contain incorrect words, spelling, and punctuation that were not noted in checking the note before signing. Lab Data Attestation: I reviewed the patient's lab results. Labs: Laboratory Results - last 24 hr 01/23/24 21:28 WBC 11.7 H RBC 4.80 Hgb 15.0 Hct 44.6 MCV 92.9 MCH 31.3 MCHC 33.6 RDW Std Deviation 43.0 RDW Coeff of Edel 12.6 Plt Count 166 MPV 12.0 Immature Gran % (Auto) 0.600 Neut % (Auto) 66.6 Lymph % (Auto) 21.4 [place] % (Auto) 8.3 Eos % (Auto) 2.6 Baso % (Auto) 0.5 Absolute Neuts (auto) 7.8 H Absolute Lymphs (auto) 2.51 Nucleated RBC % 0 Sodium 136 Potassium 4.2 Chloride 106 Carbon Dioxide 23.0 Anion Gap 7 BUN 33 H Creatinine 1.30 Estim Creat Clear Calc 45.53 Est GFR (MDRD) Af Amer 69 Est GFR (MDRD) Non-Af 57 L BUN/Creatinine Ratio 25.4 H Glucose 108 H Calcium 9.1 Troponin I High Sens 8 Radiography Diagnostic Testing: Clinical Impression(s) from Imaging Studies Chest X-Ray 01/23/24 21:35 IMPRESSION: No acute disease Electronically Signed: Jet Ortiz MD at 23:28 EDT , Discharge Plan Triage Chief Complaint: Shortness of Breath Other Complaint: Weakness ED Provider: Gen De La Cruz Dx/Rx/DC Orders Clinical Impression: Dyspnea, Pneumonia, Light-headed, Weakness Instructions: ED Dyspnea Prescriptions: No Action latanoprost 0.005 % drops 1 drp OPHTHALMIC DAILY 90 Days Patient Comments: brimonidine 0.2 % drops 1 drp ophthalmic (eye) BID simvastatin 40 MG tablet 40 mg PO QHS Patient Comments: Cholesterol omega 8-pno-hnm-fish oil 1 EACH capsule 1 ea PO BID Patient Comments: Supplement tamsulosin 0.4 MG capsule 0.4 mg PO DAILY@1730 Qty: 30 3RF dorzolamide-timolol 22.3-6.8 mg/mL drops 1 drp ophthalmic (eye) BID warfarin 5 mg tablet 2.5 mg PO CHAUHAN Protocol: Dose Management Condition: Monday Dose/Route: 2.5 mg Instruction: 0.5 x 5 mg tablets Condition: Monday Dose/Route: 0 mg Instruction: 0 tablets Condition: Monday Dose/Route: 0 mg Instruction: 0 tablets Condition: Monday Dose/Route: 5 mg Instruction: 1 x 5 mg tablet Condition: Dose/Route: 5 mg Instruction: 1 x 5 mg tablet Condition: Monday Dose/Route: 5 mg Instruction: 1 x 5 mg tablet Condition: Monday Dose/Route: 5 mg Instruction: 1 x 5 mg tablet Protocol Text: Adjustment Start Date: Monday01/23/24 INR Value: 3.0 INR Date: 01/22/24 Recheck Date: 01/24/24 warfarin 5 mg tablet 5 mg PO JAMAETHNATALY Protocol: Dose Management Condition: Monday Dose/Route: 2.5 mg Instruction: 0.5 x 5 mg tablets Condition: Monday Dose/Route: 0 mg Instruction: 0 tablets Condition: Monday Dose/Route: 0 mg Instruction: 0 tablets Condition: Monday Dose/Route: 5 mg Instruction: 1 x 5 mg tablet Condition: Dose/Route: 5 mg Instruction: 1 x 5 mg tablet Condition: Monday Dose/Route: 5 mg Instruction: 1 x 5 mg tablet Condition: Monday Dose/Route: 5 mg Instruction: 1 x 5 mg tablet Protocol Text: Adjustment Start Date: Monday01/23/24 INR Value: 3.0 INR Date: 01/22/24 Recheck Date: 01/24/24 cefdinir 300 mg capsule 300 mg PO BID 5 Days Qty: 10 0RF dextromethorphan-guaifenesin [Mucinex DM] 60-1,200 mg tablet extended release 12 hr 1 tab PO Q12H 7 Days Qty: 14 0RF metoprolol tartrate 25 mg tablet 25 mg PO BID Qty: 180 3RF losartan 25 mg tablet 25 mg PO DAILY Qty: 90 3RF Primary Care Provider: Jose Daniel Stanford Referrals: Jose Daniel Stanford MD [Primary Care Provider] - Activity Restrictions/Additional Instructions: EKG normal. Labs are all normal. Chest x-ray negative today. Finish your antibiotic as prescribed from discharge. Your symptoms can take up to 2 weeks to improved. If you develop significant shortness of breath, return to the ED for reevaluation. Print Language: Romansh Disposition Disposition: Home, Self Care Discharge Date/Time: 01/23/24 23:20
--- NOTE | 2024-01-23 23:02 | ED.RN ---
HEART RATE RANGE: 55-65 BPM
== END 2024-01-23 23:20 | disposition home or self-care (01) ==
PROVIDERS: Emergency Provider Emergency Medicine; PCP Family Medicine; Visit Provider Emergency Medicine
DX: R06.00 Dyspnea, unspecified (principal); I48.0 Paroxysmal atrial fibrillation; J18.9 Pneumonia, unspecified organism; I10 Essential (primary) hypertension; R42 Dizziness and giddiness; R53.1 Weakness; E78.5 Hyperlipidemia, unspecified; Z79.01 Long term (current) use of anticoagulants; Z79.899 Other long term (current) drug therapy
CPT/HCPCS: 71045; 80048; 84484; 85025; 93005; 94760; 99283; A4216

== ENCOUNTER 2024-01-24 12:19 | Outpatient (RCR) | payer MEDICARE, SELFPAY ==
[2024-01-07 01:44] VITALS: BMI 33.5
[2024-01-11 15:34] LABS: Anion Gap 7 (5-15); BUN 21 mg/dL (7-18); BUN/Creat Ratio 15.6 RATIO (10-20); Calcium,Total 9.4 mg/dL (8.5-10.1); Chloride 109 mmol/L (98-107); Creatinine, Serum 1.35 mg/dL (0.70-1.30); EST Glomerular Filtration Rate 54 mL/min (>60); Est Glom Filt Rate - Afr Amer 66 mL/min (>60); Glucose 153 mg/dL (74-106); Sodium Level 138 mmol/L (136-145)
[2024-01-11 15:53] LABS: International Normalized Ratio 3.1; Prothrombin Time (Protime)PT. 31.5 SECONDS (11.7-14.9)
[2024-01-24 13:52] LABS: International Normalized Ratio 1.4; Prothrombin Time (Protime)PT. 17.3 SECONDS (11.7-14.9)
== END 2024-01-24 18:00 | disposition home or self-care (01) ==
LOC: LAB 12:19
PROVIDERS: Physician Assistant Medical; Family Provider Family Medicine; PCP Family Medicine; Referring Provider Internal Medicine Cardiovascular Disease; Visit Provider Internal Medicine Cardiovascular Disease
DX: I48.0 Paroxysmal atrial fibrillation (principal); Z79.01 Long term (current) use of anticoagulants
CPT/HCPCS: 36415; 71046; 80048; 85610

== ENCOUNTER 2024-02-14 14:20 | Outpatient (RCR) | payer MEDICARE, SELFPAY ==
[2024-02-05 22:41] VITALS: BMI 33.5
[2024-02-14 15:27] LABS: International Normalized Ratio 2.2; Prothrombin Time (Protime)PT. 24.5 SECONDS (11.7-14.9)
== END 2024-02-14 18:00 | disposition home or self-care (01) ==
LOC: LAB 14:20
PROVIDERS: Family Provider Family Medicine; PCP Family Medicine; Referring Provider Internal Medicine Cardiovascular Disease; Visit Provider Internal Medicine Cardiovascular Disease
DX: I48.0 Paroxysmal atrial fibrillation (principal); Z79.01 Long term (current) use of anticoagulants
CPT/HCPCS: 36415; 85610

== ENCOUNTER 2024-03-08 17:24 | Emergency (ER) | payer MEDICARE, SELFPAY ==
[2024-03-08] VITALS (14 sets, daily range): BP systolic 135–160; BP diastolic 79–113; PULSE 54–99; RESP 18–23; TEMP 36.4; O2SAT 96–98; BMI 31.8
--- NOTE | 2024-03-08 19:11 | EKG12_ITS ---
Test Reason : DJ Blood Pressure : */* mmHG Vent. Rate : 55 BPM Atrial Rate : 55 BPM P-R Int : 202 ms QRS Dur : 94 ms QT Int : 428 ms P-R-T Axes : 56 -7 -2 degrees QTcB Int : 409 ms Sinus bradycardia Otherwise normal ECG Confirmed by ANDREE URBINA, CHARITO ([id number]), acquisition editor ERIC BARTON ([id number]) on 03/11/2024 9:37:18 AM Referred By: KOKO Confirmed By: CHARITO CANDELARIO MD
--- NOTE | 2024-03-08 19:11 | CT_ITS ---
We are attempting to reach an attending provider to discuss findings. An addendum with communication details will be sent when the communication is complete. STUDY: CT BRAIN WITHOUT CONTRAST REASON FOR EXAM: Male, 78 years old. weakness RADIATION DOSAGE (If Supplied By Facility): CTDIvol = ( 44.99 ) mGy, DLP = ( 762.36 ) mGycm TECHNIQUE: Transaxial CT imaging of the brain was performed without administration of intravenous contrast material. Individualized dose optimization techniques were used for this CT. COMPARISON: 02/17/2020 FINDINGS: Normal soft tissue structures. Normal calvarium. Patient appears to have bilateral isodense subdural hematomas, very difficult to differentiate from the underlying cerebral hemispheres, but probably as much as 1.5 cm thickened causing significant symmetric mass effect on Cerebral hemispheres, without midline shift. There is also subdural blood along the falx. Small amounts of probable subarachnoid blood are seen over the anterior portions of both frontal lobes and there is a tiny parenchymal hematoma of the surface of the anterior right cerebral hemisphere. Posterior fossa structures are unremarkable and basal cisterns are intact. CT/Brain/Head without Contrast IMPRESSION: Extensive intracranial hemorrhages especially significant are symmetric large bilateral subdural hematomas with mass effect. Electronically Signed: Mau Whitney MD at 20:44 EDT ,
--- NOTE | 2024-03-08 19:25 | EX.ED.DYSGE1 ---
HPI <BEKAH Barreto - Last Filed: 03/08/24 21:24> History of Present Illness Chief Complaint: Weakness Narrative Narrative: 78-year-old male with history of CHF, hypertension hyperlipidemia atrial fibrillation on Coumadin who presents to the emergency department for feeling of weakness. Patient states yesterday, he has been having headaches intermittently, patient today felt like his legs could not hold him. He was asking his son to take him to the bathroom, no the patient was standing there, he was just going down to the ground because his legs could not hold him. He denies any altered mental status, states he remembers all this he just feels like his legs could not hold him. Denies any fever chills nausea or vomiting. PFSH <BEKAH Barreto - Last Filed: 03/08/24 21:24> [facility] Medical History ACG (angle-closure glaucoma) Aortic stenosis Aortic stenosis with bicuspid valve Essential (primary) hypertension Hyperlipidemia Paroxysmal atrial fibrillation [facility] current use of anticoagulant Diverticulitis Home Medications ?Medication ?Instructions ?Recorded ?Last Taken ?Type omega 2-ijx-czc-fish oil 300 1 ea PO BID Supplement 03/21/17 10/16/18 History mg-1,000 mg capsule simvastatin 40 mg tablet 40 mg PO QHS Cholesterol 03/21/17 10/16/18 History tamsulosin 0.4 mg capsule 0.4 mg PO DAILY@1730 #30 caps 03/23/17 10/16/18 Rx latanoprost 0.005 % eye drops 1 drp ophthalmic (eye) DAILY 90 04/11/17 10/16/18 History days brimonidine 0.2 % eye drops 1 drp ophthalmic (eye) BID 10/27/20 Unknown History metoprolol tartrate 25 mg tablet 25 mg PO BID #180 tabs 12/26/23 01/17/24 Rx losartan 25 mg tablet 25 mg PO DAILY #90 TABLETS 01/11/24 Unknown Rx dorzolamide 22.3 mg-timolol 6.8 1 drp ophthalmic (eye) BID 01/20/24 Unknown History mg/mL eye drops warfarin 5 mg tablet 2.5 mg PO SA 01/20/24 Unknown History warfarin 5 mg tablet 5 mg PO MOTUWETHFRSA 01/20/24 Unknown History dextromethorphan-guaifenesin ER 60 1 tab PO Q12H 7 days #14 tabs 01/22/24 Unknown Rx mg-1,200 mg tab,extend release,12hr (Mucinex DM) Allergy/AdvReac Type Severity Reaction Status Date / Time imipramine AdvReac Nausea Verified 03/08/24 17:25 metronidazole (From Flagyl) AdvReac Nausea Verified 03/08/24 17:25 Family History Unknown No problems noted. Family History no significant family his Surgical History History of carpal tunnel surgery Social History household members: spouse Smoking Status: Never smoker second hand exposure: No alcohol intake: never substance use type: does not use caffeine: Yes Type: coffee eating out: 1-3 times/week during the past year weight has: remained stable what type of physical activity do you participate in: none seatbelt use: always do you feel safe at home: Yes ROS <BEKAH Barreto - Last Filed: 03/08/24 21:24> ROS ED ROS Narrative Constitutional: Negative for fever, chills, weight loss. Positive for weakness Eyes: Negative for vision loss, vision change, double vision ENT: Negative for any sore throat, ear pain, congestion Cardiovascular: Negative for any chest pain, tightness, palpitations Respiratory: Negative for any cough, sputum production, hemoptysis, dyspnea, dyspnea on exertion, orthopnea Gastrointestinal: Negative for any abdominal pain, nausea, vomiting, diarrhea, constipation, blood in stool, blood in vomit : Negative for any urinary frequency, dysuria, retention, blood in urine Muscle skeletal: Negative for any neck pain, back pain Neurological: Negative for any syncope, dizziness. Positive for headache Skin: Negative for any rashes, itching, abrasions, lacerations Psychiatric: Negative for any depression, anxiety, stress, suicidal ideation, homicidal ideation Hematologic: Negative for any excessive bruising, easy bleeding EXAM <BEKAH Barreto - Last Filed: 03/08/24 21:24> Physical Exam Narrative Exam Narrative: Vital signs reviewed. HEET: Head normocephalic atraumatic, TMs clear bilaterally. Posterior pharynx is clear, moist mucous membranes. Nares clear bilaterally. Neck: Supple with no lymphadenopathy or tenderness. No signs of meningismus. Cardiac: Bradycardic rate and rhythm, systolic murmur, no gallops or rubs, equal peripheral pulses bilaterally. Respiratory: Lungs clear to auscultation bilaterally. No chest tenderness. Abdomen: Soft, nontender, nondistended. No abdominal bruit or pulsatile masses. No hepatosplenomegaly Extremities: No peripheral edema, no signs of gross trauma or deformity. Active full range of motion of all extremities. Neuro: Cranial nerves II through XII intact, no focal neurological deficits. NIH stroke scale 0 Skin: Clean dry and intact with no rash, purpura, petechiae, vesicles or pustules. Backs/flank: No CVA tenderness, no midline spinal tenderness, no deformity. Psych: Normal mood and affect. No SI, HI or acute psychosis. Const Vital Signs: 03/08/24 17:26 03/08/24 18:47 03/08/24 19:44 Temperature 97.6 F L Temperature Source Temporal Pulse Rate 99 55 L Respiratory Rate 18 21 H Respiratory Effort Normal Non-Labored Respiratory Pattern Normal Blood Pressure 156/85 H 135/101 H Blood Pressure Mean 108 112 Pulse Ox 96 98 Oxygen Delivery Method Room Air Room Air 03/08/24 20:40 03/08/24 21:02 03/08/24 21:02 Temperature Temperature Source Pulse Rate 61 68 Respiratory Rate 22 H 20 H Respiratory Effort Respiratory Pattern Blood Pressure 160/97 H Blood Pressure Mean 118 Pulse Ox 96 Oxygen Delivery Method Room Air Room Air 03/08/24 21:02 03/08/24 21:04 03/08/24 21:15 Temperature Temperature Source Pulse Rate 56 L 55 L Respiratory Rate 19 H 18 Respiratory Effort Respiratory Pattern Blood Pressure 150/110 H 150/110 H Blood Pressure Mean 123 123 Pulse Ox 98 97 Oxygen Delivery Method Room Air Room Air 03/08/24 21:30 03/08/24 21:45 03/08/24 22:00 Temperature Temperature Source Pulse Rate 58 L 54 L 54 L Respiratory Rate 18 22 H 19 H Respiratory Effort Respiratory Pattern Blood Pressure 150/113 H 148/110 H 145/111 H Blood Pressure Mean 125 122 122 Pulse Ox Oxygen Delivery Method 03/08/24 22:15 03/08/24 22:30 03/08/24 22:45 Temperature Temperature Source Pulse Rate 54 L 68 55 L Respiratory Rate 23 H 18 23 H Respiratory Effort Respiratory Pattern Blood Pressure 146/88 H 155/88 H 141/95 H Blood Pressure Mean 107 110 110 Pulse Ox 97 97 98 Oxygen Delivery Method Room Air Room Air Room Air 03/08/24 22:56 03/08/24 23:15 Temperature Temperature Source Pulse Rate 56 L 54 L Respiratory Rate 23 H 18 Respiratory Effort Respiratory Pattern Blood Pressure 138/87 H 140/79 H Blood Pressure Mean 104 99 Pulse Ox 97 97 Oxygen Delivery Method Room Air Room Air <Dr. Camilla Baca, DO - Last Filed: 03/08/24 23:56> Physical Exam Const Vital Signs: 03/08/24 17:26 03/08/24 18:47 03/08/24 19:44 Temperature 97.6 F L Temperature Source Temporal Pulse Rate 99 55 L Respiratory Rate 18 21 H Respiratory Effort Normal Non-Labored Respiratory Pattern Normal Blood Pressure 156/85 H 135/101 H Blood Pressure Mean 108 112 Pulse Ox 96 98 Oxygen Delivery Method Room Air Room Air 03/08/24 20:40 03/08/24 21:02 03/08/24 21:02 Temperature Temperature Source Pulse Rate 61 68 Respiratory Rate 22 H 20 H Respiratory Effort Respiratory Pattern Blood Pressure 160/97 H Blood Pressure Mean 118 Pulse Ox 96 Oxygen Delivery Method Room Air Room Air 03/08/24 21:02 03/08/24 21:04 03/08/24 21:15 Temperature Temperature Source Pulse Rate 56 L 55 L Respiratory Rate 19 H 18 Respiratory Effort Respiratory Pattern Blood Pressure 150/110 H 150/110 H Blood Pressure Mean 123 123 Pulse Ox 98 97 Oxygen Delivery Method Room Air Room Air 03/08/24 21:30 03/08/24 21:45 03/08/24 22:00 Temperature Temperature Source Pulse Rate 58 L 54 L 54 L Respiratory Rate 18 22 H 19 H Respiratory Effort Respiratory Pattern Blood Pressure 150/113 H 148/110 H 145/111 H Blood Pressure Mean 125 122 122 Pulse Ox Oxygen Delivery Method 03/08/24 22:15 03/08/24 22:30 03/08/24 22:45 Temperature Temperature Source Pulse Rate 54 L 68 55 L Respiratory Rate 23 H 18 23 H Respiratory Effort Respiratory Pattern Blood Pressure 146/88 H 155/88 H 141/95 H Blood Pressure Mean 107 110 110 Pulse Ox 97 97 98 Oxygen Delivery Method Room Air Room Air Room Air 03/08/24 22:56 03/08/24 23:15 Temperature Temperature Source Pulse Rate 56 L 54 L Respiratory Rate 23 H 18 Respiratory Effort Respiratory Pattern Blood Pressure 138/87 H 140/79 H Blood Pressure Mean 104 99 Pulse Ox 97 97 Oxygen Delivery Method Room Air Room Air MDM <BEKAH Barreto - Last Filed: 03/08/24 21:24> [facility] Lab Data Labs: Laboratory Results - last 24 hr 03/08/24 03/08/24 19:38 19:45 WBC 7.9 RBC 4.53 L Hgb 14.7 Hct 41.5 MCV 91.6 MCH 32.5 H MCHC 35.4 RDW Std Deviation 43.3 RDW Coeff of Edel 12.9 Plt Count 150 MPV 11.2 Immature Gran % (Auto) 0.300 Neut % (Auto) 54.1 Lymph % (Auto) 33.0 [place] % (Auto) 7.4 Eos % (Auto) 4.3 Baso % (Auto) 0.9 Absolute Neuts (auto) 4.3 Absolute Lymphs (auto) 2.59 Nucleated RBC % 0 PT 30.1 H INR 2.9 Sodium 139 Potassium 4.0 Chloride 113 H Carbon Dioxide 21.0 Anion Gap 5 BUN 18 Creatinine 1.15 Est GFR (MDRD) Af Amer 79 Est GFR (MDRD) Non-Af 66 BUN/Creatinine Ratio 15.7 Glucose 114 H Calcium 9.1 Total Creatine Kinase 221 Troponin I High Sens 5 Urine Color Yellow Urine Clarity Clear Urine pH 7.0 Ur Specific [place] 1.010 Urine Protein Negative Urine Glucose (UA) Normal Urine Ketones Negative Urine Occult Blood Negative Urine Nitrite Negative Urine Bilirubin Negative Urine Urobilinogen Normal Ur Leukocyte Esterase Negative Urine RBC 0 SEEN Urine WBC 0 SEEN Ur Squamous Epith Cells 0 SEEN Urine Bacteria 0 SEEN Urine Mucus 0 SEEN Radiography Diagnostic Testing: Clinical Impression(s) from Imaging Studies Brain CT 03/08/24 19:11 IMPRESSION: Extensive intracranial hemorrhages especially significant are symmetric large bilateral subdural hematomas with mass effect. Electronically Signed: Mau Whitney MD at 20:44 EDT , ADDENDUM: 03/08/242104 IMPRESSION: Extensive intracranial hemorrhages especially significant are symmetric large bilateral subdural hematomas with mass effect. N.B. : The above Results were Read Back by Mau Whitney MD to Nate Iverson NP, and understanding confirmed on 03/08/2024 20:58:39 (ET). Electronically Signed: Mau Whitney MD at 20:44 EDT , Chest X-Ray 03/08/24 20:02 IMPRESSION: Normal x-ray examination of the chest. Electronically Signed: Mau Whitney MD at 21:15 EDT , EKG Sinus bradycardia: Attestation: I personally reviewed and interpreted this EKG as follows: Interpretation: Sinus Rhythm Comments: Sinus bradycardia, rate 55 bpm, LA interval 202 ms, QRS duration 94 ms, no acute ST elevation, no acute infarct noted. Treatment and Re-Evaluation :: Differential diagnosis includes however is not limited to: CVA, TIA, viral-like syndrome, electrolyte abnormality, UTI, dehydration Patient appears generally well, vital signs are stable, patient is nontoxic-appearing. Presenting to the emergency department with complaints of weakness, this is ongoing for the last 24 hours, also complains of some headaches. Patient will receive a CT scan of the brain, chest x-ray, basic laboratory eval as well as urinalysis. Viral swab will be ordered. Patient will be reevaluated. All radiologic examinations were read, reviewed by the emergency department attending. From these reads, a plan of care will be put in place. Patient's laboratory values show a normal CBC, PT/INR shows a PT of 30.1 with INR 2.9, patient's chemistries were unremarkable, troponin was negative. Patient's COVID-19 influenza was negative. Chest x-ray showed no acute process. Patient's CT scan of the brain shows extensive intracranial hemorrhages especially significant are symmetric large bilateral subdural hematomas with mass effect. I did speak with the radiologist. At this time, patient will need to be transferred. The ER attending did speak with the lorie Barragan Who will accept this patient. <Dr. Camilla Baca, DO - Last Filed: 03/08/24 23:56> [facility] Lab Data Attestation: I reviewed the patient's lab results. Labs: Laboratory Results - last 24 hr 03/08/24 03/08/24 19:38 19:45 WBC 7.9 RBC 4.53 L Hgb 14.7 Hct 41.5 MCV 91.6 MCH 32.5 H MCHC 35.4 RDW Std Deviation 43.3 RDW Coeff of Edel 12.9 Plt Count 150 MPV 11.2 Immature Gran % (Auto) 0.300 Neut % (Auto) 54.1 Lymph % (Auto) 33.0 [place] % (Auto) 7.4 Eos % (Auto) 4.3 Baso % (Auto) 0.9 Absolute Neuts (auto) 4.3 Absolute Lymphs (auto) 2.59 Nucleated RBC % 0 PT 30.1 H INR 2.9 Sodium 139 Potassium 4.0 Chloride 113 H Carbon Dioxide 21.0 Anion Gap 5 BUN 18 Creatinine 1.15 Est GFR (MDRD) Af Amer 79 Est GFR (MDRD) Non-Af 66 BUN/Creatinine Ratio 15.7 Glucose 114 H Calcium 9.1 Total Creatine Kinase 221 Troponin I High Sens 5 Urine Color Yellow Urine Clarity Clear Urine pH 7.0 Ur Specific [place] 1.010 Urine Protein Negative Urine Glucose (UA) Normal Urine Ketones Negative Urine Occult Blood Negative Urine Nitrite Negative Urine Bilirubin Negative Urine Urobilinogen Normal Ur Leukocyte Esterase Negative Urine RBC 0 SEEN Urine WBC 0 SEEN Ur Squamous Epith Cells 0 SEEN Urine Bacteria 0 SEEN Urine Mucus 0 SEEN Radiography Diagnostic Testing: Clinical Impression(s) from Imaging Studies Brain CT 03/08/24 19:11 IMPRESSION: Extensive intracranial hemorrhages especially significant are symmetric large bilateral subdural hematomas with mass effect. Electronically Signed: Mau Whitney MD at 20:44 EDT , ADDENDUM: 03/08/242104 IMPRESSION: Extensive intracranial hemorrhages especially significant are symmetric large bilateral subdural hematomas with mass effect. N.B. : The above Results were Read Back by Mau Whitney MD to Nate Iverson NP, and understanding confirmed on 03/08/2024 20:58:39 (ET). Electronically Signed: Mau Whitney MD at 20:44 EDT , Chest X-Ray 03/08/24 20:02 IMPRESSION: Normal x-ray examination of the chest. Electronically Signed: Mau Whitney MD at 21:15 EDT , Treatment and Re-Evaluation :: Differential diagnosis includes however is not limited to: CVA, TIA, viral-like syndrome, electrolyte abnormality, UTI, dehydration Patient appears generally well, vital signs are stable, patient is nontoxic-appearing. Presenting to the emergency department with complaints of weakness, this is ongoing for the last 24 hours, also complains of some headaches. Patient will receive a CT scan of the brain, chest x-ray, basic laboratory eval as well as urinalysis. Viral swab will be ordered. Patient will be reevaluated. All radiologic examinations were read, reviewed by the emergency department attending. From these reads, a plan of care will be put in place. Patient's laboratory values show a normal CBC, PT/INR shows a PT of 30.1 with INR 2.9, patient's chemistries were unremarkable, troponin was negative. Patient's COVID-19 influenza was negative. Chest x-ray showed no acute process. Patient's CT scan of the brain shows extensive intracranial hemorrhages especially significant are symmetric large bilateral subdural hematomas with mass effect. I did speak with the radiologist. At this time, patient will need to be transferred. The ER attending did speak with the lorie [facility] Who will accept this patient. I have personally performed a face to face assessment of the patient and have reviewed the DAVE Note. I performed a substantive portion of the visit including all aspects of the following. My garcia findings include: History is patient is 78-year-old male with history of or aortic stenosis with husky valve, proximal atrial fibrillation, hypertension, hyperlipidemia and long-term Coumadin use resenting for generalized weakness of the legs. Patient notes that he developed a headache last night but did not think too much of it. It is progressed throughout the day today. It was better enough that it bothered him. Denies any thunderclap or sudden onset of headaches. Initially denied any recent falls or injuries. He notes that today he was having a hard time walking and his legs generally just felt weak and like they kept giving out. Denies any associated pain. Broad workup for weakness performed including looking for intracranial process, infection or electrolyte abnormalities. On exam patient overall is well-appearing. He seen in bed in no distress. Does not have any focal neurologic deficits in bed. Pupils are equal round reactive to light. Head normocephalic atraumatic. Moist mucous membranes. No JVD. Heart regular rate and rhythm. Lungs clear to auscultation bilaterally. Abdomen soft and nontender. Sensation equal in all extremities. No drift of the extremities. Normal coordination. CT of the brain shows extensive intracranial hemorrhages especially significant and are symmetric with large bilateral subdural hematomas and mass effect. No midline shift. Is also small areas of intraparenchymal acute hemorrhage. Patient is informed of these findings. After further questioning he reports that he did have a particularly bad fall about 3 weeks ago. Patient's INR is therapeutic at 2.9. Given an acute intracranial hemorrhage will reverse with PCC. Patient is otherwise quite high functioning and interested in treatment. He is agreeable with transfer. He would prefer to go to [facility]. I spoke with neurosurgery, Dr. Oviedo, who reviewed the images and accepts the patient to his service. Patient will be given blood pressure medicine to keep his blood pressure under 140 systolic goal. Patient is given Tylenol for headache. Patient remains hemodynamically stable in the emergency room but does maintain a risk of sudden clinical deterioration. Other additions or changes: [None] <Dr. Camilla Baca, DO - Last Filed: 03/08/24 23:56> Critical Care Time Critical Care Time: Yes Critical care time (excluding procedures): 30-74 minutes (45), Discussing w/Patient &/or Family/Music Autographer, Discussing w/Consultants and Arranging Admission or Transfer Discharge Plan Triage Chief Complaint: Weakness ED Midlevel Provider: Nate Iverson ED Provider: Camilla Baca Dx/Rx/DC Orders Clinical Impression: Acute subdural hematoma, Adequate anticoagulation on anticoagulant therapy, Weakness, Headache, Intracranial hemorrhage Prescriptions: No Action latanoprost 0.005 % drops 1 drp OPHTHALMIC DAILY 90 Days Patient Comments: brimonidine 0.2 % drops 1 drp ophthalmic (eye) BID simvastatin 40 MG tablet 40 mg PO QHS Patient Comments: Cholesterol omega 3-hji-mhj-fish oil 1 EACH capsule 1 ea PO BID Patient Comments: Supplement tamsulosin 0.4 MG capsule 0.4 mg PO DAILY@1730 Qty: 30 3RF dorzolamide-timolol 22.3-6.8 mg/mL drops 1 drp ophthalmic (eye) BID warfarin 5 mg tablet 2.5 mg PO SA Protocol: Dose Management Condition: Monday Dose/Route: 2.5 mg Instruction: 0.5 x 5 mg tablets Condition: Monday Dose/Route: 5 mg Instruction: 1 x 5 mg tablet Condition: Monday Dose/Route: 5 mg Instruction: 1 x 5 mg tablet Condition: Monday Dose/Route: 5 mg Instruction: 1 x 5 mg tablet Condition: Dose/Route: 5 mg Instruction: 1 x 5 mg tablet Condition: Monday Dose/Route: 5 mg Instruction: 1 x 5 mg tablet Condition: Monday Dose/Route: 5 mg Instruction: 1 x 5 mg tablet Protocol Text: Adjustment Start Date: Monday02/14/24 INR Value: 2.2 INR Date: 02/14/24 Recheck Date: 02/28/24 warfarin 5 mg tablet 5 mg PO DONAVONUWETHNATALY Protocol: Dose Management Condition: Monday Dose/Route: 2.5 mg Instruction: 0.5 x 5 mg tablets Condition: Monday Dose/Route: 5 mg Instruction: 1 x 5 mg tablet Condition: Monday Dose/Route: 5 mg Instruction: 1 x 5 mg tablet Condition: Monday Dose/Route: 5 mg Instruction: 1 x 5 mg tablet Condition: Dose/Route: 5 mg Instruction: 1 x 5 mg tablet Condition: Monday Dose/Route: 5 mg Instruction: 1 x 5 mg tablet Condition: Monday Dose/Route: 5 mg Instruction: 1 x 5 mg tablet Protocol Text: Adjustment Start Date: Monday02/14/24 INR Value: 2.2 INR Date: 02/14/24 Recheck Date: 02/28/24 dextromethorphan-guaifenesin [Mucinex DM] 60-1,200 mg tablet extended release 12 hr 1 tab PO Q12H 7 Days Qty: 14 0RF metoprolol tartrate 25 mg tablet 25 mg PO BID Qty: 180 3RF losartan 25 mg tablet 25 mg PO DAILY Qty: 90 3RF Primary Care Provider: Jose Daniel Stanford Referrals: Jose Daniel Stanford MD [Primary Care Provider] - Print Language: Khmer Disposition Disposition: Acute Care Hospital Discharge Location: [facility]
[2024-03-08 19:47] LABS: Bacteria 0 SEEN /hpf (None Seen); Mucous, Urine 0 SEEN /hpf (<or=2+); Red Blood Cells-Urine 0 SEEN /hpf (0-5); Squamous Epithelial Cells - UA 0 SEEN /hpf (0-5); White Blood Cells 0 SEEN /hpf (0-5)
[2024-03-08 19:50] LABS: Color, Urine Yellow (Yellow); Glucose, Dipstick Normal (Normal); Ketone-Dipstick Negative (Negative); Leukocyte Esterase-Dipstick Negative /ul (Negative); Nitrite-Dipstick Negative (Negative); Occult Blood-Urine Negative /ul (Negative); Protein-Dipstick Negative (Negative); Urine Bilirubin Dipstick Negative (Negative); Urine Clarity Clear (Clear); Urine Urobilinogen Normal (Normal)
[2024-03-08 19:53] LABS: Absolute Lymphocyte Count 2.59 X10^3/uL (0.83-4.51); Absolute Neutrophil Count 4.3 X10^3/uL (2.0-7.7); Basophil# 0.07 X10^3/uL; Basophil% 0.9 % (0-1); Eosinophil# 0.34 X10^3/uL; Eosinophils% 4.3 % (0-5); Hematocrit 41.5 % (40-54); Hemoglobin 14.7 g/dL (13.0-16.5); Lymphocyte # 2.59 X10^3/ul (0.83-4.51); Mean Corp Hgb Conc 35.4 g/dL (32-36); Mean Corpuscular Hgb 32.5 pg (27.0-32.0); Mean Corpuscular Volume 91.6 fL (80-94); Mean Platelet Vol. 11.2 fl (6.2-12.0); Monocyte# 0.58 X10^3/uL; Monocyte% 7.4 % (0-10); NRBC Flagged by Analyzer 0 % (0-5); Neutrophil # 4.26 X10^3/uL (2.7-7.7); Neutrophil % 54.1 % (47-70); Platelet Count 150 K/mm3 (150-450); RBC Distribution Width CV 12.9 % (11.6-14.6); RBC Distribution Width SD 43.3 fl (35.1-43.9); Red Blood Count 4.53 M/mm3 (4.6-6.2); White Blood Count 7.9 K/mm3 (4.4-11.0)
--- NOTE | 2024-03-08 20:02 | RAD_ITS ---
STUDY: X-RAY CHEST REASON FOR EXAM: Male, 78 years old. cough TECHNIQUE: Frontal and lateral views of the chest. COMPARISON: 01/23/2024 . FINDINGS: The lungs are clear and expanded. There is no demonstrated pleural abnormality. Normal size heart. Normal mediastinum and ashok. Normal visualized pulmonary arteries. Normal visualized aortic arch and descending thoracic aorta. Normal visualized thoracic spine. Normal visualized ribs, clavicles, and shoulders. There is no demonstrated abnormality of the visualized soft tissue structures of the upper abdomen. RAD/Chest PA and Lateral IMPRESSION: Normal x-ray examination of the chest. Electronically Signed: Mau Whitney MD at 21:15 EDT ,
[2024-03-08 20:06] LABS: International Normalized Ratio 2.9; Prothrombin Time (Protime)PT. 30.1 SECONDS (11.7-14.9)
[2024-03-08 20:23] LABS: Anion Gap 5 (5-15); BUN 18 mg/dL (7-18); BUN/Creat Ratio 15.7 RATIO (10-20); Calcium,Total 9.1 mg/dL (8.5-10.1); Chloride 113 mmol/L (98-107); Creatinine, Serum 1.15 mg/dL (0.70-1.30); EST Glomerular Filtration Rate 66 mL/min (>60); Est Glom Filt Rate - Afr Amer 79 mL/min (>60); Glucose 114 mg/dL (74-106); Sodium Level 139 mmol/L (136-145); Troponin-I HS 5 pg/mL (3.0-78.0)
[2024-03-08 20:46] LABS: CPK Total, Creatine Kinase 221 U/L (39-308)
[2024-03-08] MEDS: VIAFLEX IV (21:46)
[2024-03-08] MEDS: HUM PROTHROMBIN CPLX LANS IV (21:46)
[2024-03-08] MEDS: Phytonadione (Vit K) 10 MG in 0.9% Normal Saline (50mL Bag) 50 ML 153 MG IV (22:21)
[2024-03-08] MEDS: Labetalol (Prefilled) 20 MG/4 ML Vial IV (22:38)
[2024-03-08] MEDS: Acetaminophen 325 MG Tablet 650 MG PO (23:32)
[2024-03-09 00:15] VITALS: BP 145/105; PULSE 55; RESP 17; O2SAT 97
[2024-03-09 00:49] VITALS: BP 153/86; PULSE 57; RESP 22; TEMP 36.6; O2SAT 98
== END 2024-03-09 00:59 | disposition short-term general hospital (02) ==
PROVIDERS: Nurse Practitioner; Emergency Provider Emergency Medicine; PCP Family Medicine; Visit Provider Emergency Medicine
DX: I62.01 Nontraumatic acute subdural hemorrhage (principal); I11.0 Hypertensive heart disease with heart failure; I50.9 Heart failure, unspecified; I48.0 Paroxysmal atrial fibrillation; R53.1 Weakness; R51.9 Headache, unspecified; Z79.01 Long term (current) use of anticoagulants; E78.5 Hyperlipidemia, unspecified; Z79.899 Other long term (current) drug therapy
CPT/HCPCS: 70450; 71046; 80048; 81001; 82550; 84484; 85025; 85610; 87631; 93005; 99283; A4216; C9159; J3490

== ENCOUNTER 2024-03-19 16:38 | Inpatient (IN) | payer MEDICARE, SELFPAY ==
[2024-03-19 17:07] VITALS: BP 156/78; PULSE 66; RESP 18; TEMP 36.6; O2SAT 98; BMI 29.2
[2024-03-19 17:17] VITALS: BP 156/78; PULSE 66; RESP 18; TEMP 36.6; O2SAT 98
[2024-03-19] MEDS: Acetaminophen 500 MG Tablet 1000 MG PO (19:19)
[2024-03-19 21:05] VITALS: BP 152/72; PULSE 68
[2024-03-19 21:14] VITALS: PULSE 68
[2024-03-19] MEDS: BRIMONIDINE 0.2% 5ML BOTTLE 1 DRP EACH EYE (21:14)
[2024-03-19] MEDS: Atorvastatin Calcium 20 MG Tablet PO (21:14)
[2024-03-19] MEDS: Omega-3 Acid Ethyl Esters 1 GM Capsule PO (21:14)
[2024-03-19] MEDS: Metoprolol Tartrate 25 MG Tablet PO (21:14)
[2024-03-19] MEDS: Tamsulosin HCl 0.4 MG Capsule PO (21:14)
[2024-03-19] MEDS: Senna/Docusate Sodium 1 Tablet 2 TABLET PO (21:14)
[2024-03-19] MEDS: Latanoprost 0.005% 1 Bottle 1 DRP EACH EYE (21:15)
[2024-03-19] MEDS: Dorzolamide HCL/Timolol 10 ml Bottle 1 DRP EACH EYE (21:15)
[2024-03-19 22:00] VITALS: PULSE 68; RESP 16; O2SAT 98
[2024-03-20] MEDS: Psyllium 1 PACKET PO (05:55)
[2024-03-20] MEDS: BRIMONIDINE 0.2% 5ML BOTTLE 1 DRP EACH EYE ×3 (05:55→21:04)
[2024-03-20 06:00] VITALS: BP 139/82; PULSE 61; RESP 16; TEMP 36.9; O2SAT 96; BMI 29.0
[2024-03-20] MEDS: oxyCODONE 5 MG Tablet PO ×2 (06:02→16:28)
[2024-03-20 06:05] LABS: Absolute Lymphocyte Count 2.18 X10^3/uL (0.83-4.51); Absolute Neutrophil Count 8.1 X10^3/uL (2.0-7.7); Basophil# 0.09 X10^3/uL; Basophil% 0.8 % (0-1); Eosinophil# 0.31 X10^3/uL; Eosinophils% 2.7 % (0-5); Hematocrit 36.8 % (40-54); Hemoglobin 12.8 g/dL (13.0-16.5); Lymphocyte # 2.18 X10^3/ul (0.83-4.51); Lymphocyte % 18.8 % (19-41); Mean Corp Hgb Conc 34.8 g/dL (32-36); Mean Corpuscular Hgb 32.9 pg (27.0-32.0); Mean Corpuscular Volume 94.6 fL (80-94); Mean Platelet Vol. 10.9 fl (6.2-12.0); Monocyte# 0.81 X10^3/uL; NRBC Flagged by Analyzer 0 % (0-5); Platelet Count 222 K/mm3 (150-450); RBC Distribution Width CV 13.2 % (11.6-14.6); RBC Distribution Width SD 45.3 fl (35.1-43.9); Red Blood Count 3.89 M/mm3 (4.6-6.2); White Blood Count 11.6 K/mm3 (4.4-11.0)
[2024-03-20 06:24] LABS: International Normalized Ratio 1.5; Prothrombin Time (Protime)PT. 18.4 SECONDS (11.7-14.9)
[2024-03-20 07:44] LABS: AST(SGOT) 19 U/L (15-37); Alanine Aminotransfer ALT/SGPT 31 U/L (16-61); Albumin, Serum 3.2 g/dL (3.2-5.0); Alkaline Phosphatase 85 U/L (45-117); Anion Gap 8 (5-15); BUN 23 mg/dL (7-18); BUN/Creat Ratio 20.5 RATIO (10-20); Calcium,Total 9.3 mg/dL (8.5-10.1); Chloride 107 mmol/L (98-107); Creatinine, Serum 1.12 mg/dL (0.70-1.30); EST Glomerular Filtration Rate 68 mL/min (>60); Est Glom Filt Rate - Afr Amer 82 mL/min (>60); Estimated Creatinine Clearance 51.81 ml/min; Globulin 3.3 g/dL (2.2-4.2); Glucose 120 mg/dL (74-106); Phosphorus 2.2 mg/dL (2.5-4.9); Potassium 4.1 mmol/L (3.5-5.1); Protein, Total 6.5 g/dL (6.4-8.2); Sodium Level 136 mmol/L (136-145)
[2024-03-20 08:07] VITALS: PULSE 61
[2024-03-20] MEDS: Omega-3 Acid Ethyl Esters 1 GM Capsule PO ×2 (08:07→21:05)
[2024-03-20] MEDS: Senna/Docusate Sodium 1 Tablet 2 TABLET PO ×2 (08:07→21:07)
[2024-03-20] MEDS: Dorzolamide HCL/Timolol 10 ml Bottle 1 DRP EACH EYE ×2 (08:07→21:59)
[2024-03-20] MEDS: Metoprolol Tartrate 25 MG Tablet PO ×2 (08:07→21:08)
[2024-03-20] MEDS: Losartan Potassium 25 MG Tablet PO (08:07)
[2024-03-20 08:23] VITALS: O2SAT 98
--- NOTE | 2024-03-20 09:37 | PCM.HP.STD ---
HPI - General General Date of Admission: 03/19/24 Date of Service: 03/20/24 HPI Narrative EMMA CÁRDENAS, is a 78 YO M with a PMH of , AFIB, chronic anticoagulation with warfarin, hypertension, hyperlipidemia, glucose intolerance/prediabetes, BPH, diverticulosis, GERD, glaucoma and recent bambi holes to drain BL SDH's on 03/09/24. He had presented to the ED at [facility] on 03/08/24 c/o weakness and GLEASON's . He is on chronic anticoagulation for AF and he admitted to a recent fall. He was transferred to [facility] for neurosurgery consult. He had bambi holes and drains placed on 03/09/24. On 03/11/2024 he underwent BL middle meningeal artery embolization. He was started on a Heparin infusion a few days after surgery and transitioned later to warfarin. Imaging after he was therapeutic on Warfarin showed no new bleeding. He was transferred to the acute inpt rehab unit at [facility] on 03/08/24 for 3 hours of therapy daily to restore function at or near his level prior to recent events. Complications at [facility] included hyponatremia, anemia due to blood loss and leukocytosis (likely stress induced). Afebrile VSS -blood pressure since arrival on rehab has ranged from 139/82 to 156/78. Heart rate is within normal limits. Maintaining appropriate oxygen saturation on RA-96 to 98% on room air with no tachypnea. Oral intake - FOOD he has had 2 meals on rehab and ate 75 to 100% of both meals. FLUIDS poor Discussed with nursing - no problems that need addressed. No issues overnight. Reviewed the THERAPY notes Medication list reviewed. Antihypertensives include metoprolol 25 mg twice daily and losartan 25 mg daily. Currently taking 7.5 mg of warfarin daily. Prior to admission for SDH he was taking 5 mg daily. All lab drawn this morning was personally reviewed. The white blood cell count is mildly increased at 11.6 with an unremarkable differential. Hemoglobin is 12.8 which is down from 14.7 on 03/08/2024. Platelets are within normal limit. MCV and MCH are unremarkable. PT is 18.4 with an INR of 1.5 (Coumadin was resumed on 03/15). INR on 03/17 was 1.1. Sodium is normal at 136 today and the potassium is 4.1. BUN is 23 with a creatinine of 1.12 which is within his baseline. FBS is 120. Hemoglobin A1c on 01/21/2024 was 6.2. Phosphorus is low at 2.2 and the magnesium is 2.0 today. Calcium is within normal limits. LFTs are normal. [facility] Medical History (Updated 03/21/24 @ 14:[address] Cherise Malin, DO) Subdural hematoma Diastolic dysfunction Glaucoma BPH (benign prostatic hyperplasia) Diverticulosis Other persistent atrial fibrillation CHF (congestive heart failure) CHF exacerbation Pneumonia ACG (angle-closure glaucoma) Aortic stenosis Aortic stenosis with bicuspid valve Essential (primary) hypertension Hyperlipidemia Paroxysmal atrial fibrillation Diverticulitis Home Medications ?Medication ?Instructions ?Recorded ?Last Taken ?Type omega [id number]-fish oil 300 1 cap PO BID Supplement 03/21/17 10/16/18 History mg-1,000 mg capsule simvastatin 40 mg tablet 40 mg PO QHS Cholesterol 03/21/17 10/16/18 History latanoprost 0.005 % eye drops 1 drp ophthalmic (eye) QHS eye 90 04/11/17 10/16/18 History days brimonidine 0.2 % eye drops 1 drp ophthalmic (eye) TID eye 10/27/20 03/19/24 History metoprolol tartrate 25 mg tablet 25 mg PO BID blood pressure #180 12/26/23 01/17/24 Rx tabs losartan 25 mg tablet 25 mg PO DAILY blood pressure #90 01/11/24 Unknown Rx TABLETS dorzolamide 22.3 mg-timolol 6.8 1 drp ophthalmic (eye) BID eye 01/20/24 03/19/24 History mg/mL eye drops acetaminophen 500 mg tablet 1,000 mg PO Q8 PRN fever or pain 03/19/24 Unknown History oxycodone 5 mg tablet 5 mg PO Q6H PRN pain 03/19/24 Unknown History tamsulosin 0.4 mg capsule 0.4 mg PO QHS BPH 03/19/24 03/18/24 History warfarin 7.5 mg tablet 7.5 mg PO DAILY A-FIB 03/19/24 03/18/24 History Allergy/AdvReac Type Severity Reaction Status Date / Time imipramine AdvReac Nausea Verified 03/08/24 17:25 metronidazole (From Flagyl) AdvReac Nausea Verified 03/08/24 17:25 Family History (Updated 03/20/24 @ 11:[address] Cherise Malin DO) Unknown No problems noted. Mother CAD (coronary artery disease) Family History unable to obtain Surgical History (Updated 03/21/24 @ 14:[address] Cherise Malin DO) Status post glaucoma surgery History of shoulder surgery Cataract extraction status of right eye Cataract extraction status of left eye S/p bilateral carpal tunnel release History of partial colectomy History of carpal tunnel surgery Social History household members: spouse Smoking Status: Never smoker second hand exposure: No alcohol intake: never substance use type: does not use caffeine: Yes Type: coffee eating out: 1-3 times/week during the past year weight has: remained stable what type of physical activity do you participate in: none seatbelt use: always do you feel safe at home: Yes ROS Review of Systems ROS Unobtainable: other Details: Recent severe intracranial hemorrhage with bilateral subdural hematomas and subarachnoid hemorrhage. Status post bur holes and embolization of bilateral medial meningeal arteries. Having issues with memory. Constitutional Constitutional: Reports fatigue, weakness and weight gain; Denies anorexia, change in weight, chills, fever(s) or night sweats Eyes Eyes: Denies blurry vision, change in vision, eye pain or loss of vision ENT HEENT: Reports disequillibrium and headache(s); Denies abnormal hearing, dysphagia, ear discharge, hearing loss, nasal congestion, neck pain or sore throat Cardiovascular Cardiovascular: Denies chest pain, dyspnea on exertion, edema, lightheadedness, orthopnea, palpitations, paroxysmal nocturnal dyspnea or syncope Respiratory/Chest Respiratory/Chest: Denies cough, dyspnea, shortness of breath at rest, shortness of breath with exertion or wheezing Gastrointestinal Gastrointestinal: Denies abdominal pain, constipation, diarrhea, dyspepsia, hematemesis, hematochezia, nausea or vomiting Genitourinary Genitourinary: Denies dysuria, hematuria, nocturia, urinary frequency, urinary hesitancy, urinary incontinence or urinary urgency Musculoskeletal Musculoskeletal: Reports joint stiffness; Denies back pain, joint pain, joint swelling, muscle cramps or neck pain Integumentary Integumentary: Reports alopecia; Denies changing lesions, jaundice, pruritus or rash Neurologic Neurologic: Reports disequilibrium and other Details: He tells me the fall he had prior to the subdural hematomas was due to getting his legs crossed while walking in his bedroom. He did strike his head at that time. ; Denies confusion, dizziness, focal weakness, headache(s), paresthesias, seizures or tremor(s) Psychiatric Psychiatric: Denies anxiety, depression, homicidal ideation or suicidal ideation Endocrine Endocrinology: Denies change in body appearance, polydipsia or polyuria Hematologic/Lymphatic Hematologic/Lymphatic: Reports easy bleeding and easy bruising; Denies lymphadenopathy Allergic/Immunologic Allergic/Immunologic: Denies rhinitis, eczemia or asthma Vital Signs Vital Signs Vital Signs: 03/19/24 17:07 03/19/24 17:07 03/19/24 17:17 Temperature 97.8 F 97.8 F Temperature Source Temporal Temporal Pulse Rate 66 66 Respiratory Rate 18 18 Respiratory Effort Normal Non-Labored Respiratory Depth Normal Respiratory Pattern Normal Blood Pressure 156/78 H 156/78 H Blood Pressure Mean 104 104 Blood Pressure Source Monitor Monitor Blood Pressure Position Semi-Fowlers Semi-Fowlers Blood Pressure Location Right Arm Right Arm Pulse Ox 98 98 Oxygen Delivery Method Room Air Room Air Room Air 03/19/24 21:05 03/19/24 21:14 03/19/24 22:00 Temperature Temperature Source Pulse Rate 68 68 68 Respiratory Rate 16 Respiratory Effort Normal Non-Labored Respiratory Depth Normal Respiratory Pattern Normal Blood Pressure 152/72 H Blood Pressure Mean 98 Blood Pressure Source Monitor Blood Pressure Position Semi-Fowlers Blood Pressure Location Left Arm Pulse Ox 98 Oxygen Delivery Method Room Air 03/20/24 06:00 03/20/24 08:07 03/20/24 08:23 Temperature 98.5 F Temperature Source Temporal Pulse Rate 61 61 Respiratory Rate 16 Respiratory Effort Respiratory Depth Respiratory Pattern Blood Pressure 139/82 H Blood Pressure Mean 101 Blood Pressure Source Monitor Blood Pressure Position Semi-Fowlers Blood Pressure Location Left Arm Pulse Ox 96 98 Oxygen Delivery Method Room Air Room Air Weight Weight: 169 lb 12.095 oz Body Mass Index (BMI) 29.0 Physical Exam Const alert, oriented x3, no apparent distress and well nourished Constitutional Narrative: Making good eye contact, appropriate. Having some difficulty answering questions about his history. Appears stated age. General Appearance: cooperative, comfortable, well kempt and well developed HEENT HEENT Narrative: Dry mucous membranes with no evidence of thrush. He has dried eschar over 2 areas where bambi holes were drilled and incisions in the scalp on either side of the vertex where he had BL drains placed at [facility]. the incisions are intact with no dehiscence and there is no DC and no rocael-incisional erythema. Eyes EOMs intact bilaterally, conjunctivae normal and no scleral icterus Eyes Narrative: No discharge from the eyes. Pupils are reactive to light. Neck no lymphadenopathy, supple, no JVD and No nodes Neck Narrative: He has bruits or radiation of the aortic murmur into both carotids. General: trachea midline Chest Chest: symmetrical chest wall rise Resp normal respiratory effort, normal air movement, no use of accessory muscles and clear to auscultation bilaterally Resp Narrative: Not tachypneic and no conversational dyspnea. Excellent air exchange throughout both lungs. No cough with deep breathing. Effort and Inspection: able to speak in complete sentences Cardio regular rate, regular rhythm, S1 normal heart sound, S2 normal heart sound, no rub and no gallops Cardio Narrative: No ectopy. He has a 2/6 to 3/6 systolic murmur heard best at the second right intercostal space with radiation to the left ventricular outflow tract, lower left sternal border, apex and into the left axilla. GI normal to inspection, nondistended, normoactive bowel sounds and non-tender GI Narrative: No guarding with palpation. Tells me he is having regular bowel movements and denies constipation/diarrhea. Extremity no clubbing, cyanosis or edema, no calf tenderness and no pedal edema Extremity Narrative: Negative Yash's and Tanvi's signs Skin Skin Narrative: No rashes, no skin breakdown. General Skin Exam: no breakdown Rashes: no rashes Wound Narrative: Craniotomy incisions are intact with no dehiscence, no rocael-incisional erythema, no significant rocael-incisional swelling and no discharge. Neuro oriented x3, CN's II-XII intact bilaterally and no focal motor deficits Neuro Narrative: Having difficulty recalling things from his past. Motor Exam: strength 5/5 throughout Psych affect normal, denies homicidal ideation and denies suicidal ideation Psych Narrative: Appropriate, making good eye contact. Does not seem anxious or depressed. Makes good eye contact with me when we are talking. No agitation. Having some difficulty with short and long-term memory. Appearance: appropriate and well kempt Attitude: calm and engaged Activity / Motor Behavior: appropriate eye contact Results Lab / Micro Data 03/20/24 05:37 03/20/24 05:37 Labs: Laboratory Results - last 24 hr 03/20/24 05:37: WBC 11.6 H, RBC 3.89 L, Hgb 12.8 L, Hct 36.8 L, MCV 94.6 H, MCH 32.9 H, MCHC 34.8, RDW Std Deviation 45.3 H, RDW Coeff of Edel 13.2, Plt Count 222, MPV 10.9, Immature Gran % (Auto) 0.700, Neut % (Auto) 70.0, Lymph % (Auto) 18.8 L, [place] % (Auto) 7.0, Eos % (Auto) 2.7, Baso % (Auto) 0.8, Absolute Neuts (auto) 8.1 H, Absolute Lymphs (auto) 2.18, Nucleated RBC % 0, PT 18.4 H, INR 1.5, Sodium 136, Potassium 4.1, Chloride 107, Carbon Dioxide 21.0, Anion Gap 8, BUN 23 H, Creatinine 1.12, Estim Creat Clear Calc 51.81, Est GFR (MDRD) Af Amer 82, Est GFR (MDRD) Non-Af 68, BUN/Creatinine Ratio 20.5 H, Glucose 120 H, Calcium 9.3, Phosphorus 2.2 L, Magnesium 2.0, Total Bilirubin 0.70, AST 19, ALT 31, Alkaline Phosphatase 85, Total Protein 6.5, Albumin 3.2, Globulin 3.3, Albumin/Globulin Ratio 1.0 Assessment & Plan Assessment/Plan (1) Debility: (2) Subdural hematoma: (3) History of bambi hole surgery: (4) Cognitive dysfunction: (5) Generalized weakness: (6) Hypophosphatemia: (7) Subtherapeutic international normalized ratio (INR): (8) Current use of mcfp anticoagulation: (9) Aortic stenosis: QUALIFIERS: Cardiac valve disease etiology: etiology unspecified Qualified Code(s): I35.0 - Nonrheumatic aortic (valve) stenosis (10) Paroxysmal atrial fibrillation: (11) Essential (primary) hypertension: (12) Hyperlipidemia: QUALIFIERS: Hyperlipidemia type: pure hypercholesterolemia Qualified Code(s): E78.00 - Pure hypercholesterolemia, unspecified PLAN: Plan PLAN PT for gait stability OT for ADL's ST for evaluation Analgesics as needed Bowel protocol Fall precautions Assess for Anxiety/Depression GI prophylaxis -not necessary at this time. He denies history of peptic ulcer disease, heartburn, nausea/vomiting/epigastric pain. DVT prophylaxis HA hose and full dose anticoagulation for atrial fibrillation with Follow up with neurosurgery, PCP, cardiology following DC from [facility] Rehab AM lab including CMP, CBC, Mag and Phos Supplement phosphorus Daily PT/INR x 5 days. Goal is INR between 2 and 3. Hemoccult stool Recheck CBC Monday Discussed the differences in the last few TT ECHO's with cardiology. They request we order an MALIKA at [facility] and he has a follow up appt with Yu Dawkins in May scheduled. Charges/Coding Visit Charges Inpatient E&M: 46013 Init Hosp L2
--- NOTE | 2024-03-20 10:45 | PCM.RU.PYE ---
Admission Information Primary Diagnosis:: Debility secondary to intracranial hemorrhage requiring bur holes and middle meningeal artery embolization. Status Changes from Prescreening?: No changes Identified Actual Problem List:: Bleeding, Falls, Skin Intergrity, Pain, ALteration in Cmfrt, Mobility Impaired, Self Care Deficit, BP, Hypertension and Alteration-Leisure Activ. Potential Problem List:: DVT, Bleeding, Infection, UTI, Aspiration, Falls, Skin Integrity and Depression Risk of Complications DVT: HA Hose and - (Warfarin. Positive history of atrial fibrillation. Goal INR is between 2-3.) Bleeding: Monitor Lab Values, Nursing to Teach Precautions for anti-coagulation therapy., Wound, if applicable, to be assessed every shift. and Stroke patients assessed for lethargy or change in status. Infection: Clinical Staff to Monitor for S/S of infection: and S/S of infection include fever, redness, warmth, etc. Urinary Tract Infection: Monitor for frequency, burning, discomfort, or incontinence. and Nursing will obtain urine sample for urinalysis and C&S when ordered. Aspiration: Clinical staff will monitor for coughing, drooling, congestion., Speech will evaluate swallowing and dsyphasia. and Nursing will monitor patient swallowing during meals. Falls: Patient will be evaluated for Fall Precautions and Patient will be placed on Fall Precautions as indicated per protocol. Skin Breakdown: Nursing will assess skin daily using assessment tool. and Nursing will place on Skin Breakdown Precautions as indicated. Pain: Clinical staff will assess patient's pain level per protocol., Medications will be given, if needed, and the pain level reassessed. and Other methods: Massage, distraction, decrease stimulus, etc. used PRN. Plan of Care Patient requires physician specializing in physical medicine and rehab oversight to provide close medical supervision of rehab issues including: Pain Management, Sleep Problems, Bowel and Bladder, Medical and co-morbidity Management, DVT prophylaxis, Rehabilitation Leadership and Coordination of treatment team Patient needs Physical Therapy: For a minimum of 1 hour and At least 5 out of 7 days Patient needs Physical Therapy to improve:: Mobility, Strengthening, Transfers, Stretching, ROM, Endurance, Stairs, Gait and Balance Patient needs Occupational Therapy: For a minimum of 1 hour and At least 5 out of 7 days Patient needs Occupational Therapy to improve ADL's incl.: Eating, Grooming, Bathing, Dressing, Toileting, Toilet transfers, Community Reintegration, Higher functioning activities, Household tasks, Adaptive Equipment, Splinting and Other activities as determined Patient requires speech therapy: For a minimum of 1 hour and At least 5 out of 7 days Patient requires speech therapy for: Swallowing, Cognition, Language Skills and Compensatory Strategies Patient requires 24/7 Rehabilitation Nursing for: Pain Issues, Identifying and preventing risk factors, Monitoring and reporting current medical conditions, Assisting with ambulation, transfer, and all ADL's, Teaching patients about disease process and medications, Family teaching, Providing safe environment, Bowel and Bladder Issues, Skin integrity and Medication Management Patient needs Wireless Communications Engineer/ Case Management for: Discharge Planning, Arranging Home Equipment or Services and Family Interventions Patient needs Dietary and Nutrition Services for: Adequate Nutrition, Nutritional Supplements and Nutritional Education Goals Goals Patient will remain: free from falls Patient will perform eating at: MOD I level of assist. Patient will perform bed mobility at: MOD I level of assist. Patient will complete transfers from bed to chair at: MOD I level of assist. Patient will ambulate: - (350 feet with alto device at supervision/independence on various surfaces to allow the patient to return safely to home/community/outdoor activities.) Patient will complete upper body dressing at: MOD I level of assist. Patient will complete lower body dressing at: MOD I level of assist. Patient will complete toilet transfer at: MOD I level of assist. Patient will complete toileting at: MOD I level of assist. Patient will perform bathing at: MOD I level of assist. (With adaptive equipment as needed for lower body bathing) Patient will perform Tub/Shower transfer at: - (Supervision) Patient will complete grooming at: MOD I level of assist. Patient will complete home management skills at: MOD I level of assist. Patient will achieve: - (1 curb step at standby assist without a device) Patient will have pain level of: of 3 or less Patient's skin will: remain intact Patient will receive: adequate nutrition. Discharge Planning Estimated Length of stay (days): 21 Anticipated D/C Destination: Home with Outpt Therapy Was Preadmission Assessment Accurate?: Yes
[2024-03-20] MEDS: Acetaminophen 500 MG Tablet 1000 MG PO (11:05)
[2024-03-20] MEDS: Na Biphos/Potassium Phosphate PACKET 1 PACKET PO ×2 (14:07→21:05)
[2024-03-20 17:36] VITALS: BP 104/46; PULSE 60; RESP 16; TEMP 37.2; O2SAT 98
[2024-03-20] MEDS: Tamsulosin HCl 0.4 MG Capsule PO (21:05)
[2024-03-20] MEDS: Atorvastatin Calcium 20 MG Tablet PO (21:05)
[2024-03-20 21:08] VITALS: PULSE 63
[2024-03-20] MEDS: Latanoprost 0.005% 1 Bottle 1 DRP EACH EYE (21:46)
[2024-03-20 22:30] VITALS: BP 119/76; PULSE 66
[2024-03-21] MEDS: oxyCODONE 5 MG Tablet PO (00:53)
[2024-03-21] MEDS: Acetaminophen 500 MG Tablet 1000 MG PO ×2 (01:21→20:22)
[2024-03-21 05:46] VITALS: BP 116/71; PULSE 60; RESP 18; TEMP 36.6; O2SAT 96
[2024-03-21] MEDS: Na Biphos/Potassium Phosphate PACKET 1 PACKET PO ×3 (05:49→20:22)
[2024-03-21] MEDS: BRIMONIDINE 0.2% 5ML BOTTLE 1 DRP EACH EYE ×3 (05:49→20:20)
[2024-03-21] MEDS: Psyllium 1 PACKET PO (05:49)
[2024-03-21 06:17] LABS: International Normalized Ratio 1.9; Prothrombin Time (Protime)PT. 21.6 SECONDS (11.7-14.9)
[2024-03-21] MEDS: Dorzolamide HCL/Timolol 10 ml Bottle 1 DRP EACH EYE ×2 (07:44→20:39)
[2024-03-21] MEDS: Senna/Docusate Sodium 1 Tablet 2 TABLET PO (07:44)
[2024-03-21] MEDS: Omega-3 Acid Ethyl Esters 1 GM Capsule PO ×2 (07:44→20:22)
[2024-03-21 07:45] VITALS: BP 116/71; PULSE 60
[2024-03-21] MEDS: Metoprolol Tartrate 25 MG Tablet PO ×2 (07:45→20:23)
[2024-03-21] MEDS: Losartan Potassium 25 MG Tablet PO (07:45)
--- NOTE | 2024-03-21 12:44 | CASEMGMT ---
Social Work IDT met with patient, and son, Piter, for Team meeting. Discussed patient's progress in PT/OT/ST/SN. Educated to [facility] insurance with [employer] 03/26, updating insurance every 7 days, however, it is IDTs responsibility to set DC date. Insurance will determine coverage for the stay once pt is discharged and the billing is complete from the insurance company. SW cautioned insurance may not approve all days since continued stay is not a guarantee of payment, per the insurance. Pt is doing well from a physical aspect, but has cognitive deficits. SW explained insurance typically does have ST needs carry soley, if there are less deficits from a PT/OT standpoint. Pt's goal is to return home with at [facility]. SW will continued to follow for DC planning assistance. Will ReTeam weekly. ODALYS MárquezW
--- NOTE | 2024-03-21 14:34 | CHAPLAIN ---
Type of Pastoral Visit ___ Initial Visit ___ Follow-up Visit ___ On-call Visit ___ General Patient Visit ___ Spiritual Assessment ___ Family Conference ___ Bereavement ___ Rapid Response ___ Code Blue ___ Other (describe below) Pastoral Care Referral From ___ Patient ___ Family ___ Nurse ___ Physician ___ Pharmacist Hospital ___ Wash Operator ___ Other (describe below) Sacrament/Intervention ___ Active listening ___ Anointing ___ Church ___ Bereavement ___ Communion ___ Juliana exploration ___ ___ Life review ___ Prayer ___ Reconciliation ___ Sacrament of Sick ___ Supportive presence ___ Wedding ___ Other (describe below) Pastoral Comments patient is sound asleep and does not awaken at the calling of his name
--- NOTE | 2024-03-21 14:34 | PCM.PROGNOTE ---
Subjective Subjective Elpidio was seen on team rounds. His and his son Piter were present in the room for rounds. Afebrile VSS - Maintaining appropriate oxygen saturation on RA Oral intake - FOOD good FLUIDS fair fluid intake yesterday - 1270......I encouraged him to increase the fluid intake. Discussed with nursing - no problems that need addressed. Had urinary incontinence due to urgency last night. Denies dysuria Reviewed the THERAPY notes Medication list reviewed. He was only given 1 dose of Tylenol yesterday but, he was given 2 doses of Oxycodone. INR is 1.9 today-it was 1.5 yesterday and he received 7.5 mg of warfarin. His usual dose is 5 mg daily. Arnold only complaint today is GLEASON. He tells me that this kept him awake last night but, nursing reports he slept OK. NO lightheadedness, CP, SOB, N/V/abd pain, dysuria and calf tenderness. His only complaint is GLEASON. Denies neck pain/stiffness. He is AF and denies chills/sweats. He scored 35/50 on the BCAT. 24/30 on the COG LOG......scored 20/20 while at [facility]. Family tells me that he was having some4 memory difficulty at home prior to the recent events but, he was able to handle the checkbook/finances/medications and drive without a problem. Having some inattention currently and trouble with numbers. Objective Data Objective Data Vital Signs: Vital Signs Temp Pulse Resp BP Pulse Ox O2 Del Method 97.9 F 60 18 116/71 96 Room Air 03/21/24 05:46 03/21/24 07:45 03/21/24 05:46 03/21/24 07:45 03/21/24 05:46 03/21/24 05:46 Oxygen Delivery Method Room Air Weight: 169 lb 12.095 oz Body Mass Index (BMI) 29.0 Intake & Output: Intake and Output for Last 24 Hours 03/19/24 03/20/24 03/21/24 23:59 23:59 23:59 Intake Total 120 / 120 1270 / 1270 880 / 880 Output Total 250 / 250 1500 / 1700 950 / 950 Balance -130 / -130 -230 / -430 -70 / -70 Lab / Micro Data 03/20/24 05:37 03/20/24 05:37 Labs: Laboratory Results - last 24 hr 03/21/24 05:17: PT 21.6 H, INR 1.9 Physical Exam Const alert and no apparent distress Constitutional Narrative: Making good eye contact, appropriate. Having some difficulty answering questions about his history. Appears stated age. General Appearance: cooperative HEENT Mouth: dry mucous membranes Eyes EOMs intact bilaterally, conjunctivae normal and no scleral icterus Eyes Narrative: No discharge from the eyes. Pupils are reactive to light. Neck supple Neck Narrative: He has bruits or radiation of the aortic murmur into both carotids. General: trachea midline Chest Chest: symmetrical chest wall rise Resp clear to auscultation bilaterally Resp Narrative: Not tachypneic and no conversational dyspnea. Excellent air exchange throughout both lungs. No cough with deep breathing. Effort and Inspection: able to speak in complete sentences Cardio regular rate and regular rhythm Cardio Narrative: No change in the MM and no ectopy. GI normal to inspection, nondistended, normoactive bowel sounds, soft to palpation and non-tender GI Narrative: No guarding with palpation. Tells me he is having regular bowel movements and denies constipation/diarrhea. Extremity no calf tenderness Extremity Narrative: Negative Yash's and Tanvi's signs General Extremity: Negative for edema Skin Skin Narrative: No rashes, no skin breakdown. General Skin Exam: no breakdown Rashes: no rashes Wound Narrative: Cranial incisions are intact with no dehiscence, no rocael-incisional erythema and no DC. Neuro oriented x3, CN's II-XII intact bilaterally and no focal motor deficits Neuro Narrative: Having difficulty recalling things from his past. Motor Exam: strength 5/5 throughout Psych affect normal, denies homicidal ideation and denies suicidal ideation Psych Narrative: Appropriate, making good eye contact. Does not seem anxious or depressed. Makes good eye contact with me when we are talking. No agitation. Having some difficulty with short and long-term memory. Appearance: appropriate Attitude: No agitated Activity / Motor Behavior: Negative for restless Mood & Affect: flat affect Assessment & Plan Assessment/Plan (1) Debility: (2) Subdural hematoma: (3) History of bambi hole surgery: (4) Cognitive dysfunction: (5) Generalized weakness: (6) Hypophosphatemia: (7) Subtherapeutic international normalized ratio (INR): (8) Current use of senior care anticoagulation: (9) Aortic stenosis: QUALIFIERS: Cardiac valve disease etiology: etiology unspecified Qualified Code(s): I35.0 - Nonrheumatic aortic (valve) stenosis (10) Paroxysmal atrial fibrillation: (11) Essential (primary) hypertension: (12) Hyperlipidemia: QUALIFIERS: Hyperlipidemia type: pure hypercholesterolemia Qualified Code(s): E78.00 - Pure hypercholesterolemia, unspecified PLAN: Plan 1. Continue therapy 2. Change the acetaminophen to 1 g p.o. every 8 hours. Continue oxycodone 5 mg every 6 hours as needed pain not relieved by acetaminophen. 3. Decrease the dose of warfarin to 5 mg daily. Continue daily PT/INR until the INR is stable. 4. Continue to urge increased fluid intake 5. Transesophageal echocardiogram to be ordered at discharge. As a follow-up appointment with MARSHALL Eaton in May 2024. 6. Check a UA in light of urinary urgency/incontinence. Unknown whether he had a Lloyd catheter or not at [facility]. 7. Hemoccult stool has been ordered 8. Recheck BMP, CBC with differential and phosphorus on Monday Charges/Coding Visit Charges Inpatient E&M: 59052 Subs Hosp L2
[2024-03-21 16:57] LABS: Bacteria 0 SEEN /hpf (None Seen); Mucous, Urine 0 SEEN /hpf (<or=2+); Squamous Epithelial Cells - UA 0 SEEN /hpf (0-5)
[2024-03-21 17:04] LABS: Color, Urine Yellow (Yellow); Glucose, Dipstick Normal (Normal); Ketone-Dipstick Negative (Negative); Leukocyte Esterase-Dipstick Negative /ul (Negative); Nitrite-Dipstick Negative (Negative); Occult Blood-Urine Negative /ul (Negative); Protein-Dipstick Negative (Negative); Specific Gravity, Urine 1.025 (1.002-1.030); Urine Bilirubin Dipstick Negative (Negative); Urine Clarity Clear (Clear); Urine Urobilinogen Normal (Normal)
[2024-03-21 17:15] LABS: Red Blood Cells-Urine 0-5 SEEN /hpf (0-5); White Blood Cells 0-5 SEEN /hpf (0-5)
[2024-03-21 17:24] VITALS: BP 116/62; PULSE 61; RESP 16; TEMP 36.8; O2SAT 98
[2024-03-21] MEDS: Tamsulosin HCl 0.4 MG Capsule PO (20:21)
[2024-03-21] MEDS: Atorvastatin Calcium 20 MG Tablet PO (20:21)
[2024-03-21 20:23] VITALS: BP 112/69; PULSE 70
[2024-03-21] MEDS: Latanoprost 0.005% 1 Bottle 1 DRP EACH EYE (20:28)
[2024-03-22] MEDS: Psyllium 1 PACKET PO (05:44)
[2024-03-22] MEDS: Na Biphos/Potassium Phosphate PACKET 1 PACKET PO ×3 (05:44→22:14)
[2024-03-22] MEDS: BRIMONIDINE 0.2% 5ML BOTTLE 1 DRP EACH EYE ×3 (05:44→22:13)
[2024-03-22] MEDS: Acetaminophen 500 MG Tablet 1000 MG PO ×3 (05:44→22:14)
[2024-03-22 06:00] VITALS: BP 128/73; PULSE 62; RESP 17; TEMP 36; O2SAT 96
[2024-03-22 07:53] VITALS: BP 128/73; PULSE 62
[2024-03-22] MEDS: Dorzolamide HCL/Timolol 10 ml Bottle 1 DRP EACH EYE ×2 (07:53→22:13)
[2024-03-22] MEDS: Losartan Potassium 25 MG Tablet PO (07:53)
[2024-03-22] MEDS: Omega-3 Acid Ethyl Esters 1 GM Capsule PO ×2 (07:53→22:14)
[2024-03-22] MEDS: Senna/Docusate Sodium 1 Tablet 2 TABLET PO ×2 (07:53→22:14)
[2024-03-22] MEDS: Metoprolol Tartrate 25 MG Tablet PO ×2 (07:53→22:18)
[2024-03-22 08:21] LABS: Prothrombin Time (Protime)PT. 22.6 SECONDS (11.7-14.9)
--- NOTE | 2024-03-22 14:56 | CHAPLAIN ---
Type of Pastoral Visit _x__ Initial Visit ___ Follow-up Visit ___ On-call Visit ___ General Patient Visit ___ Spiritual Assessment ___ Family Conference ___ Bereavement ___ Rapid Response ___ Code Blue ___ Other (describe below) Pastoral Care Referral From _x__ Patient ___ Family ___ Nurse ___ Physician ___ Assistant Restaurant General Manager ___ Prospecting Driller Helper ___ Other (describe below) Sacrament/Intervention _x__ Active listening ___ Anointing ___ Denominational ___ Bereavement ___ Communion _x__ Juliana exploration ___ _x__ Life review _x__ Prayer ___ Reconciliation ___ Sacrament of Sick ___ Supportive presence ___ Wedding ___ Other (describe below) Pastoral Comments patient gives report on his injury and subsequent hospitalization; pt speaks of his family support and how he is coping in the rehab; pt states no particular concerns or worries; pt is asked about his juliana and if that is helpful; at this the patient gives details about a new [employer] that he is a member of and how it is growing and doing well; pt affirms his juliana and how that helps him cope with his situation; pt welcomes a prayer at this time
[2024-03-22 17:20] VITALS: BP 126/83; PULSE 80; RESP 16; TEMP 36.8; O2SAT 94
[2024-03-22] MEDS: Tamsulosin HCl 0.4 MG Capsule PO (22:13)
[2024-03-22] MEDS: Atorvastatin Calcium 20 MG Tablet PO (22:13)
[2024-03-22] MEDS: Latanoprost 0.005% 1 Bottle 1 DRP EACH EYE (22:15)
[2024-03-22 22:18] VITALS: BP 124/83; PULSE 78
[2024-03-23] MEDS: BRIMONIDINE 0.2% 5ML BOTTLE 1 DRP EACH EYE ×3 (04:58→20:04)
[2024-03-23] MEDS: Acetaminophen 500 MG Tablet 1000 MG PO ×3 (04:58→20:07)
[2024-03-23] MEDS: Na Biphos/Potassium Phosphate PACKET 1 PACKET PO (04:58)
[2024-03-23] MEDS: Psyllium 1 PACKET PO (04:58)
[2024-03-23 05:03] VITALS: BP 123/79; PULSE 64; RESP 18; TEMP 36.6; O2SAT 96
[2024-03-23 07:58] LABS: International Normalized Ratio 2.3; Prothrombin Time (Protime)PT. 24.7 SECONDS (11.7-14.9)
[2024-03-23] MEDS: Dorzolamide HCL/Timolol 10 ml Bottle 1 DRP EACH EYE ×2 (09:36→20:36)
[2024-03-23] MEDS: Losartan Potassium 25 MG Tablet PO (09:37)
[2024-03-23 09:38] VITALS: PULSE 62
[2024-03-23] MEDS: Omega-3 Acid Ethyl Esters 1 GM Capsule PO ×2 (09:38→20:06)
[2024-03-23] MEDS: Metoprolol Tartrate 25 MG Tablet PO ×2 (09:38→20:05)
[2024-03-23] MEDS: Senna/Docusate Sodium 1 Tablet 2 TABLET PO ×2 (09:43→20:06)
--- NOTE | 2024-03-23 10:03 | PCM.PROGNOTE ---
Subjective Subjective Afebrile VSS -blood pressure is well-controlled Maintaining appropriate oxygen saturation on RA Oral intake - FOOD good FLUIDS good Discussed with nursing - no problems that need addressed Reviewed the THERAPY notes Medication list reviewed. INR was 2.3 today. The dose was decreased to 5 mg daily yesterday. Denies chest pain, shortness of breath, palpitations, nausea/vomiting, dysuria. Tells me his headaches are better since the Tylenol was scheduled 3 times daily. Has not needed oxycodone. Objective Data Objective Data Vital Signs: Vital Signs Temp Pulse Resp BP Pulse Ox O2 Del Method 97.8 F 62 18 123/79 H 96 Room Air 03/23/24 05:03 03/23/24 09:38 03/23/24 05:03 03/23/24 05:03 03/23/24 05:03 03/23/24 05:03 Oxygen Delivery Method Room Air Weight: 169 lb 12.095 oz Body Mass Index (BMI) 29.0 Intake & Output: Intake and Output for Last 24 Hours 03/21/24 03/22/24 03/23/24 23:59 23:59 23:59 Intake Total 1920 / 1920 1710 / 1710 690 / 690 Output Total 1850 / 1850 1450 / 1450 225 / 225 Balance 70 / 70 260 / 260 465 / 465 Lab / Micro Data 03/20/24 05:37 03/20/24 05:37 Labs: Laboratory Results - last 24 hr 03/23/24 06:51: PT 24.7 H, INR 2.3 Micro: Microbiology 03/21/24 18:05 Stool Stool Occult Blood (BRANDAN) - Final Physical Exam Const alert and no apparent distress Constitutional Narrative: More alert today. Appropriate, pleasant, cooperative. General Appearance: cooperative Neck supple Resp clear to auscultation bilaterally Resp Narrative: Not tachypneic and no conversational dyspnea. Excellent air exchange throughout both lungs. No cough with deep breathing. Cardio regular rate and regular rhythm Cardio Narrative: No change in the MM and no ectopy. GI normal to inspection, nondistended, normoactive bowel sounds, soft to palpation and non-tender Extremity no calf tenderness General Extremity: Negative for edema Skin Skin Narrative: No rashes, no skin breakdown. Wound Narrative: Cranial incisions are intact with no dehiscence, no rocael-incisional erythema and no DC. Assessment & Plan Assessment/Plan (1) Debility: (2) Subdural hematoma: (3) History of bambi hole surgery: (4) Cognitive dysfunction: (5) Generalized weakness: (6) Hypophosphatemia: (7) Current use of correction anticoagulation: (8) Aortic stenosis: QUALIFIERS: Cardiac valve disease etiology: etiology unspecified Qualified Code(s): I35.0 - Nonrheumatic aortic (valve) stenosis (9) Paroxysmal atrial fibrillation: PLAN: Plan 1. Continue therapy 2. Continue warfarin 5 mg p.o. daily. 3. Lab ordered for Monday. Charges/Coding Visit Charges Inpatient E&M: 88794 Subs Hosp L1
[2024-03-23 18:00] VITALS: BP 98/59; PULSE 67; RESP 16; TEMP 36.6; O2SAT 96
[2024-03-23 20:05] VITALS: BP 120/71; PULSE 70
[2024-03-23] MEDS: Tamsulosin HCl 0.4 MG Capsule PO (20:05)
[2024-03-23] MEDS: Atorvastatin Calcium 20 MG Tablet PO (20:05)
[2024-03-23] MEDS: Latanoprost 0.005% 1 Bottle 1 DRP EACH EYE (20:10)
[2024-03-24] MEDS: Psyllium 1 PACKET PO (05:04)
[2024-03-24] MEDS: Acetaminophen 500 MG Tablet 1000 MG PO ×3 (05:04→19:55)
[2024-03-24] MEDS: BRIMONIDINE 0.2% 5ML BOTTLE 1 DRP EACH EYE ×3 (05:05→19:51)
[2024-03-24 05:47] VITALS: BP 112/71; PULSE 66; RESP 18; TEMP 36.8; O2SAT 95
[2024-03-24 07:00] VITALS: O2SAT 98
[2024-03-24 07:21] LABS: International Normalized Ratio 2.2; Prothrombin Time (Protime)PT. 24.5 SECONDS (11.7-14.9)
[2024-03-24] MEDS: Dorzolamide HCL/Timolol 10 ml Bottle 1 DRP EACH EYE ×2 (09:50→20:45)
[2024-03-24] MEDS: Losartan Potassium 25 MG Tablet PO (09:50)
[2024-03-24 09:51] VITALS: PULSE 84
[2024-03-24] MEDS: Metoprolol Tartrate 25 MG Tablet PO ×2 (09:51→19:55)
[2024-03-24] MEDS: Senna/Docusate Sodium 1 Tablet 2 TABLET PO ×2 (09:51→19:54)
[2024-03-24] MEDS: Omega-3 Acid Ethyl Esters 1 GM Capsule PO ×2 (09:51→19:54)
[2024-03-24 17:11] VITALS: BP 101/60; PULSE 60; RESP 16; TEMP 36.8; O2SAT 97
[2024-03-24] MEDS: Tamsulosin HCl 0.4 MG Capsule PO (19:53)
[2024-03-24] MEDS: Atorvastatin Calcium 20 MG Tablet PO (19:54)
[2024-03-24 19:55] VITALS: BP 110/65; PULSE 71
[2024-03-24] MEDS: Latanoprost 0.005% 1 Bottle 1 DRP EACH EYE (19:56)
[2024-03-25] MEDS: Psyllium 1 PACKET PO (05:24)
[2024-03-25] MEDS: BRIMONIDINE 0.2% 5ML BOTTLE 1 DRP EACH EYE ×3 (05:24→21:43)
[2024-03-25] MEDS: Acetaminophen 500 MG Tablet 1000 MG PO ×3 (05:25→21:44)
[2024-03-25 05:53] VITALS: BP 116/74; PULSE 57; RESP 16; TEMP 36.6; O2SAT 95
[2024-03-25 06:01] LABS: Absolute Lymphocyte Count 2.19 X10^3/uL (0.83-4.51); Absolute Neutrophil Count 5.8 X10^3/uL (2.0-7.7); Basophil# 0.07 X10^3/uL; Basophil% 0.8 % (0-1); Eosinophil# 0.28 X10^3/uL; Eosinophils% 3.1 % (0-5); Hematocrit 34.9 % (40-54); Hemoglobin 11.9 g/dL (13.0-16.5); Lymphocyte # 2.19 X10^3/ul (0.83-4.51); Lymphocyte % 24.4 % (19-41); Mean Corp Hgb Conc 34.1 g/dL (32-36); Mean Corpuscular Hgb 32.7 pg (27.0-32.0); Mean Corpuscular Volume 95.9 fL (80-94); Mean Platelet Vol. 10.7 fl (6.2-12.0); Monocyte# 0.62 X10^3/uL; Monocyte% 6.9 % (0-10); NRBC Flagged by Analyzer 0 % (0-5); Neutrophil # 5.78 X10^3/uL (2.7-7.7); Neutrophil % 64.4 % (47-70); Platelet Count 253 K/mm3 (150-450); RBC Distribution Width CV 13.2 % (11.6-14.6); RBC Distribution Width SD 46.5 fl (35.1-43.9); Red Blood Count 3.64 M/mm3 (4.6-6.2)
[2024-03-25 06:13] LABS: International Normalized Ratio 2.6; Prothrombin Time (Protime)PT. 27.5 SECONDS (11.7-14.9)
[2024-03-25 06:23] LABS: Anion Gap 6 (5-15); BUN 20 mg/dL (7-18); BUN/Creat Ratio 20.4 RATIO (10-20); Calcium,Total 8.9 mg/dL (8.5-10.1); Chloride 112 mmol/L (98-107); Creatinine, Serum 0.98 mg/dL (0.70-1.30); EST Glomerular Filtration Rate 79 mL/min (>60); Est Glom Filt Rate - Afr Amer 95 mL/min (>60); Estimated Creatinine Clearance 59.21 ml/min; Glucose 123 mg/dL (74-106); Phosphorus 2.1 mg/dL (2.5-4.9); Sodium Level 140 mmol/L (136-145)
--- NOTE | 2024-03-25 08:23 | PCM.PROGNOTE ---
Subjective Subjective Afebrile VSS - Maintaining appropriate oxygen saturation on RA Oral intake - FOOD good FLUIDS good Discussed with nursing - no problems that need addressed. Sleeping well per nursing. Reviewed the THERAPY notes - spoke with St. He still has significant dysfunction with higher level executive functioning. His son told us that there were some issues with memory even prior to the SDH's. ST is recommending supervision with medications and with finances. No driving until he can pass the drivers rehab test at [facility]. SW will discuss with his son how much supervision they can provide at [place]. ? whether he needs to go SNF? Doing well in therapy from a physical perspective. Medication list reviewed. All lab drawn this morning was personally reviewed. White blood cell count is normal at 9 and the differential is unremarkable. Hemoglobin is 11.9 which is down from 12.8 on 03/20/2024. Platelets are within normal limits. Sodium is 140 and the potassium is stable at 4.0. The BUN is 20 and the creatinine is 0.98, down from 1.12 on 03/20/2024. Phosphorus is still decreased to 2.1 despite supplementation. Calcium is within normal limits. INR today is 2.6 and he has been therapeutic for 4 days now. Will discontinue daily PT/INR. Objective Data Objective Data Vital Signs: Vital Signs Temp Pulse Resp BP Pulse Ox O2 Del Method 97.8 F 57 L 16 116/74 95 Room Air 03/25/24 05:53 03/25/24 05:53 03/25/24 05:53 03/25/24 05:53 03/25/24 05:53 03/25/24 05:53 Oxygen Delivery Method Room Air Weight: 169 lb 12.095 oz Body Mass Index (BMI) 29.0 Intake & Output: Intake and Output for Last 24 Hours 03/23/24 03/24/24 03/25/24 23:59 23:59 23:59 Intake Total 1840 / 1840 1380 / 1630 450 / 450 Output Total 1025 / 1025 800 / 1175 775 / 775 Balance 815 / 815 580 / 455 -325 / -325 Lab / Micro Data 03/25/24 05:19 03/25/24 05:19 Labs: Laboratory Results - last 24 hr 03/25/24 05:19: WBC 9.0, RBC 3.64 L, Hgb 11.9 L, Hct 34.9 L, MCV 95.9 H, MCH 32.7 H, MCHC 34.1, RDW Std Deviation 46.5 H, RDW Coeff of Edel 13.2, Plt Count 253, MPV 10.7, Immature Gran % (Auto) 0.400, Neut % (Auto) 64.4, Lymph % (Auto) 24.4, Pendleton % (Auto) 6.9, Eos % (Auto) 3.1, Baso % (Auto) 0.8, Absolute Neuts (auto) 5.8, Absolute Lymphs (auto) 2.19, Nucleated RBC % 0, PT 27.5 H, INR 2.6, Sodium 140, Potassium 4.0, Chloride 112 H, Carbon Dioxide 22.0, Anion Gap 6, BUN 20 H, Creatinine 0.98, Estim Creat Clear Calc 59.21, Est GFR (MDRD) Af Amer 95, Est GFR (MDRD) Non-Af 79, BUN/Creatinine Ratio 20.4 H, Glucose 123 H, Calcium 8.9, Phosphorus 2.1 L Micro: Microbiology 03/21/24 18:05 Stool Stool Occult Blood (BRANDAN) - Final Physical Exam Const alert and no apparent distress Constitutional Narrative: More alert today. Appropriate, pleasant, cooperative. General Appearance: cooperative HEENT moist oral mucous membranes Neck supple Resp clear to auscultation bilaterally Cardio regular rate and regular rhythm Cardio Narrative: No change in the MM and no ectopy. GI normal to inspection, nondistended, normoactive bowel sounds, soft to palpation and non-tender Extremity no calf tenderness General Extremity: Negative for edema Skin Skin Narrative: No rashes, no skin breakdown. Wound Narrative: Cranial incisions are intact with no dehiscence, no rocael-incisional erythema and no DC. The kacey have been removed. No pain with palpation around the incisions and he tells me that his GLEASON is better.......not requiring any pain meds over and above Tyelnol. Assessment & Plan Assessment/Plan (1) Debility: (2) Subdural hematoma: (3) History of bambi hole surgery: (4) Cognitive dysfunction: (5) Generalized weakness: (6) Hypophosphatemia: (7) Current use of halfway anticoagulation: (8) Aortic stenosis: QUALIFIERS: Cardiac valve disease etiology: etiology unspecified Qualified Code(s): I35.0 - Nonrheumatic aortic (valve) stenosis (9) Paroxysmal atrial fibrillation: PLAN: Plan 1. Continue therapy 2. SW to discuss DC with son.....will he have the supervision he needs at home? He is the mineral mixer for his ........may need to go to an SNF? 3. Supplement phosphorus and recheck in a few days 4. Discontinue daily PT/INR and continue warfarin 5 mg daily Charges/Coding Visit Charges Inpatient E&M: 44694 [facility] Hosp L1
[2024-03-25 09:03] VITALS: PULSE 60
[2024-03-25] MEDS: Omega-3 Acid Ethyl Esters 1 GM Capsule PO ×2 (09:03→21:45)
[2024-03-25] MEDS: Dorzolamide HCL/Timolol 10 ml Bottle 1 DRP EACH EYE ×2 (09:03→21:48)
[2024-03-25] MEDS: Metoprolol Tartrate 25 MG Tablet PO ×2 (09:03→21:46)
[2024-03-25] MEDS: Losartan Potassium 25 MG Tablet PO (09:03)
--- NOTE | 2024-03-25 13:59 | CASEMGMT ---
Social Work Pt requesting to DC home, however, pt will need assistance with IADLs and is unable. SW left VM with son to return call and discuss. Ashley De Guzman, STUDENT RECRUITER EXCAVATOR BACKHOE OPERATOR
[2024-03-25 17:40] VITALS: BP 129/76; PULSE 63; RESP 18; TEMP 36.8; O2SAT 98
[2024-03-25] MEDS: Latanoprost 0.005% 1 Bottle 1 DRP EACH EYE (21:43)
[2024-03-25] MEDS: Senna/Docusate Sodium 1 Tablet 2 TABLET PO (21:45)
[2024-03-25 21:46] VITALS: PULSE 68
[2024-03-25] MEDS: Tamsulosin HCl 0.4 MG Capsule PO (21:48)
[2024-03-25] MEDS: Atorvastatin Calcium 20 MG Tablet PO (21:48)
[2024-03-26] MEDS: BRIMONIDINE 0.2% 5ML BOTTLE 1 DRP EACH EYE ×3 (05:06→21:49)
[2024-03-26] MEDS: Acetaminophen 500 MG Tablet 1000 MG PO ×3 (05:07→21:51)
[2024-03-26] MEDS: Psyllium 1 PACKET PO (05:12)
[2024-03-26 05:36] VITALS: BP 110/66; PULSE 68; RESP 15; TEMP 36.9; O2SAT 96
[2024-03-26] MEDS: Senna/Docusate Sodium 1 Tablet 2 TABLET PO (08:17)
[2024-03-26] MEDS: Losartan Potassium 25 MG Tablet PO (08:17)
[2024-03-26 08:18] VITALS: BP 110/66; PULSE 68
[2024-03-26] MEDS: Omega-3 Acid Ethyl Esters 1 GM Capsule PO ×2 (08:18→21:51)
[2024-03-26] MEDS: Metoprolol Tartrate 25 MG Tablet PO ×2 (08:18→21:51)
[2024-03-26] MEDS: Dorzolamide HCL/Timolol 10 ml Bottle 1 DRP EACH EYE ×2 (08:19→21:49)
--- NOTE | 2024-03-26 09:51 | PCM.PROGNOTE ---
Subjective Subjective Afebrile VSS - Maintaining appropriate oxygen saturation on RA Oral intake - FOOD good FLUIDS good Discussed with nursing - no problems that need addressed Reviewed the THERAPY notes - ambulating today without an AD at [facility]. MOD I in his room now. Medication list reviewed. No complaints. Wants to go home on . Denies cephalgia today and also denies lightheadedness, vertigo, chest pain, palpitations, shortness of breath, cough, dysuria and calf tenderness. He is not aware of his cognitive dysfunction, molina with higher level executive function. The SW spoke to his son Arden today who lives next door to the pt. He is a seasonal worker and not currently working. He will be able to provide the assistance his parents need, including med management, finance management, grocery shopping and transportation. Will require that Elpidio attend/pass the drivers rehab program at [facility] in [place] prior to resuming driving. Objective Data Objective Data Vital Signs: Vital Signs Temp Pulse Resp BP Pulse Ox O2 Del Method 98.5 F 68 15 110/66 96 Room Air 03/26/24 05:36 03/26/24 08:18 03/26/24 05:36 03/26/24 08:18 03/26/24 05:36 03/26/24 05:36 Oxygen Delivery Method Room Air Weight: 169 lb 12.095 oz Body Mass Index (BMI) 29.0 Intake & Output: Intake and Output for Last 24 Hours 03/24/24 03/25/24 03/26/24 23:59 23:59 23:59 Intake Total 1380 / 1630 1660 / 1660 300 / 300 Output Total 800 / 1175 1275 / 1275 450 / 450 Balance 580 / 455 385 / 385 -150 / -150 Lab / Micro Data 03/25/24 05:19 03/25/24 05:19 Micro: Microbiology 03/21/24 18:05 Stool Stool Occult Blood (BRANDAN) - Final Physical Exam Const alert Constitutional Narrative: More alert today. Appropriate, pleasant, cooperative. General Appearance: cooperative HEENT moist oral mucous membranes HEENT Narrative: craniotomy incisions are intact with no dehiscence, no DC and no erythema. He denies pain with palpation around the incisions. Neck supple Resp normal respiratory effort and clear to auscultation bilaterally Resp Narrative: no cough, no conversational dyspnea Effort and Inspection: Negative for tachypneic Cardio regular rate, regular rhythm and no gallops Cardio Narrative: No change in the MM and no ectopy. GI normal to inspection, nondistended, normoactive bowel sounds, soft to palpation and non-tender Extremity no calf tenderness General Extremity: Negative for edema Skin Skin Narrative: No rashes, no skin breakdown. Assessment & Plan Assessment/Plan (1) Debility: (2) Subdural hematoma: (3) History of bambi hole surgery: (4) Cognitive dysfunction: (5) Generalized weakness: (6) Hypophosphatemia: (7) Current use of penitentiary anticoagulation: (8) Aortic stenosis: QUALIFIERS: Cardiac valve disease etiology: etiology unspecified Qualified Code(s): I35.0 - Nonrheumatic aortic (valve) stenosis (9) Paroxysmal atrial fibrillation: PLAN: Plan 1. Continue therapy 2. Check H&H and PT/INR in a.m. in preparation for discharge on 3. Will order a transesophageal echocardiogram per cardiology at discharge and he has follow-up scheduled with MARSHALL Eaton in May. 4. Arden will supervise his father post DC 5. Referral to Drivers rehab at [facility]. NO driving at DC until he can pass the drivers rehab program. Arden is aware. Charges/Coding Visit Charges Inpatient E&M: 22586 [facility] Hosp L1
--- NOTE | 2024-03-26 14:26 | CASEMGMT ---
Addendum entered by Ashley De Guzman 03/26/24 14:43: Addenedum: SW spoke with pt at bedside to explain below. Pt agreeable and appreciative of coordination. Original Note: Social Work SW phoned to request phone number for son, Piter, as the current number is inaccurate. SW spoke with son to inquire about DC planning and reviewed IDT recommendations of pt needing assistance with IADLs and cannot assist. Son initially stated he and sister can assist as needed. SW requested concrete plans in place to ensure safety and needs are met. Son explained further that he has a seasonal job that ended in February and does not restart until August. Son stated he lives directly next door to pt/ and has been assisting pt's during pt's stay. calls son with any needs. Son and other siblings will be able to assist both pt and . Son inquired about pt's phyiscal needs. SW provided update from PT session this date - pt is mod I without a device managing high level tasks. Son pleased and is agreeable to set DC date, as is IDT. SW offered DC 03/28 or after. Son agreeable to 03/28. Son can transport home. SW collaborated with therapy and Dr - outpatient ST is being recommended. Pt will proceed with [facility] for PT and OT. Pt has no DME needs. SW returned call to son with recommendations on ST and inquired about closest location. Son prefers [place] and agreeable to [facility], who provides ST. SW faxed referral to [facility] OP ST. Plan: DC home with , but with son support for IADLs, 03/28, [facility] Ashley De Guzman, ODALYS LOPEZW
[2024-03-26] MEDS: Latanoprost 0.005% 1 Bottle 1 DRP EACH EYE (21:50)
[2024-03-26 21:51] VITALS: BP 111/72; PULSE 66
[2024-03-26] MEDS: Tamsulosin HCl 0.4 MG Capsule PO (21:51)
[2024-03-26] MEDS: Atorvastatin Calcium 20 MG Tablet PO (21:51)
[2024-03-27 05:51] LABS: Hematocrit 35.3 % (40-54); Hemoglobin 11.7 g/dL (13.0-16.5)
[2024-03-27 06:00] VITALS: BP 111/72; PULSE 62; RESP 16; TEMP 37; O2SAT 96; BMI 29.2
[2024-03-27 06:15] LABS: International Normalized Ratio 2.6; Prothrombin Time (Protime)PT. 27.9 SECONDS (11.7-14.9)
[2024-03-27] MEDS: BRIMONIDINE 0.2% 5ML BOTTLE 1 DRP EACH EYE ×3 (06:46→21:36)
[2024-03-27] MEDS: Acetaminophen 500 MG Tablet 1000 MG PO ×3 (06:46→21:31)
[2024-03-27] MEDS: Psyllium 1 PACKET PO (06:46)
[2024-03-27 08:19] VITALS: PULSE 62
[2024-03-27] MEDS: Omega-3 Acid Ethyl Esters 1 GM Capsule PO ×2 (08:19→21:31)
[2024-03-27] MEDS: Metoprolol Tartrate 25 MG Tablet PO ×2 (08:19→21:34)
[2024-03-27] MEDS: Senna/Docusate Sodium 1 Tablet 2 TABLET PO ×2 (08:19→21:31)
[2024-03-27] MEDS: Losartan Potassium 25 MG Tablet PO (08:19)
[2024-03-27] MEDS: Dorzolamide HCL/Timolol 10 ml Bottle 1 DRP EACH EYE ×2 (08:20→21:39)
--- NOTE | 2024-03-27 10:32 | PCM.DC ---
Discharge Instructions Diet Discharge Diet: Low fat / Low cholesterol Activity Discharge Activity: May Not Drive (Because you have had a change in you thought processes since the surgery I do not want you driving. There is a Drivers rehab program for patients who have had strokes and brain injuries at [facility] in [place]. We are referring you there so they can evaluate you to make sure you are safe. ), May Shower (We are recommending for the week or so that you are home that your son be with you when getting in and out of the shower......most falls at home happen in the bathroom, molina when getting in and out of the shower. ) and - (you do not need a cane or walker to walk, but if you are feeling unsteady, molina when you are walking outside your house then take a cane with you. ) Weight Bearing Status: Full weight bearing Dressing / Incision Call your doctor if your incision/area has: Continuous Slow Oozing, Increased Pain/ Swelling, Increased Redness, Foul Smelling Discharge, Swelling at the incision site and - (Your incision is healing very nicely. There is no sign of infection. there are no longer any openings in the skin. The kacey have been removed. If you start to have pain in the scalp/head then have someone look at the incisions. ) Call your doctor if you observe: Fever of 101 or Higher, Inability to urinate, Shortness of breath, Dizziness, Fainting spells, Swelling in the ankles, Chest pain, Increased palpitations (irregular heartbeat), Calf discomfort and Uncontrolled pain Suture Line Care: Avoid Pulling/Pushing, Avoid Pinching/Bending and - (If you have pain in the scalp/head have someone check the incision. If there is any opening in the skin, increased redness around the incision, discharge from the incision or increased swelling call your PCP to be seen. ) Cleanse incision/area with: Soap & Water and - (No dressing is necessary. You can leave the scalp incisions open to air. ) Follow Up Care Test Results: Test results from this visit will be discussed in further detail at your follow-up appointment, if applicable. Pending Tests Upon Discharge: none Discharge Plan Admission Admit Date/Time: 03/19/24 16:38 Primary Reason for Your Visit: Debility due to SDH/craniotomy. Attending Provider: Cherise Malin Primary Care Provider: Jose Daniel Stanford Instructions Patient Instructions: MALIKA, Caring for Your Incision Additional Instructions / Restrictions: 1. You did a very good job in therapy and physically you are doing very well. the bleeding inside your head caused pressure on the brain which lead to some decreased blood flow to the area and this caused some dysfunction of your thought processes. you have been having some problem with memory and higher level cognitive function. The speech therapist has been working with you and things are going better but, you will need continued speech therapy following discharge. Let Arden help you set up your pill boxes and manage your medications......to make sure you are not making in mistakes. You should also let him help with your finances for a while until your thought processes are back to baseline. You are not thinking as fast as you used to and you have some memory issues. You should not be driving. There is a program for disabled drivers at [facility] in [place]. We made a referral for you to be evaluated by this program. You should do this sometime in the next 3 months....when the speech therapist thinks you are ready to drive again. They will test you to make sure that you are safe to drive. They check things like vision, decision making, reflexes, etc. 2. You have a problem with one of the valves in your heart. It is the sortic valve which is the valve between the heart and the aorta.......blood pumps over this valve to the rest of the body. Your aortic valve is stenotic.....this means the valve does not open as well as it should and the blood flow over the valve is diminished. As this gets worse you can start having problems with increased fatigue with activity, swelling in the legs/ankles, Shortness of breath with activity. Sometimes when this happens the valve needs to be fixed. You have been having periodic Echocardiograms to follow the progression of the valve disease. I spoke with Dr. Mason and he would like you to have a different kind of echocardiogram called a transesophageal echocardiogram. The echocardiograms you have had in the past have all looked at the heart through the chest wall. Dr. Mason will insert a scope into your mouth and advance it part way down the esophagus. This allows cardiology to get a better look at the valve to determine if the valve disease is progressing. It also lets the heart doctor know how well the heart is squeezing. After the test you will have an appt to follow up with Yu Dawkins in May to discuss the results. I have given you a handout about how this procedure is done so please read it. 3. You are back on Warfarin to prevent strokes due to atrial fibrillation. Your bleeding time (also called INR) is therapeutic at 2.6 and this number has been stable for several days. You will need to have this rechecked following discharge from rehab. the goal is to keep the INR between 2-3. 4. It has been a pleasure meeting you Elpidio. I am glad the rehab team was able to help you get home. If you or your family have any questions after you leave rehab please do not hesitate to call me. OFFICE: [phone] CELL: [phone] NURSES STATION ON REHAB: [phone] Since you are on a blood thinner it is ESPECIALLY important for you NOT to fall. Let Arden supervise you getting in and out of the shower for the next 1-2 weeks. Most falls in the home happen in the bathroom and molina in the shower. If after 1-2 weeks you have not had any loss of balance and he feels you are safe to do it yourself THEN you can get in and out of the shower unassisted. This is for your safety. Discharge Orders/Prescriptions Prescriptions: New psyllium husk (aspartame) 3 gram/5.8 gram powder See Rx Instructions .ROUTE .COMPLEX Qty: 662 0RF Rx Instructions: take 1 tablespoon in water twice a day warfarin [Jantoven] 5 mg Tablet 5 mg PO DINNER Qty: 30 0RF Continued latanoprost 0.005 % drops 1 drp OPHTHALMIC QHS 90 Days Patient Comments: brimonidine 0.2 % drops 1 drp ophthalmic (eye) TID simvastatin 40 MG tablet 40 mg PO QHS Patient Comments: Cholesterol omega 3-luw-icq-fish oil 1 EACH capsule 1 cap PO BID Patient Comments: Supplement dorzolamide-timolol 22.3-6.8 mg/mL drops 1 drp ophthalmic (eye) BID acetaminophen 500 mg tablet 1,000 mg PO Q8 PRN (Reason: fever or pain) tamsulosin 0.4 MG capsule 0.4 mg PO QHS metoprolol tartrate 25 mg tablet 25 mg PO BID Qty: 180 3RF losartan 25 mg tablet 25 mg PO DAILY Qty: 90 3RF Discontinued warfarin 7.5 mg tablet 7.5 mg PO DAILY oxycodone 5 mg tablet 5 mg PO Q6H PRN (Reason: pain) Referrals / Follow Up: Jared Oviedo-neurology [Other] - 04/01/24 11:45 am (f/u) Jose Juan Addison-opthalmology [Other] - 04/22/24 1:30 pm Jose Daniel Stanford MD [Primary Care Provider] - Disposition Disposition (needs filled in before D/C Order can be placed): Home, Self Care
--- NOTE | 2024-03-27 11:25 | DS.PCM_ITS ---
Providers Date of Admission: 03/19/24 Date of Discharge: 03/28/24 Primary Care Physician: Dr. Jose Daniel Stanford MD none Reason For Visit: SDH/craniotomy Diagnosis Discharge Diagnosis (1) Debility: Status: Acute Code(s): R53.81 - Other malaise (2) Subdural hematoma: Status: Acute Code(s): S06.5XAA - Traumatic subdural hemorrhage with loss of consciousness status unknown, initial encounter Plan: due to a fall (3) History of bambi hole surgery: Status: Acute Code(s): Z98.890 - Other specified postprocedural states (4) S/P craniotomy: Status: Acute Code(s): Z98.890 - Other specified postprocedural states Plan: 03/09/24 with BL drain placement for BL SDH's (5) S/P neurological surgery: Status: Acute Code(s): Z98.890 - Other specified postprocedural states Plan: Bilateral middle meningeal artery embolization on 03/11/[address] [facility]. (6) Cognitive dysfunction: Status: Acute Code(s): F09 - Unspecified mental disorder due to known physiological condition Plan: cognition improved while on rehab. ST recommends continued ST as an OP. Pt was told not to drive and his family was also told he could not drive. He was referred to the Drivers Rehab Program for disabled patients at [facility] in [place]. If he can pass their test he will be able to drove again. (7) Generalized weakness: Status: Acute Code(s): R53.1 - Weakness (8) Hypophosphatemia: Status: Resolved Code(s): E83.39 - Other disorders of phosphorus metabolism (9) Current use of jail anticoagulation: Status: Chronic Code(s): Z79.01 - [facility] (current) use of anticoagulants Plan: INR stable at 2.6 on 5 mg of Warfarin daily at discharge from rehab. (10) Aortic stenosis: Status: Chronic Code(s): I35.0 - Nonrheumatic aortic (valve) stenosis Qualifiers: Cardiac valve disease etiology: etiology unspecified Qualified Code(s): I35.0 - Nonrheumatic aortic (valve) stenosis Plan: MALIKA following DC requested by [facility] to better evaluate the valve. may be underestimated on most recent ECHO because he was in AF with RVR at the time. Will follow up with Yu Dawkins in May. (11) Paroxysmal atrial fibrillation: Status: Chronic Code(s): I48.0 - Paroxysmal atrial fibrillation Plan: NO AF while on rehab. Plan 1. Discharged home on 04/27/2024 2. Outpatient speech therapy at [facility] postdischarge 3. MALIKA as an outpatient-will follow-up with [facility] 4. Referral to the [facility] drivers rehab program-no driving until he can pass the evaluation at the drivers rehab program 5. Loki Her will be supervising Emma for medications and finances and with shower transfer for the next 1-2 weeks Medications at Discharge Home Medications omega 6-mjq-ckd-fish oil 300 mg-1,000 mg capsule 1 cap PO BID Supplement 03/21/17 simvastatin 40 mg tablet 40 mg PO QHS Cholesterol 03/21/17 latanoprost 0.005 % eye drops 1 drp ophthalmic (eye) QHS eye 90 days 04/11/17 brimonidine 0.2 % eye drops 1 drp ophthalmic (eye) TID eye 10/27/20 metoprolol tartrate 25 mg tablet 25 mg PO BID blood pressure #180 tabs 12/26/23 losartan 25 mg tablet 25 mg PO DAILY blood pressure #90 TABLETS 01/11/24 dorzolamide 22.3 mg-timolol 6.8 mg/mL eye drops 1 drp ophthalmic (eye) BID eye 01/20/24 acetaminophen 500 mg tablet 1,000 mg PO Q8 PRN fever or pain 03/19/24 tamsulosin 0.4 mg capsule 0.4 mg PO QHS BPH 03/19/24 psyllium husk (aspartame) 3 gram/5.8 gram oral powder See Rx Instructions .Route .COMPLEX #662 grams 03/27/24 warfarin 5 mg tablet (Jantoven) 5 mg PO DINNER #30 tabs 03/27/24 Hospital Course Operations - (Craniotomy with placement of drains on 03/09/[address] [facility] For bilateral subdural hematomas. ) Procedures - (Bilateral middle meningeal artery embolization on 03/11/[address] [facility]) Summary of Care Provided Minutes Spent on Discharge: 30 Hospital Course: EMMA CÁRDENAS, is a 78 YO M with a PMH of , paroxysmal AFIB, chronic anticoagulation with warfarin, hypertension, hyperlipidemia, glucose intolerance/prediabetes, BPH, diverticulosis, GERD, glaucoma who presented to the ED at [facility] on 03/08/24 c/o weakness and GLEASON's . He is on chronic anticoagulation for PAF and he admitted to a recent fall. A noncontrast CT brain showed extensive intracranial hemorrhages with symmetric large bilateral subdural hematomas with mass effect. Anticoagulation was reversed. He was transferred to [facility] for neurosurgery consult ( Dr. Ivelisse schneider). He had bambi holes and drains placed on 03/09/24. On 03/11/2024 he underwent BL middle meningeal artery embolization. He was started on a Heparin infusion a few days after surgery and transitioned later to warfarin. Imaging after he was therapeutic on Warfarin showed no new bleeding. He was transferred to the acute inpt rehab unit at [facility] on 03/08/24 for 3 hours of therapy daily to restore function at or near his level prior to recent events. Complications at [facility] included hyponatremia, anemia due to blood loss and leukocytosis (likely stress induced). Emma did very well in therapy. He was always cooperative and he has made good progress. There were no significant complications while on rehab. At the time of discharge his hemoglobin is stable at 11.7. The INR is stable at 2.6 and he is on warfarin 5 mg daily. Creatinine is actually better than his baseline and at the time of discharge is 0.98. At the time of discharge she is ambulating without an assistive device and he has ambulated up to 500 feet on various surfaces with no assistive device and standby assist. He has been ambulating on the rehab unit independently with no assistive device and no loss of balance. He is able to do 16 sit to stands in 30 seconds using only his legs to push out. He is able to ascend/descend 1 curb step at standby assist without an assistive device. He is independent with eating and supervision/set up for grooming while standing at the sink. He is independent with upper body dressing. He is also supervision/set up with bathing, lower body dressing, toileting, toilet transfer and tub/shower transfer. When Emma had his last ECHO he was in AF and the may have been under estimated. I discussed the discrepancies in the past couple ECHO's with cardiology and they requested I order a MALIKA at [place]. Emma was agreeable to this and the test was ordered. He will follow-up with [facility] following the completion of the test. He has an appointment already scheduled with Yu Dawkins in May 2024. He will have ongoing outpatient speech therapy at [facility]. Emma still has mild cognitive dysfunction although he has improved significantly while on rehab. He and his family were told that he should not drive until he is able to pass a test for disabled drivers administered by the drivers rehab program at [facility] in [place]. A referral to the drivers rehab program was made by the child welfare social worker and will be good for 3 months. He is to call and schedule an appt when he feels he is ready within the next 3 months. Physical Exam Const alert Constitutional Narrative: More alert today. Appropriate, pleasant, cooperative. General Appearance: cooperative HEENT moist oral mucous membranes HEENT Narrative: craniotomy incisions are intact with no dehiscence, no DC and no erythema. He denies pain with palpation around the incisions. Neck supple Resp normal respiratory effort and clear to auscultation bilaterally Resp Narrative: no cough, no conversational dyspnea Effort and Inspection: Negative for tachypneic Cardio regular rate, regular rhythm and no gallops Cardio Narrative: No change in the MM and no ectopy. GI normal to inspection, nondistended, normoactive bowel sounds, soft to palpation and non-tender Extremity no calf tenderness General Extremity: Negative for edema Skin Skin Narrative: No rashes, no skin breakdown. Weight / BMI Weight Weight: 170 lb 4 oz Body Mass Index (BMI) 29.2 ABG / Lab / Microbiology Data 03/27/24 05:31 03/25/24 05:19 Laboratory: Laboratory Results - last 24 hr 03/27/24 05:31: Hgb 11.7 L, Hct 35.3 L, PT 27.9 H, INR 2.6 Microbiology: Microbiology 03/21/24 18:05 Stool Stool Occult Blood (BRANDAN) - Final D/C Instructions Discharge Diet: Low fat / Low cholesterol Weight Bearing Status: Full weight bearing Call your doctor if your incision/area has: Continuous Slow Oozing, Increased Pain/ Swelling, Increased Redness, Foul Smelling Discharge, Swelling at the incision site and - (Your incision is healing very nicely. There is no sign of infection. there are no longer any openings in the skin. The kacey have been removed. If you start to have pain in the scalp/head then have someone look at the incisions. ) Call your doctor if you observe: Fever of 101 or Higher, Inability to urinate, Shortness of breath, Dizziness, Fainting spells, Swelling in the ankles, Chest pain, Increased palpitations (irregular heartbeat), Calf discomfort and Uncontrolled pain Suture Line Care: Avoid Pulling/Pushing, Avoid Pinching/Bending and - (If you have pain in the scalp/head have someone check the incision. If there is any opening in the skin, increased redness around the incision, discharge from the incision or increased swelling call your PCP to be seen. ) Cleanse incision/area with: Soap & Water and - (No dressing is necessary. You can leave the scalp incisions open to air. ) DC O2, CPAP, BIPAP Needs Additional Home O2 Discharge instructions: No DC home with Oxygen: No Pending Tests Upon Discharge: none Meaningful Use Info Meaningful Use Meaningful Use Diagnoses (Choose all that apply): None applicable Ischemic Stroke Statin Dosing Therapy Reference: STATIN DOSE THERAPY REFERENCE: * Patients > 75 years receive moderate or high dose statin therapy. * Patients 75 years or YOUNGER should receive HIGH intensity statin dose unless contraindicated. You will be required to document reason for non-treatment if statin daily dose does not meet guidelines. HIGH DOSE STATIN THERAPY DAILY Atorvastatin > than or = to 40 mg Rosuvastatin > than or = to 20 mg Amlodipine + Atorvastatin > than or = to 2.5/40 mg Ezetimibe + Simvastatin 10/80 mg Simvastatin 80mg Discharge Plan Admission Admit Date/Time: 03/19/24 16:38 Primary Reason for Your Visit: Debility due to SDH/craniotomy. Attending Provider: Cherise Malin Primary Care Provider: Jose Daniel Stanford Instructions Patient Instructions: MALIKA, Caring for Your Incision Additional Instructions / Restrictions: 1. You did a very good job in therapy and physically you are doing very well. the bleeding inside your head caused pressure on the brain which lead to some decreased blood flow to the area and this caused some dysfunction of your thought processes. you have been having some problem with memory and higher level cognitive function. The speech therapist has been working with you and things are going better but, you will need continued speech therapy following discharge. Let Arden help you set up your pill boxes and manage your medications......to make sure you are not making in mistakes. You should also let him help with your finances for a while until your thought processes are back to baseline. You are not thinking as fast as you used to and you have some memory issues. You should not be driving. There is a program for disabled drivers at [facility] in [place]. We made a referral for you to be evaluated by this program. You should do this sometime in the next 3 months....when the speech therapist thinks you are ready to drive again. They will test you to make sure that you are safe to drive. They check things like vision, decision making, reflexes, etc. 2. You have a problem with one of the valves in your heart. It is the sortic valve which is the valve between the heart and the aorta.......blood pumps over this valve to the rest of the body. Your aortic valve is stenotic.....this means the valve does not open as well as it should and the blood flow over the valve is diminished. As this gets worse you can start having problems with increased fatigue with activity, swelling in the legs/ankles, Shortness of breath with activity. Sometimes when this happens the valve needs to be fixed. You have been having periodic Echocardiograms to follow the progression of the valve disease. I spoke with Dr. Mason and he would like you to have a different kind of echocardiogram called a transesophageal echocardiogram. The echocardiograms you have had in the past have all looked at the heart through the chest wall. Dr. Mason will insert a scope into your mouth and advance it part way down the esophagus. This allows cardiology to get a better look at the valve to determine if the valve disease is progressing. It also lets the heart doctor know how well the heart is squeezing. After the test you will have an appt to follow up with Yu Dawkins in May to discuss the results. I have given you a handout about how this procedure is done so please read it. 3. You are back on Warfarin to prevent strokes due to atrial fibrillation. Your bleeding time (also called INR) is therapeutic at 2.6 and this number has been stable for several days. You will need to have this rechecked following discharge from rehab. the goal is to keep the INR between 2-3. 4. It has been a pleasure meeting you Emma. I am glad the rehab team was able to help you get home. If you or your family have any questions after you leave rehab please do not hesitate to call me. OFFICE: [phone] CELL: [phone] NURSES STATION ON REHAB: [phone] Since you are on a blood thinner it is ESPECIALLY important for you NOT to fall. Let Arden supervise you getting in and out of the shower for the next 1-2 weeks. Most falls in the home happen in the bathroom and molina in the shower. If after 1-2 weeks you have not had any loss of balance and he feels you are safe to do it yourself THEN you can get in and out of the shower unassisted. This is for your safety. Discharge Orders/Prescriptions Prescriptions: New psyllium husk (aspartame) 3 gram/5.8 gram powder See Rx Instructions .ROUTE .COMPLEX Qty: 662 0RF Rx Instructions: take 1 tablespoon in water twice a day warfarin [Jantoven] 5 mg Tablet 5 mg PO DINNER Qty: 30 0RF Continued latanoprost 0.005 % drops 1 drp OPHTHALMIC QHS 90 Days Patient Comments: brimonidine 0.2 % drops 1 drp ophthalmic (eye) TID simvastatin 40 MG tablet 40 mg PO QHS Patient Comments: Cholesterol omega 4-rdi-lvp-fish oil 1 EACH capsule 1 cap PO BID Patient Comments: Supplement dorzolamide-timolol 22.3-6.8 mg/mL drops 1 drp ophthalmic (eye) BID acetaminophen 500 mg tablet 1,000 mg PO Q8 PRN (Reason: fever or pain) tamsulosin 0.4 MG capsule 0.4 mg PO QHS metoprolol tartrate 25 mg tablet 25 mg PO BID Qty: 180 3RF losartan 25 mg tablet 25 mg PO DAILY Qty: 90 3RF Discontinued warfarin 7.5 mg tablet 7.5 mg PO DAILY oxycodone 5 mg tablet 5 mg PO Q6H PRN (Reason: pain) Referrals / Follow Up: Jared Oviedo-neurology [Other] - 04/01/24 11:45 am (f/u) Jose Juan Addison-opthalmology [Other] - 04/22/24 1:30 pm Jose Daniel Stanford MD [Primary Care Provider] - Disposition Disposition (needs filled in before D/C Order can be placed): Home, Self Care Charges/Coding Visit Charges Inpatient E&M: [id number] Disch Hosp
[2024-03-27 18:00] VITALS: BP 114/70; PULSE 60; RESP 16; TEMP 36.6; O2SAT 97
[2024-03-27 20:20] VITALS: PULSE 70; RESP 16; O2SAT 96
[2024-03-27] MEDS: Latanoprost 0.005% 1 Bottle 1 DRP EACH EYE (21:31)
[2024-03-27] MEDS: Atorvastatin Calcium 20 MG Tablet PO (21:31)
[2024-03-27] MEDS: Tamsulosin HCl 0.4 MG Capsule PO (21:31)
[2024-03-27 21:34] VITALS: BP 114/73; PULSE 70
[2024-03-28 05:54] VITALS: BP 117/76; PULSE 60; RESP 16; TEMP 36.7; O2SAT 93
[2024-03-28] MEDS: Acetaminophen 500 MG Tablet 1000 MG PO (05:58)
[2024-03-28] MEDS: BRIMONIDINE 0.2% 5ML BOTTLE 1 DRP EACH EYE ×2 (05:59→08:47)
[2024-03-28] MEDS: Psyllium 1 PACKET PO (06:30)
[2024-03-28] MEDS: Dorzolamide HCL/Timolol 10 ml Bottle 1 DRP EACH EYE (08:47)
[2024-03-28] MEDS: Losartan Potassium 25 MG Tablet PO (08:48)
[2024-03-28] MEDS: Omega-3 Acid Ethyl Esters 1 GM Capsule PO (08:49)
[2024-03-28] MEDS: Senna/Docusate Sodium 1 Tablet 2 TABLET PO (08:49)
[2024-03-28 08:52] VITALS: BP 117/60; PULSE 68
[2024-03-28] MEDS: Metoprolol Tartrate 25 MG Tablet PO (08:52)
[2024-03-28 11:52] VITALS: BP 117/60; PULSE 68; RESP 16; O2SAT 99
--- NOTE | 2024-03-28 16:12 | CASEMGMT ---
Social Work SW faxed referral to [facility] Ashley De Guzman, MANAGER MEDICAID PERSONAL CLOTHING LAUNDRY AIDE
== END 2024-03-28 13:30 | disposition home or self-care (01) | DRG 949 ==
PROVIDERS: Admitting Provider Internal Medicine; PCP Family Medicine; Referring Provider Internal Medicine; Visit Provider Internal Medicine
DX: S06.5XAD Traumatic subdural hemorrhage with loss of consciousness status unknown, subsequent encounter (principal); D68.32 Hemorrhagic disorder due to extrinsic circulating anticoagulants; I11.0 Hypertensive heart disease with heart failure; I35.0 Nonrheumatic aortic (valve) stenosis; I48.0 Paroxysmal atrial fibrillation; E83.39 Other disorders of phosphorus metabolism; I50.9 Heart failure, unspecified; E78.00 Pure hypercholesterolemia, unspecified; K21.9 Gastro-esophageal reflux disease without esophagitis; W19.XXXD Unspecified fall, subsequent encounter; Z79.01 Long term (current) use of anticoagulants; R73.03 Prediabetes; Z79.899 Other long term (current) drug therapy
CPT/HCPCS: 36415; 80048; 80053; 81001; 82274; 83735; 84100; 85014; 85018; 85025; 85610; 92507; 92523; 97110; 97112; 97116; 97129; 97130; 97162; 97166; 97530; 97535; 97802

== ENCOUNTER 2024-04-01 16:51 | Outpatient (RCR) | payer MEDICARE, SELFPAY ==
--- NOTE | 2024-04-01 18:21 | HP.SP.EVAL ---
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: MT History Attending Doctor: Referring Doctor: Reason for Referral: COGNITIVE /RX HERE Medical Diagnosis: Subdural hematoma Previous speech therapy: No Other Relevant Medical History/Diagnoses/Surgery: Craniotomy related to subdural hematoma on 03/09/2024 Smoking Status: Never smoker Pain Is pain an issue with your current prescribed condition?: No Personal Preferred language: Chilean Patient Allergies Allergies Allergies: Allergies imipramine Adverse Reaction (Verified 03/08/24 17:25) Nausea metronidazole (From Flagyl) Adverse Reaction (Verified 03/08/24 17:25) Nausea CLQT CLQT CLQT Administered: Yes CLQT: Cognitive Linguistic Quick Test (CLQT) is a criterion - referenced assessment designed for adults between the ages of 18 and 89 with known or suspected neurological dysfuntions. The CLQT is to assess strength and weaknesses in five cognitive domains. Severity ratings are within normal limits, mild, moderate, severe deficits. The subtests are as follows: Date: 04/01/24 Attention Attention: WNL Memory Memory: WNL Executive Functions Executive Functions: WNL Visuospatial Skills Visuospatial Skills: WNL Composite Severity Rating Composite Severity Rating: WNL Clock Drawing Severity Rating Clock Drawing Severity Rating: WNL CLQT Comments Scores: -: - Attention: 193 - Memory: 159 - Executive Functions: 28 - Language: 31 - Visuospatial Skills: 89 - Clock Drawin Reference: Neuro-QoL instrument Radiation Oncology Patient Plan Plan Plan: Skilled speech therapy is not recommended at this time. Recommendations Treatment Warranted: No Education Patient Instruction Patient Education: Treatment Plan Person Taught: Patient Teaching Method: Discussion Response to teaching: Verbalize Understanding
== END 2024-04-01 19:00 | disposition home or self-care (01) ==
LOC: SP 16:51
PROVIDERS: PCP Family Medicine; Referring Provider Internal Medicine; Visit Provider Internal Medicine
DX: F09 Unspecified mental disorder due to known physiological condition (principal); S06.5X0D Traumatic subdural hemorrhage without loss of consciousness, subsequent encounter

== ENCOUNTER 2024-04-02 13:24 | Outpatient (RCR) | payer MEDICARE, SELFPAY ==
[2024-03-07 20:36] VITALS: BMI 33.5
[2024-04-02 13:59] LABS: International Normalized Ratio 2.3; Prothrombin Time (Protime)PT. 25.1 SECONDS (11.7-14.9)
== END 2024-04-06 18:00 | disposition home or self-care (01) ==
LOC: LAB 13:24
PROVIDERS: Family Provider Family Medicine; PCP Family Medicine; Referring Provider Internal Medicine Cardiovascular Disease; Visit Provider Internal Medicine Cardiovascular Disease
DX: I48.0 Paroxysmal atrial fibrillation (principal); Z79.01 Long term (current) use of anticoagulants
CPT/HCPCS: 36415; 85610

== ENCOUNTER → 2024-04-22 | Outpatient (CLI) | payer MEDICARE, SELFPAY ==
--- NOTE | 2024-04-22 09:59 | ECHOTEE_ITS ---
Reason For Study: Medication MALIKA probe 6VT-D (SN [id number]) passed without difficulty. No complications were noted. Versed 2 mg given slow IVP. Fentanyl 50 mcg given slow IVP. Cetacaine Topical Schaller given X3 orally. Performed a rapid injection of agitated mix of 9 cc saline and 1cc air to assess for atrial septal defect. Left Ventricle Normal LV size. Left ventricular systolic function is normal. The left ventricular ejection fraction is 55 %. No regional wall motion abnormalities noted. Right Ventricle Normal RV size. Normal systolic function. Atria Bubble contrast study is negative for PFO/ASD. Normal left atrium. No thrombus is detected in the left atrial appendage. Normal right atrium. Mitral Valve Normal mitral valve. Mild-Moderate (1-2+) eccentric mitral valve insufficiency. Aortic Valve Trisinus/trileaflet aortic valve. Mild focal aortic valve calcification. Peak aortic valve gradient 44 mmHg. Mean aortic valve gradient 24 mmHg. Moderate aortic stenosis. Pulmonic Valve Normal pulmonic valve. Vessels Normal aortic root. Pericardium No pericardial effusion. MMode/2D Measurements & Calculations LVOT diam: 2.0 cm LVOT area: 3.2 cm2 Doppler Measurements & Calculations Ao V2 max: 329.5 cm/sec LV V1 max: 95.4 cm/sec SV(LVOT): 67.9 ml Ao max P.5 mmHg LV V1 max P.7 mmHg Ao V2 mean: 225.9 cm/sec LV V1 mean P.0 mmHg Ao mean P.4 mmHg LV V1 mean: 65.2 cm/sec Ao V2 VTI: 74.1 cm LV V1 VTI: 21.0 cm AV (velocity ratio): 0.28 RON(I,D): 0.92 cm2 RON(V,D): 0.94 cm2 ECHO/Echo Transesophageal (MALIKA) Interpretation Summary Normal LV size. Left ventricular systolic function is normal. The left ventricular ejection fraction is 55 %. Mild focal aortic valve calcification. Mean aortic valve gradient 24 mmHg. Mild-Moderate (1-2+) eccentric mitral valve insufficiency. Moderate aortic stenosis. Ordering Physician: Reji Mason Referring Physician: Reji Mason Performed By: Jackie Funk RCS
== END | disposition home or self-care (01) ==
PROVIDERS: PCP Family Medicine; Referring Provider Internal Medicine Cardiovascular Disease; Visit Provider Internal Medicine Cardiovascular Disease
DX: I35.0 Nonrheumatic aortic (valve) stenosis (principal)
CPT/HCPCS: 93312; 93320; 93325; A4216

== ENCOUNTER 2024-04-24 15:25 | Outpatient (RCR) | payer MEDICARE, SELFPAY ==
[2024-04-06 21:36] VITALS: BMI 33.5
[2024-04-24 16:51] LABS: International Normalized Ratio 2.4; Prothrombin Time (Protime)PT. 25.7 SECONDS (11.7-14.9)
== END 2024-04-24 18:00 | disposition home or self-care (01) ==
LOC: LAB 15:25
PROVIDERS: Family Provider Family Medicine; PCP Family Medicine; Referring Provider Internal Medicine Cardiovascular Disease; Visit Provider Internal Medicine Cardiovascular Disease
DX: I48.0 Paroxysmal atrial fibrillation (principal); Z79.01 Long term (current) use of anticoagulants
CPT/HCPCS: 36415; 85610

== ENCOUNTER 2024-05-22 14:43 | Outpatient (RCR) | payer MEDICARE, SELFPAY ==
[2024-05-07 21:19] VITALS: BMI 33.5
[2024-05-22 16:33] LABS: International Normalized Ratio 2.2
== END 2024-05-22 18:00 | disposition home or self-care (01) ==
LOC: LAB 14:43
PROVIDERS: Family Provider Family Medicine; PCP Family Medicine; Referring Provider Internal Medicine Cardiovascular Disease; Visit Provider Internal Medicine Cardiovascular Disease
DX: I48.0 Paroxysmal atrial fibrillation (principal); Z79.01 Long term (current) use of anticoagulants
CPT/HCPCS: 36415; 85610

== ENCOUNTER 2024-06-21 13:50 | Outpatient (RCR) | payer MEDICARE, SELFPAY ==
[2024-06-07 20:47] VITALS: BMI 33.5
[2024-06-21 15:57] LABS: International Normalized Ratio 2.3; Prothrombin Time (Protime)PT. 25.4 SECONDS (11.7-14.9)
== END 2024-07-05 18:00 | disposition home or self-care (01) ==
LOC: LAB 13:50
PROVIDERS: Family Provider Family Medicine; PCP Family Medicine; Referring Provider Internal Medicine Cardiovascular Disease; Visit Provider Internal Medicine Cardiovascular Disease
DX: I48.0 Paroxysmal atrial fibrillation (principal); Z79.01 Long term (current) use of anticoagulants
CPT/HCPCS: 36415; 85610

== ENCOUNTER 2024-09-25 13:59 | Outpatient (RCR) | payer MEDICARE, SELFPAY ==
[2024-08-05 21:32] VITALS: BMI 33.5
[2024-09-25 16:16] LABS: International Normalized Ratio 2.3; Prothrombin Time (Protime)PT. 26.1 SECONDS (11.7-14.9)
== END 2024-09-25 18:00 | disposition home or self-care (01) ==
LOC: LAB 13:59
PROVIDERS: Family Provider Family Medicine; PCP Family Medicine; Referring Provider Internal Medicine Cardiovascular Disease; Visit Provider Internal Medicine Cardiovascular Disease
DX: Z79.01 Long term (current) use of anticoagulants
CPT/HCPCS: 36415; 85610

== ENCOUNTER 2024-10-25 09:58 | Emergency (ER) | payer MEDICARE, SELFPAY ==
[2024-10-25 09:59] VITALS: BP 133/111; PULSE 60; RESP 16; TEMP 36.6; O2SAT 100; BMI 31.1
[2024-10-25 10:41] LABS: Absolute Neutrophil Count 5.5 X10^3/uL (2.0-7.7); Basophil# 0.08 X10^3/uL; Eosinophil# 0.26 X10^3/uL; Eosinophils% 3.1 % (0-5); Hematocrit 43.4 % (40-54); Hemoglobin 15.2 g/dL (13.0-16.5); Lymphocyte % 22.9 % (19-41); Mean Corpuscular Volume 91.4 fL (80-94); Mean Platelet Vol. 11.4 fl (6.2-12.0); Monocyte# 0.57 X10^3/uL; Monocyte% 6.9 % (0-10); NRBC Flagged by Analyzer 0 % (0-5); Neutrophil # 5.47 X10^3/uL (2.7-7.7); Neutrophil % 65.7 % (47-70); Platelet Count 175 K/mm3 (150-450); RBC Distribution Width CV 12.8 % (11.6-14.6); RBC Distribution Width SD 43.5 fl (35.1-43.9); Red Blood Count 4.75 M/mm3 (4.6-6.2); White Blood Count 8.3 K/mm3 (4.4-11.0)
--- NOTE | 2024-10-25 11:16 | EDS_ITS ---
HPI <MARSHALL Anderson - Last Filed: 10/25/24 14:16> History of Present Illness Chief Complaint: Abd Pain Narrative Narrative: 78-year-old male with PMH of HTN, HLD, A-fib, diverticulitis with partial colon resection presents with right lower quadrant abdominal pain that woke him from sleep last night. It is continued throughout the day when he sits up or moves. He denies trauma or change in activity that would have strained his abdominal wall. States if he sitting still he does not have the pain really. He denies fever or chills, chest pain or shortness of breath, nausea or vomiting, diarrhea, melena hematochezia, or urinary symptoms. He states he usually urinates frequently due to BPH. PFSH <MARSHALL Anderson - Last Filed: 10/25/24 14:16> [facility] Medical History Right shoulder pain S/P craniotomy Subdural hematoma Diastolic dysfunction Glaucoma BPH (benign prostatic hyperplasia) Diverticulosis Other persistent atrial fibrillation CHF (congestive heart failure) CHF exacerbation Pneumonia ACG (angle-closure glaucoma) Aortic stenosis Aortic stenosis with bicuspid valve Essential (primary) hypertension Hyperlipidemia Paroxysmal atrial fibrillation Diverticulitis Home Medications ?Medication ?Instructions ?Recorded ?Last Taken ?Type omega 3-dyc-qip-fish oil 300 1 cap PO BID Supplement 1 05/21/16 10/16/18 History mg-1,000 mg capsule simvastatin 40 mg tablet 40 mg PO QHS Cholesterol 04/21/24 History latanoprost 0.005 % eye drops 1 drp ophthalmic (eye) Q HS eye 90 04/11/17 10/16/18 History days brimonidine 0.2 % eye drops 1 drp ophthalmic (eye) TID eye 10/27/20 03/19/24 History metoprolol tartrate 25 mg tablet 25 mg PO BID blood pr essure #180 12/26/23 04/22/24 Rx tabs losartan 25 mg tablet 25 mg PO DAILY blood pressur e #90 01/11/24 04/22/24 Rx TABLETS dorzolamide 22.3 mg-timolol 6.8 1 drp ophthalmic (eye) BID eye 01/20/24 03/19/24 History mg/mL eye drops acetaminophen 500 mg tablet 1,000 mg PO Q8 PRN fever o r pain 03/19/24 Unknown History tamsulosin 0.4 mg capsule 0.4 mg PO QHS BPH 03/19/24 1 06/22/23 History psyllium husk 3 gram/5.8 gram oral See Rx Instructions .Route 03/27/24 Unknown Rx powder .COMPLEX #662 grams warfarin 5 mg tablet (Jantoven) 5 mg PO DINNER #30 tab s 03/27/24 04/21/24 Rx Allergy/AdvReac Type Severity Reaction Status Date / Time imipramine AdvReac Nausea Verified 10/25/24 10:01 metronidazole (From Flagyl) AdvReac Nausea Verified 10/25/24 10:01 Family History Unknown No problems noted. Mother CAD (coronary artery disease) Surgical History History of bambi hole surgery S/P neurological surgery Status post glaucoma surgery History of shoulder surgery Cataract extraction status of right eye Cataract extraction status of left eye S/p bilateral carpal tunnel release History of partial colectomy History of carpal tunnel surgery Social History household members: spouse Smoking Status: Never smoker second hand exposure: No alcohol intake: never substance use type: does not use caffeine: Yes Type: coffee eating out: 1-3 times/week during the past year weight has: remained stable what type of physical activity do you participate in: none seatbelt use: always do you feel safe at home: Yes ROS <MARSHALL Anderson - Last Filed: 10/25/24 14:16> ROS ED ROS Narrative Constitutional: Negative for fever, chills, malaise. CVS: Negative for chest pain. Respiratory: Negative for shortness of breath. GI: Positive for abdominal pain. Negative for nausea, vomiting, diarrhea, constipation, melena, hematochezia. : Negative for dysuria, hematuria. EXAM <MARSHALL Anderson - Last Filed: 10/25/24 14:16> Physical Exam Narrative Exam Narrative: CONST: Patient sitting in no acute distress. EYES: Normal inspection. NECK: Normal inspection. RESP: No respiratory distress, CTAB. CVS: Regular rate and rhythm, no murmur, no gallop. ABD: Soft and nontender, no guarding or rebound, nondistended, no hepatosplenomegaly. No palpable hernia. SKIN: Color normal, no rash, warm, dry, intact. EXTREMITIES: Normal appearance, no pedal edema. NEURO: Alert and answering questions appropriately. PSYCH: Normal affect. Const Vital Signs: 10/25/24 09:59 10/25/24 11:59 10/25/24 13:00 Temperature 97.8 F 98 F Temperature Source Oral Pulse Rate 60 61 89 Respiratory Rate 16 18 18 Blood Pressure 133/111 H 129/86 H 141/72 H Blood Pressure Mean 118 100 95 Pulse Ox 100 98 99 Oxygen Delivery Method Room Air Room Air 10/25/24 13:42 Temperature Temperature Source Pulse Rate 52 L Respiratory Rate 18 Blood Pressure 152/97 H Blood Pressure Mean 115 Pulse Ox 93 Oxygen Delivery Method Room Air <Mariano Juárez MD - Last Filed: 10/25/24 14:26> Physical Exam Const Vital Signs: 10/25/24 09:59 10/25/24 11:59 10/25/24 13:00 Temperature 97.8 F 98 F Temperature Source Oral Pulse Rate 60 61 89 Respiratory Rate 16 18 18 Blood Pressure 133/111 H 129/86 H 141/72 H Blood Pressure Mean 118 100 95 Pulse Ox 100 98 99 Oxygen Delivery Method Room Air Room Air 10/25/24 13:42 Temperature Temperature Source Pulse Rate 52 L Respiratory Rate 18 Blood Pressure 152/97 H Blood Pressure Mean 115 Pulse Ox 93 Oxygen Delivery Method Room Air [facility] <MARSHALL Anderson - Last Filed: 10/25/24 14:16> [facility] Narrative Medical decision making narrative: Differential includes but not limited to appendicitis, hernia, UTI, kidney stone 78-year-old male has right lower quadrant pain that started overnight and hurts with movement. He appears well and nontoxic. Vital signs stable. Abdomen is soft and nontender but he has reproducible right lower quadrant pain with movement. There is no palpable hernia. There is no overlying skin changes or signs of zoster. He has no back pain or pain radiating down the leg. CBC, BMP, lipase overall unremarkable. UA negative. CT scan shows chronic findings of enlarged prostate, status post partial colectomy and appendix removal, and a small fat-containing right inguinal hernia. I do not think any of this is contributory towards his symptoms and this is more likely an abdominal wall strain. I recommended Tylenol and follow-up with his primary care doctor. Return precautions discussed. He was discharged in stable condition. History & Record Review Discussion w/independent historian: Patient and Significant other Additional record(s) reviewed:: Prior ED visit and Prior labs Lab Data Attestation: I reviewed the patient's lab results. Labs: Laboratory Results - last 24 hr 10/25/24 10/25/24 10:30 12:10 WBC 8.3 RBC 4.75 Hgb 15.2 Hct 43.4 MCV 91.4 MCH 32.0 MCHC 35.0 RDW Std Deviation 43.5 RDW Coeff of Edel 12.8 Plt Count 175 MPV 11.4 Immature Gran % (Auto) 0.400 Neut % (Auto) 65.7 Lymph % (Auto) 22.9 Amelia % (Auto) 6.9 Eos % (Auto) 3.1 Baso % (Auto) 1.0 Absolute Neuts (auto) 5.5 Absolute Lymphs (auto) 1.90 Nucleated RBC % 0 Sodium 137 Potassium 4.0 Chloride 106 Carbon Dioxide 19.0 L Anion Gap 12 BUN 17 Creatinine 1.18 Estim Creat Clear Calc 50.80 Est GFR (MDRD) Non-Af 64 BUN/Creatinine Ratio 14.7 Glucose 170 H Calcium 9.3 Total Bilirubin 0.55 AST 35 ALT 37 Alkaline Phosphatase 80 Total Protein 6.5 Albumin 4.2 Globulin 2.3 Albumin/Globulin Ratio 1.8 Lipase 36 Urine Color Yellow Urine Clarity Clear Urine pH 6.5 Ur Specific Foster 1.010 Urine Protein 15 H Urine Glucose (UA) Normal Urine Ketones Negative Urine Occult Blood Negative Urine Nitrite Negative Urine Bilirubin Negative Urine Urobilinogen Normal Ur Leukocyte Esterase Negative Urine RBC 0 SEEN Urine WBC 0 SEEN Ur Squamous Epith Cells 0 SEEN Urine Bacteria 0 SEEN Urine Mucus 0 SEEN Radiography Diagnostic Testing: Clinical Impression(s) from Imaging Studies Abdomen/Pelvis CT 10/25/24 11:40 IMPRESSION: 1. Marked prostatomegaly. 2. Bilateral varicoceles. 3. Status post partial colectomy. The colo colic anastomosis is unremarkable. 4. There is a right inguinal hernia containing normal fat. 5. Other findings as noted. Reading Location: [facility] <Mariano Juárez MD - Last Filed: 10/25/24 14:26> [facility] Lab Data Labs: Laboratory Results - last 24 hr 10/25/24 10/25/24 10:30 12:10 WBC 8.3 RBC 4.75 Hgb 15.2 Hct 43.4 MCV 91.4 MCH 32.0 MCHC 35.0 RDW Std Deviation 43.5 RDW Coeff of Edel 12.8 Plt Count 175 MPV 11.4 Immature Gran % (Auto) 0.400 Neut % (Auto) 65.7 Lymph % (Auto) 22.9 Amelia % (Auto) 6.9 Eos % (Auto) 3.1 Baso % (Auto) 1.0 Absolute Neuts (auto) 5.5 Absolute Lymphs (auto) 1.90 Nucleated RBC % 0 Sodium 137 Potassium 4.0 Chloride 106 Carbon Dioxide 19.0 L Anion Gap 12 BUN 17 Creatinine 1.18 Estim Creat Clear Calc 50.80 Est GFR (MDRD) Non-Af 64 BUN/Creatinine Ratio 14.7 Glucose 170 H Calcium 9.3 Total Bilirubin 0.55 AST 35 ALT 37 Alkaline Phosphatase 80 Total Protein 6.5 Albumin 4.2 Globulin 2.3 Albumin/Globulin Ratio 1.8 Lipase 36 Urine Color Yellow Urine Clarity Clear Urine pH 6.5 Ur Specific Foster 1.010 Urine Protein 15 H Urine Glucose (UA) Normal Urine Ketones Negative Urine Occult Blood Negative Urine Nitrite Negative Urine Bilirubin Negative Urine Urobilinogen Normal Ur Leukocyte Esterase Negative Urine RBC 0 SEEN Urine WBC 0 SEEN Ur Squamous Epith Cells 0 SEEN Urine Bacteria 0 SEEN Urine Mucus 0 SEEN Radiography Diagnostic Testing: Clinical Impression(s) from Imaging Studies Abdomen/Pelvis CT 10/25/24 11:40 IMPRESSION: 1. Marked prostatomegaly. 2. Bilateral varicoceles. 3. Status post partial colectomy. The colo colic anastomosis is unremarkable. 4. There is a right inguinal hernia containing normal fat. 5. Other findings as noted. Reading Location: [facility] Treatment and Re-Evaluation :: Dr. Juárez: Patient seen and evaluated with DAVE. I personally interviewed and examined the patient. I was involved in all aspects of patient's orders, interpretation of results, and treatment. History: Right lower quadrant abdominal pain worse with hunching over/bending over. Exam: Afebrile. Vital signs noted. Nontoxic-appearing. Cardiovascular examination regular rate and rhythm, lungs clear to auscultation bilaterally. Abdomen soft, nontender, with positive bowel sounds. Minimal tenderness to palpation right lower quadrant, no guarding or rebound. No peritoneal signs. Check labs. Check CT. On review of the radiology report, appendix is surgically absent. As abdomen remains soft, I feel he can be discharged to follow-up with his primary care provider. Patient reassured. Disposition discharged home in stable condition. Discharge Plan Triage Chief Complaint: Abd Pain ED Midlevel Provider: Fariba Guaman ED Provider: Mariano Juárez Dx/Rx/DC Orders Clinical Impression: Abdominal pain, RLQ Instructions: Abdominal Pain Prescriptions: No Action latanoprost 0.005 % drops 1 drp OPHTHALMIC QHS 90 Days Patient Comments: brimonidine 0.2 % drops 1 drp ophthalmic (eye) TID simvastatin 40 MG tablet 40 mg PO QHS Patient Comments: Cholesterol omega 6-mju-qdd-fish oil 1 EACH capsule 1 cap PO BID Patient Comments: Supplement dorzolamide-timolol 22.3-6.8 mg/mL drops 1 drp ophthalmic (eye) BID acetaminophen 500 mg tablet 1,000 mg PO Q8 PRN (Reason: fever or pain) tamsulosin 0.4 MG capsule 0.4 mg PO QHS psyllium husk 3 gram/5.8 gram powder See Rx Instructions .ROUTE .COMPLEX Qty: 662 0RF Rx Instructions: take 1 tablespoon in water twice a day warfarin [Jantoven] 5 mg Tablet 5 mg PO DINNER Qty: 30 0RF Protocol: Dose Management Condition: Monday Dose/Route: 2.5 mg Instruction: 0.5 x 5 mg tablets Condition: Monday Dose/Route: 5 mg Instruction: 1 x 5 mg tablet Condition: Monday Dose/Route: 5 mg Instruction: 1 x 5 mg tablet Condition: Monday Dose/Route: 5 mg Instruction: 1 x 5 mg tablet Condition: Dose/Route: 5 mg Instruction: 1 x 5 mg tablet Condition: Monday Dose/Route: 5 mg Instruction: 1 x 5 mg tablet Condition: Monday Dose/Route: 5 mg Instruction: 1 x 5 mg tablet Protocol Text: Adjustment Start Date: Monday09/25/24 INR Value: 2.3 INR Date: 09/25/24 Recheck Date: 10/25/24 metoprolol tartrate 25 mg tablet 25 mg PO BID Qty: 180 3RF losartan 25 mg tablet 25 mg PO DAILY Qty: 90 3RF Primary Care Provider: Jose Daniel Stanford Referrals: Jose Daniel Stanford MD [Primary Care Provider] - Activity Restrictions/Additional Instructions: Your CT scan shows no new findings to explain your pain. May have an abdominal wall strain and I recommend Tylenol every 6 hours as needed. Skin shows you have a very enlarged prostate and you can follow-up with urology. You also have a small right fat-containing inguinal hernia. Print Language: Danish Disposition Disposition: Home, Self Care Discharge Date/Time: 10/25/24 13:52
[2024-10-25 11:30] LABS: ALB/GLOB Ratio 1.8 RATIO (0.9-2.4); AST(SGOT) 35 U/L (<=37); Alanine Aminotransfer ALT/SGPT 37 U/L (<=46); Albumin, Serum 4.2 g/dL (3.4-4.8); Alkaline Phosphatase 80 U/L (40-129); Anion Gap 12 (5-15); BUN 17 mg/dL (4-19); BUN/Creat Ratio 14.7 RATIO (10-20); Calcium,Total 9.3 mg/dL (7.6-11.0); Chloride 106 mmol/L (98-108); Creatinine, Serum 1.18 mg/dL (0.70-1.20); EST Glomerular Filtration Rate 64 (>60); Globulin 2.3 g/dL (2.2-4.2); Glucose 170 mg/dL (70-99); Lipase 36 U/L (13-75); Protein, Total 6.5 g/dL (5.9-8.4); Sodium Level 137 mmol/L (133-145); Total Bilirubin 0.55 mg/dL (0.00-1.30)
--- NOTE | 2024-10-25 11:40 | CT_ITS ---
PROCEDURE: ABDOMEN/PELVIS W IV CONT ONLY 10/25/2024 REASON FOR EXAM: RLQ PAIN TECHNIQUE: ABDOMEN/PELVIS W IV CONT ONLY. Coronal and Sagittal reconstruction series were provided. CONTRAST: Isovue-300 VOLUME: 94 mL One or more dose reduction techniques were used (e.g., Automated exposure control, adjustment of the mA and/or kV according to patient size, use of iterative reconstruction technique. RADIATION DOSE SUMMARY: CTDlvol: 31.47 mGy DLP: 1020.51 mGycm COMPARISON: None. FINDINGS: Lung bases: The lung bases are clear. There are no pleural effusions. The heart size is normal. There is no pericardial effusion. There is calcific vascular disease of the coronary arteries. Liver: Normal. Gallbladder: Normal. Spleen: Benign calcified granulomas. Pancreas: Normal. Adrenals: Normal. Kidneys: There is a 1.4 cm in diameter cortical cyst in the interpolar region of the left kidney. The right kidney is unremarkable. Bladder: Normal unenhanced appearance. Reproductive Organs: The prostate gland measures 7.5 x 6.4 x 6.1 cm. The seminal vesicles are unremarkable. There is no free fluid in the pelvis. There is no inguinal or pelvic lymphadenopathy. There are bilateral varicoceles. Bowel: There is a staple line in the mid sigmoid colon consistent with partial distal colonic resection. The colo colic anastomosis is unremarkable. There are scattered colonic diverticuli without evidence of acute inflammation. Appendix: Surgically absent. Lymph nodes: There is no intra or retroperitoneal lymphadenopathy. Vasculature: There is calcific vascular disease of the abdominal aorta. The inferior vena cava and portal venous system are normal. Peritoneum / Retroperitoneum: There is no intra or retroperitoneal lymphadenopathy. There is a right inguinal hernia containing normal fat measuring 2.6 cm in diameter. Bones: There is degenerative disc disease, L5-S1. 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 CT/Abdomen/Pelvis W IV Cont ONLY IMPRESSION: 1. Marked prostatomegaly. 2. Bilateral varicoceles. 3. Status post partial colectomy. The colo colic anastomosis is unremarkable. 4. There is a right inguinal hernia containing normal fat. 5. Other findings as noted. Reading Location: [id number]
[2024-10-25 11:59] VITALS: BP 129/86; PULSE 61; RESP 18; O2SAT 98
[2024-10-25 12:27] LABS: Bacteria 0 SEEN /hpf (None Seen); Mucous, Urine 0 SEEN /hpf (<or=2+); Red Blood Cells-Urine 0 SEEN /hpf (0-5); Squamous Epithelial Cells - UA 0 SEEN /hpf (0-5); White Blood Cells 0 SEEN /hpf (0-5)
[2024-10-25 12:29] LABS: Color, Urine Yellow (Yellow); Glucose, Dipstick Normal (Normal); Ketone-Dipstick Negative (Negative); Leukocyte Esterase-Dipstick Negative /ul (Negative); Nitrite-Dipstick Negative (Negative); Occult Blood-Urine Negative /ul (Negative); Protein-Dipstick 15 mg/dl (Negative); Urine Bilirubin Dipstick Negative (Negative); Urine Clarity Clear (Clear); Urine Urobilinogen Normal (Normal); Urine pH 6.5 (5.0 - 8.0)
[2024-10-25 13:00] VITALS: BP 141/72; PULSE 89; RESP 18; TEMP 36.6; O2SAT 99
[2024-10-25 13:42] VITALS: BP 152/97; PULSE 52; RESP 18; O2SAT 93
== END 2024-10-25 13:52 | disposition home or self-care (01) ==
PROVIDERS: Physician Assistant; Emergency Provider Emergency Medicine; PCP Family Medicine; Visit Provider Emergency Medicine
DX: R10.31 Right lower quadrant pain (principal); E78.5 Hyperlipidemia, unspecified; Z90.49 Acquired absence of other specified parts of digestive tract; K40.90 Unilateral inguinal hernia, without obstruction or gangrene, not specified as recurrent; I10 Essential (primary) hypertension; Z87.19 Personal history of other diseases of the digestive system; N40.0 Benign prostatic hyperplasia without lower urinary tract symptoms
CPT/HCPCS: 74177; 80053; 81001; 83690; 85025; 99283; Q9967; A4216

== ENCOUNTER 2024-10-31 11:11 | Outpatient (RCR) | payer MEDICARE, SELFPAY ==
[2024-10-05 20:16] VITALS: BMI 33.5
[2024-10-31 12:08] LABS: International Normalized Ratio 2.4
== END 2024-10-31 18:00 | disposition home or self-care (01) ==
LOC: LAB 11:11
PROVIDERS: Family Provider Family Medicine; PCP Family Medicine; Referring Provider Internal Medicine Cardiovascular Disease; Visit Provider Internal Medicine Cardiovascular Disease
DX: Z79.01 Long term (current) use of anticoagulants
CPT/HCPCS: 36415; 85610

== ENCOUNTER → 2024-11-15 | Outpatient (CLI) | payer MEDICARE, SELFPAY ==
--- NOTE | 2024-11-15 13:47 | ECHOD_ITS ---
Reason For Study Reason For Study: MURUR Procedure This was a 2D Doppler, Color Flow transthoracic echocardiogram. Exam performed in department. Left Ventricle Normal LV size. The left ventricular ejection fraction is 70 %. No regional wall motion abnormalities noted. Right Ventricle Normal RV size. Normal systolic function. Atria The left atrium is mildly enlarged. Normal right atrium. Mitral Valve Bileaflet diffuse mitral valve thickening. Mild (1+) eccentric mitral valve insufficiency. Tricuspid Valve Normal tricuspid valve. Aortic Valve Trisinus/trileaflet aortic valve. Moderate focal aortic valve thickening. Peak aortic valve gradient 50 mmHg. Mean aortic valve gradient 30 mmHg. Moderate aortic stenosis. Pulmonic Valve Normal pulmonic valve. Great Vessels Normal aortic root. The pulmonary artery is normal size. Inferior vena cava collapse with sniff. Pericardium/Pleural No pericardial effusion. MMode/2D Measurements & Calculations LVIDd: 4.3 cm IVSd: 1.1 cm LVOT diam: 2.1 cm LVIDs: 2.9 cm LVPWd: 1.4 cm LVOT area: 3.4 cm2 FS: 31.4 % LAV(MOD-bp): 67.1 ml LVAd ap4: 25.1 cm2 SV(MOD-sp4): 49.6 ml LAV(MOD-bp) Indexed: 36.3 ml/m2 LVLd ap4: 7.8 cm SI(MOD-sp4): 26.8 ml/m2 LAV(MOD-sp2): 56.7 ml EDV(MOD-sp4): 69.3 ml LAV(MOD-sp4): 72.0 ml EDV(sp4-el): 68.7 ml LVAs ap4: 11.3 cm2 LVLs ap4: 6.1 cm ESV(MOD-sp4): 19.7 ml ESV(sp4-el): 17.7 ml EF(MOD-sp4): 71.6 % EF(sp4-el): 74.2 % SV(sp4-el): 51.0 ml LA A4 area: 22.5 cm2 RA A4 area: 16.7 cm2 Time Measurements MV dec time: 0.24 sec Doppler Measurements & Calculations MV E max elfego: 71.3 cm/sec Lat Peak E' Elfego: 9.9 cm/sec Med Peak E' Elfego: 8.0 cm/sec MV A max elfego: 64.5 cm/sec E/E' lat: 7.2 E/E' med: 9.0 MV E/A: 1.1 MV V2 max: 83.6 cm/sec Ao V2 max: 350.6 cm/sec MV max P.8 mmHg MV dec slope: 291.1 cm/sec2 Ao max P.6 mmHg MV V2 mean: 35.6 cm/sec Ao V2 mean: 258.5 cm/sec MV mean P.69 mmHg Ao mean P.7 mmHg MV V2 VTI: 24.3 cm Ao V2 VTI: 88.1 cm ECHO/Echo Complete Interpretation Summary Normal LV size. The left ventricular ejection fraction is 70 %. The left atrium is mildly enlarged. Mild (1+) eccentric mitral valve insufficiency. Mean aortic valve gradient 30 mmHg. Moderate aortic stenosis. Moderate focal aortic valve thickening. Ordering Physician: Yu Dawkins Referring Physician: Yu Dawkins Performed By: Jackie Morrow and Student
== END | disposition home or self-care (01) ==
LOC: CVS 13:44
PROVIDERS: PCP Family Medicine; Referring Provider Physician Assistant Medical; Visit Provider Physician Assistant Medical
DX: I35.0 Nonrheumatic aortic (valve) stenosis (principal); Q23.81 Bicuspid aortic valve
CPT/HCPCS: 93306

== ENCOUNTER → 2024-12-25 | Outpatient (CLI) | payer MEDICARE, SELFPAY ==
[2024-12-25 17:13] LABS: AST(SGOT) 34 U/L (<=37); Alanine Aminotransfer ALT/SGPT 33 U/L (<=46); Albumin, Serum 4.3 g/dL (3.4-4.8); Alkaline Phosphatase 84 U/L (40-129); Bilirubin, Direct 0.21 mg/dL (0.00-0.30); Cholesterol 171 mg/dL (<=200); Globulin 2.3 g/dL (2.2-4.2); Low Density Lipoprotein Calc. 73 mg/dL; Triglycerides 289 mg/dL; Very Low Density Lipoprotein 58 mg/dL (5-40); cholesterol:hdl ratio screen 4.28
== END | disposition home or self-care (01) ==
LOC: LAB 14:41
PROVIDERS: PCP Family Medicine; Referring Provider Student in an Organized Health Care Education/Training Program; Visit Provider Student in an Organized Health Care Education/Training Program
DX: E78.5 Hyperlipidemia, unspecified (principal)
CPT/HCPCS: 36415; 80061; 80076

== ENCOUNTER 2025-02-04 12:23 | Outpatient (RCR) | payer MEDICARE, SELFPAY ==
[2025-01-27 14:10] LABS: Prothrombin Time (Protime)PT. 17.2 SECONDS (11.7-14.9)
[2025-02-04 14:14] LABS: Prothrombin Time (Protime)PT. 23.7 SECONDS (11.7-14.9)
== END 2025-02-04 18:00 | disposition home or self-care (01) ==
LOC: LAB 12:23
PROVIDERS: Family Provider Family Medicine; PCP Family Medicine; Referring Provider Internal Medicine Cardiovascular Disease; Visit Provider Internal Medicine Cardiovascular Disease
DX: Z79.01 Long term (current) use of anticoagulants
CPT/HCPCS: 36415; 85610

== ENCOUNTER 2025-03-26 15:25 | Outpatient (RCR) | payer MEDICARE, SELFPAY ==
[2025-03-26 16:01] LABS: Prothrombin Time (Protime)PT. 22.8 SECONDS (11.7-14.9)
== END 2025-04-05 18:00 | disposition home or self-care (01) ==
LOC: LAB 15:25
PROVIDERS: Family Provider Family Medicine; PCP Family Medicine; Referring Provider Internal Medicine Cardiovascular Disease; Visit Provider Internal Medicine Cardiovascular Disease
DX: I48.0 Paroxysmal atrial fibrillation (principal); Z79.01 Long term (current) use of anticoagulants
CPT/HCPCS: 36415; 85610